=== PATIENT | female | born 1970 | race Caucasian/White ===

== ENCOUNTER 2018-01-30 21:07 | Inpatient (IN) | payer OTHER ==
[~2018-01-30] VITALS: Ht 162.6 cm; Wt 100.5 kg
--- NOTE | ~2018-01-30 | P ---
[facility] [place] [address] PROCEDURE REPORT Name: KARTHIK WEIR PHANI Room #: 407-P ADM IN M.R.#: [id number] Admission: 01/30/18 Attend Phys: Celestine Marquez MD Discharge: Date of : 66 Report #: [id number] THIS REPORT FOR: //name// CC: FAM physician/PCP Abdulaziz Tompkins MD DATE OF SERVICE: 01/31/2018 BRIEF HISTORY: The patient is a 47-year-old woman who came to [facility] from [facility] with reported abdominal pain and also history of black stools with red blood mixed with the stools. She had an upper endoscopy at [facility] about 2 weeks ago and reportedly had multiple antral ulcers and also retained foods. Recent gastric emptying study from [facility] was normal. Endoscopic biopsies were negative for Helicobacter pylori. PREOPERATIVE DIAGNOSES: Abdominal pain and melanotic stools. POSTOPERATIVE DIAGNOSES: 1. Moderately severe diffuse gastritis. 2. Retained bilious material in stomach. 3. Deformity of antral stomach consistent with remote ulcer disease, healed. 4. Small hiatus hernia. 5. Thickened folds, antrum of the stomach. MEDICATIONS: Deep sedation with propofol per Anesthesia. SPECIMEN: Biopsy of thicken fold antrum of the stomach. ESTIMATED BLOOD LOSS: 3 mL. PROCEDURE: EGD with biopsy. FINDINGS: Prior to propofol sedation, procedure of upper endoscopy was discussed with the patient as well as potential risks and its complications. She indicates she understands and desires to proceed. DESCRIPTION OF PROCEDURE: With the patient in left lateral decubitus position, the Fuji video endoscope was inserted in the cervical esophagus under direct vision without difficulty. Examination of this organ through its entire length revealed normal esophageal mucosa down in the squamocolumnar junction. Squamocolumnar junction was inspected and noted to be within normal limits. Intermittently, small hiatus hernia was seen. No mucosal abnormalities were seen. Scope was advanced in the stomach, which was examined on end view as well as retroflexed views. There were no retained solids within the stomach. [facility] [address] [place] [address] PROCEDURE REPORT Name: KARTHIK WEIR [facility] Room #: 407-P [facility] IN M.R.#: [id number] Admission: 01/30/18 Attend Phys: Celestine Marquez MD Discharge: Date of : 66 Report #: [id number] However, there was a rather large amount of retained bilious material and yellowish sludge-like material. We vigorously irrigated and lavaged the stomach. We were able to remove much of this material, but not every last bit of it. Examination of the mucosa on end view as well as retroflexed views revealed diffuse edema and erythema. There was some of folds in the antrum of the stomach. A couple erosions were seen, but no definite ulcers were seen. There were no definite erosions. We fully insufflated the stomach with air, suctioned away as much bilious material as could be seen. There was good flattening of the folds in the proximal stomach. Multiple biopsies were obtained from the thickened folds in the antrum. Pylorus was normal. Duodenal bulb was normal. The second and third portion of duodenum were normal. The duodenal papilla was identified and noted to be within normal limits. At that point, the scope was slowly withdrawn and careful circumferential views confirmed the above findings. The patient tolerated the procedure well. DISPOSITION: The patient with abdominal pain, reported melanotic stools. I do not see an obvious source for bleeding. She does have what appear to be some erosions, but no active ulcer crater at this time, although it appears that she has had significant ulcer disease in the past. I would agree with the proton pump inhibitor. She may have retained bile in the stomach due to previous cholecystectomy. Sucralfate would certainly be reasonable. We will follow up on biopsies obtained today. It is unclear to me whether or not she has had significant gastrointestinal bleeding. We will obtain stool Hemoccults for further evaluation and monitoring and also continue to monitor hemoglobin. The patient reports she has had 14 surgeries on her abdomen and pelvis including surgeries for endometriosis as well as multiple surgeries for adhesions. Recent CT done at [facility] did not reveal any acute abnormalities. I would not pursue surgery unless she has signs of obstruction. Her history of pancreatitis is noted. There was some replacement of the pancreas with fat, but calcifications were not described. If symptoms persist, may need to consider the evaluation for chronic pancreatitis, although I think that is less likely. Her pain may be a result of her previous surgeries and adhesions. We will resume diet at this time. <ELECTRONICALLY SIGNED> By: Arslan Morales MD 02/02/18 1408 1308 0020 Arslan Morales MD /charlie
--- NOTE | ~2018-01-30 | P ---
[facility] [place] [address] PROCEDURE REPORT Name: KARTHIK WEIR PHANI Room #: 407-P ADM IN M.R.#: [id number] Admission: 01/30/18 Attend Phys: Celestine Marquez MD Discharge: Date of : 66 Report #: [id number] THIS REPORT FOR: //name// CC: COLLIN physician/PCP Celestine Marquez MD DATE OF SERVICE: 02/03/2018 PROCEDURE PERFORMED: Colonoscopy with polypectomy. HISTORY OF PRESENT ILLNESS: The patient is a 47-year-old female who was admitted with abdominal pain as well as anemia. She has a history of melena and hematochezia as well. Dr. Morales, my partner performed an upper endoscopy on her on Saturday, which showed few small erosions and mild gastritis. The patient is currently on PPI therapy and Carafate. She has had multiple abdominal surgeries apparently for abdominal pain and adhesions in the past. She also reports bright red blood per rectum with each bowel movement for the last 1-2 weeks. She is adopted. No known family history of colon cancer. She does report constipation and diarrhea, but typically more on the constipated side. DESCRIPTION OF PROCEDURE: The risks and benefits of the procedure were explained to the patient, those risks including but not limited to bleeding, perforation and the risk of sedation. She understood these risks and gave informed consent. Sedation was given using propofol per Anesthesia. Next, a digital rectal exam was initially performed, which showed external hemorrhoids, otherwise normal. Next, using a standard Olympus colonoscope, the scope was placed in the patient's anus and advanced under direct vision to the cecum. The overall prep was good. The cecum and ileocecal valve were normal in appearance. Ascending, transverse and descending colon were normal. In the sigmoid colon, a 6 mm sessile polyp was noted. This was removed by snare cautery, otherwise normal. The rectal mucosa was normal. On retroflexion, no abnormalities were noted. Close examination of the anal canal showed a medium-sized external hemorrhoid, nonbleeding as well as an anal fissure, nonbleeding. The scope was then withdrawn and the procedure terminated. The patient tolerated the procedure well. IMPRESSION: 1. Colonic polyp. 2. External hemorrhoid. 3. Anal fissure. 4. Otherwise, normal colonoscopy. RECOMMENDATIONS: 1. Await biopsy results. 2. If polyp is hyperplastic, repeat in 10 years; if adenomatous polyp, repeat [address] [address] PROCEDURE REPORT Name: KARTHIK WEIR [facility] Room #: 407-P [facility] IN M.R.#: [id number] Admission: 01/30/18 Attend Phys: Celestine Marquez MD Discharge: Date of : 66 Report #: [id number] in 5 years. 3. Bright red blood per rectum, likely secondary to anal fissure and/or external hemorrhoid. Recommend high fiber diet and Analpram. 4. Etiology of abdominal pain is unclear. Would continue PPI therapy. Thank you for allowing me to participate in her care. <ELECTRONICALLY SIGNED> By: David Edmond MD 02/03/18 1247 1105 1132 David Edmond MD /nt
--- NOTE | ~2018-01-30 | S ---
[facility] [place] [address] SURGICAL PATH RPT PROCEDURE Name: KARTHIK ACOSTA PHANI Room #: 407-P DIS IN M.R.#: [id number] Admission: 01/30/18 Date of : 66 Discharge: 02/03/18 Report #: [id number] Path Case #: [id number] PATHOLOGY REPORT COLLECTION DATE: 02/03/2018 RECEIVED DATE: 02/03/2018 SUBMITTING PHYS: Dr. David Edmond OTHER PHYS: Dr. Celestine Marquez SPECIMEN(S) RECEIVED: A.Sigmoid polyp * * * * * * * * * * * * FINAL DIAGNOSIS: "Sigmoid polyp", biopsy: - Tubular adenoma; no high-grade dysplasia. (CLW:natalya; 02/04/2018) PATHOLOGIST: Beatriz Cameron M.D. REPORT ELECTRONICALLY SIGNED BY: Beatriz Cameron M.D. DATE/TIME: 02/04/2018 17:51 * * * * * * * * * * * * GROSS PATHOLOGY: The specimen is received in formalin, labeled "Karthik Acosta, polyp at sigmoid colon," and consists of a polypoid segment of giles soft tissue measuring 0.6 x 0.5 x 0.4 cm. It is inked, bisected, and entirely submitted in cassette A1. (SDY; 02/03/2018) CLINICAL HISTORY: Minor, epigastric pain, hematochezia Colon polyp, hemorrhoids, fissure INITIAL CPT CODE(S): A; 06632 Professional services performed by [facility] at [facility] [address] [place] [address] Technical services performed by [facility] at [address] [place] [address]. [facility] [address] [place] [address] SURGICAL PATH RPT PROCEDURE Name: KARTHIK ACOSTA PHANI Room #: 407-P DIS IN M.R.#: [id number] Admission: 01/30/18 Date of : 66 Discharge: 02/03/18 Report #: [id number] Path Case #: [id number] [place] [id number] [address] PHONE: [phone] DIRECTOR: Joseph Barnhart M.D. * * * END OF REPORT * * *
--- NOTE | ~2018-01-30 | S ---
[facility] [place] [address] SURGICAL PATH RPT PROCEDURE Name: KARTHIK ACOSTA PHANI Room #: 407-P DIS IN M.R.#: [id number] Admission: 01/30/18 Date of : 66 Discharge: 02/03/18 Report #: [id number] Path Case #: [id number] PATHOLOGY REPORT COLLECTION DATE: 01/31/2018 RECEIVED DATE: 01/31/2018 SUBMITTING PHYS: Dr. Arslan Morales OTHER PHYS: Dr. Celestine Marquez SPECIMEN(S) RECEIVED: A.Thickened folds antrum stomach * * * * * * * * * * * * FINAL DIAGNOSIS: "Thickened folds antrum stomach", biopsy: - Gastric mucosa with reactive/regenerative changes and acute and chronic inflammation including patchy active gastritis. - Immunohistochemical stain negative for H. pylori organisms (block A1); control reacted appropriately. (CLW:natalya; 02/03/2018) PATHOLOGIST: Beatriz Cameron M.D. REPORT ELECTRONICALLY SIGNED BY: Beatriz Cameron M.D. DATE/TIME: 02/03/2018 22:04 * * * * * * * * * * * * GROSS PATHOLOGY: Received in formalin labeled "Karthik Acosta, BX of thicken folds antrum stomach," are 4 segments of giles soft tissue measuring 1.1 x 0.9 x 0.3 cm in aggregate dimensions and ranging from 0.2 to 0.6 cm in maximum dimension. The specimen is submitted entirely in cassette A1. (TSD; 01/31/2018) CLINICAL HISTORY: Abdominal pain and melena INITIAL CPT CODE(S): A; 62652, 09941 Professional services performed by [facility] at [facility] [address], [place] [address] Technical services performed by [facility] at [address] [place] [address]. [facility] [address] [place] [address] SURGICAL PATH RPT PROCEDURE Name: KARTHIK ACOSTA PHANI Room #: 407-P DIS IN M.R.#: [id number] Admission: 01/30/18 Date of : 66 Discharge: 02/03/18 Report #: [id number] Path Case #: [id number] [facility] [address] [address] PHONE: [phone] DIRECTOR: Joseph Barnhart M.D. * * * END OF REPORT * * *
[~2018-01-30 21:07] MED LIST: AMBIEN 10 MG TA10 MG PO; AMBIEN 5 MG TABL5 M1 PO; AMITRIPTYLINE H50 M3; AMOXICILLIN875 MG PO; AZOR 10-40 MG1 EACH PO; BACTRIM DS TAB1 EACH PO; BENTYL 20 MG TA20 M1 PO; BENTYL20 MG PO; CIPROFLOXACIN500 M1 PO; CITRATE OF MAG296 ML PO; CLONAZEPAM 1 MG1 M1; CYCLOBENZAPRINE10 MG PO; DILAUDID2 M1 PO; DIOVAN HCT 3201 EACH PO; DOXYCYCLINE 10100 MG PO; EFFEXOR75 MG PO; EXFORGE; FLEXERIL PO; IBUPROFEN 600600 M1 PO; LASIX 40 MG TAB40 MG; LIBRAX; MACROBID 100 M100 M1 PO; MEDROLDOSEPACK PO; MOBIC7.5 M1; NAPROSYN500 MG PO; NORCO 5-325 TA1 EACH PO; NORFLEX100 MG PO; NYSTATIN15 GM TP; PERCOCET; PERCOCET 10-321 EACH PO; PERCOCET 5-3251 EACH PO; PHENERGAN; PHENERGAN 25 MG25 M1; PHENERGAN 25 MG25 M1 PO; POTASSIUM20 PO; PRILOSEC40 MG PO; PRISTIQ50 MG PO; PROAIR HFA8.5 GM IH; PROMS25 WY RECTAL; PYRIDIUM200 MG PO; RESTORIL15 MG; SINGULAIR 10 MG10 M1; SYMBICORT160 MCG/4.; TESSALON PERLE100 MG PO; TRAMADOL 50 MG50 MG PO; ULTRAM 50MG TAB50 MG PO; VALIUM5 MG PO; VALTURNA 300-31 EACH; VICODIN 5-5001 EACH PO; XANAX XR2 MG PO; XANAX2 MG PO; ZANTAC 150MG T150 MG PO; ZOFRAN 4 MG ORAL4 M1 DIS; ZOFRAN ODT4 MG PO; ZOFRAN4 MG PO
[2018-01-30 22:12] VITALS: BP 90/50
[2018-01-30] MEDS ORDERED: VENTOLIN HFA 1818 GM INH (22:56)
[2018-01-30] MEDS ORDERED: DUONEB 2.5-0.5 M3 ML INH (23:05)
[2018-01-30] MEDS ORDERED: AMITRIPTYLINE150 MG PO (23:07)
[2018-01-30] MEDS ORDERED: ABILIFY15 MG PO (23:08)
[2018-01-30] MEDS ORDERED: PROZAC20 MG PO (23:09)
[2018-01-30] MEDS ORDERED: PROTONIX40 M1 PO (23:10)
[2018-01-30] MEDS ORDERED: TOPAMAX 100 MG100 MG PO (23:12)
[2018-01-30] MEDS ORDERED: ATENOLOL 100MG100 MG PO (23:13)
[2018-01-30] MEDS ORDERED: METFORMIN HCL500 MG PO (23:14)
[2018-01-30] MEDS ORDERED: METOLAZONE 5 MG5 MG PO (23:15)
[2018-01-30] MEDS ORDERED: CARAFATE 1 GM TA1 G1 PO (23:17)
[2018-01-30] MEDS ORDERED: PHENERGAN 25 MG25 M1 PO (23:17)
[2018-01-31 04:00] VITALS: BP 92/52
[2018-01-31 05:38] LABS: HEMATOCRIT 35.1 % (37.0-47.0); HEMOGLOBIN 11.7 gm/dL (12.0-15.0); MCH 28.1 pg (26.0-34.0); MCHC 33.3 g/dL (28.0-37.0); MCV 84.5 fL (80.0-100.0); RBC 4.16 mil/uL (4.20-5.00); WBC 7.4 thou/uL (4.0-11.0)
[2018-01-31 05:49] LABS: ALBUMIN 2.9 g/dL (3.4-5.0); CALCIUM 8.6 mg/dL (8.5-10.1); POTASSIUM 3.4 mmol/L (3.5-5.1); TOTAL BILIRUBIN 0.3 mg/dL (<0.1-1.0); TOTAL PROTEIN 6.5 g/dL (6.4-8.2)
[2018-01-31 06:58] VITALS: BP 104/65
[2018-01-31 14:57] VITALS: BP 104/65
[2018-01-31 19:34] VITALS: BP 107/61
[2018-02-01 04:30] LABS: HEMATOCRIT 33.7 % (37.0-47.0); HEMOGLOBIN 10.9 gm/dL (12.0-15.0); MCH 27.6 pg (26.0-34.0); MCHC 32.5 g/dL (28.0-37.0); RBC 3.96 mil/uL (4.20-5.00); RDW 14.9 % (10.5-14.5); WBC 5.8 thou/uL (4.0-11.0)
[2018-02-01 04:56] VITALS: BP 91/34
[2018-02-01 09:12] VITALS: BP 110/58
[2018-02-01 16:24] VITALS: BP 87/49
[2018-02-01 19:31] VITALS: BP 91/56
[2018-02-02 04:00] VITALS: BP 96/54
[2018-02-02 05:58] LABS: HEMATOCRIT 32.2 % (37.0-47.0); HEMOGLOBIN 10.7 gm/dL (12.0-15.0); MCH 28.2 pg (26.0-34.0); MCHC 33.3 g/dL (28.0-37.0); MCV 84.7 fL (80.0-100.0); RBC 3.8 mil/uL (4.20-5.00); RDW 15.2 % (10.5-14.5); WBC 5.8 thou/uL (4.0-11.0)
[2018-02-02 06:14] LABS: CALCIUM 8.4 mg/dL (8.5-10.1); CREATININE 0.8 mg/dL (0.6-1.0); POTASSIUM 3.6 mmol/L (3.5-5.1)
[2018-02-02 08:10] VITALS: BP 113/65
[2018-02-02 15:41] VITALS: BP 124/80
[2018-02-02 20:11] VITALS: BP 105/65
[2018-02-03 04:00] VITALS: BP 122/82
[2018-02-03 08:39] VITALS: BP 112/61
[2018-02-03] MEDS ORDERED: ANALPRAM HC 2.530 GM RECTAL ×2 (13:00→13:01)
[2018-02-14] MEDS ORDERED: FLAGYL500 M1 PO (11:44)
[2018-02-14] MEDS ORDERED: CIPRO500 MG PO (11:44)
[2018-02-15] MEDS ORDERED: OXYCODONE HCL 55 MG PO (12:53)
[2018-05-16] MEDS ORDERED: ACETAMINOPHEN-1 EAC1 PO (03:33)
[2018-05-16] MEDS ORDERED: NAPROSYN500 MG PO (03:33)
[2018-05-16] MEDS ORDERED: NORFLEX100 MG PO (03:33)
[2018-05-17] MEDS ORDERED: ATORVASTATIN CA80 MG PO (09:17)
[2018-05-17] MEDS ORDERED: ASPIR 8181 MG PO (09:17)
[2018-05-17] MEDS ORDERED: ATENOLOL 50MG T50 M1 PO (09:17)
[2018-05-17] MEDS ORDERED: BYSTOLIC 5 MG5 M1 PO (09:56)
[2018-05-17] MEDS ORDERED: LISINOPRIL5 MG PO (09:56)
[2018-07-16] MEDS ORDERED: PHENERGAN 25 MG25 M1 PO (00:14)
[2018-07-16] MEDS ORDERED: CARAFATE 1 GM TA1 G1 PO (00:14)
[2018-07-16] MEDS ORDERED: KEFLEX500 M1 PO (03:37)
[2018-07-16] MEDS ORDERED: KLOR-CON 1010 MEQ PO (03:37)
[2018-08-02] MEDS ORDERED: ANUSOL-HC25 MG RECTAL (10:01)
[2018-08-08] MEDS ORDERED: ANUSOL-HC25 MG RECTAL (10:28)
== END 2018-02-03 17:46 | disposition home or self-care (01) | DRG 392 ==
LOC: 4N 21:07
PROVIDERS: Hospitalist; Nurse Practitioner Family; Specialist
PROC: 0DB68ZX Excision of Stomach, Via Natural or Artificial Opening Endoscopic, Diagnostic (ICD-10-PCS; principal; 2018-01-31)
PROC: 0DBN8ZZ Excision of Sigmoid Colon, Via Natural or Artificial Opening Endoscopic (ICD-10-PCS; 2018-02-03)
DX: K29.70 Gastritis, unspecified, without bleeding (principal); K44.9 Diaphragmatic hernia without obstruction or gangrene; K63.5 Polyp of colon; K64.4 Residual hemorrhoidal skin tags; K60.2 Anal fissure, unspecified; F32.9 Major depressive disorder, single episode, unspecified; G43.909 Migraine, unspecified, not intractable, without status migrainosus; K59.00 Constipation, unspecified; E66.9 Obesity, unspecified; J45.909 Unspecified asthma, uncomplicated; F41.9 Anxiety disorder, unspecified; G47.00 Insomnia, unspecified; Z90.49 Acquired absence of other specified parts of digestive tract; Z87.11 Personal history of peptic ulcer disease; Z90.710 Acquired absence of both cervix and uterus; Z68.38 Body mass index [BMI] 38.0-38.9, adult; Z87.81 Personal history of (healed) traumatic fracture
CPT/HCPCS: 10790; 62110; 62900; 70005

== ENCOUNTER 2018-02-08 11:57 | Emergency (ER) | payer OTHER ==
[~2018-02-08] VITALS: Ht 162.6 cm; Wt 100.7 kg
[~2018-02-08 11:57] MED LIST changes: +ABILIFY15 MG PO; +AMITRIPTYLINE150 MG PO; +ANALPRAM HC 2.530 GM RECTAL; +ATENOLOL 100MG100 MG PO; +CARAFATE 1 GM TA1 G1 PO; +DUONEB 2.5-0.5 M3 ML INH; +METFORMIN HCL500 MG PO; +METOLAZONE 5 MG5 MG PO; +PROTONIX40 M1 PO; +PROZAC20 MG PO; +TOPAMAX 100 MG100 MG PO; +VENTOLIN HFA 1818 GM INH
[2018-02-08 13:03] LABS: ABSOLUTE NEUTROPHILS 4.2 thou/uL (1.4-8.2); BASOPHILS 1.2 % (0.0-2.0); EOSINOPHILS 10.8 % (0.0-3.0); HEMATOCRIT 39.9 % (37.0-47.0); LYMPHOCYTES 22.8 % (24.0-44.0); MCH 27.5 pg (26.0-34.0); MCHC 32.7 g/dL (28.0-37.0); MCV 84.2 fL (80.0-100.0); MONOCYTES 5.2 % (1.0-8.0); PLATELET COUNT 330 thou/uL (150-400); RBC 4.74 mil/uL (4.20-5.00); RDW 15.1 % (10.5-14.5); WBC 7.1 thou/uL (4.0-11.0)
[2018-02-08 13:06] LABS: CALCIUM 9.5 mg/dL (8.5-10.1)
[2018-02-08 13:06] LABS: URINE BILIRUBIN NEGATIVE (Negative); URINE BLOOD NEGATIVE (Negative); URINE CLARITY CLEAR; URINE COLOR YELLOW; URINE GLUCOSE-RANDOM* NEGATIVE (Negative); URINE KETONES NEGATIVE (Negative); URINE LEUKOCYTES NEGATIVE (Negative); URINE NITRITE NEGATIVE (Negative); URINE PROTEIN (DIPSTICK) NEGATIVE (Negative); URINE UROBILINOGEN 0.2 E.U./dl (0.2-1.0)
[2018-02-08 13:12] LABS: ALBUMIN 3.5 g/dL (3.4-5.0); TOTAL BILIRUBIN 0.2 mg/dL (<0.1-1.0); TOTAL PROTEIN 7.6 g/dL (6.4-8.2)
[2018-02-08] MEDS ORDERED: OXYCODONE HCL 55 MG PO (13:51)
[2018-02-08] MEDS ORDERED: IMITREX4 MG/0.51 INJECTION (13:52)
[2018-02-14] MEDS ORDERED: CIPRO500 MG PO (11:44)
[2018-02-14] MEDS ORDERED: FLAGYL500 M1 PO (11:44)
[2018-02-15] MEDS ORDERED: OXYCODONE HCL 55 MG PO (12:53)
== END 2018-02-08 16:56 | disposition home or self-care (01) ==
LOC: ER 11:57
PROVIDERS: Emergency Medicine
DX: R10.13 Epigastric pain (principal); M54.9 Dorsalgia, unspecified; F41.9 Anxiety disorder, unspecified; F32.9 Major depressive disorder, single episode, unspecified; I10 Essential (primary) hypertension; J45.909 Unspecified asthma, uncomplicated; G43.909 Migraine, unspecified, not intractable, without status migrainosus; Z90.49 Acquired absence of other specified parts of digestive tract; Z90.710 Acquired absence of both cervix and uterus

== ENCOUNTER 2018-02-28 15:26 | Emergency (ER) | payer OTHER ==
[~2018-02-28] VITALS: Ht 162.6 cm; Wt 101.6 kg
[~2018-02-28 15:26] MED LIST changes: +CIPRO500 MG PO; +FLAGYL500 M1 PO; +IMITREX4 MG/0.51 INJECTION; +OXYCODONE HCL 55 MG PO
[2018-02-28 15:48] LABS: ABSOLUTE NEUTROPHILS 8.3 thou/uL (1.4-8.2); BASOPHILS 0.8 % (0.0-2.0); EOSINOPHILS 2.4 % (0.0-3.0); HEMATOCRIT 41.1 % (37.0-47.0); HEMOGLOBIN 13.5 gm/dL (12.0-15.0); LYMPHOCYTES 17.9 % (24.0-44.0); MCH 27.2 pg (26.0-34.0); MCHC 32.9 g/dL (28.0-37.0); MCV 82.7 fL (80.0-100.0); MONOCYTES 5.2 % (1.0-8.0); PLATELET COUNT 384 thou/uL (150-400); POLYS 73.7 % (36.0-66.0); RBC 4.97 mil/uL (4.20-5.00); RDW 14.1 % (10.5-14.5); WBC 11.3 thou/uL (4.0-11.0)
[2018-02-28 15:55] LABS: URINE BILIRUBIN NEGATIVE (Negative); URINE BLOOD NEGATIVE (Negative); URINE CLARITY CLEAR; URINE COLOR YELLOW; URINE GLUCOSE-RANDOM* NEGATIVE (Negative); URINE KETONES NEGATIVE (Negative); URINE LEUKOCYTES NEGATIVE (Negative); URINE NITRITE NEGATIVE (Negative); URINE PROTEIN (DIPSTICK) NEGATIVE (Negative); URINE SPECIFIC GRAVITY >= 1.030 (1.005-1.035); URINE UROBILINOGEN 0.2 E.U./dl (0.2-1.0)
[2018-02-28 16:01] LABS: ANION GAP 11 mmol/L (7-16); BUN 30 mg/dL (7-18); CALCIUM 9.4 mg/dL (8.5-10.1); CHLORIDE 107 mmol/L (98-107); CO2 22 mmol/L (21-32); CREATININE 1.1 mg/dL (0.6-1.0); GLUCOSE 94 mg/dL (74-106); POTASSIUM 3.9 mmol/L (3.5-5.1); SODIUM 140 mmol/L (136-145)
[2018-02-28 16:05] LABS: ALBUMIN 3.5 g/dL (3.4-5.0); DIRECT BILIRUBIN < 0.1 mg/dL (<0.1-0.3); LIPASE 179 U/L (73-393); SGOT 22 U/L (15-37); SGPT 28 U/L (30-65); TOTAL BILIRUBIN 0.2 mg/dL (<0.1-1.0); TOTAL PROTEIN 7.7 g/dL (6.4-8.2)
[2018-02-28] MEDS ORDERED: COLACE100 MG PO (16:26)
[2018-02-28] MEDS ORDERED: CITRATE OF MAG296 ML PO (16:26)
== END 2018-02-28 17:45 | disposition home or self-care (01) ==
LOC: ER 15:26
PROVIDERS: Emergency Medicine
DX: K59.00 Constipation, unspecified (principal); I10 Essential (primary) hypertension; J45.909 Unspecified asthma, uncomplicated; G43.909 Migraine, unspecified, not intractable, without status migrainosus

== ENCOUNTER 2018-05-21 15:42 | Inpatient (IN) | payer OTHER ==
[~2018-05-21] VITALS: Ht 162.6 cm; Wt 125.6 kg
--- NOTE | ~2018-05-21 | EKG ---
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 05/22/18 0839 1545 1545 Jaguar Dickey MD, [facility] /EPI
--- NOTE | ~2018-05-21 | H ---
[facility] [place] [address] HISTORY AND PHYSICAL Name: CARMELLAKARTHIK Room #: 213-P ADM IN M.R.#: [id number] Admission: 05/21/18 Attend Phys: Ancelmo Keita MD Discharge: Date of : 66 Report #: [id number] THIS REPORT FOR: //name// CC: Rodrigue Keita DATE OF SERVICE: 05/21/2018 CHIEF COMPLAINT: Chest pain. HISTORY OF PRESENT ILLNESS: The patient is a 47-year-old female with history of hypertension, chronic kidney disease, baseline creatinine of 1.3, recently admitted for chest pain, status post cardiac catheterization, presented to the Emergency Room complaining of chest pain. The patient was admitted end of April for abdominal pain and chest pain. She had an EGD in the past, which showed gastritis and ulcer, but no active bleeding. H. pylori was negative. She had a colonoscopy in the past with polypectomy. The patient was seen by donor center technician at that time. She had an echocardiogram done during her admission, which showed normal ejection fraction 50-55% EF. She also underwent a cardiac catheterization on 05/16/2018, which showed around 60% stenosis of the proximal mid vessel lesion of the LAD. Abdominal aortogram showed no evidence of any aneurysm. There is ostial diagonal lesion in the area of the moderate LAD stenosis with a 50-60% stenosis. The patient was recommended medical therapy. Atenolol was discontinued and switched to Bystolic. She also takes metolazone at home. The patient started having this chest pressure this morning, has been constant since 7:30. It has been associated with mild shortness of breath. Very mild dizziness. No fever or chills. She has had some mild lower abdominal pain. Workup in the Emergency Room showed UTI. Her blood pressure was also low on arrival with a blood pressure of 94/56. The patient denies any fever or chills. Mild nausea, no vomiting, no cough. No headache. No focal numbness or weakness of the extremity. PAST MEDICAL HISTORY: Significant for hypertension. No history of any diabetes. History of cardiac catheterization with coronary artery disease as above. History of gastritis. History of colon polyp. History of pancreatitis, anxiety, depression, cholecystectomy, hysterectomy, hernia repair, endometriosis, tonsillectomy, right knee surgery, history of migraine, left shoulder surgery, appendectomy, asthma and pneumonia. SOCIAL HISTORY: No smoking, alcohol abuse, or illicit drug abuse. FAMILY HISTORY: Unknown, the patient was adopted. ALLERGIES: No known drug allergy. HOME MEDICATIONS: Reviewed, please look at the nursing documentation for home [address] [address] HISTORY AND PHYSICAL Name: CARMELLAKARTHIK [facility] Room #: 213-P [facility] IN M.R.#: [id number] Admission: 05/21/18 Attend Phys: Ancelmo Keita MD Discharge: Date of : 66 Report #: [id number] meds. REVIEW OF SYSTEMS: CONSTITUTIONAL: No recent weight loss, weight gain. No fever or chills. EYES: No change in vision. THROAT: Denies any sore throat. CARDIOVASCULAR: As above. RESPIRATORY: As above. GASTROINTESTINAL: As above. GENITOURINARY: Has had mild dysuria. NEUROLOGIC SYSTEM: No focal numbness or weakness of the extremities. PSYCHIATRIC: The patient is anxious. The 12-point review of systems is negative other than the positives and negatives dictated in the history of present illness and the review of systems. PHYSICAL EXAMINATION: VITAL SIGNS: Blood pressure 94/56, heart rate 76 per minute, rate is 13 per minute, afebrile. GENERAL: The patient is awake and alert, not in acute respiratory distress. She appears anxious. HEENT: Eyes: Pupils equal, reactive to light. Throat, she has dry oral mucosa. NECK: Supple, no JVD, no bruit, no lymphadenopathy. CARDIOVASCULAR: S1, S2, negative S3, no murmur. CHEST: Bilateral air entry present. Clear on auscultation. ABDOMEN: Soft, bowel sounds present, no mass, no organomegaly. There is mild tenderness in the suprapubic area. No rebound tenderness, no guarding. She has mild tenderness in the left CVA area. PERIPHERY: No pedal edema. No calf tenderness. Dorsalis pedis 1+. NEUROLOGICAL: No gross motor or sensory deficit. ASSESSMENT AND PLAN: 1. Chest pressure. The patient will be admitted to telemetry. Initial troponin has been negative. EKG shows normal sinus rhythm with borderline left axis deviation. Borderline T-wave abnormality in the anterior leads. Chest x-ray has been normal so far, no acute cardiopulmonary process. The patient will be admitted to telemetry with serial troponins. We will continue with aspirin. Health Therapist will be consulted. Chest pain could have been induced by low blood pressure. 2. History of coronary artery disease, status post cardiac catheterization on 05/16/2018. Cardiac catheterization showed a lesion in the left anterior descending 60-70% and also ostial diagonal lesion at the area of moderate left anterior descending stenosis with 50-60% stenosis. 3. Chronic kidney disease. Creatinine is stable at 1.4. Stage 2. 4. History of dyslipidemia. LDL was 161 on 05/16/2018. [address] [address] HISTORY AND PHYSICAL Name: KARTHIK WEIR PHANI Room #: 213-P [facility] IN .R.#: [id number] Admission: 05/21/18 Attend Phys: Ancelmo Keita MD Discharge: Date of : 66 Report #: [id number] 5. Depression and anxiety. The patient will be continued on her current medication. 6. Hypotension. We will discontinue blood pressure medication at present. We will continue with IV hydration. 7. Urinary tract infection. The patient will be continued on IV ceftriaxone. Follow cultures and adjust antibiotic as needed. 8. Deep venous thrombosis prophylaxis. She will be placed on Lovenox for deep venous thrombosis prophylaxis. Treatment plan has been explained to the patient in detail. <ELECTRONICALLY SIGNED> By: Ancelmo Keita MD 05/22/18 1227 1735 1758 Ancelmo Keita MD /nt
[~2018-05-21 15:42] MED LIST changes: +ACETAMINOPHEN-1 EAC1 PO; +ASPIR 8181 MG PO; +ATENOLOL 50MG T50 M1 PO; +ATORVASTATIN CA80 MG PO; +BYSTOLIC 5 MG5 M1 PO; +COLACE100 MG PO; +LISINOPRIL5 MG PO
[2018-05-21 15:58] VITALS: BP 98/56
[2018-05-21 16:18] LABS: ABSOLUTE NEUTROPHILS 7.3 thou/uL (1.4-8.2); BASOPHILS 1.1 % (0.0-2.0); EOSINOPHILS 3.6 % (0.0-3.0); HEMATOCRIT 37.2 % (37.0-47.0); HEMOGLOBIN 12.1 gm/dL (12.0-15.0); LYMPHOCYTES 20.8 % (24.0-44.0); MCH 26.2 pg (26.0-34.0); MCHC 32.6 g/dL (28.0-37.0); MCV 80.3 fL (80.0-100.0); MONOCYTES 7.6 % (1.0-8.0); PLATELET COUNT 284 thou/uL (150-400); POLYS 66.9 % (36.0-66.0); RBC 4.63 mil/uL (4.20-5.00); RDW 14.4 % (10.5-14.5); WBC 10.9 thou/uL (4.0-11.0)
[2018-05-21 16:29] LABS: ANION GAP 8 mmol/L (7-16); BUN 31 mg/dL (7-18); CALCIUM 9.5 mg/dL (8.5-10.1); CHLORIDE 102 mmol/L (98-107); CO2 28 mmol/L (21-32); CREATININE 1.3 mg/dL (0.6-1.0); GLUCOSE 98 mg/dL (74-106); POTASSIUM 3.5 mmol/L (3.5-5.1); SODIUM 138 mmol/L (136-145)
[2018-05-21 16:37] LABS: ALBUMIN 3.4 g/dL (3.4-5.0); LIPASE 124 U/L (73-393); SGOT 14 U/L (15-37); SGPT 24 U/L (30-65); TOTAL BILIRUBIN 0.2 mg/dL (<0.1-1.0); TROPONIN-I <0.06 ng/mL (<0.06)
[2018-05-21 16:37] LABS: URINE BLOOD TRACE (Negative); URINE CLARITY CLEAR; URINE COLOR YELLOW; URINE GLUCOSE-RANDOM* NEGATIVE (Negative); URINE KETONES TRACE (Negative); URINE NITRITE-REFLEX NEGATIVE (Negative); URINE PROTEIN (DIPSTICK) TRACE (Negative); URINE SPECIFIC GRAVITY >= 1.030 (1.005-1.035); URINE UROBILINOGEN 0.2 E.U./dl (0.2-1.0)
[2018-05-21 16:40] LABS: ICTOTEST (BILI CONFIRMATORY) Negative (Negative); URINE BILIRUBIN NEGATIVE (Negative); URINE LEUKOCYTES-REFLEX 2+ (Negative)
[2018-05-21 16:45] LABS: BACTERIA-REFLEX 1-9 Few /HPF (None Seen); CRYSTALS None Seen /LPF (None Seen); HYALINE CASTS 0-3 Few /LPF (None Seen); SQUAMOUS 0-3 Few /LPF (0-3); URINE RBC 0-2 Rare /HPF (0-2); URINE WBC-REFLEX >25 Many /HPF (0-5)
[2018-05-21 17:27] VITALS: BP 94/56
[2018-05-21 17:34] VITALS: BP 92/51
[2018-05-21 17:58] VITALS: BP 105/59
[2018-05-21 19:55] VITALS: BP 104/67
[2018-05-22 03:14] LABS: ABSOLUTE NEUTROPHILS 6.6 thou/uL (1.4-8.2); BASOPHILS 0.4 % (0.0-2.0); HEMATOCRIT 33.1 % (37.0-47.0); HEMOGLOBIN 11.2 gm/dL (12.0-15.0); LYMPHOCYTES 13.2 % (24.0-44.0); MCH 26.1 pg (26.0-34.0); MCHC 33.9 g/dL (28.0-37.0); MCV 77.1 fL (80.0-100.0); MONOCYTES 3.7 % (1.0-8.0); PLATELET COUNT 274 thou/uL (150-400); POLYS 82.7 % (36.0-66.0); RDW 14.4 % (10.5-14.5); WBC 7.9 thou/uL (4.0-11.0)
[2018-05-22 03:32] LABS: ANION GAP 11 mmol/L (7-16); BUN 34 mg/dL (7-18); CALCIUM 8.8 mg/dL (8.5-10.1); CHLORIDE 105 mmol/L (98-107); CO2 24 mmol/L (21-32); CREATININE 1.2 mg/dL (0.6-1.0); GLUCOSE 144 mg/dL (74-106); MAGNESIUM 1.8 mg/dL (1.8-2.4); POTASSIUM 3.9 mmol/L (3.5-5.1); SODIUM 140 mmol/L (136-145); TROPONIN-I <0.06 ng/mL (<0.06)
[2018-05-22 04:50] VITALS: BP 107/66
[2018-05-22 07:25] VITALS: BP 108/67
[2018-05-22 13:15] VITALS: BP 117/63
[2018-05-22 15:15] VITALS: BP 101/51
[2018-05-22 19:12] VITALS: BP 97/59
[2018-05-23 04:08] VITALS: BP 89/56
[2018-05-23 04:31] LABS: CALCIUM 8.2 mg/dL (8.5-10.1); CREATININE 1.2 mg/dL (0.6-1.0); MAGNESIUM 1.7 mg/dL (1.8-2.4); POTASSIUM 4.1 mmol/L (3.5-5.1)
[2018-05-23 04:32] LABS: ABSOLUTE NEUTROPHILS 3.6 thou/uL (1.4-8.2); BASOPHILS 0.9 % (0.0-2.0); EOSINOPHILS 3.3 % (0.0-3.0); HEMOGLOBIN 10.4 gm/dL (12.0-15.0); LYMPHOCYTES 33.6 % (24.0-44.0); MCH 26.2 pg (26.0-34.0); MCHC 32.3 g/dL (28.0-37.0); MCV 80.9 fL (80.0-100.0); MONOCYTES 7.2 % (1.0-8.0); PLATELET COUNT 229 thou/uL (150-400); RBC 3.96 mil/uL (4.20-5.00); RDW 14.5 % (10.5-14.5); WBC 6.6 thou/uL (4.0-11.0)
[2018-05-23 07:30] VITALS: BP 98/48
[2018-05-23 10:20] VITALS: BP 97/61
[2018-05-23] MEDS ORDERED: IMDUR 30 MG TAB30 M1 PO ×2 (12:07→16:37)
[2018-05-23 15:15] VITALS: BP 86/56
[2018-05-23] MEDS ORDERED: BYSTOLIC 5 MG5 M1 PO (16:33)
[2018-05-23] MEDS ORDERED: LISINOPRIL2.5 MG PO (16:33)
[2018-05-23 16:44] VITALS: BP 86/56
== END 2018-05-23 17:24 | disposition home or self-care (01) | DRG 313 ==
LOC: ER 15:42 → EROBS 17:11 → 2N 17:11 → ENTRNSPT 05-23 17:02 → 2N 05-23 17:24
PROVIDERS: Emergency Medicine; Internal Medicine; Nurse Practitioner Family
DX: R07.9 Chest pain, unspecified (principal); N39.0 Urinary tract infection, site not specified; N17.9 Acute kidney failure, unspecified; F32.9 Major depressive disorder, single episode, unspecified; F41.9 Anxiety disorder, unspecified; I12.9 Hypertensive chronic kidney disease with stage 1 through stage 4 chronic kidney disease, or unspecified chronic kidney disease; I95.9 Hypotension, unspecified; R42 Dizziness and giddiness; N18.9 Chronic kidney disease, unspecified; I25.10 Atherosclerotic heart disease of native coronary artery without angina pectoris; E78.5 Hyperlipidemia, unspecified; I34.0 Nonrheumatic mitral (valve) insufficiency; K59.00 Constipation, unspecified; G43.909 Migraine, unspecified, not intractable, without status migrainosus; Z96.612 Presence of left artificial shoulder joint; J45.909 Unspecified asthma, uncomplicated; Z90.49 Acquired absence of other specified parts of digestive tract; Z90.710 Acquired absence of both cervix and uterus; Z79.82 Long term (current) use of aspirin; Z79.84 Long term (current) use of oral hypoglycemic drugs; Z79.899 Other long term (current) drug therapy
CPT/HCPCS: 10081

== ENCOUNTER 2018-05-27 23:54 | Inpatient (IN) | payer OTHER ==
[~2018-05-27] VITALS: Ht 162.6 cm; Wt 109.8 kg
--- NOTE | ~2018-05-27 | EKG ---
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 : 1970 Requested By: Juma Prajapati Order Number: [id number] MD: Jaguar Dickey Measurements Intervals [place] Rate: 71 P: 41 [place]: 170 QRS: -24 QRSD: 108 T: 74 QT: 414 QTc: 450 Interpretive Statements Sinus rhythm Borderline left axis deviation Abnormal R-wave progression, early transition Nonspecific T abnormalities, anterior leads Baseline wander in lead(s) V2 Compared to ECG 05/28/2018 07:30:36 No significant change was found Electronically Signed On 05-29-2018 8:08:21 CDT by Jaguar Dickey [email or web address] <ELECTRONICALLY SIGNED> By: Jaguar Dickey MD, [facility] 05/29/18 0808 0648 0648 Jaguar Dickey MD, [facility] /EPI
--- NOTE | ~2018-05-27 | CATHLAB ---
[facility] [address] [place] [address] INVASIVE PROCEDURE REPORT Name: KARTHIK WEIR PHANI Room #: 216-P [facility] IN ..#: [id number] Admission: 05/28/18 Attend Phys: Codey Zhang MD Discharge: Date of : 66 Date of Service: 05/28/18 1758 Report #: [id number] THIS REPORT FOR: //name// APPROVED REPORT Study performed: 05/28/2018 09:20:34 Patient Details Patient Status: In-Patient Room #: The patient is a 47 year-old female Event Personnel Juma Prajapati Licensed Land Surveyor, Evan Phillips RN, Aria Mora RTR, MANAGEMENT ACCOUNTANT Monitor, Tripp Young Scrub Procedures Performed [facility] Place w/wo Plasty Single LAD 287483 Indication Chest pain Procedure Narrative The RFG^ was infiltrated with subcutaneous anesthesia. A LAUNCHER 6FR EBU 3.5 #[id number] sheath was inserted into the RFA^. Coronary angiography was performed using coronary diagnostic catheters. The patient tolerated the procedure well and there were no complications associated with the procedure. Intraoperative Conscious Sedation Sedation start time: 9.27 Case end Time: 10.02 Fentanyl 50 mcg Versed 2 mg Fluoro Time: 4.20 minutes Dose: DAP 5094.90 cGycm2 720 mGy Contrast Type and Amount: Visipaque 70 ml Hemodynamics The aortic pressure is 93/63 mmHg with a mean of 77 mmHg. PCI Technique Lesion Percutaneous coronary intervention was performed on the mid left anterior descending artery segment. A LAUNCHER 6FR EBU 3.5 #[id number] Guide Catheter was used to engage the ostium. A Luge Wire .014 x 182CM #[id number] Interventional Guidewire was used to cross the [facility] [employer] [place] [place] [address] INVASIVE PROCEDURE REPORT Name: KARTHIK WEIR PHANI Room #: 216-P [facility] IN ..#: [id number] Admission: 05/28/18 Attend Phys: Codey Zhang MD Discharge: Date of : 66 Date of Service: 05/28/18 1758 Report #: [id number] lesion. BALLOON DILATION A Balloon catheter Sprinter OTW 2.5 x 12 #[id number] was inserted and inflated up to 6.00atm for 19seconds. Additional Inflation: 8.00atm for 19seconds. STENT DEPLOYMENT A drug-eluting stent XIENCE APLINE RX 3.25 X 15 #[id number] was inserted and inflated up to 15.00atm for 33seconds. Conclusion #1 successful PTCA stent of proximal LAD lesion 80% to 0% with placement of a 3.25 x 15 drug-eluting stent postdilated to 3.45 mm utilizing 0% residual and RACHEL grade 3 flow. #2 is no significant coronary disease otherwise noted from a recent cardiac catheterization performed. Repeat complete catheterization was not performed. Continue dual antiplatelet therapy post stent protocol. Patient transfer to CCU in stable condition <ELECTRONICALLY SIGNED> By: Juma Prajapati MD, [facility] 05/28/181757 57 57 Juma Prajapati MD, FAC /INF
--- NOTE | ~2018-05-27 | EKG ---
[address] [place] [address] ELECTROCARDIOGRAM REPORT Name: KARTHIK WEIR PHANI Room #: 216-P ADM IN M.R.#: [id number] Admission: 05/28/18 Attend Phys: Codey Zhang MD Discharge: Date of : 66 Report #: [id number] THIS REPORT FOR: //name// 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 EVANS : 1970 Requested By: Jose L Enrique Order Number: [id number] MD: Jaguar Dickey Measurements Intervals [place] Rate: 101 P: 19 [place]: 162 QRS: -30 QRSD: 103 T: 79 QT: 362 QTc: 470 Interpretive Statements Sinus tachycardia Left axis deviation Abnormal R-wave progression, early transition Borderline T abnormalities, anterior leads Compared to ECG 05/21/2018 15:45:02 No significant change was found Electronically Signed On 05-28-2018 8:21:55 CDT by Jaguar Dickey [email or web address] <ELECTRONICALLY SIGNED> By: Jaguar Dickey MD, [facility] 05/28/18 0821 0001 0001 Jaguar Dickey MD, [facility] /EPI
--- NOTE | ~2018-05-27 | EKG ---
[place] [address] [address] [facility] [place] [address] ELECTROCARDIOGRAM REPORT Name: KARTHIK WERI PHANI Room #: 216-P ADM IN M.R.#: [id number] Admission: 05/28/18 Attend Phys: Ancelmo Keita MD Discharge: Date of : 66 Report #: [id number] THIS REPORT FOR: //name// [facility] Test Date: 2018-05-29 Test Time: 06:48:57 Pat Name: KARTHIK WEIR Department: Room: 216 P Gender: F Diploma Pharmacy Technician: MORIAH : 1970 Requested By: Juma Prajapati Order Number: [id number] MD: Measurements Intervals [place] Rate: 71 P: 41 [place]: 170 QRS: -24 QRSD: 108 T: 74 QT: 414 QTc: 450 Interpretive Statements Sinus rhythm Borderline left axis deviation Abnormal R-wave progression, early transition Nonspecific T abnormalities, anterior leads Baseline wander in lead(s) V2 Compared to ECG 05/28/2018 07:30:36 T-wave abnormality now present [email or web address] By: 0648 0648 Epiphany Epiphany, /EPI
--- NOTE | ~2018-05-27 | EKG ---
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 : 1970 Requested By: Juma Prajapati Order Number: [id number] MD: Jaguar Dickey Measurements Intervals [place] Rate: 60 P: 51 [place]: 172 QRS: -27 QRSD: 115 T: 61 QT: 448 QTc: 448 Interpretive Statements Sinus rhythm Nonspecific T abnormalities, anterior leads Compared to ECG 05/28/2018 07:30:36 T-wave abnormality now present Electronically Signed On 05-29-2018 8:01:39 CDT by Jaguar Dickey [email or web address] <ELECTRONICALLY SIGNED> By: Jaguar Dickey MD, [facility] 05/29/18 0801 1147 1147 Jaguar Dickey MD, [facility] /EPI
--- NOTE | ~2018-05-27 | EKG ---
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 Professor: Lester EVANS : 1970 Requested By: Jose L Enrique Order Number: [id number] MD: Jaguar Dickey Measurements Intervals [place] Rate: 89 P: 25 [place]: 164 QRS: -32 QRSD: 108 T: 67 QT: 381 QTc: 464 Interpretive Statements Sinus rhythm Left axis deviation Abnormal R-wave progression, early transition Nonspecific T abnormalities, anterior leads Compared to ECG 05/21/2018 15:45:02 No significant changes Electronically Signed On 05-28-2018 8:22:01 CDT by Jaguar Dickey [email or web address] <ELECTRONICALLY SIGNED> By: Jaguar Dickey MD, [facility] 05/28/18 0822 0129 0129 Jaguar Dickey MD, [facility] /EPI
--- NOTE | ~2018-05-27 | EKG ---
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: MORIAH : 1970 Requested By: Jamila Page Order Number: [id number] MD: Jaguar Dickey Measurements Intervals [place] Rate: 77 P: 35 [place]: 173 QRS: -34 QRSD: 108 T: 75 QT: 412 QTc: 467 Interpretive Statements Sinus rhythm Left axis deviation Abnormal R-wave progression, early transition Baseline wander in lead(s) V3 Compared to ECG 05/21/2018 15:45:02 No significant change was found Electronically Signed On 05-28-2018 8:23:56 CDT by Jaguar Dickey [email or web address] <ELECTRONICALLY SIGNED> By: Jaguar Dickey MD, [facility] 05/28/18 0823 9 9 Jaguar Dickey MD, [facility] /EPI
[~2018-05-27 23:54] MED LIST changes: +IMDUR 30 MG TAB30 M1 PO; +LISINOPRIL2.5 MG PO
[2018-05-28] VITALS (14 sets, daily range): BP systolic 86–103; BP diastolic 50–62
[2018-05-28 00:27] LABS: ABSOLUTE NEUTROPHILS 7.7 thou/uL (1.4-8.2); EOSINOPHILS 4.7 % (0.0-3.0); HEMATOCRIT 36.6 % (37.0-47.0); LYMPHOCYTES 22.4 % (24.0-44.0); MCH 26.4 pg (26.0-34.0); MCHC 32.9 g/dL (28.0-37.0); MCV 80.2 fL (80.0-100.0); MONOCYTES 6.1 % (1.0-8.0); PLATELET COUNT 316 thou/uL (150-400); POLYS 65.8 % (36.0-66.0); RBC 4.56 mil/uL (4.20-5.00); RDW 14.1 % (10.5-14.5); WBC 11.8 thou/uL (4.0-11.0)
[2018-05-28 00:32] LABS: ANION GAP 11 mmol/L (7-16); BUN 25 mg/dL (7-18); CALCIUM 8.6 mg/dL (8.5-10.1); CHLORIDE 104 mmol/L (98-107); CO2 25 mmol/L (21-32); CREATININE 1.5 mg/dL (0.6-1.0); GLUCOSE 93 mg/dL (74-106); POTASSIUM 3.4 mmol/L (3.5-5.1); SODIUM 140 mmol/L (136-145)
[2018-05-28 00:41] LABS: ALBUMIN 3.3 g/dL (3.4-5.0); SGOT 19 U/L (15-37); SGPT 26 U/L (30-65); TOTAL BILIRUBIN 0.1 mg/dL (<0.1-1.0); TOTAL PROTEIN 7.9 g/dL (6.4-8.2); TROPONIN-I <0.06 ng/mL (<0.06)
[2018-05-28] MEDS ORDERED: NEURONTIN 300300 M1 PO (00:47)
[2018-05-28] MEDS ORDERED: PROAIR HFA8.5 GM (00:48)
[2018-05-28 01:08] LABS: APTT 27.4 Seconds (24.5-32.8); PROTIME 9.6 Seconds (9.3-11.4)
[2018-05-28 08:26] LABS: CHOLESTEROL 167 mg/dL (<200); HDL CHOLESTEROL 48 mg/dL (>40); LDL CHOLESTEROL 92 mg/dL (<100); TC:HDL 3.5 Ratio (Not establshd); TRIGLYCERIDE 136 mg/dL (<150); TROPONIN-I <0.06 ng/mL (<0.06); VLDL 27 mg/dL (<40)
[2018-05-29 03:31] VITALS: BP 101/56
[2018-05-29 04:07] LABS: CALCIUM 8.8 mg/dL (8.5-10.1); CREATININE 1.1 mg/dL (0.6-1.0); POTASSIUM 3.9 mmol/L (3.5-5.1); TROPONIN-I 0.46 ng/mL (<0.06)
[2018-05-29 05:14] LABS: HEMATOCRIT 34.7 % (37.0-47.0); HEMOGLOBIN 11.4 gm/dL (12.0-15.0); MCH 26.3 pg (26.0-34.0); MCHC 32.8 g/dL (28.0-37.0); MCV 80.1 fL (80.0-100.0); RBC 4.33 mil/uL (4.20-5.00); RDW 14.5 % (10.5-14.5); WBC 9.3 thou/uL (4.0-11.0)
[2018-05-29 07:15] VITALS: BP 93/59
[2018-05-29] MEDS ORDERED: EFFIENT10 MG PO (08:16)
[2018-05-29] MEDS ORDERED: ASPIRIN325 PO (08:16)
[2018-05-29] MEDS ORDERED: BYSTOLIC 5 MG5 M1 PO (08:16)
[2018-05-29 10:50] VITALS: BP 109/67; BP 93/59
== END 2018-05-29 11:30 | disposition home or self-care (01) | DRG 246 ==
LOC: ER 23:54 → 2N 05-28 00:46 → EROBS 05-28 00:46 → 2N 05-28 01:39 → ENTRNSPT 05-29 11:17 → EDTRNSPTSTS 05-29 11:20 → 2N 05-29 11:30
PROVIDERS: Emergency Medicine; Internal Medicine Cardiovascular Disease; Nurse Practitioner Acute Care
DX: I25.110 Atherosclerotic heart disease of native coronary artery with unstable angina pectoris (principal); I21.4 Non-ST elevation (NSTEMI) myocardial infarction; N17.9 Acute kidney failure, unspecified; F41.9 Anxiety disorder, unspecified; F32.9 Major depressive disorder, single episode, unspecified; G43.909 Migraine, unspecified, not intractable, without status migrainosus; J45.909 Unspecified asthma, uncomplicated; N18.3 Chronic kidney disease, stage 3 (moderate); I12.9 Hypertensive chronic kidney disease with stage 1 through stage 4 chronic kidney disease, or unspecified chronic kidney disease; E78.5 Hyperlipidemia, unspecified; I95.9 Hypotension, unspecified; K29.70 Gastritis, unspecified, without bleeding; E87.6 Hypokalemia; K59.00 Constipation, unspecified; Z79.82 Long term (current) use of aspirin; Z90.49 Acquired absence of other specified parts of digestive tract; Z90.710 Acquired absence of both cervix and uterus; Z79.899 Other long term (current) drug therapy
CPT/HCPCS: 10081

== ENCOUNTER 2018-05-30 23:08 | Inpatient (IN) | payer OTHER ==
[~2018-05-30] VITALS: Ht 162.6 cm; Wt 109.8 kg
--- NOTE | ~2018-05-30 | EKG ---
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: MZOOK : 1970 Requested By: Yasemin Wallace Order Number: [id number] MD: Palmer Melgar Measurements Intervals [place] Rate: 91 P: 30 [place]: 168 QRS: -27 QRSD: 103 T: 75 QT: 388 QTc: 478 Interpretive Statements Sinus rhythm Borderline left axis deviation Abnormal R-wave progression, early transition Nonspecific T abnormalities, anterior leads Compared to ECG 05/29/2018 06:48:57 No significant changes Electronically Signed On 05-31-2018 11:06:34 CDT by Palmer Melgar [email or web address] <ELECTRONICALLY SIGNED> By: Palmer Melgar MD 05/31/18 1106 0114 0114 Palmer Melgar MD /EPI
--- NOTE | ~2018-05-30 | EKG ---
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 : 1970 Requested By: Yasemin Wallace Order Number: [id number] MD: Palmer Melgar Measurements Intervals [place] Rate: 103 P: 21 [place]: 165 QRS: -35 QRSD: 101 T: 70 QT: 356 QTc: 466 Interpretive Statements Sinus tachycardia Left axis deviation Abnormal R-wave progression, early transition Nonspecific T abnormalities, anterior leads Compared to ECG 05/29/2018 06:48:57 Sinus rhythm no longer present T-wave abnormality still present Electronically Signed On 05-31-2018 11:06:29 CDT by Palmer Melgar [email or web address] <ELECTRONICALLY SIGNED> By: Palmer Melgar MD 05/31/18 1106 2310 2310 Palmer Melgar MD /EPI
--- NOTE | ~2018-05-30 | HC ---
[facility] [place] [address] CONSULTATION Name: CARMELLAKARTHIK PHANI Room #: 208-P ADM IN M.R.#: [id number] Admission: 05/31/18 Attend Phys: Simone Flores MD Discharge: Date of : 66 Report #: [id number] THIS REPORT FOR: //name// CC: COLLIN physician/PCP Simone Flores DATE OF SERVICE: 06/02/2018 HISTORY OF PRESENT ILLNESS: This is a 47-year-old female patient who was evaluated by me for any neurological etiology for the patient's dizziness. She indicates that she is having at least moderately severe dizziness, which started on Saturday. It started spontaneously, without any trauma. She said it does become somewhat worse when she tries to stand up. Her blood pressure was low and they stopped her antihypertensive, but according to her, the dizziness is not much better. She never had this kind of dizziness before. There is no associated headache or any other neurological symptoms with it. REVIEW OF SYSTEMS: Indicate that she does have hypertension, but when she came in, her blood pressure was actually low. It is also positive for multiple problems. She said she is applying for disability because of chronic pain. Records indicate that she has a history of pancreatitis; anxiety; depression; hypertension; prior hysterectomy including removing of the ovaries; hernia repair; endometriosis; tonsillectomy; right knee surgeries; history of headaches, which is not a big symptom at the moment; shoulder problem; history of asthma; gastric ulcer; PNA; nephrolithiasis and she also has significant obesity. One of the records indicates that she also has a history of dyslipidemia. She is also on multiple medications which can potentially cause hypotension or contribute it and they are mostly psychotropic medications. This was her relevant 14-point review of system, which was carried out. PAST MEDICAL HISTORY: Negative for similar episode of dizziness. FAMILY HISTORY: Negative for early age stroke. SOCIAL HISTORY: She denies the use of alcohol or tobacco. PHYSICAL EXAMINATION: NEUROLOGIC: The patient's examination indicates she is alert. She is responsive. She can follow simple commands. Her speech, concentration, fund of knowledge and memory is at her baseline. Cranial nerve examination 2-12 looks unremarkable. She has symmetrical strength, sensation, reflexes and tone in all 4 extremities. Her reflexes may be somewhat diminished in both lower extremities. Position sense is intact. She has no cerebellar sign or papilledema. She is a morbidly obese individual, who does not have any dysmorphic features of eyes, ears and face. Her visions and hearing looks adequate. Her pulses are difficult to feel, but I believe it is palpable. She [address] [address] CONSULTATION Name: KARTHIK WEIR [facility] Room #: 208-P [facility] IN M.R.#: [id number] Admission: 05/31/18 Attend Phys: Simone Flores MD Discharge: Date of : 66 Report #: [id number] has no edema, cyanosis or jaundice. CARDIAC EXAMINATION: Unremarkable. RESPIRATORY EXAMINATION: Does not appear to be showing any respiratory difficulty or any rhonchi on either side. NECK: She has no thyroid mass or any carotid bruit. VITAL SIGNS: Blood pressure is now 106/56, respirations 18, pulse is 68 and temperature is 97.8. Blood pressure was low earlier. LABORATORY DATA: Her hemoglobin is 9.2. She did have a CT scan of the head and a carotid Doppler, which was unremarkable. IMPRESSION AND PLAN: It is unlikely that there is any neurological etiology for the patient's symptoms. Her symptoms are most likely coming from systemic problems including hypotension and maybe some ENT problems. Symptoms are persistent and it might be desirable to exclude any other pathology for that. I will suggest doing an MRI and if MRI is also normal, then I think it is unlikely that there is any neurological etiology for the patient's symptoms and the workup for systemic causes should continue. Some of the blood workup is pending and I added a few more and that can be checked as an outpatient. We do not have anything else to add and if MRI/MRA is okay, then I will suggest continuing the evaluation and management of systemic causes. We will follow as necessary only. Thank you very much for this referral. By: 0923 1059 Meño Adams MD /charlie
--- NOTE | ~2018-05-30 | HC ---
[facility] [place] [address] CONSULTATION Name: KARTHIK WEIR PHANI Room #: 208-P ADM IN M.R.#: [id number] Admission: 05/31/18 Attend Phys: Simone Flores MD Discharge: Date of : 66 Report #: [id number] THIS REPORT FOR: //name// CC: COLLIN physician/PCP Simone Flores DATE OF SERVICE: 05/31/2018 CARDIOLOGY CONSULTATION INDICATION: Chest pain. HISTORY OF PRESENT ILLNESS: This is a 47-year-old female presenting with left-sided chest pain. She has a history of hypertension, hypercholesterolemia, gastritis and recent stent placement. Just recently, she presented with substernal chest pains refractory to medical therapy. She underwent placement of a stent to the LAD by Dr. Prajapati last week. She now presents with discomfort on the left side of her chest, seems to be reproducible with deep inspiration. It also occurs when she starts walking, better when she rests. The ECG does not show any acute ST segment changes. The peak troponin level is 0.08, in the indeterminate range. The patient reports that the discomfort is not the same type of pain that she had prior to the stent placement. She is also complaining of dizziness attributed to low blood pressure. She has a history of hypertension, but recently has been having issues with hypotension with resultant dizziness. ALLERGIES: None. PAST MEDICAL HISTORY: CAD with recent stent placement to the LAD, hypotension, hyperlipidemia and gastritis. MEDICATIONS AT HOME: Include Bystolic 2.5 mg daily, aspirin, Effient and Lipitor 80 mg at night. SOCIAL HISTORY: Negative for tobacco use. FAMILY HISTORY: Negative for premature CAD. REVIEW OF SYSTEMS: A full 10-point review of systems performed. Only the pertinent positives and negatives are described in the HPI. PHYSICAL EXAMINATION: VITAL SIGNS: Blood pressure is 85/60, heart rate is 70 beats per minute. GENERAL APPEARANCE: This is an overweight female, in no acute respiratory distress. HEAD AND EYES: Normocephalic. Sclerae are anicteric. [facility] [address] [place] [address] CONSULTATION Name: KARTHIK WEIR [facility] Room #: 208-[facility] IN M.R.#: [id number] Admission: 05/31/18 Attend Phys: Simone Flores MD Discharge: Date of : 66 Report #: [id number] ENT: Oral mucosa moist. NECK: Supple. LUNGS: Clear to auscultation. CARDIAC: RRR. S1, S2 positive. ABDOMEN: Soft, nontender. EXTREMITIES: No cyanosis, no edema. NEUROLOGIC: Alert and oriented x 3. ECG reveals sinus rhythm, nonspecific T-wave abnormality. LABORATORY VALUES: Creatinine is 1.1. Peak troponin 0.08, second one is 0.06. White count is 11.8. ASSESSMENT AND PLAN: 1. Chest pain, atypical. This is not the same quality of pain that she had prior to her stent placement. More likely related to musculoskeletal or pleuritic etiology. 2. Coronary artery disease with recent left anterior descending artery stent placement. No evidence for ischemia. Would continue with the combination of aspirin and Effient. 3. Hypotension, would discontinue Bystolic completely. Continue with hydration. 4. Hypercholesterolemia, continue with Lipitor. <ELECTRONICALLY SIGNED> By: Palmer Melgar MD 06/01/18 0854 1021 1102 Palmer Melgar MD /nt
[~2018-05-30 23:08] MED LIST changes: +ASPIRIN325 PO; +EFFIENT10 MG PO; +NEURONTIN 300300 M1 PO; +PROAIR HFA8.5 GM
[2018-05-30 23:11] VITALS: BP 92/54
[2018-05-30 23:55] LABS: ABSOLUTE NEUTROPHILS 7.7 thou/uL (1.4-8.2); HEMATOCRIT 33.5 % (37.0-47.0); HEMOGLOBIN 10.9 gm/dL (12.0-15.0); LYMPHOCYTES 22.3 % (24.0-44.0); MCHC 32.6 g/dL (28.0-37.0); MCV 79.7 fL (80.0-100.0); MONOCYTES 7.9 % (1.0-8.0); PLATELET COUNT 313 thou/uL (150-400); POLYS 65.8 % (36.0-66.0); RBC 4.21 mil/uL (4.20-5.00); RDW 14.9 % (10.5-14.5); WBC 11.8 thou/uL (4.0-11.0)
[2018-05-30 23:59] LABS: CALCIUM 8.6 mg/dL (8.5-10.1); CREATININE 1.3 mg/dL (0.6-1.0); POTASSIUM 3.8 mmol/L (3.5-5.1)
[2018-05-31] VITALS (7 sets, daily range): BP systolic 73–103; BP diastolic 39–62
[2018-05-31 00:08] LABS: TROPONIN-I 0.07 ng/mL (<0.06)
[2018-05-31 09:12] LABS: CALCIUM 8.4 mg/dL (8.5-10.1); CREATININE 1.1 mg/dL (0.6-1.0); POTASSIUM 3.8 mmol/L (3.5-5.1)
[2018-05-31 11:07] LABS: % SATURATION 11 % (20-39); IRON 27 ug/dL (50-170); TIBC 244 ug/dL (250-450)
[2018-05-31 11:34] LABS: FOLIC ACID 13.3 ng/mL (8.6-58.9)
[2018-06-01 00:22] VITALS: BP 93/51
[2018-06-01 04:32] VITALS: BP 96/49
[2018-06-01 08:17] VITALS: BP 104/66
[2018-06-01 12:01] VITALS: BP 95/62
[2018-06-01 13:41] LABS: HEMATOCRIT 31.7 % (37.0-47.0); HEMOGLOBIN 10.3 gm/dL (12.0-15.0); MCH 26.4 pg (26.0-34.0); MCHC 32.6 g/dL (28.0-37.0); MCV 80.9 fL (80.0-100.0); RBC 3.91 mil/uL (4.20-5.00); RDW 14.7 % (10.5-14.5)
[2018-06-01 14:02] LABS: ALBUMIN 2.6 g/dL (3.4-5.0); CALCIUM 8.3 mg/dL (8.5-10.1); CREATININE 1.1 mg/dL (0.6-1.0); MAGNESIUM 1.6 mg/dL (1.8-2.4); POTASSIUM 3.8 mmol/L (3.5-5.1); TOTAL BILIRUBIN 0.1 mg/dL (<0.1-1.0); TOTAL PROTEIN 6.7 g/dL (6.4-8.2)
[2018-06-01 16:53] VITALS: BP 133/61
[2018-06-01 20:40] VITALS: BP 95/60
[2018-06-02] VITALS (8 sets, daily range): BP systolic 106–118; BP diastolic 56–70
[2018-06-02 05:53] LABS: HEMOGLOBIN 9.2 gm/dL (12.0-15.0); MCH 26.4 pg (26.0-34.0); MCHC 32.8 g/dL (28.0-37.0); MCV 80.6 fL (80.0-100.0); RBC 3.47 mil/uL (4.20-5.00); RDW 14.5 % (10.5-14.5); WBC 5.9 thou/uL (4.0-11.0)
[2018-06-02 05:54] LABS: CALCIUM 7.3 mg/dL (8.5-10.1); MAGNESIUM 1.5 mg/dL (1.8-2.4); POTASSIUM 3.4 mmol/L (3.5-5.1)
[2018-06-02] MEDS ORDERED: BENTYL 10 MG CA10 M1 PO (18:51)
[2018-06-02] MEDS ORDERED: ANUSOL-HC25 MG RECTAL (18:54)
== END 2018-06-02 20:00 | disposition home or self-care (01) | DRG 313 ==
LOC: ER 23:08 → EROBS 05-31 02:54 → 2N 05-31 03:32
PROVIDERS: Emergency Medicine; Internal Medicine; Nurse Practitioner Family
DX: R07.89 Other chest pain (principal); K92.2 Gastrointestinal hemorrhage, unspecified; F41.9 Anxiety disorder, unspecified; F32.9 Major depressive disorder, single episode, unspecified; I10 Essential (primary) hypertension; G43.909 Migraine, unspecified, not intractable, without status migrainosus; K60.2 Anal fissure, unspecified; J45.909 Unspecified asthma, uncomplicated; N18.3 Chronic kidney disease, stage 3 (moderate); E78.5 Hyperlipidemia, unspecified; I95.9 Hypotension, unspecified; I25.10 Atherosclerotic heart disease of native coronary artery without angina pectoris; E78.00 Pure hypercholesterolemia, unspecified; Z95.5 Presence of coronary angioplasty implant and graft; Z79.82 Long term (current) use of aspirin; Z79.899 Other long term (current) drug therapy; Z90.49 Acquired absence of other specified parts of digestive tract; Z90.710 Acquired absence of both cervix and uterus; Z87.442 Personal history of urinary calculi; Z87.11 Personal history of peptic ulcer disease; Z86.010 Personal history of colon polyps
CPT/HCPCS: 10081

== ENCOUNTER 2018-06-05 15:05 | Emergency (ER) | payer OTHER ==
[~2018-06-05] VITALS: Ht 162.6 cm; Wt 113.8 kg
--- NOTE | ~2018-06-05 | EKG ---
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 : 1970 Requested By: Yasemin Wallace Order Number: [id number] MD: Jaguar Dickey Measurements Intervals [place] Rate: 81 P: 26 [place]: 171 QRS: -26 QRSD: 108 T: 59 QT: 369 QTc: 429 Interpretive Statements Sinus rhythm Borderline left axis deviation RSR' in V1 or V2, right VCD Compared to ECG 05/31/2018 01:14:19 No significant change was found Electronically Signed On 06-06-2018 8:50:59 CDT by Jaguar Dickey [email or web address] <ELECTRONICALLY SIGNED> By: Jaguar Dickey MD, [facility] 06/06/18 0850 35 35 Jaguar Dickey MD, [facility] /EPI
[~2018-06-05 15:05] MED LIST changes: +ANUSOL-HC25 MG RECTAL; +BENTYL 10 MG CA10 M1 PO
[2018-06-05 15:59] LABS: ABSOLUTE NEUTROPHILS 6.9 thou/uL (1.4-8.2); BASOPHILS 0.9 % (0.0-2.0); EOSINOPHILS 4.8 % (0.0-3.0); HEMATOCRIT 34.7 % (37.0-47.0); HEMOGLOBIN 11.4 gm/dL (12.0-15.0); LYMPHOCYTES 20.3 % (24.0-44.0); MCH 26.1 pg (26.0-34.0); MCHC 32.9 g/dL (28.0-37.0); MCV 79.5 fL (80.0-100.0); MONOCYTES 5.7 % (1.0-8.0); PLATELET COUNT 336 thou/uL (150-400); POLYS 68.3 % (36.0-66.0); RBC 4.37 mil/uL (4.20-5.00); RDW 14.8 % (10.5-14.5); WBC 10.1 thou/uL (4.0-11.0)
[2018-06-05 16:12] LABS: ANION GAP 7 mmol/L (7-16); BUN 25 mg/dL (7-18); CALCIUM 9.1 mg/dL (8.5-10.1); CHLORIDE 108 mmol/L (98-107); CO2 26 mmol/L (21-32); CREATININE 1.1 mg/dL (0.6-1.0); GLUCOSE 105 mg/dL (74-106); POTASSIUM 3.8 mmol/L (3.5-5.1); SODIUM 141 mmol/L (136-145); TROPONIN-I <0.06 ng/mL (<0.06)
[2018-06-05] MEDS ORDERED: BRILINTA90 MG PO (17:52)
[2018-06-06] MEDS ORDERED: VALIUM2 MG PO (23:38)
== END 2018-06-05 19:54 | disposition home or self-care (01) ==
LOC: ER 15:05
PROVIDERS: Emergency Medicine
DX: I95.9 Hypotension, unspecified (principal); F41.9 Anxiety disorder, unspecified; F32.9 Major depressive disorder, single episode, unspecified; I12.9 Hypertensive chronic kidney disease with stage 1 through stage 4 chronic kidney disease, or unspecified chronic kidney disease; N18.3 Chronic kidney disease, stage 3 (moderate); N80.9 Endometriosis, unspecified; G43.909 Migraine, unspecified, not intractable, without status migrainosus; J45.909 Unspecified asthma, uncomplicated; E78.5 Hyperlipidemia, unspecified; Z95.5 Presence of coronary angioplasty implant and graft; E78.00 Pure hypercholesterolemia, unspecified; Z90.49 Acquired absence of other specified parts of digestive tract; Z90.710 Acquired absence of both cervix and uterus; Z90.89 Acquired absence of other organs

== ENCOUNTER 2018-06-06 23:14 | Emergency (ER) | payer OTHER ==
[~2018-06-06] VITALS: Ht 162.6 cm; Wt 113.8 kg
--- NOTE | ~2018-06-06 | EKG ---
[place] [address] [facility] [place] [address] ELECTROCARDIOGRAM REPORT Name: KARTHIK WEIR PHANI [facility] [id number] Admission: 06/06/18 Attend Phys: Discharge: 06/07/18 Date of : 66 Report #: [id number] THIS REPORT FOR: //name// [facility] ED Test Date: 2018-06-06 Test Time: 23:46:22 Pat Name: KARTHIK WEIR Department: Room: Gender: F Reference Library Assistant: Judith MOYER : 1970 Requested By: Mili Wooten Order Number: [id number] MD: Jaguar Dickey Measurements Intervals [place] Rate: 70 P: 24 [place]: 173 QRS: -22 QRSD: 111 T: 43 QT: 408 QTc: 441 Interpretive Statements Sinus rhythm Borderline left axis deviation Borderline T abnormalities, anterior leads Compared to ECG 06/05/2018 15:36:36 No significant change was found Electronically Signed On 06-09-2018 8:00:51 CDT by Jaguar Dickey [email or web address] <ELECTRONICALLY SIGNED> By: Jaguar Dickey MD, [facility] 06/09/18 0800 45 45 Jaguar Dickey MD, [facility] /EPI
[~2018-06-06 23:14] MED LIST changes: +BRILINTA90 MG PO
[2018-06-06] MEDS ORDERED: VALIUM2 MG PO (23:38)
[2018-06-06 23:54] LABS: EOSINOPHILS 5.9 % (0.0-3.0); HEMATOCRIT 35.7 % (37.0-47.0); HEMOGLOBIN 11.5 gm/dL (12.0-15.0); LYMPHOCYTES 25.4 % (24.0-44.0); MCH 25.7 pg (26.0-34.0); MCHC 32.2 g/dL (28.0-37.0); MCV 79.8 fL (80.0-100.0); PLATELET COUNT 347 thou/uL (150-400); POLYS 61.7 % (36.0-66.0); RBC 4.47 mil/uL (4.20-5.00); RDW 15.1 % (10.5-14.5); WBC 8.2 thou/uL (4.0-11.0)
[2018-06-07 00:04] LABS: ANION GAP 9 mmol/L (7-16); BUN 24 mg/dL (7-18); CALCIUM 9.3 mg/dL (8.5-10.1); CHLORIDE 106 mmol/L (98-107); CO2 27 mmol/L (21-32); CREATININE 1.2 mg/dL (0.6-1.0); GLUCOSE 90 mg/dL (74-106); POTASSIUM 3.7 mmol/L (3.5-5.1); SODIUM 142 mmol/L (136-145)
[2018-06-07 00:13] LABS: TROPONIN-I <0.06 ng/mL (<0.06)
== END 2018-06-07 00:56 | disposition home or self-care (01) ==
LOC: ER 23:14
PROVIDERS: Emergency Medicine
DX: R07.9 Chest pain, unspecified (principal); F41.9 Anxiety disorder, unspecified; M54.12 Radiculopathy, cervical region; R42 Dizziness and giddiness; I12.9 Hypertensive chronic kidney disease with stage 1 through stage 4 chronic kidney disease, or unspecified chronic kidney disease; N18.3 Chronic kidney disease, stage 3 (moderate); F32.9 Major depressive disorder, single episode, unspecified; N80.9 Endometriosis, unspecified; G43.909 Migraine, unspecified, not intractable, without status migrainosus; J45.909 Unspecified asthma, uncomplicated; E78.5 Hyperlipidemia, unspecified; Z90.49 Acquired absence of other specified parts of digestive tract; Z90.710 Acquired absence of both cervix and uterus; Z90.89 Acquired absence of other organs; Z95.5 Presence of coronary angioplasty implant and graft; Z87.442 Personal history of urinary calculi

== ENCOUNTER 2018-06-07 22:34 | Emergency (ER) | payer OTHER ==
[~2018-06-07] VITALS: Ht 162.6 cm; Wt 113.8 kg
--- NOTE | ~2018-06-07 | EKG ---
[place] [address] [place] [address] ELECTROCARDIOGRAM REPORT Name: KARTHIK WEIR PHANI [id number] Admission: 06/07/18 Attend Phys: Discharge: 06/07/18 Date of : 66 Report #: [id number] THIS REPORT FOR: //name// [facility] ED Test Date: 2018-06-07 Test Time: 22:45:59 Pat Name: KARTHIK WEIR Department: Room: Gender: F Client Reporting Associate: yuly : 1970 Requested By: Mili Wooten Order Number: [id number] MD: Jaguar Dickey Measurements Intervals [place] Rate: 72 P: 8 [place]: 176 QRS: -28 QRSD: 102 T: 62 QT: 401 QTc: 439 Interpretive Statements Sinus rhythm Borderline left axis deviation Abnormal R-wave progression, early transition Nonspecific T abnormalities, anterior leads Compared to ECG 06/05/2018 15:36:36 T-wave abnormality now present Electronically Signed On 06-09-2018 8:14:05 CDT by Jaguar Dickey [email or web address] <ELECTRONICALLY SIGNED> By: Jaguar Dickey MD, [facility] 06/09/18 0814 2245 2245 Jaguar Dickey MD, [facility] /EPI
[~2018-06-07 22:34] MED LIST changes: +VALIUM2 MG PO
[2018-06-07 22:49] LABS: ABSOLUTE NEUTROPHILS 5.9 thou/uL (1.4-8.2); BASOPHILS 1.4 % (0.0-2.0); HEMOGLOBIN 11.7 gm/dL (12.0-15.0); LYMPHOCYTES 20.4 % (24.0-44.0); MCH 25.8 pg (26.0-34.0); MCHC 32.4 g/dL (28.0-37.0); MCV 79.5 fL (80.0-100.0); MONOCYTES 6.7 % (1.0-8.0); PLATELET COUNT 359 thou/uL (150-400); POLYS 66.5 % (36.0-66.0); RBC 4.53 mil/uL (4.20-5.00); WBC 8.9 thou/uL (4.0-11.0)
[2018-06-07 22:59] LABS: ANION GAP 8 mmol/L (7-16); BUN 22 mg/dL (7-18); CALCIUM 9.1 mg/dL (8.5-10.1); CHLORIDE 107 mmol/L (98-107); CO2 27 mmol/L (21-32); CREATININE 1.3 mg/dL (0.6-1.0); GLUCOSE 115 mg/dL (74-106); POTASSIUM 3.9 mmol/L (3.5-5.1); SODIUM 142 mmol/L (136-145)
[2018-06-07 23:07] LABS: LIPASE 119 U/L (73-393); TROPONIN-I <0.06 ng/mL (<0.06)
== END 2018-06-07 23:49 | disposition home or self-care (01) ==
LOC: ER 22:34
PROVIDERS: Emergency Medicine
DX: R07.9 Chest pain, unspecified (principal); I12.9 Hypertensive chronic kidney disease with stage 1 through stage 4 chronic kidney disease, or unspecified chronic kidney disease; N18.3 Chronic kidney disease, stage 3 (moderate); F41.9 Anxiety disorder, unspecified; F32.9 Major depressive disorder, single episode, unspecified; N80.9 Endometriosis, unspecified; G43.909 Migraine, unspecified, not intractable, without status migrainosus; J45.909 Unspecified asthma, uncomplicated; E78.5 Hyperlipidemia, unspecified; Z95.5 Presence of coronary angioplasty implant and graft; Z90.49 Acquired absence of other specified parts of digestive tract; Z90.710 Acquired absence of both cervix and uterus; Z87.442 Personal history of urinary calculi; Z90.89 Acquired absence of other organs

== ENCOUNTER 2018-07-11 23:37 | Inpatient (IN) | payer OTHER ==
[~2018-07-11] VITALS: Ht 162.6 cm; Wt 107.5 kg
--- NOTE | ~2018-07-11 | EKG ---
[place] [address] [address] [facility] [place] [address] ELECTROCARDIOGRAM REPORT Name: KARTHIK WEIR PHANI Room #: 218-P ADM IN M.R.#: [id number] Admission: 07/12/18 Attend Phys: Solange Cerrato Discharge: Date of : 66 Report #: [id number] THIS REPORT FOR: //name// [facility] ED Test Date: 2018-07-11 Test Time: 23:50:36 Pat Name: KARTHIK WEIR Department: Room: 218 Gender: F Respiratory Equipment Assistant: CARMEL : 1970 Requested By: Jose L Enrique Order Number: [id number] MD: Jaguar Dickey Measurements Intervals [place] Rate: 78 P: 24 [place]: 181 QRS: -33 QRSD: 108 T: 115 QT: 399 QTc: 455 Interpretive Statements Sinus rhythm Left axis deviation Abnormal R-wave progression, early transition Anterior T wave inversion Compared to ECG 06/07/2018 22:45:59 Anterior T wave abnormality is more pronounced Electronically Signed On 07-12-2018 13:06:21 CDT by Jaguar Dickey [email or web address] <ELECTRONICALLY SIGNED> By: Jaguar Dickey MD, [facility] 07/12/18 1306 9630 8840 Jaguar Dickey MD, [facility] /EPI
--- NOTE | ~2018-07-11 | HC ---
[facility] [place] [address] CONSULTATION Name: CARMELLAKARTHIKKEI JERONIMO Room #: 218-P [facility] IN M.R.#: [id number] Admission: 07/12/18 Attend Phys: Solange Cerrato Discharge: 07/12/18 Date of : 66 Report #: [id number] THIS REPORT FOR: //name// CC: Solange Tompkins DATE OF SERVICE: 07/12/2018 REASON FOR CONSULTATION: Chest pain. HISTORY OF PRESENT ILLNESS: The patient is a 47-year-old woman with hypertension, dyslipidemia, gastritis and very recent stent placement. This is on 05/28/2018 with a 3.25 x 15 mm Xience stent to the proximal LAD. There was no other coronary artery disease present at the time of catheterization. Heart muscle function is normal. She has had ongoing intermittent chest discomforts since then. She was admitted on 05/31/2018 with a sharp left upper chest pain. CT was negative for PE. This was thought to be musculoskeletal in origin. Cardiac enzymes were normal. Pain seemed to improve, although she now presents with left-sided chest pain radiating up to the upper aspect of her collarbone. She denies heart failure symptoms, palpitations, near syncope or syncope. She got nervous about the pain and presented to the Emergency Department. Her troponins were normal. EKG did not suggest injury pattern. She was admitted again for the same symptom. ALLERGIES: No known drug allergies. MEDICATIONS: Include alprazolam, amitriptyline 150 mg daily, Abilify, fluoxetine 20 mg daily, gabapentin, Imitrex, Brilinta 90 mg daily, Topamax and an aspirin 81 mg daily. PAST MEDICAL HISTORY: Medical records have been reviewed, includes a history of coronary artery disease, metabolic syndrome, gastritis, dyslipidemia. 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 FAMILY HISTORY: Negative for premature coronary artery disease. REVIEW OF SYSTEMS: All systems negative except as that noted above. PHYSICAL EXAMINATION: GENERAL: A pleasant woman in no distress. VITAL SIGNS: Blood pressure is 111/78, heart rate is 76 and regular. She is afebrile. HEENT: There are neither xanthelasma, subcutaneous xanthomata, oral mucosal or digital cyanosis or kyphoscoliosis present. CHEST: Clear to auscultation and percussion. There is reproduced left upper [facility] [address] [place] [address] CONSULTATION Name: KARTIHK WEIR PHANI Room #: 218-P [facility] IN M.R.#: [id number] Admission: 07/12/18 Attend Phys: Solange Cerrato Discharge: 07/12/18 Date of : 66 Report #: [id number] chest discomfort on palpation at the third left costochondral junction. ABDOMEN: Soft, obese and nontender. EXTREMITIES: Without cyanosis, clubbing or edema. Radial pulses are 2+. NEUROLOGIC: She is alert with a nonfocal exam. LABORATORY DATA: Sodium is 138, potassium 3.1, creatinine 1.4. White count 10.5, hemoglobin 14, hematocrit 42, platelet count 375. Chest x-ray is normal. IMPRESSION: 1. Musculoskeletal chest wall pain. 2. Coronary artery disease with recent medicated stenting of the left anterior descending. 3. Hypertension. 4. Dyslipidemia. 5. Glucose intolerance. RECOMMENDATIONS: 1. Continued use of low dose aspirin and ticagrelor. 2. Anti-inflammatory medications. A careful use given her antiplatelet therapy. 3. No additional cardiovascular testing is needed. Reassurance offered. By: 0839 1709 Jaguar Dickey MD, [facility] /nt
--- NOTE | ~2018-07-11 | EKG ---
[place] [address] [facility] [place] [address] ELECTROCARDIOGRAM REPORT Name: KARTHIK WEIR PHANI Room #: 218-P ADM IN M.R.#: [id number] Admission: 07/12/18 Attend Phys: Solange Cerrato Discharge: Date of : 66 Report #: [id number] THIS REPORT FOR: //name// [facility] ED Test Date: 2018-07-12 Test Time: 01:36:54 Pat Name: KARTHIK WEIR Department: Room: 218 Gender: F Stock Turner: CARMEL : 1970 Requested By: Jose L Enrique Order Number: [id number] MD: Jaguar Dickey Measurements Intervals [place] Rate: 77 P: 24 [place]: 169 QRS: -30 QRSD: 107 T: 128 QT: 419 QTc: 475 Interpretive Statements Sinus rhythm Left axis deviation Abnormal R-wave progression, early transition Anterior T wave inversion Compared to ECG 06/07/2018 22:45:59 No significant change was found Electronically Signed On 07-12-2018 13:07:58 CDT by Jaguar Dickey [email or web address] <ELECTRONICALLY SIGNED> By: Jaguar Dickey MD, [facility] 07/12/18 1307 0136 0136 Jaguar Dickey MD, [facility] /EPI
[2018-07-11] MEDS ORDERED: TOPAMAX 100 MG100 MG PO (23:43)
[2018-07-12 00:03] LABS: HEMATOCRIT 42.6 % (37.0-47.0); HEMOGLOBIN 14.1 gm/dL (12.0-15.0); MCH 25.8 pg (26.0-34.0); MCHC 33.1 g/dL (28.0-37.0); MCV 78.2 fL (80.0-100.0); RBC 5.46 mil/uL (4.20-5.00); WBC 10.5 thou/uL (4.0-11.0)
[2018-07-12 00:09] LABS: ANION GAP 15 mmol/L (7-16); BUN 27 mg/dL (7-18); CALCIUM 9.7 mg/dL (8.5-10.1); CHLORIDE 98 mmol/L (98-107); CO2 25 mmol/L (21-32); CREATININE 1.5 mg/dL (0.6-1.0); GLUCOSE 112 mg/dL (74-106); POTASSIUM 3.1 mmol/L (3.5-5.1); SODIUM 138 mmol/L (136-145)
[2018-07-12 00:17] LABS: ALBUMIN 3.8 g/dL (3.4-5.0); SGOT 24 U/L (15-37); SGPT 27 U/L (30-65); TOTAL BILIRUBIN 0.1 mg/dL (<0.1-1.0); TOTAL PROTEIN 9.1 g/dL (6.4-8.2); TROPONIN-I <0.06 ng/mL (<0.06)
[2018-07-12 02:03] LABS: PROTIME 9.7 Seconds (9.3-11.4)
[2018-07-12 02:21] VITALS: BP 91/68
[2018-07-12 03:14] VITALS: BP 139/68
[2018-07-12 03:38] VITALS: BP 111/78
[2018-07-12 08:44] VITALS: BP 108/75
[2018-07-12 11:15] VITALS: BP 108/75
[2018-07-12 11:36] VITALS: BP 106/69
[2018-07-16] MEDS ORDERED: PHENERGAN 25 MG25 M1 PO (00:14)
[2018-07-16] MEDS ORDERED: CARAFATE 1 GM TA1 G1 PO (00:14)
== END 2018-07-12 15:25 | disposition home or self-care (01) | DRG 303 ==
LOC: ER 23:37 → 2N 07-12 02:04
PROVIDERS: Emergency Medicine
DX: I25.110 Atherosclerotic heart disease of native coronary artery with unstable angina pectoris (principal); K92.1 Melena; F41.9 Anxiety disorder, unspecified; F32.9 Major depressive disorder, single episode, unspecified; G43.909 Migraine, unspecified, not intractable, without status migrainosus; Z96.612 Presence of left artificial shoulder joint; J45.909 Unspecified asthma, uncomplicated; N18.3 Chronic kidney disease, stage 3 (moderate); E78.5 Hyperlipidemia, unspecified; E88.81 Metabolic syndrome and other insulin resistance; I12.9 Hypertensive chronic kidney disease with stage 1 through stage 4 chronic kidney disease, or unspecified chronic kidney disease; E74.39 Other disorders of intestinal carbohydrate absorption; Z90.710 Acquired absence of both cervix and uterus; Z90.49 Acquired absence of other specified parts of digestive tract; Z95.5 Presence of coronary angioplasty implant and graft; Z87.442 Personal history of urinary calculi
CPT/HCPCS: 10081

== ENCOUNTER 2018-08-13 22:54 | Inpatient (IN) | payer OTHER ==
[~2018-08-13] VITALS: Ht 162.6 cm; Wt 110.4 kg
--- NOTE | ~2018-08-13 | HC ---
[facility] [place] [address] CONSULTATION Name: CARMELLAKARTHIK PHANI Room #: 215-P [facility] IN M.R.#: [id number] Admission: 08/14/18 Attend Phys: Celestine Marquez MD Discharge: 08/16/18 Date of : 66 Report #: [id number] THIS REPORT FOR: //name// CC: FAM unknown Celestine Marquez REASON FOR CONSULTATION: Chest pain. HISTORY OF PRESENT ILLNESS: The patient is a 47-year-old patient of Dr. Juma Brar with a history of hypertension, dyslipidemia, gastritis and recent stent placement in 05/2018 with a 3.25 x 15 mm Xience stent to the proximal LAD. There is no other coronary artery disease present at the time of her catheterization; normal ejection fraction. The patient has had many evaluations for chest pain, both before and after her stent placement, numerous cardiac troponin levels have been normal. Echocardiogram has been normal. CT for PE protocol has been normal. This is thought to probably represent musculoskeletal pain. She has also had issues with hemorrhoidal bleeding. She now presents with recurrent midsternal chest tightness. She describes this as a pressure-like feeling, no different really than what she has experienced and described on several prior evaluations. She wakes up with this pain in the morning. She goes to bed with the pain at night. She reports compliance with aspirin and Brilinta. In addition to this pain, she presented with bright red blood mixed with dark brown stool. She has had occasional lower abdominal pain. In January, she had colonoscopy demonstrating external hemorrhoids and anal fissures. Again, troponin levels have been normal. ALLERGIES: There are no known drug allergies. MEDICATIONS: Include metformin 500 mg twice daily, alprazolam, amitriptyline, fluoxetine 20 mg daily, Abilify 20 mg daily, gabapentin, Brilinta 90 mg twice daily, aspirin 81 mg daily, Carafate. PAST MEDICAL HISTORY: Medical records have been reviewed and include a history of cholecystectomy, hysterectomy, endometriosis, hernia repair, right knee surgery, appendectomy, asthma, nephrolithiasis, chronic kidney disease, coronary artery disease as detailed above. 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 FAMILY HISTORY: Negative for premature coronary artery disease. REVIEW OF SYSTEMS: All systems negative except as that noted above. PHYSICAL EXAMINATION: GENERAL: Reveals a pleasant woman in no distress. [address] [address] CONSULTATION Name: KARTHIK WEIR PHANI Room #: 215-P [facility] IN M.R.#: [id number] Admission: 08/14/18 Attend Phys: Celestine Marquez MD Discharge: 08/16/18 Date of : 66 Report #: [id number] VITAL SIGNS: Blood pressure is 89/70, heart rate is 60 and regular. She is afebrile, 5 feet 4 inches tall, 250 pounds. HEENT: There are neither xanthelasma, subcutaneous xanthomata, oral mucosal or digital cyanosis or kyphoscoliosis present. CHEST: Clear to auscultation and percussion. CARDIAC: Regular rate and rhythm with normal S1, S2. No murmurs, gallops or rubs. ABDOMEN: Soft, obese and nontender. EXTREMITIES: Without cyanosis, clubbing or edema. Radial pulses are 2+. NEUROLOGIC: She is alert with a nonfocal exam. LABORATORY DATA: EKG is sinus rhythm with incomplete right bundle-branch block, unchanged from multiple prior electrocardiograms. Sodium 142, potassium 3.5, creatinine 1.6. Troponin 0. White count 8.4, hemoglobin 10.8, platelet count 339. Chest x-ray is normal. IMPRESSION: 1. Chest pain, noncardiac with recent medicated-stenting of the left anterior descending. 2. Lower gastrointestinal bleeding. 3. Chronic kidney disease. 4. Dyslipidemia. 5. Hypertension. 6. Anxiety; depression. RECOMMENDATIONS: 1. Hold aspirin and Brilinta now pending GI evaluation. Resume as soon as possible. The importance of taking a low dose, 81 mg aspirin with her Brilinta was reinforced. 2. Continued efforts towards aggressive risk factor modification. 3. No further testing needed from a cardiovascular standpoint. Myocardial ischemia is not suspected as the etiology of her chest pain, I would recommend investigation of alternative causes for this. <ELECTRONICALLY SIGNED> By: Jaguar Dickey MD, [facility] 08/19/18 1258 0840 1222 Jaguar Dickey MD, FACC /nt
--- NOTE | ~2018-08-13 | PATH ---
[facility] [address] [place] [address] PATHOLOGY RPT PROCEDURE Name: DAVEKARTHIK PHANI Room #: 215-P DIS IN M.R.#: [id number] Admission: 08/14/18 Date of : 66 Discharge: 08/16/18 Report #: [id number] Path Case #: [id number] [facility] Accession Number: [id number] . 01 Material submitted: . BX OF GASTRITIS . 01 Clinical history: . Pre-OP DX: GI bleed Post-OP DX: Gastritis, AVM . 02 Diagnosis: Gastric mucosa, gastritis, endoscopic biopsy: - Mild chronic inflammation. - Negative for intestinal metaplasia or atrophy. - Negative for Helicobacter pylori (properly controlled immunohistochemical stain performed). (IUV:natalya; 08/15/2018) QMS/08/15/2018 . 02 Electronically signed: . Caroline Ingram MD, Pathologist NPI- [id number] . 01 Gross description: . Received in formalin labeled "Dave, Karthik, BX gastritis," is a single segment of giles soft tissue measuring 0.5 cm in maximum dimension. The specimen is entirely submitted in cassette A1. (TSD; 08/14/2018) TOB/TOB . 02 Pathologist provided ICD-10: K29.50 . 02 CPT . 209836, E13260 Specimen Comment: A courtesy copy of this report has been sent to Specimen Comment: [phone], . Specimen Comment: Report sent to and Performed at: [address], [place], [place] [id number] MD Ralph Bowles MD Phone: [phone] Performed at: [address] [id number] MD Caroline Ingram MD Phone: [phone]
--- NOTE | ~2018-08-13 | EKG ---
[address] [place] [address] ELECTROCARDIOGRAM REPORT Name: KARTHIK WEIR PHANI Room #: 215-P ADM IN M.R.#: [id number] Admission: 08/14/18 Attend Phys: Celestine Marquez MD Discharge: Date of : 66 Report #: [id number] THIS REPORT FOR: //name// [facility] ED Test Date: 2018-08-13 Test Time: 23:32:54 Pat Name: KARTHIK WEIR Department: Room: 215 Gender: F Interior Design Faculty Member: RICCI ASHBY : 1970 Requested By: José Blanchard Order Number: [id number] MD: Jaguar Dickey Measurements Intervals [place] Rate: 62 P: 34 [place]: 168 QRS: -28 QRSD: 111 T: 61 QT: 427 QTc: 434 Interpretive Statements Sinus rhythm Borderline left axis deviation RSR' in V1 or V2, right VCD Compared to ECG 08/06/2018 23:33:13 No significant change was found Electronically Signed On 08-14-2018 8:13:20 CDT by Jaguar Dickey [email or web address] <ELECTRONICALLY SIGNED> By: Jaguar Dickey MD, [facility] 08/14/18 0813 2332 233 Jaguar Dickey MD, [facility] /EPI
--- NOTE | ~2018-08-13 | EKG ---
[address] [address] ELECTROCARDIOGRAM REPORT Name: KARTHIK WEIR PHANI Room #: 215-P ADM IN M.R.#: [id number] Admission: 08/14/18 Attend Phys: Celestine Marquez MD Discharge: Date of : 66 Report #: [id number] THIS REPORT FOR: //name// [facility] Test Date: 2018-08-15 Test Time: 18:42:05 Pat Name: KARTHIK WEIR Department: Room: 215 P Gender: F Drafter Automotive Design Layout: Rufino JOSHI : 1970 Requested By: Celestine Marquez Order Number: [id number] MD: Abner Hilario Measurements Intervals [place] Rate: 66 P: 33 [place]: 166 QRS: -20 QRSD: 110 T: 72 QT: 412 QTc: 432 Interpretive Statements Sinus rhythm Borderline left axis deviation Abnormal R-wave progression, early transition T wave similar to prior Electronically Signed On 08-15-2018 23:12:16 CDT by Abner Hliario [email or web address] <ELECTRONICALLY SIGNED> By: Abner Hilario MD 08/15/182311 41 41 Abner Hilario MD /HARSHAL
[~2018-08-13 22:54] MED LIST changes: +KEFLEX500 M1 PO; +KLOR-CON 1010 MEQ PO
[2018-08-13 22:55] VITALS: BP 110/58
[2018-08-13 23:34] LABS: ABSOLUTE NEUTROPHILS 5.9 thou/uL (1.4-8.2); EOSINOPHILS 2.3 % (0.0-3.0); HEMATOCRIT 36.3 % (37.0-47.0); HEMOGLOBIN 11.9 gm/dL (12.0-15.0); MCH 25.6 pg (26.0-34.0); MCHC 32.7 g/dL (28.0-37.0); MCV 78.1 fL (80.0-100.0); PLATELET COUNT 329 thou/uL (150-400); POLYS 73.7 % (36.0-66.0); RBC 4.65 mil/uL (4.20-5.00); RDW 15.8 % (10.5-14.5)
[2018-08-13 23:42] LABS: ANION GAP 12 mmol/L (7-16); BUN 33 mg/dL (7-18); CALCIUM 9.8 mg/dL (8.5-10.1); CHLORIDE 105 mmol/L (98-107); CO2 22 mmol/L (21-32); CREATININE 1.8 mg/dL (0.6-1.0); GLUCOSE 103 mg/dL (74-106); POTASSIUM 3.3 mmol/L (3.5-5.1); SODIUM 139 mmol/L (136-145)
[2018-08-13 23:49] LABS: APTT 28.5 Seconds (24.5-32.8); PROTIME 10.2 Seconds (9.3-11.4)
[2018-08-13 23:51] LABS: ALBUMIN 3.4 g/dL (3.4-5.0); MAGNESIUM 1.8 mg/dL (1.8-2.4); SGOT 17 U/L (15-37); SGPT 29 U/L (30-65); TOTAL BILIRUBIN 0.2 mg/dL (<0.1-1.0); TOTAL PROTEIN 7.9 g/dL (6.4-8.2); TROPONIN-I <0.06 ng/mL (<0.06)
[2018-08-14] VITALS (7 sets, daily range): BP systolic 82–107; BP diastolic 47–61
[2018-08-14 07:10] LABS: HEMATOCRIT 34.4 % (37.0-47.0); HEMOGLOBIN 10.8 gm/dL (12.0-15.0); MCH 24.8 pg (26.0-34.0); MCHC 31.3 g/dL (28.0-37.0); MCV 79.1 fL (80.0-100.0); RBC 4.34 mil/uL (4.20-5.00); RDW 15.6 % (10.5-14.5); WBC 8.4 thou/uL (4.0-11.0)
[2018-08-14 07:32] LABS: ANION GAP 12 mmol/L (7-16); BUN 34 mg/dL (7-18); CALCIUM 8.8 mg/dL (8.5-10.1); CHLORIDE 108 mmol/L (98-107); CO2 22 mmol/L (21-32); CREATININE 1.6 mg/dL (0.6-1.0); GLUCOSE 99 mg/dL (74-106); POTASSIUM 3.5 mmol/L (3.5-5.1); SODIUM 142 mmol/L (136-145); TROPONIN-I <0.06 ng/mL (<0.06)
[2018-08-15 05:08] LABS: URINE BILIRUBIN NEGATIVE (Negative); URINE BLOOD 2+ (Negative); URINE CLARITY SL CLOUDY; URINE COLOR YELLOW; URINE GLUCOSE-RANDOM* NEGATIVE (Negative); URINE KETONES NEGATIVE (Negative); URINE LEUKOCYTES-REFLEX NEGATIVE (Negative); URINE NITRITE-REFLEX NEGATIVE (Negative); URINE PROTEIN (DIPSTICK) NEGATIVE (Negative); URINE UROBILINOGEN 0.2 E.U./dl (0.2-1.0)
[2018-08-15 05:11] VITALS: BP 103/64
[2018-08-15 05:14] LABS: BACTERIA-REFLEX None Seen /HPF (None Seen); CASTS None Seen /LPF (None Seen); CRYSTALS None Seen /LPF (None Seen); MUCUS None Seen strn/LPF (None Seen); SQUAMOUS None Seen /LPF (0-3); URINE RBC 0-2 Rare /HPF (0-2); URINE WBC-REFLEX None Seen /HPF (0-5)
[2018-08-15 05:30] LABS: HEMATOCRIT 33.3 % (37.0-47.0); HEMOGLOBIN 10.6 gm/dL (12.0-15.0); MCHC 31.8 g/dL (28.0-37.0); MCV 78.7 fL (80.0-100.0); RBC 4.23 mil/uL (4.20-5.00); RDW 16.1 % (10.5-14.5); WBC 5.5 thou/uL (4.0-11.0)
[2018-08-15 05:39] LABS: ANION GAP 8 mmol/L (7-16); BUN 25 mg/dL (7-18); CALCIUM 9.4 mg/dL (8.5-10.1); CHLORIDE 108 mmol/L (98-107); CO2 22 mmol/L (21-32); CREATININE 1.2 mg/dL (0.6-1.0); GLUCOSE 91 mg/dL (74-106); POTASSIUM 3.8 mmol/L (3.5-5.1); SODIUM 138 mmol/L (136-145); TROPONIN-I <0.06 ng/mL (<0.06)
[2018-08-15 08:03] VITALS: BP 107/60
[2018-08-15 11:33] VITALS: BP 98/52
[2018-08-15 15:17] VITALS: BP 99/54
[2018-08-15 18:57] VITALS: BP 96/52
[2018-08-16 05:13] VITALS: BP 95/59
[2018-08-16 08:00] VITALS: BP 122/77
[2018-08-16] MEDS ORDERED: ASPIR 8181 MG PO (10:56)
[2018-08-16] MEDS ORDERED: MIRALAX17 GM PO (10:58)
[2018-08-16 12:01] VITALS: BP 122/77
== END 2018-08-16 12:15 | disposition home or self-care (01) | DRG 378 ==
LOC: ER 22:54 → EROBS 08-14 00:22 → 2N 08-14 00:57
PROVIDERS: Emergency Medicine; Hospitalist; Internal Medicine Gastroenterology; Nurse Practitioner Family
PROC: 0W3P8ZZ Control Bleeding in Gastrointestinal Tract, Via Natural or Artificial Opening Endoscopic (ICD-10-PCS; principal; 2018-08-14)
PROC: 0DB68ZX Excision of Stomach, Via Natural or Artificial Opening Endoscopic, Diagnostic (ICD-10-PCS; principal; 2018-08-14)
DX: K55.21 Angiodysplasia of colon with hemorrhage (principal); N17.9 Acute kidney failure, unspecified; Z68.41 Body mass index [BMI] 40.0-44.9, adult; F41.9 Anxiety disorder, unspecified; F32.9 Major depressive disorder, single episode, unspecified; E78.5 Hyperlipidemia, unspecified; I12.9 Hypertensive chronic kidney disease with stage 1 through stage 4 chronic kidney disease, or unspecified chronic kidney disease; J45.909 Unspecified asthma, uncomplicated; G43.909 Migraine, unspecified, not intractable, without status migrainosus; N18.3 Chronic kidney disease, stage 3 (moderate); I25.10 Atherosclerotic heart disease of native coronary artery without angina pectoris; G89.29 Other chronic pain; I95.9 Hypotension, unspecified; E66.9 Obesity, unspecified; D64.9 Anemia, unspecified; E88.81 Metabolic syndrome and other insulin resistance; K21.9 Gastro-esophageal reflux disease without esophagitis; Z90.49 Acquired absence of other specified parts of digestive tract; Z90.710 Acquired absence of both cervix and uterus; Z87.01 Personal history of pneumonia (recurrent); Z95.5 Presence of coronary angioplasty implant and graft; Z87.442 Personal history of urinary calculi; Z79.899 Other long term (current) drug therapy; Z79.84 Long term (current) use of oral hypoglycemic drugs; Z87.11 Personal history of peptic ulcer disease; Z86.010 Personal history of colon polyps; Z23 Encounter for immunization
CPT/HCPCS: 10081; 62110; 62900; 70005

== ENCOUNTER 2018-08-21 00:32 | Inpatient (IN) | payer OTHER ==
[~2018-08-21] VITALS: Ht 162.6 cm; Wt 107.0 kg
--- NOTE | ~2018-08-21 | EKG ---
[address] [address] ELECTROCARDIOGRAM REPORT Name: KARTHIK WEIR PHANI Room #: 355-P ADM IN M.R.#: [id number] Admission: 08/21/18 Attend Phys: Simone Flores MD Discharge: Date of : 66 Report #: [id number] THIS REPORT FOR: //name// [facility] ED Test Date: 2018-08-21 Test Time: 01:00:46 Pat Name: KARTHIK WEIR Department: Room: 355 Gender: F Asphalt Blender: : 1970 Requested By: Kourtney Méndez Order Number: [id number] MD: Jaguar Dickey Measurements Intervals [place] Rate: 62 P: 36 [place]: 181 QRS: -22 QRSD: 111 T: 56 QT: 422 QTc: 429 Interpretive Statements Sinus rhythm Borderline left axis deviation RSR' in V1 or V2, right VCD Compared to ECG 08/15/2018 18:42:05 No significant change was found Electronically Signed On 08-21-2018 8:12:59 CDT by Jaguar Dickey [email or web address] <ELECTRONICALLY SIGNED> By: Jaguar Dickey MD, [facility] 08/21/18 0812 0100 Jaguar Dickey MD, [facility] /EPI
[~2018-08-21 00:32] MED LIST changes: +MIRALAX17 GM PO
[2018-08-21 00:54] VITALS: BP 88/47
[2018-08-21 01:51] LABS: ABSOLUTE NEUTROPHILS 5.1 thou/uL (1.4-8.2); BASOPHILS 1.3 % (0.0-2.0); EOSINOPHILS 4.6 % (0.0-3.0); HEMATOCRIT 37.6 % (37.0-47.0); LYMPHOCYTES 25.1 % (24.0-44.0); MCHC 31.8 g/dL (28.0-37.0); MCV 78.6 fL (80.0-100.0); MONOCYTES 8.2 % (1.0-8.0); PLATELET COUNT 359 thou/uL (150-400); POLYS 60.8 % (36.0-66.0); RBC 4.79 mil/uL (4.20-5.00); RDW 16.3 % (10.5-14.5); WBC 8.4 thou/uL (4.0-11.0)
[2018-08-21 01:58] LABS: CALCIUM 9.5 mg/dL (8.5-10.1); CREATININE 1.4 mg/dL (0.6-1.0); POTASSIUM 3.6 mmol/L (3.5-5.1)
[2018-08-21] MEDS ORDERED: PHENERGAN 25 MG25 M1 PO (02:00)
[2018-08-21 02:04] LABS: ALBUMIN 3.5 g/dL (3.4-5.0); TOTAL BILIRUBIN 0.2 mg/dL (<0.1-1.0)
[2018-08-21 02:05] LABS: APTT 28.8 Seconds (24.5-32.8)
[2018-08-21 03:14] VITALS: BP 99/43
[2018-08-21 03:43] VITALS: BP 88/47
[2018-08-21 06:36] LABS: HEMATOCRIT 32.4 % (37.0-47.0); HEMOGLOBIN 10.5 gm/dL (12.0-15.0)
[2018-08-21 09:22] LABS: % SATURATION 14 % (20-39); IRON 40 ug/dL (50-170); TIBC 296 ug/dL (250-450)
[2018-08-21 16:51] VITALS: BP 84/51
[2018-08-21 18:15] LABS: HEMATOCRIT 33.7 % (37.0-47.0)
[2018-08-21 19:55] VITALS: BP 88/50
[2018-08-22 04:00] VITALS: BP 81/41
[2018-08-22 05:25] LABS: HEMATOCRIT 33.7 % (37.0-47.0); HEMOGLOBIN 10.5 gm/dL (12.0-15.0)
[2018-08-22 07:56] VITALS: BP 97/63
[2018-08-22] MEDS ORDERED: COLACE100 MG PO (08:26)
[2018-08-22] MEDS ORDERED: MIRALAX17 GM PO (08:26)
[2018-08-22] MEDS ORDERED: MIDODRINE HCL 55 M1 PO (08:26)
[2018-08-22] MEDS ORDERED: IRON325 PO (08:26)
[2018-08-22 10:26] VITALS: BP 97/63
== END 2018-08-22 13:00 | disposition home or self-care (01) | DRG 378 ==
LOC: ER 00:32 → EROBS 02:54 → 3W 03:33
PROVIDERS: Internal Medicine Gastroenterology; Nurse Practitioner Acute Care; Student in an Organized Health Care Education/Training Program
DX: K92.2 Gastrointestinal hemorrhage, unspecified (principal); Z68.41 Body mass index [BMI] 40.0-44.9, adult; F41.9 Anxiety disorder, unspecified; F32.9 Major depressive disorder, single episode, unspecified; G43.909 Migraine, unspecified, not intractable, without status migrainosus; N18.3 Chronic kidney disease, stage 3 (moderate); E78.5 Hyperlipidemia, unspecified; J45.909 Unspecified asthma, uncomplicated; Z96.612 Presence of left artificial shoulder joint; I12.9 Hypertensive chronic kidney disease with stage 1 through stage 4 chronic kidney disease, or unspecified chronic kidney disease; I25.10 Atherosclerotic heart disease of native coronary artery without angina pectoris; I95.9 Hypotension, unspecified; E66.9 Obesity, unspecified; Z87.11 Personal history of peptic ulcer disease; Z90.49 Acquired absence of other specified parts of digestive tract; Z90.710 Acquired absence of both cervix and uterus; Z95.5 Presence of coronary angioplasty implant and graft; Z87.442 Personal history of urinary calculi
CPT/HCPCS: 10879

== ENCOUNTER 2018-08-25 00:25 | Emergency (ER) | payer OTHER ==
[~2018-08-25] VITALS: Ht 162.6 cm; Wt 107.0 kg
[~2018-08-25 00:25] MED LIST changes: +IRON325 PO; +MIDODRINE HCL 55 M1 PO
[2018-08-25] MEDS ORDERED: ANUSOL-HC25 MG RECTAL (01:05)
[2018-08-25 01:23] LABS: ABSOLUTE NEUTROPHILS 6.5 thou/uL (1.4-8.2); BASOPHILS 1.2 % (0.0-2.0); EOSINOPHILS 3.1 % (0.0-3.0); HEMATOCRIT 35.6 % (37.0-47.0); HEMOGLOBIN 11.5 gm/dL (12.0-15.0); LYMPHOCYTES 24.4 % (24.0-44.0); MCH 25.3 pg (26.0-34.0); MCHC 32.4 g/dL (28.0-37.0); MCV 78.3 fL (80.0-100.0); MONOCYTES 10.2 % (1.0-8.0); PLATELET COUNT 333 thou/uL (150-400); POLYS 61.1 % (36.0-66.0); RBC 4.55 mil/uL (4.20-5.00); RDW 15.8 % (10.5-14.5); WBC 10.6 thou/uL (4.0-11.0)
[2018-08-25 01:32] LABS: CALCIUM 9.3 mg/dL (8.5-10.1); CREATININE 1.7 mg/dL (0.6-1.0); POTASSIUM 3.7 mmol/L (3.5-5.1)
[2018-08-25 01:38] LABS: ALBUMIN 3.5 g/dL (3.4-5.0); TOTAL BILIRUBIN 0.1 mg/dL (<0.1-1.0)
[2018-08-25 01:53] LABS: URINE BILIRUBIN NEGATIVE (Negative); URINE BLOOD 3+ (Negative); URINE CLARITY CLEAR; URINE COLOR YELLOW; URINE GLUCOSE-RANDOM* NEGATIVE (Negative); URINE KETONES NEGATIVE (Negative); URINE NITRITE-REFLEX NEGATIVE (Negative); URINE PROTEIN (DIPSTICK) NEGATIVE (Negative); URINE SPECIFIC GRAVITY >= 1.030 (1.005-1.035); URINE UROBILINOGEN 0.2 E.U./dl (0.2-1.0)
[2018-08-25 02:02] LABS: URINE LEUKOCYTES-REFLEX TRACE (Negative)
[2018-08-25] MEDS ORDERED: ACETAMINOPHEN-1 EAC1 PO (02:09)
[2018-08-25 02:16] LABS: CASTS None Seen /LPF (None Seen); CRYSTALS None Seen /LPF (None Seen); HYALINE CASTS >10 Many /LPF (None Seen)
[2018-08-25 02:17] LABS: BACTERIA-REFLEX 1-9 Few /HPF (None Seen); SQUAMOUS 4-10 Moderate /LPF (0-3)
== END 2018-08-25 02:28 | disposition home or self-care (01) ==
LOC: ER 00:25
PROVIDERS: Emergency Medicine
DX: K64.4 Residual hemorrhoidal skin tags (principal); G89.29 Other chronic pain; R10.30 Lower abdominal pain, unspecified; I12.9 Hypertensive chronic kidney disease with stage 1 through stage 4 chronic kidney disease, or unspecified chronic kidney disease; N18.3 Chronic kidney disease, stage 3 (moderate); F41.9 Anxiety disorder, unspecified; F32.9 Major depressive disorder, single episode, unspecified; N80.9 Endometriosis, unspecified; G43.909 Migraine, unspecified, not intractable, without status migrainosus; J45.909 Unspecified asthma, uncomplicated; E78.5 Hyperlipidemia, unspecified; Z95.5 Presence of coronary angioplasty implant and graft; Z90.49 Acquired absence of other specified parts of digestive tract; Z90.89 Acquired absence of other organs; Z90.710 Acquired absence of both cervix and uterus

== ENCOUNTER 2018-09-06 01:44 | Emergency (ER) | payer OTHER ==
[~2018-09-06] VITALS: Ht 162.6 cm; Wt 107.5 kg
[2018-09-06] MEDS ORDERED: HYDROCORTISONE30 G9 RECTAL (02:26)
[2018-09-06] MEDS ORDERED: ANUSOL-HC25 MG RECTAL (02:26)
== END 2018-09-06 02:44 ==
LOC: ER 01:44
DX: K62.5 Hemorrhage of anus and rectum (principal); G89.29 Other chronic pain; R10.30 Lower abdominal pain, unspecified; F41.9 Anxiety disorder, unspecified; F32.9 Major depressive disorder, single episode, unspecified; N80.9 Endometriosis, unspecified; G43.909 Migraine, unspecified, not intractable, without status migrainosus; J45.909 Unspecified asthma, uncomplicated; E78.5 Hyperlipidemia, unspecified; I12.9 Hypertensive chronic kidney disease with stage 1 through stage 4 chronic kidney disease, or unspecified chronic kidney disease; N18.3 Chronic kidney disease, stage 3 (moderate); Z90.49 Acquired absence of other specified parts of digestive tract; Z90.89 Acquired absence of other organs; Z95.5 Presence of coronary angioplasty implant and graft; Z90.710 Acquired absence of both cervix and uterus

== ENCOUNTER 2018-11-17 02:39 | Inpatient (IN) | payer OTHER ==
[~2018-11-17] VITALS: Ht 162.6 cm; Wt 103.4 kg
[2018-11-17] VITALS (7 sets, daily range): BP systolic 90–128; BP diastolic 50–74
[~2018-11-17 02:39] MED LIST changes: +HYDROCORTISONE30 G9 RECTAL
[2018-11-17 03:31] LABS: ANION GAP 11 mmol/L (7-16); BUN 34 mg/dL (7-18); CALCIUM 9.2 mg/dL (8.5-10.1); CHLORIDE 100 mmol/L (98-107); CO2 26 mmol/L (21-32); CREATININE 1.4 mg/dL (0.6-1.0); GLUCOSE 92 mg/dL (74-106); SODIUM 137 mmol/L (136-145)
[2018-11-17 03:35] LABS: ABSOLUTE NEUTROPHILS 6.9 thou/uL (1.4-8.2); BASOPHILS 0.9 % (0.0-2.0); EOSINOPHILS 1.8 % (0.0-3.0); HEMATOCRIT 35.9 % (37.0-47.0); HEMOGLOBIN 11.6 gm/dL (12.0-15.0); MCH 25.3 pg (26.0-34.0); MCHC 32.3 g/dL (28.0-37.0); MCV 78.1 fL (80.0-100.0); MONOCYTES 7.4 % (1.0-8.0); PLATELET COUNT 308 thou/uL (150-400); POLYS 69.9 % (36.0-66.0); RDW 15.6 % (10.5-14.5); WBC 9.8 thou/uL (4.0-11.0)
[2018-11-17 03:40] LABS: POTASSIUM 2.5 mmol/L (3.5-5.1); TROPONIN-I <0.06 ng/mL (<0.06)
--- NOTE | 2018-11-17 07:06 | NUR ---
ASSUMED CARE OF PATIENT FROM ER. ADMISSION COMPLETE. C/O PAIN 07/28, WHEN REASSESED PATIENT SLEEPING. PPOC GOALS ESTABLISHED, ALL QUESTIONS ANSWERED.
--- NOTE | 2018-11-17 08:30 | EKG ---
[place] [address] [facility] [place] [address] ELECTROCARDIOGRAM REPORT Name: KARTHIK WEIR PHANI Room #: 457-P ADM IN M.R.#: [id number] Admission: 11/17/18 Attend Phys: Solagne Cerrato Discharge: Date of : 66 Report #: [id number] THIS REPORT FOR: //name// [facility] ED Test Date: 2018-11-17 Test Time: 03:04:19 Pat Name: KARTHIK WEIR Department: Room: [facility] Gender: F Warehouse Processor: Lester EVANS : 1970 Requested By: Neftali Goodman Order Number: [id number] MD: Jaguar Dickey Measurements Intervals [place] Rate: 60 P: 26 [place]: 172 QRS: -24 QRSD: 117 T: 107 QT: 459 QTc: 459 Interpretive Statements Sinus rhythm Incomplete right bundle branch block ST and T wave abnormality Compared to ECG 08/21/2018 01:00:46 T wave abnormality is more pronounced Electronically Signed On 11-17-2018 8:30:38 GENERAL ACCOUNTING CLERK by Jaguar Dickey [email or web address] <ELECTRONICALLY SIGNED> By: Jaguar Dickey MD, [facility] 11/17/18 0830 3 Jaguar Dickey MD, [facility] /EPI
--- NOTE | 2018-11-17 08:36 | EKG ---
[address] [place] [address] ELECTROCARDIOGRAM REPORT Name: KARTHIK WEIR PHANI Room #: 457-P ADM IN M.R.#: [id number] Admission: 11/17/18 Attend Phys: Solange Cerrato Discharge: Date of : 66 Report #: [id number] THIS REPORT FOR: //name// [facility] Test Date: 2018-11-17 Test Time: 07:05:51 Pat Name: KARTHIK WEIR Department: Room: 457 Gender: F Brine Supervisor: MORIAH : 1970 Requested By: Jamila Page Order Number: [id number] MD: Jaguar Dickey Measurements Intervals [place] Rate: 54 P: 43 [place]: 183 QRS: -24 QRSD: 114 T: 171 QT: 442 QTc: 419 Interpretive Statements Sinus rhythm Incomplete right bundle branch block Abnormal T, lateral leads Compared to ECG 08/21/2018 01:00:46 No significant change was found Electronically Signed On 11-17-2018 8:36:00 SUPERVISOR DIAGNOSTIC by Jaguar Dickey [email or web address] <ELECTRONICALLY SIGNED> By: Jaguar Dickey MD, [facility] 11/17/18 0836 4 Jaguar Dickey MD, [facility] /EPI
--- NOTE | 2018-11-17 10:46 | NUR ---
cm visited with chance at bedside, intro to cm and transition of care. pt reported with " live home with 2 sons, 2 step up to home and 7 stairs up to bedroom, have walker and cane, grab bars in bathroom. manage own medication. no falls in last years. had hh in past after knee surgery. son usually drives me places. use oxygen 3l at bedside and take breathing tx at home, all form [employer]."/chance. no concerns or complaints during visit. no anticipated needs. will cont following as needed for dc needs.
[2018-11-17 12:41] LABS: MAGNESIUM 2.3 mg/dL (1.8-2.4)
[2018-11-17 12:44] LABS: POTASSIUM 2.7 mmol/L (3.5-5.1)
[2018-11-17 14:22] LABS: URINE BILIRUBIN NEGATIVE (Negative); URINE BLOOD NEGATIVE (Negative); URINE CLARITY SLIGHTLY CLOUDY; URINE COLOR YELLOW; URINE GLUCOSE-RANDOM* NEGATIVE (Negative); URINE KETONES NEGATIVE (Negative); URINE NITRITE-REFLEX NEGATIVE (Negative); URINE PROTEIN (DIPSTICK) NEGATIVE (Negative); URINE SPECIFIC GRAVITY 1.025 (1.005-1.035); URINE UROBILINOGEN 0.2 E.U./dl (0.2-1.0)
[2018-11-17 14:23] LABS: URINE LEUKOCYTES-REFLEX 2+ (Negative)
[2018-11-17 14:39] LABS: BACTERIA-REFLEX 1-9 Few /HPF (None Seen); CASTS None Seen /LPF (None Seen); CRYSTALS None Seen /LPF (None Seen); HYALINE CASTS 0-3 Few /LPF (None Seen); SQUAMOUS 0-3 Few /LPF (0-3); URINE RBC None Seen /HPF (0-2); URINE WBC-REFLEX >25 Many /HPF (0-5)
[2018-11-18 00:37] VITALS: BP 91/60
[2018-11-18 04:03] VITALS: BP 94/58
[2018-11-18 07:23] VITALS: BP 100/53
--- NOTE | 2018-11-18 10:17 | EKG ---
[address] [place] [address] ELECTROCARDIOGRAM REPORT Name: KARTIHK WEIR PHANI Room #: 457-P ADM IN M.R.#: [id number] Admission: 11/17/18 Attend Phys: Solange Cerrato Discharge: Date of : 66 Report #: [id number] THIS REPORT FOR: //name// [facility] Test Date: 2018-11-18 Test Time: 07:17:58 Pat Name: KARTHIK WEIR Department: Room: 457 P Gender: F Accountant Assistant: cassy : 1970 Requested By: Ibeth Rubi Order Number: [id number] MD: Jaguar Dickey Measurements Intervals [place] Rate: 58 P: 11 [place]: 177 QRS: -28 QRSD: 111 T: 49 QT: 446 QTc: 439 Interpretive Statements Sinus rhythm Borderline left axis deviation Abnormal R-wave progression, early transition Abnrm T, consider ischemia, anterolateral lds Compared to ECG 11/17/2018 07:05:51 No significant change was found Electronically Signed On 11-18-2018 10:17:34 FIELD MARKETER by Jaguar Dickey [email or web address] <ELECTRONICALLY SIGNED> By: Jaguar Dickey MD, [facility] 11/18/18 1017 0717 6 Jaguar Dickey MD, [facility] /EPI
[2018-11-18 14:18] VITALS: BP 115/76
--- NOTE | 2018-11-18 17:51 | NUR ---
PT STABLE THROUGHOUT SHIFT. PT C/O PAIN THROUGHOUT SHIFT, TREATED WITH MEDICATION. PT RESTING COMFORTABLY.
[2018-11-18 19:06] VITALS: BP 120/63
[2018-11-19 02:25] VITALS: BP 118/68
[2018-11-19 05:49] LABS: CALCIUM 8.8 mg/dL (8.5-10.1); CREATININE 1.1 mg/dL (0.6-1.0); POTASSIUM 3.5 mmol/L (3.5-5.1)
--- NOTE | 2018-11-19 07:35 | NUR ---
progress pt a/o x4 sitting up in bed looks relaxed watching tv, requested pain meds at 8 pm and was not due until 930 requested i call physician order obtained to give next dose 30 minutes early. given with effect pt slept throughout night, tele intact reading nsr.
[2018-11-19 07:50] VITALS: BP 109/70
[2018-11-19 09:20] VITALS: BP 109/70
--- NOTE | 2018-11-19 11:37 | NUR ---
PT STABLE THIS MORNING, DISCHARGED HOME. PT LEFT UNIT VIA WHEELCHAIR TO PRIVATE VEHICLE.
== END 2018-11-19 11:45 | disposition home or self-care (01) | DRG 392 ==
LOC: ER 02:39 → EROBS 05:04 → 4W 05:04 → ENTRNSPT 11-19 11:08 → EDTRNSPTSTS 11-19 11:23 → 4W 11-19 11:45
PROVIDERS: Emergency Medicine; Hospitalist; Nurse Practitioner Acute Care; ADMIT Internal Medicine
DX: K21.9 Gastro-esophageal reflux disease without esophagitis (principal); F41.9 Anxiety disorder, unspecified; F32.9 Major depressive disorder, single episode, unspecified; J45.909 Unspecified asthma, uncomplicated; N18.3 Chronic kidney disease, stage 3 (moderate); I12.9 Hypertensive chronic kidney disease with stage 1 through stage 4 chronic kidney disease, or unspecified chronic kidney disease; E78.5 Hyperlipidemia, unspecified; E66.9 Obesity, unspecified; E87.6 Hypokalemia; I25.10 Atherosclerotic heart disease of native coronary artery without angina pectoris; E83.42 Hypomagnesemia; Z79.899 Other long term (current) drug therapy; Z90.49 Acquired absence of other specified parts of digestive tract; Z68.39 Body mass index [BMI] 39.0-39.9, adult; Z95.5 Presence of coronary angioplasty implant and graft; Z90.710 Acquired absence of both cervix and uterus
CPT/HCPCS: 10045

== ENCOUNTER 2018-11-29 00:51 | Inpatient (IN) | payer OTHER ==
[~2018-11-29] VITALS: Ht 162.6 cm; Wt 103.9 kg
[2018-11-29 00:52] VITALS: BP 88/46
[2018-11-29 01:14] LABS: ABSOLUTE NEUTROPHILS 13.5 thou/uL (1.4-8.2); BASOPHILS 0.6 % (0.0-2.0); EOSINOPHILS 0.3 % (0.0-3.0); HEMATOCRIT 38.3 % (37.0-47.0); HEMOGLOBIN 12.7 gm/dL (12.0-15.0); MCHC 33.1 g/dL (28.0-37.0); MCV 78.5 fL (80.0-100.0); MONOCYTES 5.1 % (1.0-8.0); PLATELET COUNT 337 thou/uL (150-400); RBC 4.88 mil/uL (4.20-5.00); RDW 15.8 % (10.5-14.5); WBC 16.1 thou/uL (4.0-11.0)
[2018-11-29 01:19] LABS: ANION GAP 14 mmol/L (7-16); BUN 32 mg/dL (7-18); CALCIUM 9.5 mg/dL (8.5-10.1); CHLORIDE 102 mmol/L (98-107); CO2 26 mmol/L (21-32); CREATININE 1.9 mg/dL (0.6-1.0); GLUCOSE 101 mg/dL (74-106); POTASSIUM 3.8 mmol/L (3.5-5.1); SODIUM 142 mmol/L (136-145)
[2018-11-29 01:27] LABS: ALBUMIN 3.5 g/dL (3.4-5.0); SGOT 24 U/L (15-37); SGPT 29 U/L (30-65); TOTAL BILIRUBIN 0.4 mg/dL (<0.1-1.0); TOTAL PROTEIN 8.1 g/dL (6.4-8.2); TROPONIN-I <0.06 ng/mL (<0.06)
[2018-11-29 03:11] VITALS: BP 92/50
[2018-11-29 03:23] VITALS: BP 119/64
--- NOTE | 2018-11-29 06:15 | NUR ---
PT ARRIVED AT 0330 BY TRANSPORT PT ORIENTATED TO ROOM AND CALL LIGHT PT USED CALL LIGHT EFFECTIVELY PT WAS ABLE TO GET SOME REST VS STABLE NO ISSUES OVERNIGHT.
[2018-11-29 08:25] VITALS: BP 101/58
[2018-11-29 14:50] VITALS: BP 113/60
[2018-11-29 19:31] VITALS: BP 90/47
--- NOTE | 2018-11-29 19:57 | NUR ---
Pt stable though out the shift, but did complain for non cardiac chest pain. Referred to , pain medication given. Pt makes her needs known uses call light effectively. IV and oral medicaton given.
--- NOTE | 2018-11-30 01:56 | EKG ---
[place] [address] [facility] [place] [place] [address] ELECTROCARDIOGRAM REPORT Name: KARTHIK WEIR PHANI Room #: 463-P ADM IN M.R.#: [id number] Admission: 11/29/18 Attend Phys: Roberth Toro MD Discharge: Date of : 66 Report #: [id number] THIS REPORT FOR: //name// [facility] Test Date: 2018-11-29 Test Time: 07:08:13 Pat Name: KARTHIK WEIR Department: Room: 463 Gender: F University Services Program Associate: RHIANNA : 1970 Requested By: Kourtney Méndez Order Number: [id number] MD: Elfego Frausto Measurements Intervals [place] Rate: 70 P: 52 [place]: 182 QRS: -27 QRSD: 113 T: 124 QT: 398 QTc: 430 Interpretive Statements Sinus rhythm Incomplete right bundle branch block Nonspecific ST/T abnormalities Compared to ECG 11/18/2018 07:17:58 no significant changes Electronically Signed On 11-30-2018 1:56:40 FINANCIAL REPORTING ACCOUNTANT by Elfego Frausto [email or web address] <ELECTRONICALLY SIGNED> By: Elfego Frausto MD 11/30/18 0156 Elfego Frausto MD /EPI
[2018-11-30 04:47] VITALS: BP 91/38
[2018-11-30 05:33] LABS: MCH 26.1 pg (26.0-34.0); MCHC 32.6 g/dL (28.0-37.0); RBC 3.74 mil/uL (4.20-5.00); RDW 16.6 % (10.5-14.5); WBC 7.3 thou/uL (4.0-11.0)
[2018-11-30 05:37] LABS: HEMOGLOBIN 9.8 gm/dL (12.0-15.0)
[2018-11-30 05:42] LABS: CALCIUM 8.3 mg/dL (8.5-10.1); CREATININE 1.2 mg/dL (0.6-1.0); POTASSIUM 3.6 mmol/L (3.5-5.1)
--- NOTE | 2018-11-30 06:39 | NUR ---
Pt blood pressure with a MAP of 50. Other vital signs within normal limits. Pt asymptomatic. Spoke to YESSENIA Marino. No new orders at this time.
[2018-11-30 15:00] VITALS: BP 103/49
--- NOTE | 2018-11-30 17:55 | NUR ---
ASSUMED CARE OF PT @ 0700. A&O X4. PT ABLE TO MAKE NEEDS KNOWN. TELEMENTRY MONITORED. IV INFUSING @ 125CC - SITE CLEAN/DRY. UP AD CAESAR. NO ACUTE DISTRESS. PRN MEDS GIVEN NEEDED. VOIDING CLEAR YELLOW URINE. CONTINUE TO MONITOR THROUGHOUT REMAINDER OF SHIFT.
[2018-11-30 19:54] VITALS: BP 94/55
--- NOTE | 2018-11-30 22:08 | EKG ---
[address] [place] [address] ELECTROCARDIOGRAM REPORT Name: KARTHIK WEIR PHANI Room #: 463-P ADM IN M.R.#: [id number] Admission: 11/29/18 Attend Phys: Roberth Toro MD Discharge: Date of : 66 Report #: [id number] THIS REPORT FOR: //name// [facility] ED Test Date: 2018-11-29 Test Time: 01:04:21 Pat Name: KARTHIK WEIR Department: Room: 463 P Gender: F Installation Superintendent: JORDAN : 1970 Requested By: Kourtney Méndez Order Number: [id number] MD: Abner Hilario Measurements Intervals [place] Rate: 74 P: 29 [place]: 173 QRS: -26 QRSD: 124 T: 79 QT: 412 QTc: 457 Interpretive Statements Sinus rhythm RBBB LVH with secondary repolarization abnormality Artifact in lead(s) I,II,III,aVR,aVL,aVF Compared to ECG 11/18/2018 07:17:58 Left ventricular hypertrophy now present Early repolarization now present Possible ischemia no longer present Electronically Signed On 11-30-2018 22:08:30 GRAIN THRESHER by Abner Hilario [email or web address] <ELECTRONICALLY SIGNED> By: Abner Hilario MD 11/30/18 2208 3 3 Abner Hilario MD /EPI
[2018-12-01 04:43] VITALS: BP 99/49
[2018-12-01 07:50] VITALS: BP 137/66
[2018-12-01] MEDS ORDERED: MUCINEX600 MG PO (13:09)
[2018-12-01] MEDS ORDERED: ACETAMINOPHEN325 M1 PO (13:09)
[2018-12-01] MEDS ORDERED: HYDROCODON-ACE1 EAC7 PO (13:09)
[2018-12-01] MEDS ORDERED: AZITHROMYCIN 2250 MG PO (13:09)
[2018-12-01] MEDS ORDERED: MELATONIN5 M1 PO (13:09)
[2018-12-01] MEDS ORDERED: CEFUROXIME250 MG PO (13:09)
[2018-12-01 13:53] VITALS: BP 137/66
== END 2018-12-01 15:24 | disposition home or self-care (01) | DRG 194 ==
LOC: ER 00:51 → EROBS 02:33 → 4W 03:15 → ENTRNSPT 12-01 14:36 → EDTRNSPTSTS 12-01 14:45 → 4W 12-01 15:24
PROVIDERS: Nurse Practitioner Family; Student in an Organized Health Care Education/Training Program; ADMIT Internal Medicine
DX: J18.9 Pneumonia, unspecified organism (principal); N17.9 Acute kidney failure, unspecified; F32.9 Major depressive disorder, single episode, unspecified; F41.9 Anxiety disorder, unspecified; I12.9 Hypertensive chronic kidney disease with stage 1 through stage 4 chronic kidney disease, or unspecified chronic kidney disease; G43.909 Migraine, unspecified, not intractable, without status migrainosus; Z96.612 Presence of left artificial shoulder joint; J44.9 Chronic obstructive pulmonary disease, unspecified; N18.3 Chronic kidney disease, stage 3 (moderate); I25.10 Atherosclerotic heart disease of native coronary artery without angina pectoris; Y95 Nosocomial condition; E66.01 Morbid (severe) obesity due to excess calories; K29.70 Gastritis, unspecified, without bleeding; E78.5 Hyperlipidemia, unspecified; Z90.49 Acquired absence of other specified parts of digestive tract; Z90.710 Acquired absence of both cervix and uterus; Z68.39 Body mass index [BMI] 39.0-39.9, adult; Z95.5 Presence of coronary angioplasty implant and graft; Z87.442 Personal history of urinary calculi; Z87.440 Personal history of urinary (tract) infections; Z79.82 Long term (current) use of aspirin; Z79.899 Other long term (current) drug therapy
CPT/HCPCS: 10045

== ENCOUNTER 2018-12-09 00:17 | Emergency (ER) | payer OTHER ==
[~2018-12-09] VITALS: Ht 162.6 cm; Wt 102.5 kg
[~2018-12-09 00:17] MED LIST changes: +ACETAMINOPHEN325 M1 PO; +AZITHROMYCIN 2250 MG PO; +CEFUROXIME250 MG PO; +HYDROCODON-ACE1 EAC7 PO; +MELATONIN5 M1 PO; +MUCINEX600 MG PO
[2018-12-09 01:04] LABS: ABSOLUTE NEUTROPHILS 8.2 thou/uL (1.4-8.2); BASOPHILS 0.7 % (0.0-2.0); HEMATOCRIT 37.4 % (37.0-47.0); HEMOGLOBIN 12.2 gm/dL (12.0-15.0); LYMPHOCYTES 14.8 % (24.0-44.0); MCH 25.9 pg (26.0-34.0); MCHC 32.7 g/dL (28.0-37.0); MCV 79.2 fL (80.0-100.0); MONOCYTES 7.2 % (1.0-8.0); PLATELET COUNT 391 thou/uL (150-400); POLYS 75.3 % (36.0-66.0); RBC 4.72 mil/uL (4.20-5.00); WBC 10.9 thou/uL (4.0-11.0)
[2018-12-09 01:10] LABS: CALCIUM 9.4 mg/dL (8.5-10.1); CREATININE 1.4 mg/dL (0.6-1.0); POTASSIUM 3.3 mmol/L (3.5-5.1)
[2018-12-09 01:16] LABS: ALBUMIN 3.5 g/dL (3.4-5.0); TOTAL BILIRUBIN 0.2 mg/dL (<0.1-1.0); TOTAL PROTEIN 8.2 g/dL (6.4-8.2)
[2018-12-09 01:28] LABS: URINE BILIRUBIN NEGATIVE (Negative); URINE BLOOD NEGATIVE (Negative); URINE CLARITY CLEAR; URINE COLOR YELLOW; URINE GLUCOSE-RANDOM* NEGATIVE (Negative); URINE KETONES NEGATIVE (Negative); URINE LEUKOCYTES-REFLEX NEGATIVE (Negative); URINE NITRITE-REFLEX NEGATIVE (Negative); URINE PROTEIN (DIPSTICK) NEGATIVE (Negative); URINE SPECIFIC GRAVITY >= 1.030 (1.005-1.035); URINE UROBILINOGEN 0.2 E.U./dl (0.2-1.0)
[2018-12-09] MEDS ORDERED: BENTYL 20 MG TA20 M1 PO (03:02)
[2018-12-09] MEDS ORDERED: ZOFRAN ODT4 MG PO (03:02)
[2018-12-09] MEDS ORDERED: NORCO 5-325 TA1 EACH PO (03:02)
[2018-12-09 04:00] VITALS: BP 101/51
== END 2018-12-09 04:00 | disposition home or self-care (01) ==
LOC: ER 00:17
PROVIDERS: Emergency Medicine
DX: K52.9 Noninfective gastroenteritis and colitis, unspecified (principal); I12.9 Hypertensive chronic kidney disease with stage 1 through stage 4 chronic kidney disease, or unspecified chronic kidney disease; N18.3 Chronic kidney disease, stage 3 (moderate); F41.9 Anxiety disorder, unspecified; E78.5 Hyperlipidemia, unspecified; F32.9 Major depressive disorder, single episode, unspecified; G43.909 Migraine, unspecified, not intractable, without status migrainosus; J45.909 Unspecified asthma, uncomplicated; Z95.5 Presence of coronary angioplasty implant and graft; Z90.49 Acquired absence of other specified parts of digestive tract; Z90.710 Acquired absence of both cervix and uterus

== ENCOUNTER 2018-12-14 23:23 | Emergency (ER) | payer OTHER ==
[~2018-12-14] VITALS: Ht 162.6 cm; Wt 102.5 kg
[2018-12-15 00:07] LABS: ABSOLUTE NEUTROPHILS 4.9 thou/uL (1.4-8.2); BASOPHILS 1.2 % (0.0-2.0); EOSINOPHILS 3.3 % (0.0-3.0); HEMATOCRIT 36.5 % (37.0-47.0); HEMOGLOBIN 11.9 gm/dL (12.0-15.0); LYMPHOCYTES 26.4 % (24.0-44.0); MCH 25.5 pg (26.0-34.0); MCHC 32.5 g/dL (28.0-37.0); MCV 78.7 fL (80.0-100.0); MONOCYTES 8.4 % (1.0-8.0); PLATELET COUNT 357 thou/uL (150-400); POLYS 60.7 % (36.0-66.0); RBC 4.64 mil/uL (4.20-5.00); RDW 15.8 % (10.5-14.5); WBC 8.1 thou/uL (4.0-11.0)
[2018-12-15 00:11] LABS: ANION GAP 14 mmol/L (7-16); BUN 17 mg/dL (7-18); CHLORIDE 104 mmol/L (98-107); CO2 23 mmol/L (21-32); CREATININE 1.3 mg/dL (0.6-1.0); GLUCOSE 90 mg/dL (74-106); POTASSIUM 3.4 mmol/L (3.5-5.1); SODIUM 141 mmol/L (136-145)
[2018-12-15 00:19] LABS: ALBUMIN 3.6 g/dL (3.4-5.0); SGOT 19 U/L (15-37); SGPT 26 U/L (30-65); TOTAL BILIRUBIN 0.2 mg/dL (<0.1-1.0); TOTAL PROTEIN 8.2 g/dL (6.4-8.2); TROPONIN-I <0.06 ng/mL (<0.06)
[2018-12-15 03:42] VITALS: BP 94/56
--- NOTE | 2018-12-15 08:52 | EKG ---
[place] [address] [place] [address] ELECTROCARDIOGRAM REPORT Name: KARTHIK WEIR PHANI [id number] Admission: 12/14/18 Attend Phys: Discharge: 12/15/18 Date of : 66 Report #: [id number] THIS REPORT FOR: //name// [facility] ED Test Date: 2018-12-14 Test Time: 23:53:42 Pat Name: KARTHIK WEIR Department: Room: Gender: F Sales Planning Analyst: SHERRY : 1970 Requested By: Dorian Cantu Order Number: [id number] MD: Jaguar Dickey Measurements Intervals [place] Rate: 69 P: 39 [place]: 162 QRS: -28 QRSD: 101 T: 100 QT: 415 QTc: 445 Interpretive Statements Sinus rhythm Borderline left axis deviation Abnormal R-wave progression, early transition Abnrm T, consider ischemia, anterolateral lds Compared to ECG 11/29/2018 07:08:13 No significant change was found Electronically Signed On 12-15-2018 8:52:29 WASTE BALER by Jaguar Dickey [email or web address] <ELECTRONICALLY SIGNED> By: Jaguar Dickey MD, [facility] 12/15/18 0852 2353 2353 Jaguar Dickey MD, [facility] /EPI
== END 2018-12-15 03:42 | disposition home or self-care (01) ==
LOC: ER 23:23
PROVIDERS: Emergency Medicine
DX: R07.89 Other chest pain (principal); F41.9 Anxiety disorder, unspecified; F32.9 Major depressive disorder, single episode, unspecified; G43.909 Migraine, unspecified, not intractable, without status migrainosus; J45.909 Unspecified asthma, uncomplicated; E78.5 Hyperlipidemia, unspecified; I12.9 Hypertensive chronic kidney disease with stage 1 through stage 4 chronic kidney disease, or unspecified chronic kidney disease; N18.3 Chronic kidney disease, stage 3 (moderate); Z90.49 Acquired absence of other specified parts of digestive tract; Z90.710 Acquired absence of both cervix and uterus; Z98.890 Other specified postprocedural states; Z87.440 Personal history of urinary (tract) infections

== ENCOUNTER 2019-01-18 23:15 | Emergency (ER) | payer BC, OTHER ==
[~2019-01-18] VITALS: Ht 162.6 cm; Wt 103.4 kg
[2019-01-19] MEDS ORDERED: PREDNISONE 20 M20 MG PO (00:33)
[2019-01-19] MEDS ORDERED: ACETAMINOPHEN-1 EAC1 PO (00:33)
[2019-01-19 00:46] VITALS: BP 103/67
--- NOTE | 2019-01-19 08:27 | EKG ---
[place] [address] [facility] [place] [address] ELECTROCARDIOGRAM REPORT Name: KARTHIK WEIR PHANI [facility] [id number] ������������������ Admission: 01/18/19 ������������������ Attend Phys: Discharge: 01/19/19 ������������������ Date of : [birth year] Report #: [id number] ����������������������������������������������������������������� [id number] THIS REPORT FOR: //name// [facility] ED Test Date: 2019-01-18 Test Time: 23:31:12 Pat Name: KARTHIK WEIR Department: Room: Gender: F Cash Posting Clerk: luly : 1970 Requested By: José Blanchard Order Number: [id number] MD: Abner Hilario Measurements Intervals [place] Rate: 91 P: 22 [place]: 162 QRS: -35 QRSD: 106 T: 110 QT: 387 QTc: 477 Interpretive Statements Sinus rhythm Left axis deviation RSR' in V1 or V2, right VCD or RVH Abnormal T, consider ischemia, lateral leads Compared to ECG 12/14/2018 23:53:42 Right ventricular hypertrophy now present RSR' in V1 or V2 now present T-wave abnormality now present Possible ischemia still present Electronically Signed On 01-19-2019 8:27:28 HARDWOOD SAWYER by Abner Hilario [email or web address] ��������������������������������������������� <ELECTRONICALLY SIGNED> ���������������������������������������� By: Abner Hilario MD ��������������������������������������������� 01/19/19 0827 233 30 Abner Hialrio MD /EPI
== END 2019-01-19 00:47 | disposition home or self-care (01) ==
LOC: ER 23:15
DX: F41.9 Anxiety disorder, unspecified (principal); R06.00 Dyspnea, unspecified; R07.9 Chest pain, unspecified; F32.9 Major depressive disorder, single episode, unspecified; G43.909 Migraine, unspecified, not intractable, without status migrainosus; J45.909 Unspecified asthma, uncomplicated; I12.9 Hypertensive chronic kidney disease with stage 1 through stage 4 chronic kidney disease, or unspecified chronic kidney disease; N18.3 Chronic kidney disease, stage 3 (moderate); Z87.440 Personal history of urinary (tract) infections; E78.5 Hyperlipidemia, unspecified; Z87.01 Personal history of pneumonia (recurrent); Z79.899 Other long term (current) drug therapy

== ENCOUNTER 2019-01-23 11:52 | Emergency (ER) | payer BC, OTHER ==
[~2019-01-23] VITALS: Ht 162.6 cm; Wt 103.4 kg
[~2019-01-23 11:52] MED LIST changes: +PREDNISONE 20 M20 MG PO
[2019-01-23 12:48] LABS: ABSOLUTE NEUTROPHILS 5.3 thou/uL (1.4-8.2); BASOPHILS 0.9 % (0.0-2.0); EOSINOPHILS 1.8 % (0.0-3.0); HEMATOCRIT 39.1 % (37.0-47.0); HEMOGLOBIN 12.8 gm/dL (12.0-15.0); LYMPHOCYTES 23.3 % (24.0-44.0); MCH 25.4 pg (26.0-34.0); MCHC 32.8 g/dL (28.0-37.0); MCV 77.3 fL (80.0-100.0); MONOCYTES 8.3 % (1.0-8.0); PLATELET COUNT 330 thou/uL (150-400); POLYS 65.7 % (36.0-66.0); RBC 5.06 mil/uL (4.20-5.00); RDW 15.7 % (10.5-14.5); WBC 8.1 thou/uL (4.0-11.0)
[2019-01-23 13:05] LABS: ANION GAP 11 mmol/L (7-16); BUN 21 mg/dL (7-18); CALCIUM 9.8 mg/dL (8.5-10.1); CHLORIDE 101 mmol/L (98-107); CO2 27 mmol/L (21-32); GLUCOSE 96 mg/dL (74-106); POTASSIUM 3.1 mmol/L (3.5-5.1); SODIUM 139 mmol/L (136-145)
[2019-01-23 13:13] LABS: TROPONIN-I <0.06 ng/mL (<0.06)
[2019-01-23] MEDS ORDERED: KLOR-CON 1010 MEQ PO (15:05)
[2019-01-23] MEDS ORDERED: ZOFRAN ODT4 MG PO (15:56)
[2019-01-23 16:17] VITALS: BP 115/89
--- NOTE | 2019-01-23 18:36 | EKG ---
[place] [address] [place] [address] ELECTROCARDIOGRAM REPORT Name: SUMAN WEIRKEI JERONIMO [facility] [id number] ������������������ Admission: 01/23/19 ������������������ Attend Phys: Discharge: 01/23/19 ������������������ Date of : [birth year] Report #: [id number] ����������������������������������������������������������������� [id number] THIS REPORT FOR: //name// [facility] ED Test Date: 2019-01-23 Test Time: 12:08:02 Pat Name: KARTHIK WEIR Department: Room: Gender: F Radio Mechanic Helper: ADAN : 1970 Requested By: Neftali Goodman Order Number: [id number] MD: Elfego Frausto Measurements Intervals [place] Rate: 91 P: 48 [place]: 153 QRS: -36 QRSD: 104 T: 139 QT: 361 QTc: 445 Interpretive Statements Sinus rhythm Left axis deviation Baseline artifact noted diffusely Nonspecific ST-T wave changes Compared to ECG 01/18/2019 23:31:12 No significant changes Electronically Signed On 01-23-2019 18:36:11 RIB CUTTER by Elfego Frausto [email or web address] ��������������������������������������������� <ELECTRONICALLY SIGNED> ���������������������������������������� By: Elfego Frausto MD ��������������������������������������������� 01/23/19 1836 1208 120 Elfego Frausto MD /EPI
== END 2019-01-23 17:15 | disposition home or self-care (01) ==
LOC: ER 11:52
PROVIDERS: Emergency Medicine
DX: R07.89 Other chest pain (principal); E87.6 Hypokalemia; F41.9 Anxiety disorder, unspecified; F32.9 Major depressive disorder, single episode, unspecified; G43.909 Migraine, unspecified, not intractable, without status migrainosus; J45.909 Unspecified asthma, uncomplicated; I12.9 Hypertensive chronic kidney disease with stage 1 through stage 4 chronic kidney disease, or unspecified chronic kidney disease; N18.3 Chronic kidney disease, stage 3 (moderate); E78.5 Hyperlipidemia, unspecified; Z90.49 Acquired absence of other specified parts of digestive tract; Z90.710 Acquired absence of both cervix and uterus; Z95.5 Presence of coronary angioplasty implant and graft

== ENCOUNTER 2019-01-30 23:40 | Emergency (ER) | payer BC, OTHER ==
[~2019-01-30] VITALS: Ht 162.6 cm; Wt 103.4 kg
[2019-01-31 00:27] LABS: URINE BILIRUBIN NEGATIVE (Negative); URINE BLOOD TRACE (Negative); URINE CLARITY CLEAR; URINE COLOR YELLOW; URINE GLUCOSE-RANDOM* NEGATIVE (Negative); URINE KETONES TRACE (Negative); URINE NITRITE-REFLEX NEGATIVE (Negative); URINE PROTEIN (DIPSTICK) NEGATIVE (Negative); URINE SPECIFIC GRAVITY >= 1.030 (1.005-1.035); URINE UROBILINOGEN 0.2 E.U./dl (0.2-1.0)
[2019-01-31 00:37] LABS: URINE LEUKOCYTES-REFLEX 1+ (Negative)
[2019-01-31 00:44] LABS: HYALINE CASTS 4-10 Moderate /LPF (None Seen); MUCUS 4-6 Moderate strn/LPF (None Seen); SQUAMOUS 4-10 Moderate /LPF (0-3)
[2019-01-31 00:45] LABS: BACTERIA-REFLEX 1-9 Few /HPF (None Seen); CRYSTALS None Seen /LPF (None Seen); URINE RBC 0-2 Rare /HPF (0-2); URINE WBC-REFLEX >25 Many /HPF (0-5); WBC CLUMPS Few (None Seen)
[2019-01-31 00:50] LABS: ABSOLUTE NEUTROPHILS 5.1 thou/uL (1.4-8.2); BASOPHILS 1.1 % (0.0-2.0); HEMATOCRIT 37.2 % (37.0-47.0); LYMPHOCYTES 21.4 % (24.0-44.0); MCH 25.3 pg (26.0-34.0); MCHC 32.4 g/dL (28.0-37.0); MONOCYTES 7.4 % (1.0-8.0); PLATELET COUNT 329 thou/uL (150-400); POLYS 65.1 % (36.0-66.0); RBC 4.77 mil/uL (4.20-5.00); RDW 15.6 % (10.5-14.5); WBC 7.9 thou/uL (4.0-11.0)
[2019-01-31 00:59] LABS: ANION GAP 10 mmol/L (7-16); BUN 27 mg/dL (7-18); CALCIUM 9.1 mg/dL (8.5-10.1); CHLORIDE 102 mmol/L (98-107); CO2 25 mmol/L (21-32); CREATININE 1.1 mg/dL (0.6-1.0); GLUCOSE 96 mg/dL (74-106); POTASSIUM 3.7 mmol/L (3.5-5.1); SODIUM 137 mmol/L (136-145)
[2019-01-31 01:09] LABS: ALBUMIN 3.5 g/dL (3.4-5.0); LIPASE 144 U/L (73-393); SGOT 23 U/L (15-37); SGPT 22 U/L (30-65); TOTAL BILIRUBIN 0.2 mg/dL (<0.1-1.0); TOTAL PROTEIN 8.3 g/dL (6.4-8.2); TROPONIN-I <0.06 ng/mL (<0.06)
[2019-01-31 04:55] VITALS: BP 95/57
--- NOTE | 2019-02-01 13:28 | EKG ---
[place] [address] [place] [address] ELECTROCARDIOGRAM REPORT Name: KARTHIK WEIR PHANI [facility] [id number] ������������������ Admission: 01/30/19 ������������������ Attend Phys: Discharge: 01/31/19 ������������������ Date of : [birth year] Report #: [id number] ����������������������������������������������������������������� [id number] THIS REPORT FOR: //name// [facility] ED Test Date: 2019-01-31 Test Time: 00:35:08 Pat Name: KARTHIK WEIR Department: Room: Gender: F Spice Blender: [facility] : 1970 Requested By: Pedrito Scott Order Number: [id number] MD: Jaguar Dickey Measurements Intervals [place] Rate: 93 P: 27 [place]: 158 QRS: -37 QRSD: 97 T: 79 QT: 388 QTc: 483 Interpretive Statements Sinus rhythm Left axis deviation Nonspecific T wave abnormality Borderline prolonged QT interval Compared to ECG 01/23/2019 12:08:02 ST and T wave abnormality less pronounced Electronically Signed On 02-01-2019 13:27:55 CDT by Jaguar Dickey [email or web address] ��������������������������������������������� <ELECTRONICALLY SIGNED> ���������������������������������������� By: Jaguar Dickey MD, [facility] ��������������������������������������������� 02/01/19 1327 0035 Jaguar Dickey MD, [facility] /EPI
== END 2019-01-31 04:55 | disposition home or self-care (01) ==
LOC: ER 23:40
PROVIDERS: Emergency Medicine
DX: K64.4 Residual hemorrhoidal skin tags (principal); R10.13 Epigastric pain; R06.02 Shortness of breath; G43.909 Migraine, unspecified, not intractable, without status migrainosus; J45.909 Unspecified asthma, uncomplicated; E78.5 Hyperlipidemia, unspecified; I12.9 Hypertensive chronic kidney disease with stage 1 through stage 4 chronic kidney disease, or unspecified chronic kidney disease; N18.3 Chronic kidney disease, stage 3 (moderate); Z87.01 Personal history of pneumonia (recurrent); Z87.440 Personal history of urinary (tract) infections; Z79.899 Other long term (current) drug therapy

== ENCOUNTER 2019-02-02 09:49 | Inpatient (IN) | payer BC, OTHER ==
[~2019-02-02] VITALS: Ht 162.6 cm; Wt 103.4 kg
[2019-02-02 09:51] VITALS: BP 108/74
[2019-02-02 10:08] LABS: URINE BILIRUBIN NEGATIVE (Negative); URINE BLOOD NEGATIVE (Negative); URINE CLARITY CLEAR; URINE COLOR YELLOW; URINE GLUCOSE-RANDOM* NEGATIVE (Negative); URINE KETONES NEGATIVE (Negative); URINE LEUKOCYTES 1+ (Negative); URINE NITRITE NEGATIVE (Negative); URINE PROTEIN (DIPSTICK) NEGATIVE (Negative); URINE UROBILINOGEN 0.2 E.U./dl (0.2-1.0)
[2019-02-02 10:17] LABS: BACTERIA 1-9 Few /HPF (None Seen); CASTS None Seen /LPF (None Seen); CRYSTALS None Seen /LPF (None Seen); SQUAMOUS 0-3 Few /LPF (0-3); URINE RBC None Seen /HPF (0-2); URINE WBC 0-5 Rare /HPF (0-5)
[2019-02-02 10:27] LABS: ABSOLUTE NEUTROPHILS 3.2 thou/uL (1.4-8.2); BASOPHILS 1.1 % (0.0-2.0); HEMATOCRIT 36.7 % (37.0-47.0); HEMOGLOBIN 12.1 gm/dL (12.0-15.0); LYMPHOCYTES 29.2 % (24.0-44.0); MCH 25.3 pg (26.0-34.0); MCV 76.8 fL (80.0-100.0); MONOCYTES 7.8 % (1.0-8.0); PLATELET COUNT 324 thou/uL (150-400); POLYS 51.9 % (36.0-66.0); RBC 4.78 mil/uL (4.20-5.00); RDW 15.2 % (10.5-14.5); WBC 6.2 thou/uL (4.0-11.0)
[2019-02-02 10:40] LABS: ALBUMIN 3.6 g/dL (3.4-5.0); CALCIUM 9.6 mg/dL (8.5-10.1); CREATININE 1.2 mg/dL (0.6-1.0); TOTAL BILIRUBIN 0.2 mg/dL (<0.1-1.0); TOTAL PROTEIN 8.4 g/dL (6.4-8.2)
[2019-02-02 10:43] LABS: POTASSIUM 2.8 mmol/L (3.5-5.1)
[2019-02-02 14:12] VITALS: BP 105/66
[2019-02-02 15:32] VITALS: BP 107/71
[2019-02-02 15:41] VITALS: BP 116/67
[2019-02-02 16:46] LABS: HEMATOCRIT 33.4 % (37.0-47.0); HEMOGLOBIN 11.1 gm/dL (12.0-15.0)
--- NOTE | 2019-02-02 18:30 | NUR ---
PT RECEIVED FROM THE ER AT 1600 ALERT AND IN NO ACUTE DISTRESS. MEDICATED FOR EPIGASTRIC PAIN W/ SOME RELIEF. IV FLUIDS INFUSING. TOLERATING EATING AND DRINKING. NO C/O NAUSEA.
[2019-02-02 19:15] VITALS: BP 111/69
[2019-02-03 04:10] VITALS: BP 96/58
[2019-02-03 05:22] LABS: ABSOLUTE NEUTROPHILS 3.1 thou/uL (1.4-8.2); BASOPHILS 1.1 % (0.0-2.0); EOSINOPHILS 8.5 % (0.0-3.0); HEMATOCRIT 31.8 % (37.0-47.0); HEMOGLOBIN 10.3 gm/dL (12.0-15.0); LYMPHOCYTES 28.6 % (24.0-44.0); MCH 25.1 pg (26.0-34.0); MCHC 32.5 g/dL (28.0-37.0); MCV 77.3 fL (80.0-100.0); MONOCYTES 8.5 % (1.0-8.0); PLATELET COUNT 282 thou/uL (150-400); POLYS 53.3 % (36.0-66.0); RBC 4.12 mil/uL (4.20-5.00); RDW 15.3 % (10.5-14.5); WBC 5.8 thou/uL (4.0-11.0)
[2019-02-03 05:25] LABS: CALCIUM 8.6 mg/dL (8.5-10.1); CREATININE 0.9 mg/dL (0.6-1.0); MAGNESIUM 2.1 mg/dL (1.8-2.4)
[2019-02-03 05:27] LABS: POTASSIUM 3.8 mmol/L (3.5-5.1)
--- NOTE | 2019-02-03 07:21 | NUR ---
SLEPT MOST OF SHIFT. WORKING ON GOALS AND PLAN OF CARE FOR NOC. PAIN RELIEVED WITH MOROPHINE NEEDED. UP AD CAESAR TO BATHROOM WITH STEADY GAIT. PROGRESSING SLOWLY WITH DISCHARGE GOALS. CONTINUE TO ASSES.
[2019-02-03 08:02] VITALS: BP 102/69
[2019-02-03 15:46] VITALS: BP 122/66
[2019-02-03] MEDS ORDERED: NORCO 5-325 TA1 EACH PO ×2 (16:32)
[2019-02-03 17:28] VITALS: BP 122/66
== END 2019-02-03 19:31 | disposition home or self-care (01) | DRG 684 ==
LOC: ER 09:49 → EROBS 12:36 → 4W 12:36
PROVIDERS: Emergency Medicine; Nurse Practitioner; ADMIT Hospitalist
DX: N17.9 Acute kidney failure, unspecified (principal); E78.5 Hyperlipidemia, unspecified; N18.3 Chronic kidney disease, stage 3 (moderate); I12.9 Hypertensive chronic kidney disease with stage 1 through stage 4 chronic kidney disease, or unspecified chronic kidney disease; E87.6 Hypokalemia; I25.10 Atherosclerotic heart disease of native coronary artery without angina pectoris; F41.9 Anxiety disorder, unspecified; J45.909 Unspecified asthma, uncomplicated; F32.9 Major depressive disorder, single episode, unspecified; G43.909 Migraine, unspecified, not intractable, without status migrainosus; E11.22 Type 2 diabetes mellitus with diabetic chronic kidney disease; E66.9 Obesity, unspecified; Z95.5 Presence of coronary angioplasty implant and graft; Z90.49 Acquired absence of other specified parts of digestive tract; Z90.710 Acquired absence of both cervix and uterus; Z79.82 Long term (current) use of aspirin; Z79.899 Other long term (current) drug therapy
CPT/HCPCS: 10045

== ENCOUNTER → 2019-05-19 | Outpatient (CLI) | payer BC, OTHER | LOC: RAD 15:36 | DX: Z01.818 Encounter for other preprocedural examination (principal) ==

== ENCOUNTER 2019-06-26 22:58 | Inpatient (IN) | payer BC, OTHER ==
[~2019-06-26] VITALS: Ht 162.6 cm; Wt 65.8 kg
[2019-06-26 23:27] VITALS: BP 106/78
[2019-06-27] LABS: URINE BILIRUBIN NEGATIVE (Negative); URINE BLOOD TRACE (Negative); URINE CLARITY CLEAR; URINE COLOR YELLOW; URINE GLUCOSE-RANDOM* NEGATIVE (Negative); URINE KETONES NEGATIVE (Negative); URINE LEUKOCYTES-REFLEX NEGATIVE (Negative); URINE NITRITE-REFLEX NEGATIVE (Negative); URINE PROTEIN (DIPSTICK) NEGATIVE (Negative); URINE SPECIFIC GRAVITY 1.025 (1.005-1.035); URINE UROBILINOGEN 0.2 E.U./dl (0.2-1.0)
[2019-06-27 00:23] LABS: ABSOLUTE NEUTROPHILS 4.4 thou/uL (1.4-8.2); BASOPHILS 0.4 % (0.0-2.0); EOSINOPHILS 1.5 % (0.0-3.0); HEMATOCRIT 35.6 % (37.0-47.0); HEMOGLOBIN 11.6 gm/dL (12.0-15.0); LYMPHOCYTES 18.2 % (24.0-44.0); MCH 24.4 pg (26.0-34.0); MCHC 32.4 g/dL (28.0-37.0); MCV 75.3 fL (80.0-100.0); MONOCYTES 9.7 % (1.0-8.0); PLATELET COUNT 304 thou/uL (150-400); POLYS 70.2 % (36.0-66.0); RBC 4.73 mil/uL (4.20-5.00); RDW 16.8 % (10.5-14.5); WBC 6.2 thou/uL (4.0-11.0)
[2019-06-27 00:31] LABS: CALCIUM 8.8 mg/dL (8.5-10.1); CREATININE 1.1 mg/dL (0.6-1.0); POTASSIUM 3.7 mmol/L (3.5-5.1)
[2019-06-27 00:38] LABS: ALBUMIN 2.8 g/dL (3.4-5.0); MAGNESIUM 1.6 mg/dL (1.8-2.4); TOTAL BILIRUBIN 0.4 mg/dL (<0.1-1.0); TOTAL PROTEIN 7.3 g/dL (6.4-8.2)
[2019-06-27 04:05] VITALS: BP 109/71
[2019-06-27 04:08] VITALS: BP 109/71
[2019-06-27 05:00] VITALS: BP 118/76
--- NOTE | 2019-06-27 06:52 | NUR ---
NEW PT ARRIVED THE UNIT @ 0445. ASSESSMENT COMPLETED. PT A+OX4. C/O 08/27 GENERALISE ABD PAIN AND WAS MEDICATED. C/O OF NAUSEA, ZOFRAN GIVEN. PT HAS AN IV ON R AC. NO VOMITING AT THIS TIME. PT ON ROOMAIR. PT IS APPROPRAITE, CALM AND COOPERATIVE.
[2019-06-27 07:28] VITALS: BP 109/69
--- NOTE | 2019-06-27 13:00 | NUR ---
ASSUMED CARE OF PT AT 0700. ASSESSMENT CHARTED. A&O,X4. C/O ABD PAIN 07/28, IV PAIN MEDS GIVEN ORDERED. C/O NAUSEA, NO EMESIS THIS SHIFT - ANTINAUSEA MEDS GIVEN ORDERED. NPO. PT REPORTS DIARRHEA AND VOMITING YESTERDAY BEFORE ADMISSION. LOW MG, REPLACEMENT GIVEN ORDERED. NO PROBLEMS VOIDING NOTED. WILL CONTINUE TO MONITOR FREQUENTLY.
[2019-06-27 15:20] VITALS: BP 97/54
[2019-06-27 20:29] VITALS: BP 107/59
--- NOTE | 2019-06-28 03:39 | NUR ---
Pt. rested quietly at intervals during the night when checked on during frequent rounds. She c/o abdominal pain and nausea. Pt. meidcated for both (see emar) with some relief noted. Up ad ralf in her room.
[2019-06-28 05:04] VITALS: BP 107/63
[2019-06-28 08:03] VITALS: BP 124/66
[2019-06-28 10:06] LABS: HEMATOCRIT 31.7 % (37.0-47.0); HEMOGLOBIN 10.2 gm/dL (12.0-15.0); MCH 24.7 pg (26.0-34.0); MCHC 32.3 g/dL (28.0-37.0); MCV 76.4 fL (80.0-100.0); RBC 4.15 mil/uL (4.20-5.00); RDW 15.9 % (10.5-14.5); WBC 4.4 thou/uL (4.0-11.0)
[2019-06-28 10:19] LABS: CALCIUM 8.8 mg/dL (8.5-10.1); CREATININE 0.9 mg/dL (0.6-1.0); MAGNESIUM 2.1 mg/dL (1.8-2.4); POTASSIUM 3.2 mmol/L (3.5-5.1)
--- NOTE | 2019-06-28 14:22 | NUR ---
Assumed care of pt at 0700. Pt alert and oriented x4. C/o pain and nausea. Prn meds administered. IVF infusing. Up ad ralf. Room air. Hypoactive bowel sounds. Call light within reach. Will continue to monitor.
[2019-06-28 19:08] VITALS: BP 109/58
--- NOTE | 2019-06-29 02:07 | NUR ---
ASSESSMENT COMPLETED.PT C/O PAIN AND NAUSEA,MANAGED WITH MED.NEW ORDER NOTED FOR ATIVAN PER PT'S REQUEST FOR ANXIETY/INSOMNIA.POTASSIUM LOW,REPLACED ORDERED.PT GOT SHOWER THIS SHIFT.UP ADLIB IN ROOM.ISOLATION PRECAUTIONS MAINTAINED.CALL LIGHT WITHIN REACH.
[2019-06-29 03:32] VITALS: BP 107/53
[2019-06-29 07:07] VITALS: BP 112/69
--- NOTE | 2019-06-29 08:16 | NUR ---
RECEIVED PT APPROX 0700. A/O. RESTING IN BED. C/O PAIN AND NAUSEA MANAGED BY MEDS ORDERED. NO NOTED SOA. UP AD CAESAR IN ROOM. NO OTHER CONCERNS AT THIS TIME. WILL CONT. TO MONITOR.
[2019-06-29 13:06] LABS: CALCIUM 9.4 mg/dL (8.5-10.1); CREATININE 0.8 mg/dL (0.6-1.0); POTASSIUM 3.9 mmol/L (3.5-5.1)
[2019-06-29 15:07] VITALS: BP 114/71
--- NOTE | 2019-06-29 17:02 | NUR ---
PT ADMITTED RELATED TO SMALL BOWEL OBSRUCTION. CM REVIEWED CHART AND SPOKE WITH CARE TEAM. CM MET WITH PT AT BEDSIDE THIS DAY. PT IS A&O X4. CM ROLE INTRODUCED. PT INDICATED SHE LIVES IN A HOUSE WITH HE TWO SONE WITH 2 STEPS TO ENTER AND 8 STEPS INSIDE. 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 PT INDICATED NO HH HX. PT INDICATED SHE HAS A FWW FROM [facility]. PT PLANS TO DC HOME ONCE MEDICALLY STABLE. CM TO FOLLOW INDICATED WITH DC PLANNING.
[2019-06-29 19:53] VITALS: BP 107/74
--- NOTE | 2019-06-29 23:35 | NUR ---
ASSUMED CARE OF PT @1900. PT RESTING IN BED. A&OX4. PT C/O OF PAIN AND NAUSEA, MEDICATED ORDERED. PT IS ADLIB IN THE ROOM BUT WILL CALL IF SHE NEEDS ASSISTANCE. PT IS NPO. ASSESMENT COMPLETED. PT HASNT HAD A BM SINCE 06/25/19. BS HYPOACTIVE. CALL MARTINEZ WITHIN REACH. WILL CONTINUE TO MONITOR
[2019-06-30 08:08] VITALS: BP 113/79
[2019-06-30 19:25] VITALS: BP 118/69
[2019-07-01 01:00] VITALS: BP 106/61
[2019-07-01 03:54] VITALS: BP 120/76
--- NOTE | 2019-07-01 05:27 | NUR ---
PT PAIN REMAINS 8-10, CONTROLLED BY DILAUDID IV, STILL HAVING NAUSEA, COMPAZINE AND ZOFRAN BEING GIVEN ALTERNATELY, ALERT/ORIENTED X4, NO BM PASSED THIS SHIFT, ON ROOM AIR, NO SOB NOTED, UP WITH STANDBY ASSIST, GAIT GOOD/STEADY, HOURLY ROUNDING, MONITORED.
[2019-07-01 07:25] VITALS: BP 118/76
--- NOTE | 2019-07-01 08:40 | NUR ---
If pt requires surgical intervention for SBO, recommend change from PPN to TPN 80ml/hr 15%dex, 5%AA, and 2.9% lipids.
[2019-07-01 09:57] LABS: HEMATOCRIT 33.2 % (37.0-47.0); HEMOGLOBIN 10.7 gm/dL (12.0-15.0); MCH 24.4 pg (26.0-34.0); MCHC 32.2 g/dL (28.0-37.0); MCV 75.7 fL (80.0-100.0); RBC 4.38 mil/uL (4.20-5.00); RDW 15.9 % (10.5-14.5); WBC 5.3 thou/uL (4.0-11.0)
[2019-07-01 10:09] LABS: ALBUMIN 2.9 g/dL (3.4-5.0); CALCIUM 9.3 mg/dL (8.5-10.1); CREATININE 0.7 mg/dL (0.6-1.0); MAGNESIUM 1.8 mg/dL (1.8-2.4); PHOSPHORUS 3.5 mg/dL (2.5-4.9); POTASSIUM 3.7 mmol/L (3.5-5.1)
--- NOTE | 2019-07-01 11:48 | NUR ---
Pt in bed resting. Assessment completed.vss.Pt c/o abdominal pain and nausea. Meds given as ordered with relief.Dr Villa here,he discussed with Surgery possibility of pt having surgery today or tomorrow.Pt left for radiology around 9am for kub and returned one hour later.Pt now back in bed sleeping without c/o.Will continue to monitor.
[2019-07-01 16:13] VITALS: BP 111/63
[2019-07-01 19:19] VITALS: BP 108/73
[2019-07-02 03:32] VITALS: BP 96/60
--- NOTE | 2019-07-02 04:50 | NUR ---
PT C/O ABD PAIN,MANAGED WITH MED.UP ADLIB IN ROOM.PER REPORT,NO SURGERY SCHEDULED FOR PT PER DR ROE,PT NOTIFIED.PT CONT ON PPN ORDERED.ISOLATION PRECAUTIONS MAINTAINED.CALL LIGHT WITHIN REACH.
[2019-07-02 07:20] VITALS: BP 107/64
--- NOTE | 2019-07-02 11:16 | NUR ---
ASSUMED CARE OF PT AT 0700. ASSESSMENT CHARTED. A&O,X4. C/O ABD PAIN 07/28, PAIN MEDS GIVEN ORDERED. DR. JESSICA AT BEDSIDE THIS AM, SPOKE WITH PT ABOUT DECREASING PAIN MEDS AND LIMITING NARCOTICS. ENCOURAGED TO GET UP AND WALK IN ROOM, GOAL TO PASS GAS, AND ADVANCE DIET. C/O NAUSEA, ANTINAUSEA MEDS GIVEN ORDERED. KUB COMPLETED THIS AM. SUPPOSITORY GIVEN. NPO, PPN INFUSING UNTIL PASSING GAS. SLOWLY PROGRESSING TOWARDS GOALS.
[2019-07-02 15:44] VITALS: BP 111/69
[2019-07-02 19:01] VITALS: BP 93/63
--- NOTE | 2019-07-02 23:37 | NUR ---
ASSESSMENT COMPLETED.PT C/O PAIN,MANAGED WITH MED.SUPPOSITORY GIVEN ORDERED.UP ADLIB IN ROOM.NO C/O NAUSEA NOTED SO FAR.PT CONT ON CLEAR LIQUIDS,TOLERATED WELL.PT RESTING ON HER BED AT THIS TIME.ISOLATION PRECAUTIONS IN PLACE.CALL LIGHT WITHIN REACH.
[2019-07-03 03:30] VITALS: BP 93/60
[2019-07-03 07:19] VITALS: BP 130/69
[2019-07-03 14:59] VITALS: BP 123/63
--- NOTE | 2019-07-03 18:01 | NUR ---
ASSUMED CARE OF PT AT 0700. ASSESSMENT CHARTED. A&O,X4. C/O ABD PAIN AND NAUSEA, DENIES VOMITING. NO BM AT BEGINNING OF SHIFT. SUPPOSITORY AND MIRALAX GIVEN ORDERED. ADVANCED DIET, TOLERATING. NEW REPORT FROM PT HAVING BLOODY STOOLS, UNSEEN BY STAFF, DISCARDED BY PATIENT. PHYSICIAN NOTIFIED, JEN MAJOR RETURNED PAGE. NEW ORDERS TO COLLECT OCCULT STOOL AND MONITOR FOR BLEEDING. VSS. NO OTHER CHANGE IN STATUS.
[2019-07-03 19:48] VITALS: BP 110/68
--- NOTE | 2019-07-04 04:11 | NUR ---
PATIENT ALERT AND ORIENTED X4. UP AD CAESAR. C/O PAIN, MED GIVEN. C/O NAUSEA, TOO EARLY FOR MED AT TIME AND HAS NOT ASKED SINCE. SLEPT MOST OF NIGHT,
[2019-07-04 04:59] VITALS: BP 118/72
[2019-07-04 06:11] LABS: ABSOLUTE RETIC COUNT 0.0742 10^6/uL; HEMATOCRIT 34.9 % (37.0-47.0); HEMOGLOBIN 11.2 gm/dL (12.0-15.0); MCH 24.5 pg (26.0-34.0); MCHC 32.1 g/dL (28.0-37.0); MCV 76.6 fL (80.0-100.0); OBSERVED RETIC COUNT 1.63 % (0.6-2.6); RBC 4.56 mil/uL (4.20-5.00); RDW 16.8 % (10.5-14.5); WBC 4.5 thou/uL (4.0-11.0)
[2019-07-04 06:33] LABS: ALBUMIN 2.9 g/dL (3.4-5.0); CALCIUM 9.3 mg/dL (8.5-10.1); CREATININE 0.8 mg/dL (0.6-1.0); MAGNESIUM 1.8 mg/dL (1.8-2.4); POTASSIUM 3.8 mmol/L (3.5-5.1); TOTAL BILIRUBIN 0.1 mg/dL (<0.1-1.0); TOTAL PROTEIN 6.9 g/dL (6.4-8.2)
[2019-07-04 06:43] LABS: % SATURATION 9 % (20-39); IRON 24 ug/dL (50-170); TIBC 280 ug/dL (250-450)
[2019-07-04 07:16] VITALS: BP 106/67
[2019-07-04 08:30] VITALS: BP 190/87
[2019-07-04 13:02] VITALS: BP 190/87
--- NOTE | 2019-07-04 15:00 | NUR ---
PT DOING MUCH BETTER. NO C/O ABD PAIN AND MILD NAUSEA ONETIME. PROGRESSING DIET SLOWLY. DISCHARGING THIS AFTERNOON. F/U W/ PRIMARY AND STAYING ON HOME MEDS.
== END 2019-07-04 16:33 | disposition home or self-care (01) | DRG 388 ==
LOC: ER 22:58 → 4E 06-27 03:18 → EROBS 06-27 03:18 → 4E 06-27 04:31
PROVIDERS: Emergency Medicine; Nurse Practitioner Family; Surgery; ADMIT Internal Medicine
DX: K56.609 Unspecified intestinal obstruction, unspecified as to partial versus complete obstruction (principal); E43 Unspecified severe protein-calorie malnutrition; N17.9 Acute kidney failure, unspecified; F41.9 Anxiety disorder, unspecified; F32.9 Major depressive disorder, single episode, unspecified; G43.909 Migraine, unspecified, not intractable, without status migrainosus; J45.909 Unspecified asthma, uncomplicated; N18.3 Chronic kidney disease, stage 3 (moderate); I25.10 Atherosclerotic heart disease of native coronary artery without angina pectoris; E83.42 Hypomagnesemia; I12.9 Hypertensive chronic kidney disease with stage 1 through stage 4 chronic kidney disease, or unspecified chronic kidney disease; D50.9 Iron deficiency anemia, unspecified; E87.6 Hypokalemia; Z79.82 Long term (current) use of aspirin; Z90.49 Acquired absence of other specified parts of digestive tract; Z90.710 Acquired absence of both cervix and uterus; Z87.442 Personal history of urinary calculi; Z95.5 Presence of coronary angioplasty implant and graft; Z68.24 Body mass index [BMI] 24.0-24.9, adult; Z76.5 Malingerer [conscious simulation]; Z79.899 Other long term (current) drug therapy
CPT/HCPCS: 10084; 10183

== ENCOUNTER 2019-08-20 23:28 | Emergency (ER) | payer BC, OTHER ==
[~2019-08-20] VITALS: Ht 162.6 cm; Wt 93.9 kg
[~2019-08-20 23:28] MED LIST changes: +XANAX 0.5 MG0.5 M1 PO; -XANAX2 MG PO
[2019-08-20 23:51] LABS: URINE BILIRUBIN NEGATIVE (Negative); URINE BLOOD NEGATIVE (Negative); URINE CLARITY CLEAR; URINE COLOR YELLOW; URINE GLUCOSE-RANDOM* NEGATIVE (Negative); URINE KETONES NEGATIVE (Negative); URINE LEUKOCYTES-REFLEX NEGATIVE (Negative); URINE NITRITE-REFLEX NEGATIVE (Negative); URINE PROTEIN (DIPSTICK) NEGATIVE (Negative); URINE UROBILINOGEN 0.2 E.U./dl (0.2-1.0)
[2019-08-21] MEDS ORDERED: OXYGEN MISCELL ×2 (00:17→00:18)
[2019-08-21] MEDS ORDERED: ASPIRIN325 PO ×2 (00:17)
[2019-08-21] MEDS ORDERED: PHENERGAN 25 MG25 M1 PO ×2 (00:19)
[2019-08-21 00:21] LABS: ABSOLUTE NEUTROPHILS 4.3 thou/uL (1.4-8.2); BASOPHILS 1.4 % (0.0-2.0); EOSINOPHILS 3.3 % (0.0-3.0); HEMATOCRIT 31.2 % (37.0-47.0); HEMOGLOBIN 9.8 gm/dL (12.0-15.0); LYMPHOCYTES 21.7 % (24.0-44.0); MCH 24.1 pg (26.0-34.0); MCHC 31.3 g/dL (28.0-37.0); PLATELET COUNT 407 thou/uL (150-400); POLYS 64.6 % (36.0-66.0); RBC 4.05 mil/uL (4.20-5.00); RDW 18.6 % (10.5-14.5); WBC 6.6 thou/uL (4.0-11.0)
[2019-08-21 00:27] LABS: AMP/METHAMP Negative (Negative); BARBITURATES POSITIVE (Negative); BENZODIAZEPINES Negative (Negative); COCAINE Negative (Negative); METHADONE Negative (Negative); OPIATES POSITIVE (Negative); PCP Negative (Negative)
[2019-08-21 00:28] LABS: ANION GAP 14 mmol/L (7-16); BUN 18 mg/dL (7-18); CHLORIDE 104 mmol/L (98-107); CO2 23 mmol/L (21-32); CREATININE 0.6 mg/dL (0.6-1.0); GLUCOSE 86 mg/dL (74-106); POTASSIUM 4.9 mmol/L (3.5-5.1); SODIUM 141 mmol/L (136-145)
[2019-08-21 00:31] LABS: APTT 30.7 Seconds (24.5-32.8); PROTIME 10.3 Seconds (9.3-11.4)
[2019-08-21 00:38] LABS: ALBUMIN 2.5 g/dL (3.4-5.0); LIPASE 58 U/L (73-393); SGOT 37 U/L (15-37); SGPT 8 U/L (30-65); TOTAL BILIRUBIN 0.3 mg/dL (<0.1-1.0); TOTAL PROTEIN 7.2 g/dL (6.4-8.2); TROPONIN-I <0.06 ng/mL (<0.06)
[2019-08-21] MEDS ORDERED: DILAUDID 2 MG TA2 MG PO ×2 (00:48)
[2019-08-21] MEDS ORDERED: ANUSOL-HC25 MG RECTAL ×2 (01:22)
[2019-08-21 01:52] VITALS: BP 114/69
[2019-08-22] MEDS ORDERED: PROTONIX40 M1 PO ×2 (04:44)
--- NOTE | 2019-08-23 13:14 | EKG ---
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: [facility] : 1970 Requested By: José Blanchard Order Number: [id number] MD: Jaguar Dickey Measurements Intervals [place] Rate: 79 P: 5 IA: 134 QRS: -30 QRSD: 104 T: 42 QT: 387 QTc: 444 Interpretive Statements Sinus rhythm Left axis deviation Compared to ECG 01/31/2019 00:35:08 T-wave abnormality less prominent Electronically Signed On 08-23-2019 13:14:19 CDT by Jaguar Dickey [email or web address] <ELECTRONICALLY SIGNED> By: Jaguar Dickey MD, [facility] 08/23/19 1314 0015 001 Jaguar Dickey MD, FACC /EPI
== END 2019-08-21 01:45 | disposition home or self-care (01) ==
LOC: ER 23:28
PROVIDERS: Emergency Medicine
DX: D64.9 Anemia, unspecified (principal); K62.5 Hemorrhage of anus and rectum; K64.4 Residual hemorrhoidal skin tags; K59.00 Constipation, unspecified; I12.9 Hypertensive chronic kidney disease with stage 1 through stage 4 chronic kidney disease, or unspecified chronic kidney disease; N18.3 Chronic kidney disease, stage 3 (moderate); J45.909 Unspecified asthma, uncomplicated; E78.5 Hyperlipidemia, unspecified; N80.9 Endometriosis, unspecified; F41.9 Anxiety disorder, unspecified; F32.9 Major depressive disorder, single episode, unspecified; Z95.5 Presence of coronary angioplasty implant and graft; Z90.49 Acquired absence of other specified parts of digestive tract; Z90.710 Acquired absence of both cervix and uterus; Z87.440 Personal history of urinary (tract) infections

== ENCOUNTER 2019-08-22 00:16 | Inpatient (IN) | payer BC, OTHER ==
[2019-08-22] VITALS (7 sets, daily range): BP systolic 101–121; BP diastolic 53–84
[~2019-08-22] VITALS: Ht 162.6 cm; Wt 91.9 kg
[~2019-08-22 00:16] MED LIST changes: +DILAUDID 2 MG TA2 MG PO; +OXYGEN MISCELL
[2019-08-22 01:15] LABS: HEMOGLOBIN 9.8 gm/dL (12.0-15.0); MCH 24.2 pg (26.0-34.0); MCHC 31.5 g/dL (28.0-37.0); MCV 76.9 fL (80.0-100.0); RBC 4.03 mil/uL (4.20-5.00); WBC 6.5 thou/uL (4.0-11.0)
[2019-08-22] MEDS ORDERED: PROTONIX40 M1 PO ×2 (04:44)
--- NOTE | 2019-08-22 07:43 | NUR ---
ADMITTED FROM ER UNDER 'S CARE. AXOX4. VSS. NO RECTAL BLEEING NOTED SINCE ADMITTED TO 463. PERSISTENT PAIN ON L KNEE AND ABD. TX PER MD ORDER. FALL PRECAUTIONS IMPLETMENTED. CARE TRANSFERRED TO DAY RN AT THIS TIME.
[2019-08-22 08:13] LABS: HEMOGLOBIN 9.7 gm/dL (12.0-15.0)
[2019-08-22 17:06] LABS: % SATURATION 48 % (20-39); IRON 109 ug/dL (50-170); TIBC 229 ug/dL (250-450)
--- NOTE | 2019-08-22 19:54 | NUR ---
Assumed pt care this am, vs have been stable. Nausea was vebalizaed but no vomiting has been noted through out the shift. Medication have been given but no relief was per the pt. Pain on her lower abdomen noted, medications are not working as per pt. No signs of bleeding from the rectum. Still on clear liquid diet and ice chips given. Seen by Dr. De Paz (GI) clear to dc from GI standpoint, informed Dr. Toro. Pt is to stay d/y pain and nausea. POC followed, endorsed to the night nurse.
--- NOTE | 2019-08-23 03:49 | NUR ---
ASSUMED CARE AROUND 1900. AXOX3. NO BLEEDING FROM RECTUM NOTED AT THIS TIME. WILL CONT TO MONITOR FOR ANY CHANGES IN CONDITION.
[2019-08-23 04:20] LABS: HEMATOCRIT 30.8 % (37.0-47.0); HEMOGLOBIN 9.4 gm/dL (12.0-15.0)
[2019-08-23 07:48] VITALS: BP 120/69
[2019-08-23] MEDS ORDERED: IRON325 PO ×2 (11:39)
[2019-08-23] MEDS ORDERED: CARAFATE 1 GM TA1 G1 PO ×2 (11:39)
[2019-08-23] MEDS ORDERED: COLACE 100 MG100 MG PO ×2 (11:39)
[2019-08-23] MEDS ORDERED: MIRALAX17 GM PO ×2 (11:39)
[2019-08-23] MEDS ORDERED: ONDANSETRON HCL4 M2 PO ×2 (11:39)
--- NOTE | 2019-08-23 12:27 | NUR ---
ASSUMED CARE 0700. ALERT TIMES 4, ANXOUS. PAIN MANAGED WITH MEDICATIONS, ATE 100% OF MEALS. DENIES NUASEA AT THIS TIME. UP WITH ASSISTANCE WITH GATE BELT AND WALKER. DC TO HOME WITH SELF CARE. IV REMOVED. DC PAPER WORK REVIEWED And signed. educated to follow up with PCP AND OUTPATIED GI DR WHITE.
[2019-08-23 12:30] VITALS: BP 120/69
== END 2019-08-23 15:30 | disposition home or self-care (01) | DRG 392 ==
LOC: ER 00:16 → EROBS 01:46 → 4W 02:10
PROVIDERS: Emergency Medicine; Internal Medicine Gastroenterology; Nurse Practitioner Acute Care; ADMIT Internal Medicine
DX: K59.03 Drug induced constipation (principal); F41.9 Anxiety disorder, unspecified; F32.9 Major depressive disorder, single episode, unspecified; G43.909 Migraine, unspecified, not intractable, without status migrainosus; N18.3 Chronic kidney disease, stage 3 (moderate); J45.909 Unspecified asthma, uncomplicated; E78.5 Hyperlipidemia, unspecified; D50.9 Iron deficiency anemia, unspecified; I25.10 Atherosclerotic heart disease of native coronary artery without angina pectoris; E66.01 Morbid (severe) obesity due to excess calories; F41.1 Generalized anxiety disorder; I12.9 Hypertensive chronic kidney disease with stage 1 through stage 4 chronic kidney disease, or unspecified chronic kidney disease; G89.4 Chronic pain syndrome; G47.00 Insomnia, unspecified; T40.2X5A Adverse effect of other opioids, initial encounter; Y92.89 Other specified places as the place of occurrence of the external cause; Z76.5 Malingerer [conscious simulation]; Z90.710 Acquired absence of both cervix and uterus; Z90.49 Acquired absence of other specified parts of digestive tract; Z87.442 Personal history of urinary calculi; Z95.5 Presence of coronary angioplasty implant and graft; Z68.34 Body mass index [BMI] 34.0-34.9, adult; Z79.891 Long term (current) use of opiate analgesic
CPT/HCPCS: 10047

== ENCOUNTER 2019-09-02 14:35 | Emergency (ER) | payer BC, OTHER ==
[~2019-09-02] VITALS: Ht 162.6 cm; Wt 88.0 kg
[~2019-09-02 14:35] MED LIST changes: +COLACE 100 MG100 MG PO; +ONDANSETRON HCL4 M2 PO
[2019-09-02 15:09] LABS: ABSOLUTE NEUTROPHILS 7.4 thou/uL (1.4-8.2); BASOPHILS 1.5 % (0.0-2.0); EOSINOPHILS 1.3 % (0.0-3.0); HEMATOCRIT 36.7 % (37.0-47.0); HEMOGLOBIN 11.6 gm/dL (12.0-15.0); LYMPHOCYTES 15.8 % (24.0-44.0); MCH 24.3 pg (26.0-34.0); MCHC 31.6 g/dL (28.0-37.0); MCV 76.7 fL (80.0-100.0); PLATELET COUNT 373 thou/uL (150-400); POLYS 74.4 % (36.0-66.0); RBC 4.78 mil/uL (4.20-5.00); RDW 18.7 % (10.5-14.5); WBC 9.9 thou/uL (4.0-11.0)
[2019-09-02 15:35] LABS: ANISOCYTOSIS 1+; PLATELET ESTIMATE NORMAL
[2019-09-02 15:38] LABS: CALCIUM 9.7 mg/dL (8.5-10.1); CREATININE 0.8 mg/dL (0.6-1.0); POTASSIUM 5.4 mmol/L (3.5-5.1)
[2019-09-02 15:44] LABS: ALBUMIN 3.5 g/dL (3.4-5.0); TOTAL BILIRUBIN 0.4 mg/dL (<0.1-1.0); TOTAL PROTEIN 8.9 g/dL (6.4-8.2)
[2019-09-02 16:42] LABS: URINE BLOOD NEGATIVE (Negative); URINE CLARITY CLEAR; URINE COLOR YELLOW; URINE GLUCOSE-RANDOM* NEGATIVE (Negative); URINE KETONES 1+ (Negative); URINE LEUKOCYTES TRACE (Negative); URINE NITRITE NEGATIVE (Negative); URINE PROTEIN (DIPSTICK) TRACE (Negative); URINE SPECIFIC GRAVITY >= 1.030 (1.005-1.035); URINE UROBILINOGEN 0.2 E.U./dl (0.2-1.0)
[2019-09-02 16:45] LABS: ICTOTEST (BILI CONFIRMATORY) Negative (Negative); URINE BILIRUBIN NEGATIVE (Negative)
[2019-09-02] MEDS ORDERED: PRILOSEC OTC20 MG PO (19:59)
[2019-09-02] MEDS ORDERED: TYLENOL WITH CO1 TA1 PO (19:59)
[2019-09-02 20:34] VITALS: BP 102/65
== END 2019-09-02 20:35 | disposition home or self-care (01) ==
LOC: ER 14:35
PROVIDERS: Emergency Medicine
DX: R10.13 Epigastric pain (principal); R11.2 Nausea with vomiting, unspecified; J45.909 Unspecified asthma, uncomplicated; G43.909 Migraine, unspecified, not intractable, without status migrainosus; I12.9 Hypertensive chronic kidney disease with stage 1 through stage 4 chronic kidney disease, or unspecified chronic kidney disease; N18.3 Chronic kidney disease, stage 3 (moderate); E78.5 Hyperlipidemia, unspecified; F41.9 Anxiety disorder, unspecified; F32.9 Major depressive disorder, single episode, unspecified; Z90.89 Acquired absence of other organs; Z96.652 Presence of left artificial knee joint; Z95.2 Presence of prosthetic heart valve; Z90.710 Acquired absence of both cervix and uterus; Z96.612 Presence of left artificial shoulder joint; Z87.442 Personal history of urinary calculi

== ENCOUNTER 2019-09-05 12:54 | Emergency (ER) | payer BC, OTHER ==
[~2019-09-05] VITALS: Ht 162.6 cm; Wt 88.0 kg
[~2019-09-05 12:54] MED LIST changes: +PRILOSEC OTC20 MG PO; +TYLENOL WITH CO1 TA1 PO
[2019-09-05 13:27] LABS: URINE BLOOD NEGATIVE (Negative); URINE CLARITY CLEAR; URINE COLOR YELLOW; URINE GLUCOSE-RANDOM* NEGATIVE (Negative); URINE KETONES NEGATIVE (Negative); URINE NITRITE-REFLEX NEGATIVE (Negative); URINE PROTEIN (DIPSTICK) NEGATIVE (Negative); URINE SPECIFIC GRAVITY 1.025 (1.005-1.035); URINE UROBILINOGEN 0.2 E.U./dl (0.2-1.0)
[2019-09-05 13:31] LABS: ICTOTEST (BILI CONFIRMATORY) Negative (Negative); URINE BILIRUBIN NEGATIVE (Negative); URINE LEUKOCYTES-REFLEX 2+ (Negative)
[2019-09-05 13:41] LABS: CASTS None Seen /LPF (None Seen); MUCUS 4-6 Moderate strn/LPF (None Seen); SQUAMOUS 0-3 Few /LPF (0-3)
[2019-09-05 13:42] LABS: URINE WBC-REFLEX 6-15 Few /HPF (0-5)
[2019-09-05 13:43] LABS: BACTERIA-REFLEX 1-9 Few /HPF (None Seen); CRYSTALS None Seen /LPF (None Seen); URINE RBC None Seen /HPF (0-2); WBC CLUMPS Rare (None Seen)
[2019-09-05 14:47] LABS: ABSOLUTE NEUTROPHILS 3.9 thou/uL (1.4-8.2); BASOPHILS 1.5 % (0.0-2.0); EOSINOPHILS 2.4 % (0.0-3.0); HEMATOCRIT 37.5 % (37.0-47.0); HEMOGLOBIN 11.7 gm/dL (12.0-15.0); LYMPHOCYTES 22.5 % (24.0-44.0); MCHC 31.2 g/dL (28.0-37.0); MCV 77.2 fL (80.0-100.0); MONOCYTES 7.3 % (1.0-8.0); PLATELET COUNT 333 thou/uL (150-400); POLYS 66.3 % (36.0-66.0); RBC 4.86 mil/uL (4.20-5.00); RDW 18.4 % (10.5-14.5); WBC 5.9 thou/uL (4.0-11.0)
[2019-09-05 14:59] LABS: CALCIUM 9.8 mg/dL (8.5-10.1); CREATININE 0.9 mg/dL (0.6-1.0)
[2019-09-05 15:07] LABS: ALBUMIN 3.7 g/dL (3.4-5.0); TOTAL BILIRUBIN 0.2 mg/dL (<0.1-1.0); TOTAL PROTEIN 8.6 g/dL (6.4-8.2)
[2019-09-05 16:02] VITALS: BP 109/73
[2019-09-05 16:05] LABS: ANISOCYTOSIS 2+; OVALOCYTES OCCASIONAL
== END 2019-09-05 16:05 | disposition home or self-care (01) ==
LOC: ER 12:54
PROVIDERS: Emergency Medicine
DX: R10.84 Generalized abdominal pain (principal); R11.2 Nausea with vomiting, unspecified; F41.9 Anxiety disorder, unspecified; F32.9 Major depressive disorder, single episode, unspecified; G43.909 Migraine, unspecified, not intractable, without status migrainosus; J45.909 Unspecified asthma, uncomplicated; E78.5 Hyperlipidemia, unspecified; I12.9 Hypertensive chronic kidney disease with stage 1 through stage 4 chronic kidney disease, or unspecified chronic kidney disease; N18.3 Chronic kidney disease, stage 3 (moderate); Z95.5 Presence of coronary angioplasty implant and graft; Z98.890 Other specified postprocedural states; Z90.49 Acquired absence of other specified parts of digestive tract; Z90.710 Acquired absence of both cervix and uterus; Z87.01 Personal history of pneumonia (recurrent); Z87.440 Personal history of urinary (tract) infections

== ENCOUNTER 2019-09-16 06:11 | Inpatient (IN) | payer BC, OTHER ==
[~2019-09-16] VITALS: Ht 162.6 cm; Wt 98.0 kg
[2019-09-16] VITALS (8 sets, daily range): BP systolic 99–120; BP diastolic 57–75
[2019-09-16 06:49] LABS: ABSOLUTE NEUTROPHILS 4.7 thou/uL (1.4-8.2); BASOPHILS 1.3 % (0.0-2.0); EOSINOPHILS 2.5 % (0.0-3.0); HEMATOCRIT 36.4 % (37.0-47.0); HEMOGLOBIN 11.4 gm/dL (12.0-15.0); LYMPHOCYTES 22.2 % (24.0-44.0); MCH 24.2 pg (26.0-34.0); MCHC 31.3 g/dL (28.0-37.0); MCV 77.5 fL (80.0-100.0); MONOCYTES 6.9 % (1.0-8.0); PLATELET COUNT 326 thou/uL (150-400); POLYS 67.1 % (36.0-66.0); RBC 4.69 mil/uL (4.20-5.00); RDW 18.3 % (10.5-14.5); WBC 7.1 thou/uL (4.0-11.0)
[2019-09-16 06:52] LABS: ANION GAP 8 mmol/L (7-16); BUN 25 mg/dL (7-18); CALCIUM 9.5 mg/dL (8.5-10.1); CHLORIDE 105 mmol/L (98-107); CO2 26 mmol/L (21-32); CREATININE 1.1 mg/dL (0.6-1.0); GLUCOSE 97 mg/dL (74-106); POTASSIUM 4.4 mmol/L (3.5-5.1); SODIUM 139 mmol/L (136-145)
[2019-09-16 07:00] LABS: AMP/METHAMP Negative (Negative); BARBITURATES Negative (Negative); BENZODIAZEPINES Negative (Negative); COCAINE Negative (Negative); METHADONE Negative (Negative); OPIATES POSITIVE (Negative); PCP Negative (Negative)
[2019-09-16 07:02] LABS: ALBUMIN 3.5 g/dL (3.4-5.0); APTT 31.5 Seconds (24.5-32.8); PROTIME 10.8 Seconds (9.3-11.4); SGOT 23 U/L (15-37); SGPT 11 U/L (30-65); TOTAL BILIRUBIN 0.3 mg/dL (<0.1-1.0); TOTAL PROTEIN 8.5 g/dL (6.4-8.2); TROPONIN-I <0.06 ng/mL (<0.06)
[2019-09-16] MEDS ORDERED: CRESTOR40 MG PO (07:14)
[2019-09-16 07:34] LABS: URINE BILIRUBIN NEGATIVE (Negative); URINE BLOOD NEGATIVE (Negative); URINE CLARITY CLEAR; URINE COLOR YELLOW; URINE GLUCOSE-RANDOM* NEGATIVE (Negative); URINE KETONES NEGATIVE (Negative); URINE LEUKOCYTES-REFLEX 1+ (Negative); URINE NITRITE-REFLEX NEGATIVE (Negative); URINE PROTEIN (DIPSTICK) NEGATIVE (Negative); URINE UROBILINOGEN 0.2 E.U./dl (0.2-1.0)
[2019-09-16 07:42] LABS: CASTS None Seen /LPF (None Seen); MUCUS >6 Heavy strn/LPF (None Seen); SQUAMOUS 4-10 Moderate /LPF (0-3)
[2019-09-16 07:43] LABS: BACTERIA-REFLEX 1-9 Few /HPF (None Seen); URINE RBC None Seen /HPF (0-2); URINE WBC-REFLEX 6-15 Few /HPF (0-5)
[2019-09-16 07:44] LABS: CRYSTALS None Seen /LPF (None Seen)
--- NOTE | 2019-09-16 08:09 | EKG ---
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: : 1970 Requested By: Pedrito Scott Order Number: [id number] MD: Abner Hilario Measurements Intervals [place] Rate: 60 P: 38 VA: 156 QRS: -29 QRSD: 106 T: 54 QT: 418 QTc: 418 Interpretive Statements Sinus rhythm Borderline left axis deviation Abnormal R-wave progression, late transition Repol abnrm suggests ischemia, anterior leads Compared to ECG 08/21/2019 00:15:40 Early repolarization now present Possible ischemia now present Electronically Signed On 09-16-2019 8:09:28 CDT by Abner Hilario [email or web address] <ELECTRONICALLY SIGNED> By: Abner Hilario MD 09/16/19 0809 0644 Abner Hilario MD /HARSHAL
--- NOTE | 2019-09-16 15:32 | 2DMMODE ---
[facility] [address] [place] [address] 2 D/M-MODE ECHOCARDIOGRAM Name: KARTHIK WEIR [facility] Room #: 170-3 ADM IN .R.#: [id number] Admission: 09/16/19 Attend Phys: Jessica Whelan, Discharge: Date of : 66 Report #: [id number] THIS REPORT FOR: //name// APPROVED REPORT Study performed: 09/16/2019 14:52:22 EXAM: Comprehensive 2D, Doppler, and color-flow Echocardiogram Patient Location: ER Status: routine BSA: 1.96 HR: 64 bpm BP: 94/53 mmHg Rhythm: NSR Other Information Study Quality: Adequate Indications Dizziness. Hx: CAD, stent, HLD, DM. 2D Dimensions RVDd: 31.30 mm IVSd: 9.01 (7-11mm) LVOT Diam: 22.13 (18-24mm) LVDd: 53.43 mm PWd: 8.90 (7-11mm) Ascending Ao: 31.90 (22-36mm) LVDs: 34.19 (25-40mm) Aortic Root: 33.12 mm Volumes Left Atrial Volume (Systole) Single Plane 4CH: 44.25 mL Single Plane 2CH: 54.28 mL LA ESV Index: 27.00 mL/m2 Aortic Valve AoV Peak Glen.: 1.67 m/s AO Peak Gr.: 11.18 mmHg LVOT Max P.95 mmHg LVOT Max V: 1.11 m/s FLAVIO Vmax: 2.56 cm2 Mitral Valve E/A Ratio: 1.1 MV Decel. Time: 146.01 ms MV E Max Glen.: 0.88 m/s [facility] [email or web address] [address] 2 D/M-MODE ECHOCARDIOGRAM Name: KARTHIK WEIR [facility] Room #: 1703 ADM IN [facility].#: [id number] Admission: 09/16/19 Attend Phys: Jessica Whelan, Discharge: Date of : 66 Report #: [id number] MV A Glen.: 0.78 m/s MV PHT: 42.34 ms IVRT: 89.97 ms Pulmonary Valve PV Peak Glen.: 0.82 m/s PV Peak Gr.: 2.68 mmHg Pulmonary Vein P Vein S: 0.53 m/s P Vein A: 0.33 m/s P Vein D: 0.49 m/s P Vein A Dur.: 93.4 msec P Vein S/D Ratio: 1.08 Tricuspid Valve TR Peak Glen.: 1.73 m/s RAP Estimate: 5.00 mmHg TR Peak Gr.: 12.01 mmHg PA Pressure: 17.00 mmHg Left Ventricle The left ventricle is normal size. There is normal LV segmental wall motion. There is normal left ventricular wall thickness. Left ventricular systolic function is normal. LVEF is 55%. Moderate diastolic dysfunction is present (pseudonormal filling). Right Ventricle The right ventricle is normal size. The right ventricular systolic function is normal. Atria The left atrium size is normal. The right atrium size is normal. Aortic Valve The aortic valve is normal in structure. No aortic regurgitation is present. There is no aortic valvular stenosis. Mitral Valve The mitral valve is normal in structure. There is no mitral valve regurgitation noted. No evidence of mitral valve stenosis. Tricuspid Valve The tricuspid valve is normal in structure. Trace tricuspid regurgitation. Estimated PAP is <20mmHg. Pulmonic Valve The pulmonary valve is normal in structure. There is no pulmonic valvular regurgitation. [facility] [address] [place] [address] 2 D/M-MODE ECHOCARDIOGRAM Name: KARTHIK WEIR PHANI Room #: 170-3 [facility] IN .R.#: [id number] Admission: 09/16/19 Attend Phys: Jessica Whelan, Discharge: Date of : 66 Report #: [id number] Great Vessels The aortic root is normal in size. The ascending aorta is normal in size. IVC is normal in size and collapses >50% with inspiration. Pericardium There is no pericardial effusion. <Conclusion> The left ventricle is normal size. There is normal left ventricular wall thickness. Left ventricular systolic function is normal. The right ventricle is normal size. The left atrium size is normal. The aortic valve is normal in structure. There is no mitral valve regurgitation noted. Trace tricuspid regurgitation. Estimated PAP is <20mmHg. <ELECTRONICALLY SIGNED> By: Palmer Melgar MD 09/16/191531 31 31 Palmer Melgar MD /INF
--- NOTE | 2019-09-16 17:41 | NUR ---
ADMITTED PATIENT TO FLOOR AND ASSUMED CARE AROUND 1700. VSS. ALERT AND ORIENTED X4. ADMISSION ASSESSMENT AND FALL EDUCATION COMPLETE. PATIENT COMPLAINS OF DIZZINESS. CARDIOLOGY CONSULTED. CONTINUING TO MONITOR.
[2019-09-16 23:36] LABS: URINE BILIRUBIN NEGATIVE (Negative); URINE BLOOD NEGATIVE (Negative); URINE CLARITY CLEAR; URINE COLOR YELLOW; URINE GLUCOSE-RANDOM* NEGATIVE (Negative); URINE KETONES TRACE (Negative); URINE LEUKOCYTES-REFLEX NEGATIVE (Negative); URINE NITRITE-REFLEX NEGATIVE (Negative); URINE PROTEIN (DIPSTICK) NEGATIVE (Negative); URINE UROBILINOGEN 0.2 E.U./dl (0.2-1.0)
[2019-09-17 05:01] VITALS: BP 112/60
[2019-09-17 05:22] LABS: ABSOLUTE NEUTROPHILS 2.5 thou/uL (1.4-8.2); BASOPHILS 0.8 % (0.0-2.0); EOSINOPHILS 3.1 % (0.0-3.0); HEMOGLOBIN 9.8 gm/dL (12.0-15.0); LYMPHOCYTES 36.5 % (24.0-44.0); MCH 24.1 pg (26.0-34.0); MCHC 30.6 g/dL (28.0-37.0); MCV 78.7 fL (80.0-100.0); MONOCYTES 9.9 % (1.0-8.0); POLYS 49.7 % (36.0-66.0); RBC 4.07 mil/uL (4.20-5.00); RDW 18.1 % (10.5-14.5)
[2019-09-17 05:43] LABS: CALCIUM 8.8 mg/dL (8.5-10.1); CREATININE 0.8 mg/dL (0.6-1.0); MAGNESIUM 1.7 mg/dL (1.8-2.4); POTASSIUM 3.5 mmol/L (3.5-5.1)
[2019-09-17 05:59] LABS: PLATELET COUNT 250 thou/uL (150-400)
[2019-09-17 08:14] VITALS: BP 100/63
[2019-09-17 08:19] VITALS: BP 103/69
[2019-09-17 08:22] VITALS: BP 87/56
--- NOTE | 2019-09-17 10:33 | NUR ---
ASSESSMENT: CM REVIEWED CHART AND MET WITH PATIENT AT THE BEDSIDE. PT WAS ADMITTED DUE TO DIZZINESS. PT REPORTS SHE LIVES AT HOME WITH HER TWO SONS. PT REPORTS THAT SHE HAS ABOUT 2 STEPS TO ENTER AND ABOUT 8 STEPS ONCE INSIDE. PT REPORTS SHE AMBULATES USING A WALKER. PT REPORTS THAT SHE RECENTLY WAS AT [facility] AND DISCHARGED ON AUG 19. PT STATES SHE HAS NOT HAD HH. CM DISCUSSED ROLE. PT/OT WAS ORDERED FOR PATIENT AND EVALS ARE PENDING. CM WILL CONTINUE TO FOLLOW TO ASSIST NEEDED.
[2019-09-17 15:15] VITALS: BP 94/59
--- NOTE | 2019-09-17 17:42 | EKG ---
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 : 1970 Requested By: Francy Leslie Order Number: [id number] MD: Jaguar Dickey Measurements Intervals [place] Rate: 61 P: 52 OR: 174 QRS: -34 QRSD: 112 T: 89 QT: 442 QTc: 446 Interpretive Statements Sinus rhythm Leftward axis Abnormal R-wave progression, early transition Abnrm T, consider ischemia, anterolateral lds Compared to ECG 09/16/2019 06:44:37 No significant change was found Electronically Signed On 09-17-2019 17:41:51 CDT by Jaguar Dickey [email or web address] <ELECTRONICALLY SIGNED> By: Jaguar Dickey MD, FACC 09/17/19 1741 9 Jaguar Dickey MD, [facility] /EPI
--- NOTE | 2019-09-17 20:00 | NUR ---
pt is A&OX3, PT is continuing IV fliud , and fall prevention, pt still has dizziness at time, pt's vs are stable .pt denies pain and n/v .
[2019-09-17 21:00] VITALS: BP 98/63
[2019-09-17 22:49] LABS: HEMATOCRIT 31.8 % (37.0-47.0); HEMOGLOBIN 9.7 gm/dL (12.0-15.0)
[2019-09-18 00:07] LABS: GLYCOHEMOGLOBIN (HGB A1C) 4.9 % (4.8-5.6)
[2019-09-18 05:30] VITALS: BP 101/53
[2019-09-18 07:13] VITALS: BP 102/58
--- NOTE | 2019-09-18 08:06 | NUR ---
PT UP TO TOILET WITH STAND BY ASSIST ONLY. USING WALKER TO MOVE ABOUT. GAIT WAS STABLE AND PT STATED SHE FELT ONLY A LITTLE DIZZY.
--- NOTE | 2019-09-18 13:05 | NUR ---
on-going assessment: CM REACHED OUT TO [facility] AND SPOKE WITH ISH IN ADMISSIONS TO GET AN UPDATE. SHE STATES THEY RECEIVED THE REFERRAL AND THEY CAN MEDICALLY ACCEPT THE PATIENT AND HAVE SUBMITTED FOR INSURANCE AUTH. PT IS POSSIBLE DISCHARGE PENDING INSURANCE AUTH. IF WE RECEIVE INSURANCE AUTH [facility] CONTACT FOR REPORT:[phone] ORDERS/DISCHARGE SUMMARY WILL NEED FAXED TO [phone].
[2019-09-18 15:32] VITALS: BP 104/60
--- NOTE | 2019-09-18 19:46 | NUR ---
pt is A&O X3, PT is continuing iv fluid and pain managemnet, but pt still has dizziness, pt gets up bathroom with assist.pt's vs are stable.
[2019-09-18 19:48] VITALS: BP 117/77
[2019-09-19 04:05] VITALS: BP 102/65
--- NOTE | 2019-09-19 04:23 | NUR ---
ASSUMED CARE AT 1900. PT REPORTS CONSTANT DIZZY FEELING, STATES SHE IS WORRIED ABOUT GETTING UP AND WALKING BECAUSE SHE DOESN'T KNOW IF SHE'LL BLACK OUT/FALL AGAIN; CALLS APPROPRIATELY FOR ASSISTANCE TO BATHROOM, USES WALKER AND GAIT BELT. PT C/O FEELING ANXIOUS WITH STERNAL CHEST TIGHTNESS/SOB; OBTAINED ORDER FOR PRN HYDROXYZINE, WHICH PT REPORTED WORKED VERY WELL TO REDUCE ANXIETY, GAVE BOTH AVAILABLE DOSES OVERNIGHT. REPORTED PAIN IN LEFT KNEE, WORSENED BY SITTING UP IN CHAIR, GIVEN PAIN MEDS x1 OVERNIGHT AND PROVIDED ICE PACK TO REDUCE SWELLING. SO FAR NO STOOL OVERNIGHT, NO OTHER SIGNS OF BLEEDING. NO OTHER CONCERNS, WILL CONTINUE TO MONITOR.
[2019-09-19 04:29] LABS: HEMATOCRIT 30.8 % (37.0-47.0); HEMOGLOBIN 9.5 gm/dL (12.0-15.0); MCH 24.1 pg (26.0-34.0); MCHC 30.7 g/dL (28.0-37.0); MCV 78.5 fL (80.0-100.0); RBC 3.92 mil/uL (4.20-5.00); RDW 18.3 % (10.5-14.5); WBC 4.9 thou/uL (4.0-11.0)
[2019-09-19 04:44] LABS: CALCIUM 8.4 mg/dL (8.5-10.1); CREATININE 0.8 mg/dL (0.6-1.0); MAGNESIUM 1.7 mg/dL (1.8-2.4); POTASSIUM 3.6 mmol/L (3.5-5.1)
[2019-09-19 07:03] VITALS: BP 115/66
[2019-09-19 16:20] VITALS: BP 101/57
[2019-09-19 19:54] VITALS: BP 113/68
--- NOTE | 2019-09-19 20:19 | NUR ---
PT is A&OX3, PT is continuing iv fliud and pain management, pt still has dizziness at time, RN has reported dr about pt has small blood in stool one time today, we continue to monitor.
[2019-09-20 05:07] VITALS: BP 114/72
[2019-09-20 06:04] LABS: HEMATOCRIT 30.3 % (37.0-47.0); HEMOGLOBIN 9.4 gm/dL (12.0-15.0); MCH 24.4 pg (26.0-34.0); MCV 78.7 fL (80.0-100.0); RBC 3.85 mil/uL (4.20-5.00); RDW 18.1 % (10.5-14.5); WBC 4.7 thou/uL (4.0-11.0)
[2019-09-20 07:08] VITALS: BP 102/57
--- NOTE | 2019-09-20 07:40 | NUR ---
ASSUMED CARE AT 1900. PT REPORTS MODERATE PAIN IN LEFT KNEE, GIVEN PAIN MEDS x2 OVERNIGHT. GIVEN XANAX ONCE OVERNIGHT. DENIES NAUSEA OR SOB. IVF INFUSING. EDUCATED TO CALL IF SHE HAD A STOOL AN OCCULT SAMPLE IS STILL NEEDED; CALLS APPROPRIATELY FOR ASSISTANCE TO TOILET. NO OTHER CONCERNS, SHIFT REPORT GIVEN AT 0700.
[2019-09-20 15:11] VITALS: BP 99/67
--- NOTE | 2019-09-20 18:22 | NUR ---
pt is A&OX3, pt 's vs are stable , pt's dizziness has improved, PT has one time stool with small blood, GI Dr has seeing this pt, new order received, RN will report to next shift to keep eye on pt.
[2019-09-20 19:22] VITALS: BP 112/76
[2019-09-21 04:20] VITALS: BP 103/63
[2019-09-21 08:15] VITALS: BP 121/77
--- NOTE | 2019-09-21 13:23 | NUR ---
on-going assessment: CM REACHED OUT TO [facility] AND LEFT VM WITH ISH IN ADMISSIONS TO GET AN UPDATE. CM FAXED UPDATED CLINICAL TO [facility] AND ORDERED A CHART COPY. DISCHARGE TO [facility] IS PENDING INSURANCE AUTH AT THIS TIME AND WAITING TO HEAR BACK. IF WE RECEIVE INSURANCE AUTH [facility] CONTACT FOR REPORT:[phone] ORDERS/DISCHARGE SUMMARY WILL NEED FAXED TO [phone].
[2019-09-21] MEDS ORDERED: ALPRAZOLAM 0.50.5 M1 PO (14:04)
[2019-09-21] MEDS ORDERED: MAGNESIUM400 MG PO (14:04)
--- NOTE | 2019-09-21 14:25 | NUR ---
ON-GOING ASSESSMENT: CM REACHED OUT TO [facility] TO SEE IF THEY HAVE AN UPDATE ON INSURANCE AUTH. CM RECEIVED A CALL BACK FROM ISH AT [facility] WHO STATES THAT INSURANCE DENIED ACUTE REHAB. CM NOTIFIED ATTENDING WHO STATES PATIENT IS ABLE TO GO HOME WITH HH. CM MET WITH PATIENT. PT REPORTS SHE HAS NO PREFERENCE OF HH COMPANY. CM SENT REFERRAL TO [facility] TO SEE IF THEY CAN ACCEPT PATIENT AND WAITING TO HEAR BACK. CM NOTIFIED PATIENT SHE WILL LIKELY GO TODAY WITH HH.
[2019-09-21 14:49] VITALS: BP 121/77
--- NOTE | 2019-09-21 17:41 | NUR ---
SUMMARY: ALERT AND ORIENTED. VITALS STABLE, MEDICATED FOR PAIN AND ANXIETY WITH PRN MEDS. UP TO THE BATHROOM WITH ASSIST. TOLERATING DIET W/O NAUSEA. ORDERS RECEIVED TO DC PATIENT. DC PAPERWORK GIVEN TO PATIENT AND QNS ANSWERED. PRESCRIPTION FOR XANAX GIVEN TO PATIENT, UNABLE TO LOCATE PRESCRIPTION FOR MAGNESIUM OXIDE. ATTEMPT TO REACH DR. BOATENG THROUGH [employer] TEXT AND THROUGH THE PAGING SYSTEM UNSUCCESSFUL. PRESCRIPTION CALLED TO PATIENT'S PHARMACY. IV DC'D AND NOW PATIENT WAITING FOR HER RIDE.
[2019-09-21 17:45] VITALS: BP 111/68
== END 2019-09-21 18:30 | disposition home health service (06) | DRG 73 ==
LOC: ER 06:11 → 3W 09:15 → EROBS 09:15 → 3W 15:58
PROVIDERS: Emergency Medicine; Internal Medicine; Nurse Practitioner; ADMIT Internal Medicine
DX: G90.9 Disorder of the autonomic nervous system, unspecified (principal); K29.71 Gastritis, unspecified, with bleeding; N39.0 Urinary tract infection, site not specified; N17.9 Acute kidney failure, unspecified; K62.5 Hemorrhage of anus and rectum; F41.9 Anxiety disorder, unspecified; F32.9 Major depressive disorder, single episode, unspecified; I10 Essential (primary) hypertension; G43.909 Migraine, unspecified, not intractable, without status migrainosus; Z96.612 Presence of left artificial shoulder joint; J45.909 Unspecified asthma, uncomplicated; N18.3 Chronic kidney disease, stage 3 (moderate); E78.5 Hyperlipidemia, unspecified; Z96.652 Presence of left artificial knee joint; E86.0 Dehydration; I25.10 Atherosclerotic heart disease of native coronary artery without angina pectoris; E66.9 Obesity, unspecified; M19.90 Unspecified osteoarthritis, unspecified site; E11.22 Type 2 diabetes mellitus with diabetic chronic kidney disease; E11.42 Type 2 diabetes mellitus with diabetic polyneuropathy; I95.1 Orthostatic hypotension; G89.4 Chronic pain syndrome; F43.20 Adjustment disorder, unspecified; D50.9 Iron deficiency anemia, unspecified; I12.9 Hypertensive chronic kidney disease with stage 1 through stage 4 chronic kidney disease, or unspecified chronic kidney disease; K59.03 Drug induced constipation; T40.2X5A Adverse effect of other opioids, initial encounter; Y92.89 Other specified places as the place of occurrence of the external cause; Z90.49 Acquired absence of other specified parts of digestive tract; Z90.710 Acquired absence of both cervix and uterus; Z87.442 Personal history of urinary calculi; Z95.5 Presence of coronary angioplasty implant and graft; Z68.36 Body mass index [BMI] 36.0-36.9, adult; Z65.8 Other specified problems related to psychosocial circumstances
CPT/HCPCS: 10080; 10879

== ENCOUNTER 2020-01-02 02:08 | Emergency (ER) | payer BC, OTHER ==
[~2020-01-02] VITALS: Ht 162.6 cm; Wt 90.7 kg
[~2020-01-02 02:08] MED LIST changes: +ALPRAZOLAM 0.50.5 M1 PO; +CRESTOR40 MG PO; +MAGNESIUM400 MG PO
[2020-01-02 02:47] LABS: URINE BILIRUBIN NEGATIVE (Negative); URINE BLOOD NEGATIVE (Negative); URINE CLARITY CLEAR; URINE COLOR YELLOW; URINE GLUCOSE-RANDOM* NEGATIVE (Negative); URINE KETONES NEGATIVE (Negative); URINE LEUKOCYTES-REFLEX NEGATIVE (Negative); URINE NITRITE-REFLEX NEGATIVE (Negative); URINE PROTEIN (DIPSTICK) NEGATIVE (Negative); URINE SPECIFIC GRAVITY >= 1.030 (1.005-1.035); URINE UROBILINOGEN 0.2 E.U./dl (0.2-1.0)
[2020-01-02 02:47] LABS: ABSOLUTE NEUTROPHILS 3.1 thou/uL (1.4-8.2); BASOPHILS 1.1 % (0.0-2.0); EOSINOPHILS 2.1 % (0.0-3.0); HEMATOCRIT 33.5 % (37.0-47.0); HEMOGLOBIN 10.3 gm/dL (12.0-15.0); LYMPHOCYTES 32.4 % (24.0-44.0); MCH 24.3 pg (26.0-34.0); MCHC 30.8 g/dL (28.0-37.0); MCV 78.9 fL (80.0-100.0); MONOCYTES 8.4 % (1.0-8.0); PLATELET COUNT 272 thou/uL (150-400); RBC 4.24 mil/uL (4.20-5.00); RDW 17.6 % (10.5-14.5); WBC 5.6 thou/uL (4.0-11.0)
[2020-01-02 02:53] LABS: ANION GAP 10 mmol/L (7-16); BUN 21 mg/dL (7-18); CALCIUM 8.8 mg/dL (8.5-10.1); CHLORIDE 108 mmol/L (98-107); CO2 24 mmol/L (21-32); CREATININE 0.8 mg/dL (0.6-1.0); GLUCOSE 86 mg/dL (74-106); POTASSIUM 3.6 mmol/L (3.5-5.1); SODIUM 142 mmol/L (136-145)
[2020-01-02 02:59] LABS: ALBUMIN 3.6 g/dL (3.4-5.0); DIRECT BILIRUBIN < 0.1 mg/dL (<0.1-0.2); MAGNESIUM 1.9 mg/dL (1.8-2.4); SGOT 14 U/L (15-37); SGPT 18 U/L (30-65); TOTAL BILIRUBIN 0.2 mg/dL (<0.1-1.0); TOTAL PROTEIN 7.7 g/dL (6.4-8.2)
[2020-01-02] MEDS ORDERED: MECLIZINE HCL25 M1 PO (05:34)
[2020-01-02 05:36] VITALS: BP 113/69
== END 2020-01-02 06:06 | disposition home or self-care (01) ==
LOC: ER 02:08
PROVIDERS: Emergency Medicine
DX: R42 Dizziness and giddiness (principal); R10.12 Left upper quadrant pain; R07.81 Pleurodynia; I12.9 Hypertensive chronic kidney disease with stage 1 through stage 4 chronic kidney disease, or unspecified chronic kidney disease; E78.5 Hyperlipidemia, unspecified; N18.3 Chronic kidney disease, stage 3 (moderate); J45.909 Unspecified asthma, uncomplicated; G43.909 Migraine, unspecified, not intractable, without status migrainosus; F41.9 Anxiety disorder, unspecified; F32.9 Major depressive disorder, single episode, unspecified; Z95.5 Presence of coronary angioplasty implant and graft; Z90.49 Acquired absence of other specified parts of digestive tract; Z90.710 Acquired absence of both cervix and uterus; Z87.440 Personal history of urinary (tract) infections

== ENCOUNTER 2020-01-05 10:46 | Emergency (ER) | payer BC, OTHER ==
[~2020-01-05] VITALS: Ht 162.6 cm; Wt 90.7 kg
[~2020-01-05 10:46] MED LIST changes: +MECLIZINE HCL25 M1 PO
[2020-01-05 12:07] LABS: URINE BILIRUBIN NEGATIVE (Negative); URINE BLOOD NEGATIVE (Negative); URINE CLARITY CLEAR; URINE COLOR YELLOW; URINE GLUCOSE-RANDOM* NEGATIVE (Negative); URINE KETONES NEGATIVE (Negative); URINE LEUKOCYTES-REFLEX NEGATIVE (Negative); URINE NITRITE-REFLEX NEGATIVE (Negative); URINE PROTEIN (DIPSTICK) NEGATIVE (Negative); URINE SPECIFIC GRAVITY >= 1.030 (1.005-1.035); URINE UROBILINOGEN 0.2 E.U./dl (0.2-1.0)
[2020-01-05 12:54] LABS: ABSOLUTE NEUTROPHILS 2.3 thou/uL (1.4-8.2); BASOPHILS 1.2 % (0.0-2.0); EOSINOPHILS 2.7 % (0.0-3.0); HEMATOCRIT 36.4 % (37.0-47.0); HEMOGLOBIN 11.3 gm/dL (12.0-15.0); LYMPHOCYTES 32.2 % (24.0-44.0); MCH 24.8 pg (26.0-34.0); MCHC 31.2 g/dL (28.0-37.0); MCV 79.7 fL (80.0-100.0); MONOCYTES 10.1 % (1.0-8.0); PLATELET COUNT 262 thou/uL (150-400); POLYS 53.8 % (36.0-66.0); RBC 4.57 mil/uL (4.20-5.00); RDW 17.8 % (10.5-14.5); WBC 4.3 thou/uL (4.0-11.0)
[2020-01-05 13:00] LABS: CALCIUM 9.1 mg/dL (8.5-10.1); CREATININE 0.9 mg/dL (0.6-1.0); POTASSIUM 3.5 mmol/L (3.5-5.1)
[2020-01-05] MEDS ORDERED: NORFLEX100 MG PO (18:04)
[2020-01-05] MEDS ORDERED: NAPROSYN500 MG PO (18:04)
[2020-01-05 18:15] VITALS: BP 137/68
== END 2020-01-05 18:15 | disposition home or self-care (01) ==
LOC: ER 10:46
PROVIDERS: Emergency Medicine; Physician Assistant
DX: E86.0 Dehydration (principal); M54.9 Dorsalgia, unspecified; I12.9 Hypertensive chronic kidney disease with stage 1 through stage 4 chronic kidney disease, or unspecified chronic kidney disease; E66.9 Obesity, unspecified; E78.5 Hyperlipidemia, unspecified; J45.909 Unspecified asthma, uncomplicated; G43.909 Migraine, unspecified, not intractable, without status migrainosus; N80.9 Endometriosis, unspecified; N18.3 Chronic kidney disease, stage 3 (moderate); F41.9 Anxiety disorder, unspecified; F32.9 Major depressive disorder, single episode, unspecified; Z68.34 Body mass index [BMI] 34.0-34.9, adult; Z95.5 Presence of coronary angioplasty implant and graft; Z90.49 Acquired absence of other specified parts of digestive tract; Z96.612 Presence of left artificial shoulder joint; Z87.440 Personal history of urinary (tract) infections

== ENCOUNTER 2020-02-18 21:02 | Emergency (ER) | payer BC, OTHER ==
[~2020-02-18] VITALS: Ht 162.6 cm; Wt 92.5 kg
--- NOTE | ~2020-02-18 | EMS ---
[address] [address] EMS Patient Care Report Name: KARTHIK WEIR Room #: REG NISHA Nuñez#: [id number] Admission: 02/18/20 Attend Phys: Discharge: Date of : 66 Report #: [id number] THIS REPORT FOR: //name// Report Transmitted: 02/18/2020 21:40 EMS Care Summary [place], [place]/[facility] Incident [id number] @ 02/18/2020 19:58 Incident [address] [place] [address] Patient KARTHIK WEIR Female, 49 Years 1970 Patient Address [address] [place] [address] Patient History Hypertension (HTN),Irritable Bowel Syndrome,Depression,Anxiety,Hypokalemia, Patient Allergies No known allergies, Chief Complaint ABDOMINAL PAIN AND RECTAL BLEEDING Disposition Transported No Lights/[place] Dispatch Reason Choking Transported To [facility] Narrative ARRIVED ON SCENE FOR A 49 YEAR OLD FEMALE WITH ABDOMINAL PAIN AND RECTAL BLEEDING. PT CONTACT WAS MADE WITH THE FAMILY. EMS ASSESSED THE PT FROM THE DOOR WITH PROPER PPE BEFORE MAKING ENTRY. PT DENIED SHORTNESS OF BREATH, COUGH, FEVER, OR ANY OTHER FLU LIKE SYMPTOM. PT WAS ALERT AND ORIENTATED TIMES 4 AND [facility] [address] [place] [address] EMS Patient Care Report Name: KARTHIK WEIR Room #: REG ER [place]#: [id number] Admission: 02/18/20 Attend Phys: Discharge: Date of : 66 Report #: [id number] WAS SITTING ON THE COUCH WHERE EMS GOT A SET OF BASELINE VITALS. PT STATED SHE HAS HAD NAUSEA, VOMITING, AND DIARRHEA OVER THE LAST 4 HOURS. PT STATED SHE STARTED TO NOTICE BLOOD IN THE TOILET AND CALLED HER PRIMARY CARE WHO ADVISED TRANSPORT TO THE EMERGENCY ROOM. PT WAS ABLE TO WALK TO THE COT WITH ASSISTANCE. PT TOOK A SEAT ON THE COT IN A POSITION OF COMFORT AND WAS SECURED VIA 2 SEATBELTS. PT WAS TRANSPORTED TO AND LOADED INTO THE AMBULANCE. PT WAS TRANSPORTED TO [facility] PER PT CHOICE WITH NO CHANGES EN ROUTE. PT WAS TAKEN TO ER BED 10 WHERE TRANSPORT REPORT WAS GIVEN TO THE RECEIVING STAFF. ER NURSE SIGNED FOR TRANSFER OF CARE AND EMS WENT BACK INTO SERVICE. Initial Vitals @20:11P: 76,R: 20,BP: 117/79,Pain: 10/10,GCS: 15,Glucose: 120,SpO2: 100,Revised Trauma: 12, @20:20P: 71,R: 20,BP: 111/70,Pain: 10/10,GCS: 15,SpO2: 98,Revised Trauma: 12, Assessments @20:07MENTAL:Person Oriented,Time Oriented,Event Oriented,Place Oriented,SKIN:HEENT:Eyes: Left Pupil: 3-mm,Eyes: Right Pupil: 3-mm,Head/Face: No Abnormalities,Neck/Airway: No Abnormalities,LUNG SOUNDS:General: Vomiting,Left Lower: Tenderness,Left Upper: Distension,General: Nausea,Left Upper: Tenderness,General: Diarrhea,Right Upper: Distension,Right Lower: Tenderness,Right Lower: Distension,Right Upper: Tenderness,Left Lower: Distension,ABDOMEN:General: Vomiting,Left Lower: Tenderness,Left Upper: Distension,General: Nausea,Left Upper: Tenderness,General: Diarrhea,Right Upper: Distension,Right Lower: Tenderness,Right Lower: Distension,Right Upper: Tenderness,Left Lower: Distension,PELVIS//GI:Rectal Bleeding,EXTREMITIES:Left Arm: No Abnormalities,Right Arm: No Abnormalities,Left Leg: No Abnormalities,Right Leg: No Abnormalities,PULSE:Radial: 2+ Normal,NEURO:No Abnormalities, Impression Abdominal Pain Procedures @20:07ALS AssessmentResponse: UnchangedSucceeded@20:08Saline Lock 5cc (18 ga) Site: Antecubital-LeftResponse: UnchangedSucceeded@20:10Oxygen FlowRate: 2 Device: Nasal Cannula (NC) Response: UnchangedSucceeded Timeline 19:56,Call Received 19:56,Dispatch Notified 19:58,Dispatched 20:00,En Route 20:06,On Scene 20:07,At Patient 20:07,ALS Assessment,Response: UnchangedSucceeded, [facility] [address] [place] [address] EMS Patient Care Report Name: KARTHIK WEIR PHANI Room #: REG NISHA Nuñez#: [id number] Admission: 02/18/20 Attend Phys: Discharge: Date of : 66 Report #: [id number] 20:08,Saline Lock 5cc 18 ga Site: Antecubital-Left,Response: UnchangedSucceeded, 20:09,Depart Scene 20:10,Oxygen FlowRate: 2 Device: Nasal Cannula (NC) Response: UnchangedSucceeded, 20:11,BP: 117/79 M,PULSE: 76,RR: 20 R,SPO2: 100 Ox,ETCO2: ,B,PAIN: 10,GCS: 15, 20:20,BP: 111/70 M,PULSE: 71,RR: 20 R,SPO2: 98 Ox,ETCO2: ,BG: ,PAIN: 10,GCS: 15, 20:22,At Destination 20:40,Call Closed Disclaimer v1.1 Copyright 2020 [employer] This EMS Care Summary contains data elements from the applicable legal record (which may be displayed differently). It is designed to provide pertinent information for the following purposes: continuity of care, clinical quality, and state data reporting. The complete legal record is available to ED staff and administrators of the receiving hospital in [employer] Patient Tracker. All data is provided "as is."
[2020-02-18 21:28] LABS: ABSOLUTE NEUTROPHILS 6.1 thou/uL (1.4-8.2); BASOPHILS 0.6 % (0.0-2.0); EOSINOPHILS 1.7 % (0.0-3.0); HEMATOCRIT 34.6 % (37.0-47.0); HEMOGLOBIN 11.1 gm/dL (12.0-15.0); LYMPHOCYTES 19.3 % (24.0-44.0); MCH 26.1 pg (26.0-34.0); MCHC 32.1 g/dL (28.0-37.0); MCV 81.4 fL (80.0-100.0); MONOCYTES 7.4 % (1.0-8.0); PLATELET COUNT 311 thou/uL (150-400); RBC 4.25 mil/uL (4.20-5.00); RDW 16.9 % (10.5-14.5); WBC 8.7 thou/uL (4.0-11.0)
[2020-02-18 21:37] LABS: CALCIUM 8.9 mg/dL (8.5-10.1); POTASSIUM 3.9 mmol/L (3.5-5.1)
[2020-02-18] MEDS ORDERED: ALPRAZOLAM1 MG PO (21:41)
[2020-02-18] MEDS ORDERED: PROMETHAZINE HC25 M1 PO (21:42)
[2020-02-18 21:43] LABS: ALBUMIN 3.3 g/dL (3.4-5.0); TOTAL BILIRUBIN 0.1 mg/dL (<0.1-1.0)
[2020-02-18] MEDS ORDERED: OMEPRAZOLE40 MG PO (21:44)
[2020-02-18 21:45] LABS: URINE BILIRUBIN NEGATIVE (Negative); URINE BLOOD NEGATIVE (Negative); URINE CLARITY CLEAR; URINE COLOR YELLOW; URINE GLUCOSE-RANDOM* NEGATIVE (Negative); URINE KETONES NEGATIVE (Negative); URINE LEUKOCYTES-REFLEX NEGATIVE (Negative); URINE NITRITE-REFLEX NEGATIVE (Negative); URINE PROTEIN (DIPSTICK) NEGATIVE (Negative); URINE SPECIFIC GRAVITY >= 1.030 (1.005-1.035); URINE UROBILINOGEN 0.2 E.U./dl (0.2-1.0)
[2020-02-18] MEDS ORDERED: KLOR-CON M2020 MEQ PO (21:45)
[2020-02-18] MEDS ORDERED: ASPIR-TRIN325 MG PO (21:51)
[2020-02-18 23:58] LABS: AMP/METHAMP Negative (Negative); BARBITURATES Negative (Negative); BENZODIAZEPINES Negative (Negative); COCAINE Negative (Negative); METHADONE Negative (Negative); OPIATES Negative (Negative); PCP Negative (Negative)
[2020-02-19] MEDS ORDERED: DULCOLAX STOOL100 M1 PO (00:29)
[2020-02-19] MEDS ORDERED: ZOFRAN ODT4 MG PO (00:29)
[2020-02-19] MEDS ORDERED: ANUSOL-HC30 GM TOP (00:29)
[2020-02-19 01:43] VITALS: BP 91/51
== END 2020-02-19 01:37 | disposition home or self-care (01) ==
LOC: ER 21:02
PROVIDERS: Emergency Medicine
DX: K64.8 Other hemorrhoids (principal); R10.31 Right lower quadrant pain; R10.32 Left lower quadrant pain; R11.10 Vomiting, unspecified; R19.7 Diarrhea, unspecified; G43.909 Migraine, unspecified, not intractable, without status migrainosus; J45.909 Unspecified asthma, uncomplicated; E78.5 Hyperlipidemia, unspecified; I12.9 Hypertensive chronic kidney disease with stage 1 through stage 4 chronic kidney disease, or unspecified chronic kidney disease; N18.3 Chronic kidney disease, stage 3 (moderate); Z90.49 Acquired absence of other specified parts of digestive tract; Z90.710 Acquired absence of both cervix and uterus; Z96.612 Presence of left artificial shoulder joint; Z98.890 Other specified postprocedural states; Z87.442 Personal history of urinary calculi; Z95.5 Presence of coronary angioplasty implant and graft; Z79.899 Other long term (current) drug therapy; Z96.652 Presence of left artificial knee joint; Z79.82 Long term (current) use of aspirin

== ENCOUNTER 2020-03-18 16:02 | Emergency (ER) | payer BC, OTHER ==
[~2020-03-18] VITALS: Ht 162.6 cm; Wt 98.4 kg
[~2020-03-18 16:02] MED LIST changes: +ALPRAZOLAM1 MG PO; +ANUSOL-HC30 GM TOP; +ASPIR-TRIN325 MG PO; +DULCOLAX STOOL100 M1 PO; +KLOR-CON M2020 MEQ PO; +OMEPRAZOLE40 MG PO; +PROMETHAZINE HC25 M1 PO
[2020-03-18 16:51] LABS: URINE BILIRUBIN NEGATIVE (Negative); URINE BLOOD NEGATIVE (Negative); URINE CLARITY CLEAR; URINE COLOR YELLOW; URINE GLUCOSE-RANDOM* NEGATIVE (Negative); URINE KETONES NEGATIVE (Negative); URINE LEUKOCYTES-REFLEX NEGATIVE (Negative); URINE NITRITE-REFLEX NEGATIVE (Negative); URINE PROTEIN (DIPSTICK) NEGATIVE (Negative); URINE SPECIFIC GRAVITY 1.025 (1.005-1.035); URINE UROBILINOGEN 0.2 E.U./dl (0.2-1.0)
[2020-03-18] MEDS ORDERED: LINZESS72 MCG PO (17:06)
[2020-03-18 17:07] LABS: ABSOLUTE NEUTROPHILS 4.3 thou/uL (1.4-8.2); BASOPHILS 0.8 % (0.0-2.0); HEMATOCRIT 33.5 % (37.0-47.0); HEMOGLOBIN 10.6 gm/dL (12.0-15.0); LYMPHOCYTES 22.8 % (24.0-44.0); MCH 25.7 pg (26.0-34.0); MCHC 31.7 g/dL (28.0-37.0); MCV 81.2 fL (80.0-100.0); MONOCYTES 7.3 % (1.0-8.0); PLATELET COUNT 233 thou/uL (150-400); POLYS 66.1 % (36.0-66.0); RBC 4.13 mil/uL (4.20-5.00); RDW 16.6 % (10.5-14.5); WBC 6.5 thou/uL (4.0-11.0)
[2020-03-18 17:16] LABS: CALCIUM 8.6 mg/dL (8.5-10.1); CREATININE 0.9 mg/dL (0.6-1.0); POTASSIUM 4.1 mmol/L (3.5-5.1)
[2020-03-18 17:22] LABS: ALBUMIN 3.5 g/dL (3.4-5.0); TOTAL BILIRUBIN 0.2 mg/dL (<0.1-1.0); TOTAL PROTEIN 7.2 g/dL (6.4-8.2)
[2020-03-18 18:21] VITALS: BP 113/65
== END 2020-03-18 18:22 | disposition home or self-care (01) ==
LOC: ER 16:02
PROVIDERS: Emergency Medicine
DX: N93.9 Abnormal uterine and vaginal bleeding, unspecified (principal); R10.30 Lower abdominal pain, unspecified; G43.909 Migraine, unspecified, not intractable, without status migrainosus; J45.909 Unspecified asthma, uncomplicated; I12.9 Hypertensive chronic kidney disease with stage 1 through stage 4 chronic kidney disease, or unspecified chronic kidney disease; N18.3 Chronic kidney disease, stage 3 (moderate); E78.5 Hyperlipidemia, unspecified; Z98.890 Other specified postprocedural states; Z90.49 Acquired absence of other specified parts of digestive tract; Z79.899 Other long term (current) drug therapy; Z79.82 Long term (current) use of aspirin; Z90.710 Acquired absence of both cervix and uterus

== ENCOUNTER 2020-04-26 06:50 | Emergency (ER) | payer BC, OTHER ==
[~2020-04-26] VITALS: Ht 162.6 cm; Wt 93.0 kg
[~2020-04-26 06:50] MED LIST changes: +LINZESS72 MCG PO
[2020-04-26 07:47] LABS: ABSOLUTE NEUTROPHILS 2.8 thou/uL (1.4-8.2); BASOPHILS 1.1 % (0.0-2.0); EOSINOPHILS 4.6 % (0.0-3.0); HEMATOCRIT 38.4 % (37.0-47.0); HEMOGLOBIN 12.1 gm/dL (12.0-15.0); LYMPHOCYTES 36.9 % (24.0-44.0); MCH 26.5 pg (26.0-34.0); MCHC 31.5 g/dL (28.0-37.0); MONOCYTES 9.2 % (1.0-8.0); PLATELET COUNT 229 thou/uL (150-400); POLYS 48.2 % (36.0-66.0); RBC 4.57 mil/uL (4.20-5.00); RDW 17.1 % (10.5-14.5); WBC 5.9 thou/uL (4.0-11.0)
[2020-04-26] MEDS ORDERED: ALPRAZOLAM2 MG PO (08:01)
[2020-04-26] MEDS ORDERED: SUBVENITE150 MG PO (08:02)
[2020-04-26 08:20] LABS: CALCIUM 8.3 mg/dL (8.5-10.1); CREATININE 0.9 mg/dL (0.6-1.0); POTASSIUM 3.7 mmol/L (3.5-5.1)
--- NOTE | 2020-04-26 08:52 | EKG ---
[facility] [place] [address] ELECTROCARDIOGRAM REPORT Name: KARTHIK WEIR Room #: [facility]..#: [id number] Admission: 04/26/20 Attend Phys: Discharge: Date of : 66 Report #: [id number] THIS REPORT FOR: cc: Julia Brandt MD, Nora P. MD Lundgren, Craig H. 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: : 1970 Requested By: Neftali Goodman Order Number: [id number] MD: Jaguar Dickey Measurements Intervals [place] Rate: 58 P: 53 NH: 193 QRS: -32 QRSD: 113 T: 52 QT: 407 QTc: 400 Interpretive Statements Sinus rhythm Borderline IVCD with LAD Borderline T abnormalities, anterior leads Compared to ECG 09/17/2019 09:20:43 T wave abnormality is less prominent Electronically Signed On 04-26-2020 8:51:02 CDT by Jaguar Dickey [email or web address] <ELECTRONICALLY SIGNED> By: Jaguar Dickey MD, FACC 04/26/20 0851 0656 0656 Jaguar Dickey MD, [facility] /EPI
[2020-04-26 10:38] VITALS: BP 96/56
== END 2020-04-26 10:38 | disposition home or self-care (01) ==
LOC: ER 06:50
PROVIDERS: Emergency Medicine
DX: R07.89 Other chest pain (principal); I12.9 Hypertensive chronic kidney disease with stage 1 through stage 4 chronic kidney disease, or unspecified chronic kidney disease; N18.3 Chronic kidney disease, stage 3 (moderate); J45.909 Unspecified asthma, uncomplicated; G43.909 Migraine, unspecified, not intractable, without status migrainosus; E78.5 Hyperlipidemia, unspecified; Z87.891 Personal history of nicotine dependence; Z79.82 Long term (current) use of aspirin; Z79.899 Other long term (current) drug therapy

== ENCOUNTER 2020-06-06 19:24 | Inpatient (IN) | payer BC, OTHER ==
[~2020-06-06] VITALS: Ht 162.6 cm; Wt 106.6 kg
[~2020-06-06 19:24] MED LIST changes: +ALPRAZOLAM2 MG PO; +SUBVENITE150 MG PO
[2020-06-06 19:37] VITALS: BP 120/59
[2020-06-06 19:59] LABS: ABSOLUTE NEUTROPHILS 5.3 thou/uL (1.4-8.2); BASOPHILS 0.8 % (0.0-2.0); EOSINOPHILS 2.4 % (0.0-3.0); HEMATOCRIT 33.9 % (37.0-47.0); HEMOGLOBIN 10.8 gm/dL (12.0-15.0); LYMPHOCYTES 20.6 % (24.0-44.0); MCV 84.3 fL (80.0-100.0); MONOCYTES 5.1 % (1.0-8.0); PLATELET COUNT 275 thou/uL (150-400); POLYS 71.1 % (36.0-66.0); RBC 4.02 mil/uL (4.20-5.00); RDW 16.2 % (10.5-14.5); WBC 7.5 thou/uL (4.0-11.0)
[2020-06-06 20:08] LABS: ANION GAP 11 mmol/L (7-16); BUN 25 mg/dL (7-18); CALCIUM 8.6 mg/dL (8.5-10.1); CHLORIDE 106 mmol/L (98-107); CO2 22 mmol/L (21-32); CREATININE 1.1 mg/dL (0.6-1.0); GLUCOSE 120 mg/dL (74-106); POTASSIUM 3.8 mmol/L (3.5-5.1); SODIUM 139 mmol/L (136-145)
[2020-06-06 20:19] LABS: ALBUMIN 3.4 g/dL (3.4-5.0); LIPASE 145 U/L (73-393); SGOT 14 U/L (15-37); SGPT 30 U/L (30-65); TOTAL BILIRUBIN 0.1 mg/dL (0.2-1.0); TOTAL PROTEIN 7.1 g/dL (6.4-8.2); TROPONIN-I <0.06 ng/mL (<0.06)
[2020-06-06 23:20] VITALS: BP 110/84
[2020-06-07 00:04] VITALS: BP 94/52
[2020-06-07 00:15] VITALS: BP 113/59
[2020-06-07 07:30] VITALS: BP 106/56
--- NOTE | 2020-06-07 07:48 | NUR ---
ADMITTED FROM ER UNDER 'S CARE. SEEN BY RICCARDO WEB SITE ADMINISTRATOR AT BEDSIDE. VSS. NO S/S ACUTE DISTRESS NOTED OR REPORTED AT THIS TIME. WILL CONT TO MONITOR FOR ANY CHANGES IN CONDITION.
--- NOTE | 2020-06-07 08:48 | EKG ---
[facility] [place] [address] [place] [address] ELECTROCARDIOGRAM REPORT Name: KARTHIK WEIR Room #: 457-P [facility] M.R.#: [id number] Admission: 06/06/20 Attend Phys: Codey Zhang MD Discharge: Date of : 66 Report #: [id number] THIS REPORT FOR: cc: Will Leal Ryan D. DO Lundgren, Craig H. 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 : 1970 Requested By: Vicente Can Order Number: [id number] MD: Jaguar Dickey Measurements Intervals [place] Rate: 78 P: 21 NM: 174 QRS: -35 QRSD: 105 T: 55 QT: 389 QTc: 444 Interpretive Statements Sinus rhythm Borderline T abnormalities, anterior leads Compared to ECG 04/26/2020 06:56:51 No significant change was found Electronically Signed On 06-07-2020 8:48:32 CDT by Jaguar Dickey [email or web address] <ELECTRONICALLY SIGNED> By: Jaguar Dickey MD, [facility] 06/07/20 0848 29 29 Jaguar Dickey MD, [facility] /EPI
[2020-06-07] MEDS ORDERED: HYDROCODON-ACE1 EAC7 PO (10:20)
--- NOTE | 2020-06-07 12:26 | NUR ---
ASSUMED CARE AT 0700. PATIENT IS ALERT AND ORIENTED X4. 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 LUNGS ARE CLEAR AND DEMINISHED. ABD IS SOFT WITH BSX4. S.L. IS PATIENT IN PATIENTS LEFT AC. S.L. FLUSHED WITH N.S. AND IS PATIENT AND INTACT. IV SITE WITHOUT REDNESS OR SWELLING. UP IN BED FOR MEALS. C/O RIB PAIN. MEDICATED WITH ONE TIME DOSE OF MS04 2MG IVP. FALL AND SAFEDTY PROTOCOLS IN PLACE. PAIN ABOVE. CONTINUES TO PROGRESS SLOWLY TOWARDS D/C GOALS. P.T. /O.T. EVALS TO BE DONE TODAY. WILL CONTINUE TO MONITER.
--- NOTE | 2020-06-07 15:37 | NUR ---
PT ADMITTED RLEATED TO CHEST PAIN. CM REVIEWED CHART AND SPOKE WITH CARE TEAM. CM MET WITH PT AT BEDSIDE THIS DAY. PT APPEARED TO BE A&O X4. CM ROLE INTRODUCED. PT INDICATED SHE HAD BEEN SKILLED AT [facility]. PRIOR TO THAT SHE HAD BEEN AT [employer] AND HAD LIVES AT HOME WITH KIDS 2 STEPS TO ENTER AND 7 TO BEDROOM. PT INDICATED SHE HAD USED A FWW TO ASSIST WITH MOBILITY. PT'S PCP IS GURINDER CENTENO. PT INDICATED SHE PLANS TO RETURN TO [facility] TO RESUME SKILLED REHAB SERVICES ONCE MEDICALLY STABLE. CARE TEAM INDICATED PT IS MEDICALLY STABLE TO DC BACK TO [facility] THIS DAY. FACILITY INDICATED THAT THEY NEEDED NEW AUTH. CLINICAL INFO FAXED TO [facility]. CM TO FOLLOW INDICATED WITH DC PLANNING.
[2020-06-07 16:00] VITALS: BP 97/61
[2020-06-07 20:01] VITALS: BP 107/59
--- NOTE | 2020-06-08 05:47 | NUR ---
ASSUMED PT CARE AT 1915. PT IS A&O X4. PT STATES PAIN IS AT A LEVEL 7 THEN INCREASED TO 10. RECEIVED A ONE TIME ORDER FOR IV MORPHINE. PT HAS BEEN GIVEN HYDROCODONE. PT STATES THAT SHE FEELS BETTER. PT CALLS OUT APPROPRIATELY. PT IS RESTING IN HER ROOM. WILL CONTINUE TO MONITOR.
[2020-06-08 07:39] VITALS: BP 122/73
[2020-06-08 08:22] VITALS: BP 122/73
--- NOTE | 2020-06-08 14:06 | NUR ---
FAXED PT/OT NOTES AND FACE SHEET TO [facility] RECEIVED CONFIRMATION AND LEFT MSG WITH LAYLA IN ADM. DP TO FOLLOW.
[2020-06-08 14:07] VITALS: BP 122/73
--- NOTE | 2020-06-08 15:19 | NUR ---
WE ARE STILL AWAITING INSURANCE AUTH FOR PT TO DC TO [facility] THIS DAY.
[2020-06-08 16:27] VITALS: BP 124/79
--- NOTE | 2020-06-08 17:06 | NUR ---
FAXED COVID RESULT TO [facility] RECEIVED CONFIRMATION AND LEFT MSG WITH LAYLA IN ADM. DP TO FOLLOW.
--- NOTE | 2020-06-08 17:38 | NUR ---
ASSUMED CARE OF PATIENT AT SHIFT CHANGE. MEDICATIONS GIVEN PER MAR, PRN PAIN MED GIVEN. MORPHINE REQUESTED. PATIENT IS A&OX4 AND VOICES PAIN 10/10 NOT RELIEVED BY PO PAIN MED. ASSESSMENT CHARTED. DR APPROVED ONETIME DOSE OF MORPHINE. PT TO D/C, IV DISCONTINUED. PATIENT AWARE OF RISKS SINCE STILL AWAITING AUTHORIZATION. PATIENT MAINTAINED GOOD FSBS. VOICES NO OTHER NEEDS. FALL PRECAUTIONS IN PLACE. WILL CONTINUE TO MONITOR.
[2020-06-08 19:48] VITALS: BP 136/75
--- NOTE | 2020-06-09 07:28 | NUR ---
ASSUMED PT CARE AROUND 1930. AXOX4. VSS. NO S/S ACUTE DISTRESS NOTED OR REPORTED AT THIS TIME. CARE TRANSFERRED TO AM RN AT THIS TIME.
[2020-06-09 07:41] VITALS: BP 116/73
--- NOTE | 2020-06-09 13:10 | NUR ---
CM NOTIFIED THAT INSURANCE AUTH WAS RECIEVED FOR PT TO RETURN TO [facility] THIS DAY. [facility] AR[facility]ED FOR 1415. PT AND SON AWARE AND AGREEABLE. CHART COPY MADE. ORDERS AND NEGATIVE COVID TEST FAXED TO FACILITY. NURSE GIVEN NUMBER FOR REPORT. NO OTHER CM INTERVENTION INDICATED. CASE CLOSED.
--- NOTE | 2020-06-09 14:20 | NUR ---
A/O, calm and pleasant; afebrile. got up to the toilet with walker. discharged, left with a wheel chair.
== END 2020-06-09 14:20 | DRG 313 ==
LOC: ER 19:24 → 4W 21:42 → EROBS 21:42 → 4W 06-07 00:05
PROVIDERS: Emergency Medicine; ADMIT Hospitalist; ATTEND Hospitalist
DX: R07.89 Other chest pain (principal); I25.110 Atherosclerotic heart disease of native coronary artery with unstable angina pectoris; F41.9 Anxiety disorder, unspecified; F32.9 Major depressive disorder, single episode, unspecified; G43.909 Migraine, unspecified, not intractable, without status migrainosus; J45.909 Unspecified asthma, uncomplicated; Z65.8 Other specified problems related to psychosocial circumstances; Z96.612 Presence of left artificial shoulder joint; E78.5 Hyperlipidemia, unspecified; Z96.652 Presence of left artificial knee joint; K29.70 Gastritis, unspecified, without bleeding; G89.29 Other chronic pain; I12.9 Hypertensive chronic kidney disease with stage 1 through stage 4 chronic kidney disease, or unspecified chronic kidney disease; N18.3 Chronic kidney disease, stage 3 (moderate); Z79.899 Other long term (current) drug therapy; Z95.5 Presence of coronary angioplasty implant and graft; Z90.49 Acquired absence of other specified parts of digestive tract; Z87.442 Personal history of urinary calculi; Z90.710 Acquired absence of both cervix and uterus; Z20.828 Contact with and (suspected) exposure to other viral communicable diseases
CPT/HCPCS: 10045

== ENCOUNTER 2020-08-09 12:23 | Emergency (ER) | payer BC, OTHER ==
[~2020-08-09] VITALS: Ht 162.6 cm; Wt 105.7 kg
[2020-08-09 13:28] LABS: ABSOLUTE NEUTROPHILS 3.1 thou/uL (1.4-8.2); BASOPHILS 1.2 % (0.0-2.0); EOSINOPHILS 4.3 % (0.0-3.0); HEMATOCRIT 37.4 % (37.0-47.0); HEMOGLOBIN 11.9 gm/dL (12.0-15.0); LYMPHOCYTES 33.9 % (24.0-44.0); MCH 26.2 pg (26.0-34.0); MCHC 31.7 g/dL (28.0-37.0); MCV 82.9 fL (80.0-100.0); MONOCYTES 8.5 % (1.0-8.0); PLATELET COUNT 296 thou/uL (150-400); POLYS 52.1 % (36.0-66.0); RBC 4.52 mil/uL (4.20-5.00); RDW 15.6 % (10.5-14.5)
[2020-08-09 13:31] LABS: CALCIUM 8.9 mg/dL (8.5-10.1); CREATININE 0.9 mg/dL (0.6-1.0)
[2020-08-09 13:38] LABS: ALBUMIN 3.5 g/dL (3.4-5.0); TOTAL BILIRUBIN 0.2 mg/dL (0.2-1.0); TOTAL PROTEIN 7.7 g/dL (6.4-8.2)
[2020-08-09] MEDS ORDERED: MECLIZINE HCL25 M1 PO (19:30)
[2020-08-09 19:42] VITALS: BP 128/52
--- NOTE | 2020-08-10 08:50 | EKG ---
[facility] [place] [address] ELECTROCARDIOGRAM REPORT Name: KARTHIK WEIR Room #: DEP [facility]..#: [id number] Admission: 08/09/20 Attend Phys: Discharge: 08/09/20 Date of : 66 Report #: [id number] THIS REPORT FOR: cc: Julia Brandt MD, Nora P. MD Lundgren, Craig H. 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[facility] 1970 Requested By: Ck Shaffer Order Number: [id number] MD: Jaguar Dickey Measurements Intervals [place] Rate: 65 P: 24 AR: 170 QRS: -24 QRSD: 108 T: 45 QT: 425 QTc: 442 Interpretive Statements Sinus rhythm Borderline left axis deviation Abnormal T, consider ischemia Compared to ECG 06/06/2020 19:30:50 T-wave abnormality still present Electronically Signed On 08-10-2020 8:50:42 CDT by Jaguar Dickey [email or web address] <ELECTRONICALLY SIGNED> By: Jaguar Dickey MD, [facility] 08/10/20 0850 1241 1241 Jaguar Dickey MD, [facility] /EPI
== END 2020-08-09 19:51 | disposition home or self-care (01) ==
LOC: ER 12:23
PROVIDERS: Emergency Medicine
DX: H81.90 Unspecified disorder of vestibular function, unspecified ear (principal); I12.9 Hypertensive chronic kidney disease with stage 1 through stage 4 chronic kidney disease, or unspecified chronic kidney disease; N18.3 Chronic kidney disease, stage 3 (moderate); J45.909 Unspecified asthma, uncomplicated; G43.909 Migraine, unspecified, not intractable, without status migrainosus; E78.5 Hyperlipidemia, unspecified; Z90.49 Acquired absence of other specified parts of digestive tract; Z90.710 Acquired absence of both cervix and uterus; Z79.82 Long term (current) use of aspirin; Z79.899 Other long term (current) drug therapy

== ENCOUNTER 2020-08-25 22:46 | Emergency (ER) | payer BC, OTHER ==
[~2020-08-25] VITALS: Ht 162.6 cm; Wt 108.9 kg
[2020-08-26] MEDS ORDERED: BENTYL 10 MG CA10 M1 PO (00:24)
[2020-08-26] MEDS ORDERED: ONDANSETRON HCL4 M2 PO (00:24)
[2020-08-26] MEDS ORDERED: NEURONTIN300 MG PO (00:26)
[2020-08-26] MEDS ORDERED: ZOLPIDEM TARTRA10 MG PO (00:27)
[2020-08-26 02:36] LABS: URINE BILIRUBIN NEGATIVE (Negative); URINE BLOOD NEGATIVE (Negative); URINE CLARITY CLEAR; URINE COLOR YELLOW; URINE GLUCOSE-RANDOM* NEGATIVE (Negative); URINE KETONES NEGATIVE (Negative); URINE NITRITE-REFLEX NEGATIVE (Negative); URINE PROTEIN (DIPSTICK) NEGATIVE (Negative); URINE SPECIFIC GRAVITY >= 1.030 (1.005-1.035); URINE UROBILINOGEN 0.2 E.U./dl (0.2-1.0)
[2020-08-26 02:38] LABS: BASOPHILS 1.1 % (0.0-2.0); EOSINOPHILS 4.1 % (0.0-3.0); HEMATOCRIT 36.3 % (37.0-47.0); HEMOGLOBIN 11.5 gm/dL (12.0-15.0); LYMPHOCYTES 32.9 % (24.0-44.0); MCH 26.2 pg (26.0-34.0); MCHC 31.7 g/dL (28.0-37.0); MCV 82.8 fL (80.0-100.0); MONOCYTES 8.2 % (1.0-8.0); PLATELET COUNT 287 thou/uL (150-400); POLYS 53.7 % (36.0-66.0); RBC 4.38 mil/uL (4.20-5.00); RDW 15.8 % (10.5-14.5); WBC 7.5 thou/uL (4.0-11.0)
[2020-08-26 02:55] LABS: ANION GAP 14 mmol/L (7-16); BUN 24 mg/dL (7-18); CALCIUM 8.8 mg/dL (8.5-10.1); CHLORIDE 110 mmol/L (98-107); CO2 21 mmol/L (21-32); CREATININE 0.8 mg/dL (0.6-1.0); GLUCOSE 109 mg/dL (74-106); SODIUM 145 mmol/L (136-145)
[2020-08-26 03:02] LABS: ALBUMIN 3.2 g/dL (3.4-5.0); DIRECT BILIRUBIN < 0.1 mg/dL (<0.1-0.2); SGOT 33 U/L (15-37); SGPT 47 U/L (30-65); TOTAL BILIRUBIN < 0.1 mg/dL (0.2-1.0); TOTAL PROTEIN 7.7 g/dL (6.4-8.2)
[2020-08-26 03:04] LABS: URINE LEUKOCYTES-REFLEX 1+ (Negative)
[2020-08-26 03:14] LABS: BACTERIA-REFLEX 1-9 Few /HPF (None Seen); CRYSTALS None Seen /LPF (None Seen); HYALINE CASTS 0-3 Few /LPF (None Seen); MUCUS 4-6 Moderate strn/LPF (None Seen); SQUAMOUS 0-3 Few /LPF (0-3); URINE RBC 0-2 Rare /HPF (0-2); URINE WBC-REFLEX 6-15 Few /HPF (0-5)
[2020-08-26 03:23] VITALS: BP 120/77
[2020-08-26] MEDS ORDERED: KEFLEX500 M1 PO (03:30)
[2020-08-26] MEDS ORDERED: CYCLOBENZAPRINE5 MG PO (03:30)
[2020-08-26] MEDS ORDERED: MOBIC15 MG PO (03:30)
--- NOTE | 2020-08-26 14:50 | EKG ---
[facility] [place] [address] ELECTROCARDIOGRAM REPORT Name: KARTHIK WEIR [id number] Admission: 08/25/20 Attend Phys: Discharge: 08/26/20 Date of : 66 Report #: [id number] THIS REPORT FOR: cc: Julia Brandt MD, Nora P. MD Santiago, Patrick MD 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 : 1970 Requested By: Yasemin Wallace Order Number: [id number] : Bo Herzog Measurements Intervals [place] Rate: 97 P: 47 MA: 153 QRS: -33 QRSD: 94 T: 45 QT: 360 QTc: 458 Interpretive Statements Sinus rhythm Left axis deviation Abnormal R-wave progression, late transition Borderline T abnormalities, anterior leads Compared to ECG 08/09/2020 12:41:44 Possible ischemia no longer present T-wave abnormality still present Electronically Signed On 08-26-2020 14:50:38 CDT by Bo Herzog [email or web address] <ELECTRONICALLY SIGNED> By: Bo Herzog MD, FACC 08/26/20 1450 7 7 Bo Herzog MD, [facility]AC /EPI
== END 2020-08-26 03:40 | disposition home or self-care (01) ==
LOC: ER 22:46
PROVIDERS: Emergency Medicine
DX: S16.1XXA Strain of muscle, fascia and tendon at neck level, initial encounter (principal); S13.4XXA Sprain of ligaments of cervical spine, initial encounter; M54.12 Radiculopathy, cervical region; G43.909 Migraine, unspecified, not intractable, without status migrainosus; J45.909 Unspecified asthma, uncomplicated; E78.5 Hyperlipidemia, unspecified; Z79.899 Other long term (current) drug therapy; Z79.82 Long term (current) use of aspirin; Z95.5 Presence of coronary angioplasty implant and graft; X58.XXXA Exposure to other specified factors, initial encounter; Y93.89 Activity, other specified; Y92.89 Other specified places as the place of occurrence of the external cause; Y99.9 Unspecified external cause status

== ENCOUNTER 2020-08-29 12:05 | Emergency (ER) | payer BC, OTHER ==
[~2020-08-29] VITALS: Ht 162.6 cm; Wt 113.4 kg
[~2020-08-29 12:05] MED LIST changes: +CYCLOBENZAPRINE5 MG PO; +MOBIC15 MG PO; +NEURONTIN300 MG PO; +ZOLPIDEM TARTRA10 MG PO
[2020-08-29 16:42] LABS: ANION GAP 11 mmol/L (7-16); BUN 21 mg/dL (7-18); CHLORIDE 106 mmol/L (98-107); CO2 27 mmol/L (21-32); CREATININE 0.8 mg/dL (0.6-1.0); GLUCOSE 94 mg/dL (74-106); POTASSIUM 4.3 mmol/L (3.5-5.1); SODIUM 144 mmol/L (136-145)
[2020-08-29 16:53] LABS: ABSOLUTE NEUTROPHILS 4.3 thou/uL (1.4-8.2); BASOPHILS 1.4 % (0.0-2.0); EOSINOPHILS 3.2 % (0.0-3.0); HEMATOCRIT 36.9 % (37.0-47.0); HEMOGLOBIN 11.7 gm/dL (12.0-15.0); MCH 26.2 pg (26.0-34.0); MCHC 31.8 g/dL (28.0-37.0); MCV 82.4 fL (80.0-100.0); MONOCYTES 7.4 % (1.0-8.0); PLATELET COUNT 301 thou/uL (150-400); RBC 4.48 mil/uL (4.20-5.00); RDW 16.1 % (10.5-14.5); WBC 6.9 thou/uL (4.0-11.0)
[2020-08-29 16:54] LABS: ALBUMIN 3.4 g/dL (3.4-5.0); SGOT 22 U/L (15-37); SGPT 37 U/L (30-65); TOTAL BILIRUBIN 0.2 mg/dL (0.2-1.0); TOTAL PROTEIN 7.9 g/dL (6.4-8.2); TROPONIN-I <0.06 ng/mL (<0.06)
[2020-08-29 17:32] LABS: URINE BILIRUBIN NEGATIVE (Negative); URINE BLOOD NEGATIVE (Negative); URINE CLARITY CLEAR; URINE COLOR YELLOW; URINE GLUCOSE-RANDOM* NEGATIVE (Negative); URINE KETONES NEGATIVE (Negative); URINE LEUKOCYTES-REFLEX NEGATIVE (Negative); URINE NITRITE-REFLEX NEGATIVE (Negative); URINE PROTEIN (DIPSTICK) NEGATIVE (Negative); URINE UROBILINOGEN 0.2 E.U./dl (0.2-1.0)
[2020-08-29 17:42] LABS: PROTIME 9.7 Seconds (9.3-11.4)
[2020-08-29] MEDS ORDERED: CHILDREN'S ASPI81 M1 PO (18:06)
[2020-08-29] MEDS ORDERED: METFORMIN HCL500 M3 PO (18:08)
[2020-08-29 20:51] VITALS: BP 123/58
--- NOTE | 2020-08-30 07:34 | EKG ---
[facility] [place] [address] ELECTROCARDIOGRAM REPORT Name: KARTHIK WEIR [facility] [id number] Admission: 08/29/20 Attend Phys: Discharge: 08/29/20 Date of : 66 Report #: [id number] THIS REPORT FOR: cc: Julia Brandt MD, Nora P. 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 TRINIDAD : 1970 Requested By: Ck Shaffer Order Number: [id number] MD: Bo Herzog Measurements Intervals [place] Rate: 81 P: 40 IL: 175 QRS: -33 QRSD: 99 T: 55 QT: 405 QTc: 470 Interpretive Statements Sinus rhythm Left axis deviation Abnormal R-wave progression, late transition Nonspecific T abnormalities, anterior leads Compared to ECG 08/26/2020 02:18:36 No significant changes Electronically Signed On 08-30-2020 7:34:03 CDT by Bo Herzog [email or web address] <ELECTRONICALLY SIGNED> By: Bo Herzog MD, FACC 08/30/20 0734 1236 1236 Bo Herzog MD, [facility] /EPI
--- NOTE | 2020-08-30 07:34 | EKG ---
[facility] [place] [address] ELECTROCARDIOGRAM REPORT Name: KARTHIK WEIR Room #: DEP [facility]..#: [id number] Admission: 08/29/20 Attend Phys: Discharge: 08/29/20 Date of : 66 Report #: [id number] THIS REPORT FOR: cc: Julia Brandt MD, Nora P. 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: : 1970 Requested By: Dayanna Valencia Order Number: [id number] MD: Bo Herzog Measurements Intervals [place] Rate: 84 P: 43 MD: 163 QRS: -33 QRSD: 103 T: 61 QT: 401 QTc: 475 Interpretive Statements Sinus rhythm Left axis deviation Abnormal R-wave progression, late transition Nonspecific T abnormalities, anterior leads Compared to ECG 08/29/2020 12:36:58 No significant changes Electronically Signed On 08-30-2020 7:34:12 CDT by Bo Herzog [email or web address] <ELECTRONICALLY SIGNED> By: Bo Herzog MD, FACC 08/30/20 0734 1619 1619 Bo Herzog MD, [facility] /EPI
== END 2020-08-29 20:53 | disposition home or self-care (01) ==
LOC: ER 12:05
PROVIDERS: Nurse Practitioner
DX: R42 Dizziness and giddiness (principal); R07.89 Other chest pain; G89.29 Other chronic pain; M54.2 Cervicalgia; E78.5 Hyperlipidemia, unspecified; I12.9 Hypertensive chronic kidney disease with stage 1 through stage 4 chronic kidney disease, or unspecified chronic kidney disease; N18.30 Chronic kidney disease, stage 3 unspecified; J45.909 Unspecified asthma, uncomplicated; Z90.49 Acquired absence of other specified parts of digestive tract; Z90.710 Acquired absence of both cervix and uterus; Z79.82 Long term (current) use of aspirin; Z79.899 Other long term (current) drug therapy

== ENCOUNTER 2020-09-05 23:05 | Inpatient (IN) | payer BC, OTHER ==
[~2020-09-05] VITALS: Ht 162.6 cm; Wt 112.2 kg
[~2020-09-05 23:05] MED LIST changes: +CHILDREN'S ASPI81 M1 PO; +METFORMIN HCL500 M3 PO
[2020-09-05 23:06] VITALS: BP 149/93
[2020-09-05 23:49] LABS: ABSOLUTE NEUTROPHILS 4.7 thou/uL (1.4-8.2); EOSINOPHILS 3.9 % (0.0-3.0); HEMATOCRIT 34.7 % (37.0-47.0); HEMOGLOBIN 10.8 gm/dL (12.0-15.0); LYMPHOCYTES 22.5 % (24.0-44.0); MCHC 31.1 g/dL (28.0-37.0); MCV 83.6 fL (80.0-100.0); MONOCYTES 7.9 % (1.0-8.0); PLATELET COUNT 295 thou/uL (150-400); POLYS 64.7 % (36.0-66.0); RBC 4.15 mil/uL (4.20-5.00); RDW 16.3 % (10.5-14.5); WBC 7.2 thou/uL (4.0-11.0)
[2020-09-06 00:05] LABS: CALCIUM 8.7 mg/dL (8.5-10.1); CREATININE 1.1 mg/dL (0.6-1.0); POTASSIUM 3.4 mmol/L (3.5-5.1)
[2020-09-06 02:52] VITALS: BP 115/64
[2020-09-06 03:00] VITALS: BP 105/65
[2020-09-06 03:18] VITALS: BP 109/67
--- NOTE | 2020-09-06 05:10 | NUR ---
PT ARRIVED TO UNIT APPROX AT 0308. PT REPORTS 7-8/10 PAIN IN ABDOMEN. PT RECEIVING PRN IV FENTANYL Q4HR. PT DENIES SOB WHILE ON ROOM AIR. PT REMAINS NPO. PT OBSERVED AMBULATING FROM W/C TO BED WITH STANDBY ASSIST. PT ORIENTED TO UNIT, ADMISSION PACKET PROVIDED. PT REPORTS ANXIETY. MANUAL TESTER SECOND BUTLER NOTIFIED, EMAR UPDATED. PT GIVEN ONETIME IV LORAZEPAM. PT ENCOURAGED TO NOTIFY STAFF FOR ALL NEEDS, CALL LIGHT WITHIN REACH, BED ALARM ON, BED IN LOWEST POSITION, FREQUENT MONITORING WILL CONTINUE.
[2020-09-06 07:20] VITALS: BP 112/76
--- NOTE | 2020-09-06 11:51 | NUR ---
ASSUMED PT CARE THIS AM. PT VITAL SIGNS STABLE, A&OX4. PT REPORTED PAIN IN LOWER ABDOMEN, NAUSEA. MEDS GIVEN FOR NAUSEA AND PAIN, PT RESPONDED WELL. PT REMAINS NPO. PT AMBULATES TO THE RESTROOM WHEN NEEDED. PT ABLE TO REPOSITION SELF IN BED. WILL CONTINUE TO MONITOR.
[2020-09-06 14:57] VITALS: BP 110/57
--- NOTE | 2020-09-06 15:35 | NUR ---
PT ADMITTED RELATED TO RECTAL BLEEDING. CM REVIEWED CHART AND SPOKE WITH CARE TEAM. CM CALLED AND SPOKE WITH PT OVER THE PHONE THIS DAY. PT APPEARED TO BE a&O X4. CM ROLE INTRODUCED. PT INDICATED SHE LIVES IN A HOUSE WITH HER TWO SONS WITH 2 STEPS TO ENTER AND 7 STEPS TO BEDROOM. 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 PT INDICATED NO HH OR DME. PT INDICATED THAT SHE PLANS TO RETURN HOME ONCE MEDICALLY STABLE. CM TO FOLLOW INDICATED WITH DC PLANNING.
[2020-09-06 19:45] VITALS: BP 128/84
[2020-09-07 00:06] LABS: GLYCOHEMOGLOBIN (HGB A1C) 5.2 % (4.8-5.6)
[2020-09-07 05:46] LABS: HEMATOCRIT 31.4 % (37.0-47.0); HEMOGLOBIN 9.9 gm/dL (12.0-15.0); MCH 26.4 pg (26.0-34.0); MCHC 31.6 g/dL (28.0-37.0); MCV 83.5 fL (80.0-100.0); RBC 3.77 mil/uL (4.20-5.00); RDW 16.3 % (10.5-14.5); WBC 4.9 thou/uL (4.0-11.0)
[2020-09-07 06:41] LABS: CALCIUM 8.9 mg/dL (8.5-10.1); CREATININE 0.8 mg/dL (0.6-1.0); MAGNESIUM 1.9 mg/dL (1.8-2.4); POTASSIUM 3.9 mmol/L (3.5-5.1)
--- NOTE | 2020-09-07 07:29 | NUR ---
Pt. rested quietly at short intervals during the night when checked on dur- ing frequent rounds. She c/o some nausea and abdominal pain. Pt. was medicated for both (see emar) with some relief noted. Up to the bathroom with stand by assistance. She had bowel prep last night and has been eliminating clear this am. When she wipes her buttocks she has been wiping some bright red blood. Bed alarm is on.
[2020-09-07 07:40] VITALS: BP 136/80
--- NOTE | 2020-09-07 11:10 | NUR ---
PT IS TO HAVE EGD AND COLONOSCOPY TODAY. PLAN WOULD BE FOR PT TO DISCHARGE HOME ONCE MEDICALLY STABLE. CM TO FOLLOW INDICATED WITH DC PLANNING.
--- NOTE | 2020-09-07 12:32 | NUR ---
Assumed pt care at 7am.Pt in bed alert and oriented x4.Assessment completed. vss.Pt c/o abdominal pain and fentanyl ivp given with relief.Pt up adlib with sba to bathroom.Received call from gi lab,updates given.At 1230,pt left per wc for egd and colonoscopy.Will continue to monitor.
[2020-09-07 15:20] VITALS: BP 143/89
[2020-09-07 20:45] VITALS: BP 130/77
[2020-09-08 05:05] VITALS: BP 138/78
--- NOTE | 2020-09-08 07:46 | NUR ---
PROGRESS PT UP WITH SBA PAIN CONTROLLED WITH IV FENTANYL ZOFRAN GIVEN X 1 FOR NAUSEA, PT REPORTED HEADACHE AND ORDER FOR TYLENOL OBTAINED TOLERATING SMALL AMOUNTS OF CLEAR LIQUIDS PASSING FLATUS, SOAKED RECTUM IN WARM WATER AND HYDROCORTISONE CREAM APPLIED CONTINUE TO MONITOR.
[2020-09-08 08:00] VITALS: BP 125/74
[2020-09-08] MEDS ORDERED: PROTONIX40 M2 PO (09:22)
--- NOTE | 2020-09-08 10:37 | NUR ---
CARE TEAM INDICATED THAT PT IS MEDICALLY STABLE TO DC HOME THIS DAY. NO CM INTERVENTION INDICATED. CASE CLOSED.
[2020-09-08 12:01] VITALS: BP 125/74
--- NOTE | 2020-09-08 12:35 | NUR ---
Assumed pt care at 7am.Pt in bed resting and c/o generalized pain.Assessment completed.vss.Fentanyl ivp given with partial relief.Dr Cerrato here,dc order noted.Dr edwards compile and reviewed with pt.Saline lock dc'd prior to dc home in with family at 1240 accompanied by stove cleaner.
--- NOTE | 2020-09-08 17:31 | P ---
[facility] [place] [address] PROCEDURE REPORT Name: KARTHIK WEIR Room #: 463-P [facility] IN M.R.#: [id number] Admission: 09/06/20 Attend Phys: Solange Cerrato Discharge: 09/08/20 Date of : 66 Report #: [id number] THIS REPORT FOR: cc: Julia Brandt MD, Nora P. MD McElhinney, Christian C. MD ~ CC: Solange Brandt MD DATE OF SERVICE: 09/07/2020 PROCEDURE PERFORMED: Upper endoscopy with biopsies and bleeding control. HISTORY OF PRESENT ILLNESS: The patient is a 49-year-old female with anemia with both dark stools as well as bright red blood per rectum. She has had several endoscopies in the past. At one point had a gastric AVM that was cauterized. She also has a history of hemorrhoids and anal fissure. Plan is for EGD and colonoscopy today. DESCRIPTION OF PROCEDURE: The risks and benefits of the procedure were explained to the patient, those risks including but not limited to bleeding, perforation and the risk of sedation. She understood these risks and gave informed consent. Sedation was given using propofol per anesthesia. Next, using a standard Olympus upper endoscope, the scope was placed in the patient's mouth and advanced under direct vision through the esophagus, stomach and into the second portion of the duodenum. The larynx was normal in appearance. The upper and mid esophagus was normal. At the GE junction, grade A erosive esophagitis was noted. Upon entering the stomach, a small hiatal hernia was noted. A possible small gastric AVM was noted in the upper body. No evidence of bleeding; however, due to her history of anemia, this was cauterized with a 7-Guamanian bipolar cautery. No evidence of bleeding after cauterization. The gastric body and antrum did show also a diffuse moderate gastritis. Biopsies were obtained to rule out H. pylori. The pylorus was normal and patent. The duodenal bulb, first and second portion were all normal. The scope was then withdrawn and the procedure terminated. The patient tolerated the procedure well. IMPRESSION: 1. Grade A erosive esophagitis. 2. Small hiatal hernia. 3. Possible small gastric arteriovenous malformation, status post cautery. 4. Gastritis. RECOMMENDATIONS: [address] [place] [address] PROCEDURE REPORT Name: KARTHIK WEIR [facility] Room #: 463-P DIS IN M.R.#: [id number] Admission: 09/06/20 Attend Phys: Solange Cerrato Discharge: 09/08/20 Date of : 66 Report #: [id number] 1. Await biopsy results. 2. Recommend daily PPI therapy. 3. We will proceed with colonoscopy next today. Thank you for allowing me to participate in her care. <ELECTRONICALLY SIGNED> By: David Edmond MD 09/08/20 8567 1343 50 David Edmond MD /nt
--- NOTE | 2020-09-08 17:31 | P ---
[facility] [place] [address] PROCEDURE REPORT Name: KARTHIK WEIR Room #: 463-P [facility] IN M.R.#: [id number] Admission: 09/06/20 Attend Phys: Solange Cerrato Discharge: 09/08/20 Date of : 66 Report #: [id number] THIS REPORT FOR: cc: Julia Brandt MD, Nora P. MD McElhinney, Christian C. MD ~ CC: Solange Brandt MD DATE OF SERVICE: 09/07/2020 PROCEDURE PERFORMED: Colonoscopy with biopsies. HISTORY OF PRESENT ILLNESS: The patient is a 49-year-old female with intermittent bright red blood per rectum, also has dark stools, lower abdominal pain at times. She had previous history of hemorrhoids and anal fissure. Upper endoscopy was just performed showing a small possible gastric AVM, nonbleeding. This was cauterized. She had mild gastritis and grade A erosive esophagitis. Plan is for colonoscopy. DESCRIPTION OF PROCEDURE: The risks and benefits of the procedure were explained to the patient, those risks including but not limited to bleeding, perforation and the risk of sedation. She understood these risks and gave informed consent. Sedation was given using propofol per anesthesia. Next, a digital rectal exam showed external hemorrhoids, otherwise normal. Next, using a standard Olympus colonoscope, the scope was placed in the patient's anus and advanced under direct vision to the cecum. The overall prep was good. The cecum and ileocecal valve were normal in appearance. In the ascending colon, a 4 mm sessile polyp was noted. This was removed with cold forceps, otherwise normal. The transverse and descending colon were normal. Multiple diverticula were noted in the sigmoid colon, no evidence of inflammation, otherwise normal. The rectal mucosa was normal. On retroflexion, small nonbleeding internal hemorrhoids were noted. Close examination of the anal canal showed small external hemorrhoids also an anal fissure, chronic appearing was noted. No evidence of active bleeding. The scope was then withdrawn and the procedure terminated. The patient tolerated the procedure well. IMPRESSION: 1. Small colonic polyp. 2. Internal and external hemorrhoids. 3. Anal fissure. 4. Sigmoid diverticulosis. RECOMMENDATIONS: 1. Suspect bright red blood per rectum is secondary to external hemorrhoids and [address] [address] PROCEDURE REPORT Name: KARTHIK WEIR PHANI Room #: 463-P DIS IN M.R.#: [id number] Admission: 09/06/20 Attend Phys: Solange Cerrato Discharge: 09/08/20 Date of : 66 Report #: [id number] anal fissure. No evidence of active bleeding at this time. We would recommend Analpram b.i.d. for the next 2 weeks. If bleeding continues, may need to consider other options including surgery. 2. Await biopsy results. 3. Repeat colonoscopy in 5 years. Thank you for allowing me to participate in her care. <ELECTRONICALLY SIGNED> By: David Edmond MD 09/08/20 1731 1418 2105 aDvid Edmond MD /nt
== END 2020-09-08 13:35 | disposition home or self-care (01) | DRG 378 ==
LOC: ER 23:05 → EROBS 09-06 02:44 → 4W 09-06 02:44
PROVIDERS: Emergency Medicine; Nurse Practitioner Family; ADMIT Hospitalist; ATTEND Hospitalist
PROC: 0DBK8ZZ Excision of Ascending Colon, Via Natural or Artificial Opening Endoscopic (ICD-10-PCS; principal; 2020-09-07)
PROC: 0DB68ZX Excision of Stomach, Via Natural or Artificial Opening Endoscopic, Diagnostic (ICD-10-PCS; principal; 2020-09-07)
PROC: 0D568ZZ Destruction of Stomach, Via Natural or Artificial Opening Endoscopic (ICD-10-PCS; principal; 2020-09-07)
DX: K31.811 Angiodysplasia of stomach and duodenum with bleeding (principal); N17.9 Acute kidney failure, unspecified; Z68.41 Body mass index [BMI] 40.0-44.9, adult; F41.9 Anxiety disorder, unspecified; K22.11 Ulcer of esophagus with bleeding; K29.71 Gastritis, unspecified, with bleeding; K57.31 Diverticulosis of large intestine without perforation or abscess with bleeding; F32.9 Major depressive disorder, single episode, unspecified; G43.909 Migraine, unspecified, not intractable, without status migrainosus; Z96.612 Presence of left artificial shoulder joint; J45.909 Unspecified asthma, uncomplicated; N18.30 Chronic kidney disease, stage 3 unspecified; E78.5 Hyperlipidemia, unspecified; Z96.652 Presence of left artificial knee joint; K44.9 Diaphragmatic hernia without obstruction or gangrene; K63.5 Polyp of colon; I12.9 Hypertensive chronic kidney disease with stage 1 through stage 4 chronic kidney disease, or unspecified chronic kidney disease; K64.4 Residual hemorrhoidal skin tags; K64.8 Other hemorrhoids; G47.00 Insomnia, unspecified; I25.10 Atherosclerotic heart disease of native coronary artery without angina pectoris; E66.9 Obesity, unspecified; Z20.828 Contact with and (suspected) exposure to other viral communicable diseases; Z90.49 Acquired absence of other specified parts of digestive tract; Z90.710 Acquired absence of both cervix and uterus; Z87.442 Personal history of urinary calculi; Z95.5 Presence of coronary angioplasty implant and graft
CPT/HCPCS: 10045; 62110; 62900; 70005

== ENCOUNTER 2020-09-10 14:22 | Emergency (ER) | payer BC, OTHER ==
[~2020-09-10] VITALS: Ht 162.6 cm; Wt 110.2 kg
[~2020-09-10 14:22] MED LIST changes: +PROTONIX40 M2 PO
[2020-09-10 15:18] LABS: ABSOLUTE NEUTROPHILS 4.2 thou/uL (1.4-8.2); BASOPHILS 0.9 % (0.0-2.0); EOSINOPHILS 3.8 % (0.0-3.0); HEMATOCRIT 33.9 % (37.0-47.0); HEMOGLOBIN 10.6 gm/dL (12.0-15.0); LYMPHOCYTES 21.5 % (24.0-44.0); MCH 25.8 pg (26.0-34.0); MCHC 31.4 g/dL (28.0-37.0); MCV 82.2 fL (80.0-100.0); MONOCYTES 7.7 % (1.0-8.0); PLATELET COUNT 310 thou/uL (150-400); POLYS 66.1 % (36.0-66.0); RBC 4.12 mil/uL (4.20-5.00); RDW 16.1 % (10.5-14.5); WBC 6.4 thou/uL (4.0-11.0)
[2020-09-10 15:28] LABS: CALCIUM 8.6 mg/dL (8.5-10.1); CREATININE 1.2 mg/dL (0.6-1.0); POTASSIUM 3.4 mmol/L (3.5-5.1)
[2020-09-10 15:34] LABS: ALBUMIN 3.2 g/dL (3.4-5.0); TOTAL BILIRUBIN 0.2 mg/dL (0.2-1.0)
[2020-09-10] MEDS ORDERED: SENOKOT8.6 MG PO (17:29)
[2020-09-10 17:55] VITALS: BP 118/76
== END 2020-09-10 18:37 | disposition home or self-care (01) ==
LOC: ER 14:22
PROVIDERS: Physician Assistant
DX: K59.00 Constipation, unspecified (principal); R10.32 Left lower quadrant pain; R11.0 Nausea; K62.5 Hemorrhage of anus and rectum; E78.5 Hyperlipidemia, unspecified; I12.9 Hypertensive chronic kidney disease with stage 1 through stage 4 chronic kidney disease, or unspecified chronic kidney disease; N18.30 Chronic kidney disease, stage 3 unspecified; F32.9 Major depressive disorder, single episode, unspecified; F41.9 Anxiety disorder, unspecified; G43.909 Migraine, unspecified, not intractable, without status migrainosus; Z87.442 Personal history of urinary calculi; Z90.711 Acquired absence of uterus with remaining cervical stump; Z90.49 Acquired absence of other specified parts of digestive tract; Z90.89 Acquired absence of other organs; Z95.5 Presence of coronary angioplasty implant and graft; Z79.899 Other long term (current) drug therapy; Z79.82 Long term (current) use of aspirin

== ENCOUNTER 2020-09-13 16:27 | Emergency (ER) | payer BC, OTHER ==
[~2020-09-13] VITALS: Ht 162.6 cm; Wt 110.2 kg
[~2020-09-13 16:27] MED LIST changes: +SENOKOT8.6 MG PO
[2020-09-13 17:04] LABS: ABSOLUTE NEUTROPHILS 4.4 thou/uL (1.4-8.2); BASOPHILS 1.1 % (0.0-2.0); EOSINOPHILS 4.7 % (0.0-3.0); HEMATOCRIT 34.2 % (37.0-47.0); HEMOGLOBIN 10.8 gm/dL (12.0-15.0); LYMPHOCYTES 22.7 % (24.0-44.0); MCH 26.1 pg (26.0-34.0); MCHC 31.6 g/dL (28.0-37.0); MCV 82.4 fL (80.0-100.0); MONOCYTES 6.7 % (1.0-8.0); PLATELET COUNT 330 thou/uL (150-400); POLYS 64.8 % (36.0-66.0); RBC 4.15 mil/uL (4.20-5.00); WBC 6.8 thou/uL (4.0-11.0)
[2020-09-13 17:12] LABS: CALCIUM 9.2 mg/dL (8.5-10.1); POTASSIUM 3.8 mmol/L (3.5-5.1)
[2020-09-13 17:20] LABS: ALBUMIN 3.3 g/dL (3.4-5.0); TOTAL BILIRUBIN 0.2 mg/dL (0.2-1.0); TOTAL PROTEIN 7.3 g/dL (6.4-8.2)
[2020-09-13] MEDS ORDERED: LEVSIN0.125 MG PO (20:03)
[2020-09-13] MEDS ORDERED: PROCTOCREAM-HC30 GM RECTAL (20:06)
[2020-09-13 20:13] VITALS: BP 140/72
[2020-09-13 20:14] LABS: URINE BILIRUBIN NEGATIVE (Negative); URINE BLOOD TRACE (Negative); URINE CLARITY CLEAR; URINE COLOR YELLOW; URINE GLUCOSE-RANDOM* NEGATIVE (Negative); URINE KETONES NEGATIVE (Negative); URINE LEUKOCYTES-REFLEX TRACE (Negative); URINE NITRITE-REFLEX NEGATIVE (Negative); URINE PROTEIN (DIPSTICK) NEGATIVE (Negative); URINE SPECIFIC GRAVITY 1.015 (1.005-1.035); URINE UROBILINOGEN 0.2 E.U./dl (0.2-1.0)
== END 2020-09-13 20:41 | disposition home or self-care (01) ==
LOC: ER 16:27
PROVIDERS: Physician Assistant
DX: K64.4 Residual hemorrhoidal skin tags (principal); K62.5 Hemorrhage of anus and rectum; I12.9 Hypertensive chronic kidney disease with stage 1 through stage 4 chronic kidney disease, or unspecified chronic kidney disease; N18.30 Chronic kidney disease, stage 3 unspecified; G43.909 Migraine, unspecified, not intractable, without status migrainosus; E78.5 Hyperlipidemia, unspecified; J45.909 Unspecified asthma, uncomplicated; Z90.89 Acquired absence of other organs; Z79.2 Long term (current) use of antibiotics; Z79.82 Long term (current) use of aspirin; Z79.899 Other long term (current) drug therapy

== ENCOUNTER 2020-09-27 13:01 | Inpatient (IN) | payer BC, OTHER ==
[~2020-09-27] VITALS: Ht 162.6 cm; Wt 121.6 kg
--- NOTE | ~2020-09-27 | HC ---
[facility] [place] [address] CONSULTATION Name: KARTHIK WEIR Room #: 458-P ADM IN M.R.#: [id number] Admission: 09/27/20 Attend Phys: Simone Flores MD Discharge: Date of : 66 Report #: [id number] THIS REPORT FOR: cc: Julia Brandt MD, Nora P. MD Khosla, Parveen K. MD ~ DATE OF SERVICE: 09/28/2020 HISTORY OF PRESENT ILLNESS: This is a 49-year-old female patient who was evaluated by me for headache. I reviewed all the patient's records in the computer. She said she has headache for a long time. This headache is the worst headache. It starts behind her eyes. It goes to the whole head. It is bilateral. Nothing has helped this time, but prior to this, triptan used to help. REVIEW OF SYSTEMS: Indicates she has numerous medical problems including coronary artery disease, gastric AVM, gastritis, hypertension, hyperlipidemia, asthma, anxiety and insomnia, obesity. Record indicates that she has a history of cholecystectomy, hypertension, hysterectomy, but we will confirm that, endometriosis, tonsillectomy, right knee surgery, migraine, left shoulder replaced, UTI, nephrolithiasis, kidney problems, cardiac stent. She said she has a loop recorder put in. She believes she had an MRI done, but not sure why and where. History sometimes is not on firm grounds. PAST MEDICAL HISTORY: Positive for migraine, but she said this is more severe than the prior ones. FAMILY HISTORY: Unremarkable. SOCIAL HISTORY: She does not drink any alcohol. PHYSICAL EXAMINATION: Indicate she is alert and responsive. Her speech, concentration, and fund of knowledge appear baseline. Cranial nerve examination 2-12 is unremarkable. I was able to have a fairly good look at the fundus, especially on the left side and there does not appear to be any papilledema. There is no meningeal sign in this patient. Neuromuscular examination is symmetrical. I did not make the patient walk. Cardiac and respiratory examination is unremarkable. She is a morbidly obese individual, who does not have any dysmorphic features of eyes, ears and face. Her vision and hearing looks adequate. Her blood pressure is 147/90. Temperature is 97.8, pulse is 93. LABORATORY DATA: Indicated normal white count and a normal platelet count. Coagulation studies indicate a normal PT. She had actually a CT angiogram of [address] [address] CONSULTATION Name: KARTHIK WEIR [facility] Room #: 458-P [facility] IN ..#: [id number] Admission: 09/27/20 Attend Phys: Simone Flores MD Discharge: Date of : 66 Report #: [id number] the head and neck when she came in and that was reviewed and that was unremarkable. IMPRESSION: I discussed the situation in detail with the patient. I am not sure whether the headaches are migraine muscle contraction or a combination headache, especially in light of her prior history of anxiety and depression, but she said this headache is the longest headache she ever had. We will try to get her records from prior hospitalization. I discussed with her option of doing a spinal tap versus giving her a trial with Depakote. She would like a trial with Depakote. After confirming some more history, we will give her Depakote. I discussed the pros and cons of all these approaches, and she said she will consider spinal tap if Depakote is ineffective. Thank you very much for allowing me to share in the management of this patient, and I will follow the patient along with you. By: 1434 0440 Meño Ibrahim MD /nt
[~2020-09-27 13:01] MED LIST changes: +LEVSIN0.125 MG PO; +PROCTOCREAM-HC30 GM RECTAL
[2020-09-27 13:02] VITALS: BP 169/102
[2020-09-27 13:59] LABS: ABSOLUTE NEUTROPHILS 4.9 thou/uL (1.4-8.2); BASOPHILS 0.9 % (0.0-2.0); EOSINOPHILS 3.2 % (0.0-3.0); HEMATOCRIT 38.1 % (37.0-47.0); HEMOGLOBIN 12.1 gm/dL (12.0-15.0); LYMPHOCYTES 20.3 % (24.0-44.0); MCH 25.9 pg (26.0-34.0); MCHC 31.9 g/dL (28.0-37.0); MCV 81.3 fL (80.0-100.0); PLATELET COUNT 305 thou/uL (150-400); POLYS 68.6 % (36.0-66.0); RBC 4.68 mil/uL (4.20-5.00); RDW 16.4 % (10.5-14.5); WBC 7.1 thou/uL (4.0-11.0)
[2020-09-27 14:08] LABS: CALCIUM 9.2 mg/dL (8.5-10.1); CREATININE 1.1 mg/dL (0.6-1.0); POTASSIUM 3.7 mmol/L (3.5-5.1)
[2020-09-27 14:14] LABS: ALBUMIN 3.8 g/dL (3.4-5.0); PROTIME 9.8 Seconds (9.3-11.4); TOTAL BILIRUBIN 0.2 mg/dL (0.2-1.0); TOTAL PROTEIN 8.2 g/dL (6.4-8.2)
[2020-09-27 14:47] LABS: URINE BILIRUBIN NEGATIVE (Negative); URINE BLOOD TRACE (Negative); URINE CLARITY CLEAR; URINE COLOR YELLOW; URINE GLUCOSE-RANDOM* NEGATIVE (Negative); URINE KETONES NEGATIVE (Negative); URINE LEUKOCYTES-REFLEX TRACE (Negative); URINE NITRITE-REFLEX NEGATIVE (Negative); URINE PROTEIN (DIPSTICK) NEGATIVE (Negative); URINE UROBILINOGEN 0.2 E.U./dl (0.2-1.0)
--- NOTE | 2020-09-27 15:53 | NUR ---
DR LUJAN REQUESTED THE RATE BE INCREASED ON THE MAG TO HAVE IN INFUSED IN 30 MINUTES
[2020-09-27 21:16] VITALS: BP 130/88
[2020-09-27 21:22] VITALS: BP 173/99
[2020-09-27 21:30] VITALS: BP 152/84
--- NOTE | 2020-09-28 03:10 | NUR ---
PT ARRIVED TO THE FLOOR AT 2130 FROM [facility] (). PT IS ON ROOM AIR. LEFT AC (20 G) IS SALINE LOCKED. PT IS A&OX4. PT STATES THE HEADACHE IS THROBBING BUT GOES FROM THE FRONTAL LOBE ALL THE WAY TO THE BACK OF HER NECK. PT STATES THAT THE FENTENYL HELPS WITH HER HEADACHE. PT CALLS OUT APPROPRIATELY. PT IS ACHS. GAVE PT AN ICE PACK TO PUT ON HER HEAD. PT HAS TWO BUG BITES ON HER ARM. WILL CONTINUE TO MONITOR.
[2020-09-28 05:37] VITALS: BP 142/87
[2020-09-28 06:24] LABS: HEMATOCRIT 36.3 % (37.0-47.0); HEMOGLOBIN 11.3 gm/dL (12.0-15.0); MCH 25.7 pg (26.0-34.0); MCHC 31.1 g/dL (28.0-37.0); MCV 82.8 fL (80.0-100.0); RBC 4.38 mil/uL (4.20-5.00); RDW 16.3 % (10.5-14.5); WBC 4.9 thou/uL (4.0-11.0)
[2020-09-28 06:40] LABS: CALCIUM 8.9 mg/dL (8.5-10.1); POTASSIUM 4.1 mmol/L (3.5-5.1)
[2020-09-28 07:10] VITALS: BP 156/84
[2020-09-28 07:17] VITALS: BP 147/90
--- NOTE | 2020-09-28 14:01 | NUR ---
PT ADMITTED RELATED TO HEADACHE. CM REVIEWED CHART AND SPOKE WITH CARE TEAM. CM CALLED AND SPOKE WITH PT OVER THE PHONE THIS DAY. PT APPEARED TO BE A&O X4. CM ROLE INTRODUCED. PT INDICATED SHE LIVES IN A HOUSE WITH HER SONS WITH 2 STEPS TO ENTER AND 7 STEPS TO BEDROOM. 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 PT'S PCP IS DR. GURINDER CENTENO. PT INDICATED SHE PLANS TO RETURN HOME ONCE MEDICLLLY STABLE. CM TO FOLLOW INDICATED WITH DC PLANNING.
[2020-09-28 15:28] VITALS: BP 143/73
--- NOTE | 2020-09-28 15:29 | NUR ---
ASSUMED PT CARE THIS AM. PT VSS, A&OX4. PT COMPLAINED OF PAIN AND NAUSEA RESPONSIVE TO MEDS GIVEN. PT COOPERATIVE, CALLS WHEN NEEDED. PT UP WITH 1 ASSIST. PT TAKES MEDS WHOLE WITHOUT COMPLAINT. IV PATENT. PT ENCOURAGED TO DRINK FLUIDS. ICE PACK USED FOR PAIN BETWEEN PAIN MEDICATION.
[2020-09-28 20:37] VITALS: BP 115/61
--- NOTE | 2020-09-29 03:59 | NUR ---
pain controlled this shift. patient had high anxiety this shift called manager social responsibility new order of xanax. patient calm and cooperative this shift. fall precaution in place. patient in bed asleep at this time breathing regular and unlaboured.
[2020-09-29 07:04] VITALS: BP 129/94
--- NOTE | 2020-09-29 14:20 | NUR ---
Nutrition: pt admitted c/o migraine, hx of CAD, gastric AVM, gastritis, HTN, HLD, and T2DM. Pt with no recent wt loss, noted ~30# wt gain in the past 4 months per EMR review; BMI of 46, indicates extreme obesity class 3. Eating 100% of meals from a carb controlled diet, given cardiac hx, may benefit from heart healthy consistent carb diet order. Pt with no questions or concerns at this time. Place as low nutrition risk and will f/u per protocol.
[2020-09-29 16:07] VITALS: BP 128/78
--- NOTE | 2020-09-29 19:58 | NUR ---
Assumed pt care this am, VS stable, blood sugar would always be on the low side. Pain is managed with medication, nausea presetn as well with no vomiting, medications given as per email partial relief is noted. Would eat a small amount of her meals. Went down for opthalmology, scheduled for MRI and lumbar puncture for tomorrow am. POC followed, with no signs or verbalizations of distress noted. Endorsed to the night nurse.
[2020-09-29 20:09] VITALS: BP 110/67
--- NOTE | 2020-09-30 01:50 | NUR ---
PAIN CONTROLLED THIS SHIFT.PATIENT AMBULATES WITH A WALKER TO THE BATHROOM WITH STEADY GAITS. PATIENT HAS BEEN NPO SINCE MIDNIGHT. FALL PRECAUTION IN PLACE. PATIENT IN BED ASLEEP AT THIS TIME BREATHING REGULAR AND UNLABOUREED.
[2020-09-30 04:29] VITALS: BP 129/81
[2020-09-30 05:46] LABS: PLATELET COUNT 293 thou/uL (150-400)
[2020-09-30 05:55] LABS: APTT 26.4 Seconds (24.5-32.8); PROTIME 10.1 Seconds (9.3-11.4)
[2020-09-30 08:09] LABS: CALCIUM 8.9 mg/dL (8.5-10.1); MAGNESIUM 1.8 mg/dL (1.8-2.4)
[2020-09-30 08:14] LABS: HEMATOCRIT 36.4 % (37.0-47.0); HEMOGLOBIN 11.2 gm/dL (12.0-15.0); MCH 25.5 pg (26.0-34.0); MCHC 30.7 g/dL (28.0-37.0); MCV 82.8 fL (80.0-100.0); RBC 4.39 mil/uL (4.20-5.00); RDW 16.8 % (10.5-14.5); WBC 6.5 thou/uL (4.0-11.0)
[2020-09-30 11:43] LABS: ABSOLUTE NEUTROPHILS 3.6 thou/uL (1.4-8.2)
[2020-09-30 11:44] LABS: ANISOCYTOSIS 1+
--- NOTE | 2020-09-30 12:06 | NUR ---
Assumed pt care at 7am.Assessment completed.vss.Pt in bed resting and waiting for mri.Dr Flores here,order noted.Ativan iv and am meds given with breakfast and well tolerated.Pt c/o headache rated 8/10. Fentanyl ivp given with relief.Pt left for mri fwe minutes ago per wc.Will continue to monitor.
[2020-09-30 14:05] VITALS: BP 143/78
[2020-09-30 14:06] VITALS: BP 131/84
[2020-09-30 20:19] VITALS: BP 132/71
--- NOTE | 2020-10-01 04:53 | NUR ---
Pt. rested quietly at intervals during the night when checked on during frequent rounds. She does c/o chronic headache and voiced that the toradol was not helping her headaches. Keppra started and pt. thought the fentanyl and keppra gave her good pain relief (see emar). Bed alarm is on.
[2020-10-01 05:57] LABS: HEMATOCRIT 37.4 % (37.0-47.0); HEMOGLOBIN 11.6 gm/dL (12.0-15.0); MCH 25.8 pg (26.0-34.0); MCV 83.1 fL (80.0-100.0); RBC 4.49 mil/uL (4.20-5.00); WBC 5.6 thou/uL (4.0-11.0)
[2020-10-01 06:25] LABS: CALCIUM 9.4 mg/dL (8.5-10.1); CREATININE 1.1 mg/dL (0.6-1.0); MAGNESIUM 2.1 mg/dL (1.8-2.4); POTASSIUM 4.3 mmol/L (3.5-5.1)
[2020-10-01 07:58] VITALS: BP 146/94
--- NOTE | 2020-10-01 16:49 | NUR ---
Assumed pt care at 7am.Assessment completed.vss.Pt c/o headache and scheduled pain med given with partial relief.Dr Flores and neurologist here,order noted.Pt will be going home in am if stable.No further c/o at present.Will continue to monitor.
[2020-10-01 19:47] VITALS: BP 146/94
--- NOTE | 2020-10-02 04:43 | NUR ---
Pt. rested quietly during the night when checked on during frequent rounds. She c/o nausea and ivp zofran given (see emar) with relief noted. Continues to c/o headache, but pt. feels the pain is more tolerable. Bed alarm is on.
[2020-10-02] MEDS ORDERED: KEPPRA 500 MG500 M1 PO (11:45)
[2020-10-02 12:13] VITALS: BP 146/94
--- NOTE | 2020-10-02 12:25 | NUR ---
PATIENT DISCHARGED WITH FAMILY MEMBER AT 12:23 - TRANSPORTED VIA PRIVATE VEHICLE. REVIEWED DOCUMENTATION AND ADVISED KEPPRA SENT TO PHARMACY. PATIENT GIVEN ALL BELONGINGS ALONG WITH COPY OF DOCUMENTATION. PATIENT ESCORTED DOWN VIA WHEELCHAIR BY STAFF MEMBER - STATED NO HEADACHE AT DISCHARGE. ALSO REVIEWED APPOINTMENT NEEDED IN THREE WEEKS WITH NEUROLOGIST.
== END 2020-10-02 12:27 | disposition home or self-care (01) | DRG 103 ==
LOC: ER 13:01 → 4W 20:50 → EROBS 20:50 → 4W 21:23
PROVIDERS: Nurse Practitioner Family; Physician Assistant; ADMIT Internal Medicine; ATTEND Internal Medicine
DX: G43.101 Migraine with aura, not intractable, with status migrainosus (principal); Z68.42 Body mass index [BMI] 45.0-49.9, adult; E78.5 Hyperlipidemia, unspecified; J45.909 Unspecified asthma, uncomplicated; F41.9 Anxiety disorder, unspecified; F32.9 Major depressive disorder, single episode, unspecified; G47.00 Insomnia, unspecified; E66.9 Obesity, unspecified; I12.9 Hypertensive chronic kidney disease with stage 1 through stage 4 chronic kidney disease, or unspecified chronic kidney disease; E11.22 Type 2 diabetes mellitus with diabetic chronic kidney disease; I25.10 Atherosclerotic heart disease of native coronary artery without angina pectoris; N18.30 Chronic kidney disease, stage 3 unspecified; Z96.653 Presence of artificial knee joint, bilateral; Z90.49 Acquired absence of other specified parts of digestive tract; Z90.710 Acquired absence of both cervix and uterus; Z79.84 Long term (current) use of oral hypoglycemic drugs; Z79.82 Long term (current) use of aspirin; Z79.899 Other long term (current) drug therapy
CPT/HCPCS: 10047

== ENCOUNTER 2020-10-06 12:19 | Emergency (ER) | payer BC, OTHER ==
[~2020-10-06] VITALS: Ht 162.6 cm; Wt 110.2 kg
[~2020-10-06 12:19] MED LIST changes: +KEPPRA 500 MG500 M1 PO
[2020-10-06 12:59] LABS: ABSOLUTE NEUTROPHILS 4.3 thou/uL (1.4-8.2); EOSINOPHILS 2.4 % (0.0-3.0); HEMATOCRIT 42.8 % (37.0-47.0); HEMOGLOBIN 13.7 gm/dL (12.0-15.0); LYMPHOCYTES 20.7 % (24.0-44.0); MCH 26.2 pg (26.0-34.0); MCV 82.1 fL (80.0-100.0); MONOCYTES 10.2 % (1.0-8.0); PLATELET COUNT 321 thou/uL (150-400); POLYS 65.7 % (36.0-66.0); RBC 5.21 mil/uL (4.20-5.00); RDW 16.4 % (10.5-14.5); WBC 6.6 thou/uL (4.0-11.0)
[2020-10-06 13:08] LABS: ANION GAP 15 mmol/L (7-16); BUN 20 mg/dL (7-18); CALCIUM 9.7 mg/dL (8.5-10.1); CHLORIDE 105 mmol/L (98-107); CO2 23 mmol/L (21-32); CREATININE 1.2 mg/dL (0.6-1.0); GLUCOSE 102 mg/dL (74-106); SODIUM 143 mmol/L (136-145)
[2020-10-06 13:18] LABS: ALBUMIN 3.9 g/dL (3.4-5.0); SGOT 40 U/L (15-37); SGPT 50 U/L (30-65); TOTAL BILIRUBIN 0.3 mg/dL (0.2-1.0); TOTAL PROTEIN 8.7 g/dL (6.4-8.2); TROPONIN-I <0.06 ng/mL (<0.06)
--- NOTE | 2020-10-06 15:32 | EKG ---
[facility] [place] [address] ELECTROCARDIOGRAM REPORT Name: KARTHIK WEIR Room #: REG [facility].R.#: [id number] Admission: 10/06/20 Attend Phys: Discharge: Date of : 66 Report #: [id number] THIS REPORT FOR: cc: Julia Brandt MD, Nora P. MD Couchonnal, Luis F. 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 : 1970 Requested By: Ck Shaffer Order Number: [id number] MD: Abner Hilario Measurements Intervals [place] Rate: 104 P: 65 RI: 157 QRS: -40 QRSD: 99 T: 78 QT: 362 QTc: 477 Interpretive Statements Sinus tachycardia Probable left atrial enlargement Left axis deviation Abnormal R-wave progression, early transition Nonspecific T abnrm, anterolateral leads Compared to ECG 08/29/2020 16:19:30 Electronically Signed On 10-06-2020 15:32:38 KIOSK SALES REPRESENTATIVE by Abner Hilario [email or web address] <ELECTRONICALLY SIGNED> By: Abner Hilario MD 10/06/20 1532 1231 1231 Abner Hilario MD /EPI
[2020-10-06 16:49] VITALS: BP 136/79
== END 2020-10-06 16:50 | disposition home or self-care (01) ==
LOC: ER 12:19
PROVIDERS: Emergency Medicine
DX: M79.662 Pain in left lower leg (principal); M79.89 Other specified soft tissue disorders; R00.2 Palpitations; R07.89 Other chest pain; I12.9 Hypertensive chronic kidney disease with stage 1 through stage 4 chronic kidney disease, or unspecified chronic kidney disease; N18.30 Chronic kidney disease, stage 3 unspecified; F32.9 Major depressive disorder, single episode, unspecified; F41.9 Anxiety disorder, unspecified; G43.909 Migraine, unspecified, not intractable, without status migrainosus; J45.909 Unspecified asthma, uncomplicated; E78.5 Hyperlipidemia, unspecified; Z90.49 Acquired absence of other specified parts of digestive tract; Z90.711 Acquired absence of uterus with remaining cervical stump; Z90.89 Acquired absence of other organs; Z87.442 Personal history of urinary calculi; Z79.899 Other long term (current) drug therapy; Z79.82 Long term (current) use of aspirin

== ENCOUNTER 2020-11-29 14:29 | Emergency (ER) | payer BC, OTHER ==
[~2020-11-29] VITALS: Ht 162.6 cm; Wt 111.1 kg
[2020-11-29 14:48] LABS: URINE BILIRUBIN NEGATIVE (Negative); URINE BLOOD NEGATIVE (Negative); URINE CLARITY CLEAR; URINE COLOR YELLOW; URINE GLUCOSE-RANDOM* NEGATIVE (Negative); URINE KETONES NEGATIVE (Negative); URINE NITRITE-REFLEX NEGATIVE (Negative); URINE PROTEIN (DIPSTICK) NEGATIVE (Negative); URINE SPECIFIC GRAVITY 1.025 (1.005-1.035); URINE UROBILINOGEN 0.2 E.U./dl (0.2-1.0)
[2020-11-29 14:57] LABS: URINE LEUKOCYTES-REFLEX 1+ (Negative)
[2020-11-29 14:58] LABS: SQUAMOUS 4-10 Moderate /LPF (0-3)
[2020-11-29 14:59] LABS: URINE RBC 0-2 Rare /HPF (0-2); WBC CLUMPS Few (None Seen)
[2020-11-29 15:01] LABS: CASTS None Seen /LPF (None Seen); CRYSTALS None Seen /LPF (None Seen)
[2020-11-29 15:40] LABS: BASOPHILS 1.1 % (0.0-2.0); EOSINOPHILS 3.5 % (0.0-3.0); HEMATOCRIT 37.3 % (37.0-47.0); HEMOGLOBIN 11.4 gm/dL (12.0-15.0); LYMPHOCYTES 25.8 % (24.0-44.0); MCH 25.1 pg (26.0-34.0); MCHC 30.5 g/dL (28.0-37.0); MCV 82.4 fL (80.0-100.0); MONOCYTES 7.1 % (1.0-8.0); PLATELET COUNT 309 thou/uL (150-400); POLYS 62.5 % (36.0-66.0); RBC 4.52 mil/uL (4.20-5.00); RDW 16.2 % (10.5-14.5); WBC 6.4 thou/uL (4.0-11.0)
[2020-11-29 17:46] LABS: ALBUMIN 3.2 g/dL (3.4-5.0); CREATININE 1.1 mg/dL (0.6-1.0); TOTAL BILIRUBIN 0.1 mg/dL (0.2-1.0); TOTAL PROTEIN 7.2 g/dL (6.4-8.2)
[2020-11-29 17:58] LABS: CALCIUM 8.9 mg/dL (8.5-10.1)
[2020-11-29] MEDS ORDERED: KEFLEX500 M1 PO (19:12)
[2020-11-29] MEDS ORDERED: ANALPRAM HC 2.5%4 GM RECTAL (19:12)
[2020-11-29 19:21] VITALS: BP 156/78
== END 2020-11-29 19:22 | disposition home or self-care (01) ==
LOC: ER 14:29
PROVIDERS: Physician Assistant
DX: N39.0 Urinary tract infection, site not specified (principal); K64.4 Residual hemorrhoidal skin tags; I12.9 Hypertensive chronic kidney disease with stage 1 through stage 4 chronic kidney disease, or unspecified chronic kidney disease; N18.30 Chronic kidney disease, stage 3 unspecified; G43.909 Migraine, unspecified, not intractable, without status migrainosus; Z79.82 Long term (current) use of aspirin; Z79.899 Other long term (current) drug therapy; Z90.49 Acquired absence of other specified parts of digestive tract; Z90.710 Acquired absence of both cervix and uterus; Z98.890 Other specified postprocedural states

== ENCOUNTER 2020-12-15 11:58 | Emergency (ER) | payer BC, OTHER ==
[~2020-12-15] VITALS: Ht 162.6 cm; Wt 110.2 kg
[~2020-12-15 11:58] MED LIST changes: +ANALPRAM HC 2.5%4 GM RECTAL
[2020-12-15 13:26] VITALS: BP 116/71
[2020-12-15] MEDS ORDERED: LORAZEPAM 1 MG T1 MG PO (15:31)
[2020-12-15] MEDS ORDERED: BACTRIM DS TAB1 EACH PO (15:31)
[2020-12-15] MEDS ORDERED: OLANZAPINE10 MG PO (15:32)
[2020-12-15] MEDS ORDERED: TOPAMAX100 MG PO (15:34)
[2020-12-15] MEDS ORDERED: CARAFATE1 GM PO (15:34)
[2020-12-15] MEDS ORDERED: OMEPRAZOLE40 MG PO (15:35)
[2020-12-15] MEDS ORDERED: CRESTOR40 MG PO (15:35)
[2020-12-15] MEDS ORDERED: LINZESS72 MCG PO (15:36)
[2020-12-15] MEDS ORDERED: RIZATRIPTAN5 M1 PO (15:37)
[2020-12-16] MEDS ORDERED: ACETAMINOPHEN325 M1 PO (12:49)
[2020-12-16] MEDS ORDERED: LOSARTAN POTAS100 MG PO (12:49)
== END 2020-12-15 13:51 | disposition home or self-care (01) ==
LOC: ER 11:58
DX: S29.9XXA Unspecified injury of thorax, initial encounter (principal); S09.90XA Unspecified injury of head, initial encounter; R55 Syncope and collapse; R11.2 Nausea with vomiting, unspecified; R06.89 Other abnormalities of breathing; F32.9 Major depressive disorder, single episode, unspecified; F41.9 Anxiety disorder, unspecified; G43.909 Migraine, unspecified, not intractable, without status migrainosus; J45.909 Unspecified asthma, uncomplicated; E78.5 Hyperlipidemia, unspecified; I12.9 Hypertensive chronic kidney disease with stage 1 through stage 4 chronic kidney disease, or unspecified chronic kidney disease; N18.30 Chronic kidney disease, stage 3 unspecified; Z90.49 Acquired absence of other specified parts of digestive tract; Z90.711 Acquired absence of uterus with remaining cervical stump; Z90.89 Acquired absence of other organs; Z96.652 Presence of left artificial knee joint; Z96.612 Presence of left artificial shoulder joint; Z79.899 Other long term (current) drug therapy; Z79.2 Long term (current) use of antibiotics; W19.XXXA Unspecified fall, initial encounter; Y93.89 Activity, other specified; Y92.89 Other specified places as the place of occurrence of the external cause; Y99.8 Other external cause status

== ENCOUNTER 2020-12-15 14:35 | Inpatient (IN) | payer BC, OTHER ==
[~2020-12-15] VITALS: Ht 162.6 cm; Wt 111.6 kg
[2020-12-15 14:43] VITALS: BP 117/71
[2020-12-15] MEDS ORDERED: BACTRIM DS TAB1 EACH PO (15:31)
[2020-12-15] MEDS ORDERED: LORAZEPAM 1 MG T1 MG PO (15:31)
[2020-12-15] MEDS ORDERED: OLANZAPINE10 MG PO (15:32)
[2020-12-15] MEDS ORDERED: TOPAMAX100 MG PO (15:34)
[2020-12-15] MEDS ORDERED: CARAFATE1 GM PO (15:34)
[2020-12-15] MEDS ORDERED: CRESTOR40 MG PO (15:35)
[2020-12-15] MEDS ORDERED: OMEPRAZOLE40 MG PO (15:35)
[2020-12-15] MEDS ORDERED: LINZESS72 MCG PO (15:36)
[2020-12-15] MEDS ORDERED: RIZATRIPTAN5 M1 PO (15:37)
[2020-12-15 15:39] LABS: URINE BILIRUBIN NEGATIVE (Negative); URINE BLOOD 1+ (Negative); URINE CLARITY SL CLOUDY; URINE COLOR YELLOW; URINE GLUCOSE-RANDOM* NEGATIVE (Negative); URINE KETONES NEGATIVE (Negative); URINE NITRITE-REFLEX NEGATIVE (Negative); URINE PROTEIN (DIPSTICK) NEGATIVE (Negative); URINE SPECIFIC GRAVITY 1.025 (1.005-1.035); URINE UROBILINOGEN 0.2 E.U./dl (0.2-1.0)
[2020-12-15 15:45] LABS: URINE LEUKOCYTES-REFLEX 1+ (Negative)
[2020-12-15 15:56] LABS: BACTERIA-REFLEX >30 Many /HPF (None Seen); CASTS None Seen /LPF (None Seen); CRYSTALS None Seen /LPF (None Seen); SQUAMOUS None Seen /LPF (0-3); URINE RBC 0-2 Rare /HPF (0-2); URINE WBC-REFLEX >25 Many /HPF (0-5)
[2020-12-15 16:00] LABS: ABSOLUTE NEUTROPHILS 4.9 thou/uL (1.4-8.2); BASOPHILS 1.3 % (0.0-2.0); EOSINOPHILS 2.4 % (0.0-3.0); HEMATOCRIT 36.5 % (37.0-47.0); HEMOGLOBIN 11.7 gm/dL (12.0-15.0); LYMPHOCYTES 19.3 % (24.0-44.0); MCH 25.8 pg (26.0-34.0); MCHC 32.2 g/dL (28.0-37.0); MCV 80.1 fL (80.0-100.0); MONOCYTES 6.9 % (1.0-8.0); PLATELET COUNT 286 thou/uL (150-400); POLYS 70.1 % (36.0-66.0); RBC 4.56 mil/uL (4.20-5.00); RDW 15.8 % (10.5-14.5); WBC 6.9 thou/uL (4.0-11.0)
[2020-12-15 16:08] LABS: ANION GAP 12 mmol/L (7-16); BUN 20 mg/dL (7-18); CALCIUM 9.5 mg/dL (8.5-10.1); CHLORIDE 106 mmol/L (98-107); CO2 26 mmol/L (21-32); GLUCOSE 93 mg/dL (74-106); SODIUM 144 mmol/L (136-145)
[2020-12-15 16:19] LABS: ALBUMIN 3.3 g/dL (3.4-5.0); LIPASE 79 U/L (73-393); SGOT 14 U/L (15-37); SGPT 21 U/L (14-59); TOTAL BILIRUBIN 0.3 mg/dL (0.2-1.0); TOTAL PROTEIN 7.5 g/dL (6.4-8.2); TROPONIN-I <0.06 ng/mL (<0.06)
--- NOTE | 2020-12-15 16:28 | EKG ---
[place] [address] [facility] [place] [address] ELECTROCARDIOGRAM REPORT Name: KARTHIK WEIR PHANI Room #: PRE M.R.#: [id number] Admission: Attend Phys: Discharge: Date of : 66 Report #: [id number] [facility] ED Test Date: 2020-12-15 Test Time: 16:23:53 Pat Name: KARTHIK WEIR Department: Room: Gender: F [employer] Scout: lyndsey : 1970 Requested By: Duong Nix Order Number: [id number] MD: Bo Herzog Measurements Intervals [place] Rate: 65 P: 33 [place]: 158 QRS: -27 QRSD: 109 T: 68 QT: 396 QTc: 412 Interpretive Statements Sinus rhythm Abnormal R-wave progression, early transition Left ventricular hypertrophy Nonspecific T abnormalities, anterior leads Compared to ECG 10/06/2020 12:31:14 Left ventricular hypertrophy now present T-wave abnormality now present Sinus tachycardia no longer present Left-axis deviation no longer present Electronically Signed On 12-15-2020 16:27:46 DRAIN LAYER by Bo Herzog [email or web address] <ELECTRONICALLY SIGNED> By: Bo Herzog MD, [facility] 12/15/20 1627 22 22 Bo Herzog MD, [facility] /EPI
[2020-12-15 19:50] VITALS: BP 116/66
[2020-12-15 20:03] VITALS: BP 123/69
[2020-12-15 20:36] VITALS: BP 141/89
[2020-12-15 20:37] VITALS: BP 137/82
[2020-12-16 00:07] VITALS: BP 148/77
[2020-12-16 04:00] VITALS: BP 110/62
[2020-12-16 04:53] LABS: ANION GAP 8 mmol/L (7-16); BUN 21 mg/dL (7-18); CALCIUM 8.6 mg/dL (8.5-10.1); CHLORIDE 108 mmol/L (98-107); CO2 27 mmol/L (21-32); CREATININE 1.2 mg/dL (0.6-1.0); GLUCOSE 100 mg/dL (74-106); POTASSIUM 3.7 mmol/L (3.5-5.1); SODIUM 143 mmol/L (136-145); TROPONIN-I <0.06 ng/mL (<0.06)
[2020-12-16 04:55] LABS: HEMATOCRIT 34.3 % (37.0-47.0); HEMOGLOBIN 10.8 gm/dL (12.0-15.0); MCH 25.6 pg (26.0-34.0); MCHC 31.4 g/dL (28.0-37.0); MCV 81.3 fL (80.0-100.0); RBC 4.22 mil/uL (4.20-5.00); RDW 15.8 % (10.5-14.5); WBC 5.3 thou/uL (4.0-11.0)
--- NOTE | 2020-12-16 05:48 | NUR ---
ASSUMED CARE OF PT FROM ED AT 2015HRS. PT IS AOX4 AND LETS NEEDS BE KNOWN. FALL PRECAUTION IN PLACE. PT WAS ORIENTED TO THE UNIT AND HER ROOM. PT WAS ABLE TO ANSWER ALL ADMISSION RELATED QUESTIONS AND SIGN OWN CONSENTS. PT REPORTED SOME ABDOMINAL AND CHEST PAIN S/P UNWITNESSED FALL AT HOME. PRN MEDS PROVIDED. PT IS ON TELE AND RAN SR/SB (45BPM). ORTHOSTATIC BP OBTAINED. PT COMPLAINS OF DIZZINESS. ORDERS RECEIVED AND STARTED. PT WAS ABLE TO GET COMFORTABLE AND SLEEP MOST OF THE SHIFT. VSS AND NO S/S OF ACUTE DISTRESS. WILL CONTINUE TO MONITOR FOR CHANGES.
[2020-12-16 07:35] VITALS: BP 160/76
--- NOTE | 2020-12-16 08:42 | EKG ---
[address] [place] [address] ELECTROCARDIOGRAM REPORT Name: KARTHIK WEIR PHANI Room #: 462- ADM IN M.R.#: [id number] Admission: 12/15/20 Attend Phys: Roberth Toro MD Discharge: Date of : 66 Report #: [id number] [facility] Test Date: 2020-12-16 Test Time: 07:45:21 Pat Name: KARTHIK WEIR Department: Room: 462 Gender: F Operations Analyst: JEREMIAH : 1970 Requested By: Roberth Toro Order Number: [id number] : Bo Herzog Measurements Intervals [place] Rate: 62 P: 47 [place]: 160 QRS: -27 QRSD: 107 T: 69 QT: 431 QTc: 438 Interpretive Statements Sinus arrhythmia Borderline left axis deviation RSR' in V1 or V2, probably normal variant Nonspecific T abnrm, anterolateral leads Compared to ECG 12/15/2020 16:23:53 RSR' in V1 or V2 now present Sinus rhythm no longer present Left ventricular hypertrophy no longer present T-wave abnormality no longer present Electronically Signed On 12-16-2020 8:41:54 TOWER ATTENDANT by Bo Herzog [email or web address] <ELECTRONICALLY SIGNED> By: Bo Herzog MD, FACC 12/16/20 0841 Bo Herzog MD, FAC /EPI
--- NOTE | 2020-12-16 09:32 | 2DMMODE ---
[facility] [place] [address] 2 D/M-MODE ECHOCARDIOGRAM Name: KARTHIK WEIR [facility] Room #: 462-P ADM IN M.R.#: [id number] Admission: 12/15/20 Attend Phys: Roberth Toro MD Discharge: Date of : 66 Report #: [id number] THIS REPORT FOR: cc: Julia Brandt MD, Nora P. MD Santiago, Patrick MD [facility] ~ APPROVED REPORT Study performed: 12/16/2020 08:45:38 EXAM: Comprehensive 2D, Doppler, and color-flow Echocardiogram Patient Location: Bedside Room #: 462 Status: routine BSA: 2.14 HR: 52 bpm BP: 110/62 mmHg Rhythm: NSR Other Information Study Quality: Good Indications Syncope Chest Pain Hx: Cardiac stent, HTN. 2D Dimensions RVDd: 34.28 mm IVSd: 10.45 (7-11mm) LVOT Diam: 21.33 (18-24mm) LVDd: 51.21 mm PWd: 10.38 (7-11mm) Ascending Ao: 34.26 (22-36mm) LVDs: 37.51 (25-40mm) Aortic Root: 33.96 mm Volumes Left Atrial Volume (Systole) Single Plane 4CH: 65.11 mL Single Plane 2CH: 76.63 mL LA ESV Index: 36.00 mL/m2 Aortic Valve AoV Peak Glen.: 1.72 m/s AO Peak Gr.: 11.77 mmHg LVOT Max P.49 mmHg LVOT Max V: 1.06 m/s [facility] [address] [place] [address] 2 D/M-MODE ECHOCARDIOGRAM Name: KARTHIK WEIR [facility] Room #: 462-P [facility] IN .R.#: [id number] Admission: 12/15/20 Attend Phys: Roberth Toro MD Discharge: Date of : 66 Report #: [id number] FLAVIO Vmax: 2.21 cm2 Mitral Valve E/A Ratio: 1.9 MV Decel. Time: 202.20 ms MV E Max Glen.: 1.17 m/s MV A Glen.: 0.62 m/s MV PHT: 58.64 ms IVRT: 115.34 ms Pulmonary Valve PV Peak Glen.: 0.85 m/s PV Peak Gr.: 2.91 mmHg Pulmonary Vein P Vein S: 0.70 m/s P Vein A: 0.23 m/s P Vein D: 0.51 m/s P Vein A Dur.: 133.8 msec P Vein S/D Ratio: 1.37 Tricuspid Valve TR Peak Glen.: 2.16 m/s RAP Estimate: 5.00 mmHg TR Peak Gr.: 19.00 mmHg PA Pressure: 24.00 mmHg Left Ventricle The left ventricle is normal size. There is normal left ventricular wall thickness. Left ventricular systolic function is normal. LVEF is 50-55%. Moderate diastolic dysfunction is present. Right Ventricle The right ventricle is normal size. The right ventricular systolic function is normal. Atria Left atrium is mildly dilated. The right atrium size is normal. Aortic Valve The aortic valve is normal in structure. No aortic regurgitation is present. There is no aortic valvular stenosis. Mitral Valve The mitral valve is normal in structure. There is no mitral valve regurgitation noted. No evidence of mitral valve stenosis. Tricuspid Valve The tricuspid valve is normal in structure. Trace tricuspid [facility] [address] [place] [address] 2 D/M-MODE ECHOCARDIOGRAM Name: KARTHIK WEIR PHANI Room #: 462-P ADM IN M.R.#: [id number] Admission: 12/15/20 Attend Phys: Roberth Toro MD Discharge: Date of : 66 Report #: [id number] regurgitation. Estimated PAP is 25mmHg. Pulmonic Valve The pulmonary valve is normal in structure. There is no pulmonic valvular regurgitation. Great Vessels The aortic root is normal in size. The ascending aorta is normal in size. IVC is normal in size and collapses >50% with inspiration. Pericardium There is no pericardial effusion. <Conclusion> Normal left ventricular size/wall thickness Ejection fraction 50-55% Normal right ventricular size/function Mild left atrial enlargement Color-flow Doppler study was performed of the aortic/mitral/tricuspid/pulmonary valve Grade 2 diastolic dysfunction Normal aortic/mitral valve structure and function Trace tricuspid valve insufficiency Pulmonary artery systolic pressure estimated 25 mmHg No pericardial effusion <ELECTRONICALLY SIGNED> By: Bo Herzog MD, FACC 12/16/20931 1 1 Bo Herzog MD, FACC /INF
[2020-12-16] MEDS ORDERED: ACETAMINOPHEN325 M1 PO (12:49)
[2020-12-16] MEDS ORDERED: LOSARTAN POTAS100 MG PO (12:49)
[2020-12-16 14:30] VITALS: BP 144/86
--- NOTE | 2020-12-16 14:49 | NUR ---
Received awake on bed. Due medications given as prescribed, able to swallow meds w/o difficulty. On room air. Vital signs stable. On telemetry; no complains and signs of chest pain, crushing sensation and heaviness. Assisted in ADLs. On heart healthy diet- tolertating well; no nausea, no vomiting and no abdominal pain noted. Continent of bowel and bladder, able to go to the toilet with standby assist. Falls bundle in place due to frequent falls at home. On blood sugar monitoring, taken and recorded accordingly- pt is on Metformin, she said she is not diabetic but taking it for weight loss, informed her that blood sugar will be started just to prevent hypoglycemia. With NS at 125cc/hr, infusing well at L AC- intact and flushing well. Pt complaining of pain, pt on Tylenol for pain- refusing it wants another pain meds- Dr Toro informed and aware, a/w orders. Seen and examined by Dr Toro this AM, for discharge once cardio work up done; a/w orders- CM informed; Covid swab done as per CM for possible placement as recommended by physical therapist. To continue monitoring patient.
--- NOTE | 2020-12-16 16:04 | NUR ---
PT ADMITTED RELATED TO WEAKNESS, UTI, FALLS. CM REVIEWED CHART AND SPOKE WITH CARE TEAM. CM ATTEMTPED PC TO PT'S ROOM WITH NO RESPONSE. CM MET WITH PT AT BEDSIDE THIS DAY. PT APPEARED TO BE A&O X4. CM ROLE INTRODUCED. PT INDICATED SHE LIVES IN A HOSUE WITH HER 2 SONS WITH 2 STEPS TO ENTER AND 7 STEPS TO BEDROOM AREA. 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 PT INDICATED SHE HAS A FWW FOR USE UPON HER RETURN HOME. CM INDICATED THAT PHYSICIAN INDICATED THAT PT IS MEDICALLY STABLE TO DC HOME THIS DAY THAT SHE HAD BEEN SEEN BY CARDIOLOGY AND THERAPIES AND THAT HH IS RECOMMENDED. PT IS RECEPTIVE TO HH SERVICES. REFERRAL TO BE SENT TO HH PROVIDER. PT INDICATED THAT SHE HAS TRASPORT HOME THIS EVENING.
[2020-12-16 16:36] VITALS: BP 160/76
--- NOTE | 2020-12-16 17:05 | NUR ---
[facility]. CONFIRMED WITH [facility]/INTAKE THAT THEY RECEIVED, WILL REVIEW AND GET AUTHORIZATION FROM [facility] INS[facility]. IF/WHEN ACCEPTED THEY WILL BEGIN SERVICES ON 12/21/20. REVIEWED INFORMATION WITH FOLDER HAND. [facility] P [phone]; FAX [phone]
[2020-12-17 12:38] VITALS: BP 160/76
== END 2020-12-16 19:11 | disposition home health service (06) | DRG 313 ==
LOC: ER 14:35 → 4W 18:58 → EROBS 18:58 → 4W 20:00
PROVIDERS: Emergency Medicine; ADMIT Internal Medicine; ATTEND Internal Medicine
DX: R07.89 Other chest pain (principal); N39.0 Urinary tract infection, site not specified; Z68.41 Body mass index [BMI] 40.0-44.9, adult; F41.9 Anxiety disorder, unspecified; F32.9 Major depressive disorder, single episode, unspecified; G43.909 Migraine, unspecified, not intractable, without status migrainosus; Z96.612 Presence of left artificial shoulder joint; N18.30 Chronic kidney disease, stage 3 unspecified; E78.5 Hyperlipidemia, unspecified; Z96.652 Presence of left artificial knee joint; I12.9 Hypertensive chronic kidney disease with stage 1 through stage 4 chronic kidney disease, or unspecified chronic kidney disease; S20.219A Contusion of unspecified front wall of thorax, initial encounter; E66.01 Morbid (severe) obesity due to excess calories; I25.10 Atherosclerotic heart disease of native coronary artery without angina pectoris; Z90.49 Acquired absence of other specified parts of digestive tract; Z90.710 Acquired absence of both cervix and uterus; Z95.5 Presence of coronary angioplasty implant and graft; Z87.442 Personal history of urinary calculi; Z79.899 Other long term (current) drug therapy; W18.39XA Other fall on same level, initial encounter; Y93.89 Activity, other specified; Y92.89 Other specified places as the place of occurrence of the external cause; Y99.8 Other external cause status; Z20.822 Contact with and (suspected) exposure to COVID-19
CPT/HCPCS: 10045

== ENCOUNTER 2020-12-20 16:04 | Emergency (ER) | payer BC, OTHER ==
[~2020-12-20] VITALS: Ht 162.6 cm; Wt 83.0 kg
[~2020-12-20 16:04] MED LIST changes: +CARAFATE1 GM PO; +LORAZEPAM 1 MG T1 MG PO; +LOSARTAN POTAS100 MG PO; +OLANZAPINE10 MG PO; +RIZATRIPTAN5 M1 PO; +TOPAMAX100 MG PO
[2020-12-20 16:58] LABS: ABSOLUTE NEUTROPHILS 6.3 thou/uL (1.4-8.2); BASOPHILS 0.9 % (0.0-2.0); HEMATOCRIT 39.5 % (37.0-47.0); HEMOGLOBIN 12.5 gm/dL (12.0-15.0); LYMPHOCYTES 15.2 % (24.0-44.0); MCH 25.5 pg (26.0-34.0); MCHC 31.8 g/dL (28.0-37.0); MCV 80.2 fL (80.0-100.0); MONOCYTES 5.5 % (1.0-8.0); PLATELET COUNT 298 thou/uL (150-400); POLYS 77.4 % (36.0-66.0); RBC 4.92 mil/uL (4.20-5.00); RDW 15.9 % (10.5-14.5); WBC 8.2 thou/uL (4.0-11.0)
[2020-12-20 17:13] LABS: ANION GAP 13 mmol/L (7-16); BUN 20 mg/dL (7-18); CALCIUM 9.1 mg/dL (8.5-10.1); CHLORIDE 106 mmol/L (98-107); CO2 27 mmol/L (21-32); CREATININE 1.2 mg/dL (0.6-1.0); GLUCOSE 96 mg/dL (74-106); POTASSIUM 3.8 mmol/L (3.5-5.1); SODIUM 146 mmol/L (136-145)
[2020-12-20 17:24] LABS: ALBUMIN 3.6 g/dL (3.4-5.0); SGOT 19 U/L (15-37); SGPT 26 U/L (14-59); TOTAL BILIRUBIN 0.3 mg/dL (0.2-1.0); TOTAL PROTEIN 7.4 g/dL (6.4-8.2); TROPONIN-I <0.06 ng/mL (<0.06)
[2020-12-20 20:13] LABS: URINE BILIRUBIN NEGATIVE (Negative); URINE BLOOD NEGATIVE (Negative); URINE CLARITY CLEAR; URINE COLOR YELLOW; URINE GLUCOSE-RANDOM* NEGATIVE (Negative); URINE KETONES NEGATIVE (Negative); URINE LEUKOCYTES-REFLEX TRACE (Negative); URINE NITRITE-REFLEX NEGATIVE (Negative); URINE PROTEIN (DIPSTICK) NEGATIVE (Negative); URINE SPECIFIC GRAVITY >= 1.030 (1.005-1.035); URINE UROBILINOGEN 0.2 E.U./dl (0.2-1.0)
[2020-12-20 20:45] VITALS: BP 116/78
--- NOTE | 2020-12-21 07:26 | EKG ---
[place] [address] [facility] [place] [address] ELECTROCARDIOGRAM REPORT Name: KARTHIK WEIR PHANI Room #: [facility] [id number] Admission: 12/20/20 Attend Phys: Discharge: 12/21/20 Date of : 66 Report #: [id number] [facility] ED Test Date: 2020-12-20 Test Time: 16:27:16 Pat Name: KARTHIK WEIR Department: Room: Gender: F Shuttle Car Operator: CHERRI : 1970 Requested By: Ck Shaffer Order Number: [id number] MD: Bo Herzog Measurements Intervals [place] Rate: 86 P: 83 MS: 173 QRS: -41 QRSD: 111 T: 129 QT: 393 QTc: 470 Interpretive Statements Sinus rhythm LVH with secondary repolarization abnormality Artifact in lead(s) I,II,III,aVR,aVL,aVF,V1,V2 Compared to ECG 12/16/2020 07:45:21 Left ventricular hypertrophy now present Early repolarization now present Sinus arrhythmia no longer present Electronically Signed On 12-21-2020 7:26:16 NURSING SERVICE ADMINISTRATOR by Bo Herzog [email or web address] <ELECTRONICALLY SIGNED> By: Bo Herzog MD, FAC 12/21/20 0726 1627 1627 Bo Herzog MD, [facility] /EPI
== END 2020-12-21 | disposition home or self-care (01) ==
LOC: ER 16:04
PROVIDERS: Emergency Medicine
DX: M25.562 Pain in left knee (principal); M25.561 Pain in right knee; M25.522 Pain in left elbow; M25.521 Pain in right elbow; I25.10 Atherosclerotic heart disease of native coronary artery without angina pectoris; G43.909 Migraine, unspecified, not intractable, without status migrainosus; E78.5 Hyperlipidemia, unspecified; J45.909 Unspecified asthma, uncomplicated; I12.9 Hypertensive chronic kidney disease with stage 1 through stage 4 chronic kidney disease, or unspecified chronic kidney disease; N18.30 Chronic kidney disease, stage 3 unspecified; Z90.49 Acquired absence of other specified parts of digestive tract; Z90.710 Acquired absence of both cervix and uterus; Z79.82 Long term (current) use of aspirin; Z79.899 Other long term (current) drug therapy; W10.9XXA Fall (on) (from) unspecified stairs and steps, initial encounter; Y93.89 Activity, other specified; Y92.89 Other specified places as the place of occurrence of the external cause; Y99.8 Other external cause status

== ENCOUNTER 2020-12-27 06:42 | Emergency (ER) | payer BC, OTHER ==
[~2020-12-27] VITALS: Ht 162.6 cm; Wt 110.2 kg
--- NOTE | 2020-12-27 07:00 | EKG ---
[place] [address] [facility] [place] [address] ELECTROCARDIOGRAM REPORT Name: KARTHIK WEIR Room #: PRE M.R.#: [id number] Admission: Attend Phys: Discharge: Date of : 66 Report #: [id number] [facility] ED Test Date: 2020-12-27 Test Time: 06:58:18 Pat Name: KARTHIK WEIR Department: Room: Gender: F Library Sales Consultant: : 1970 Requested By: Tripp Mtz Order Number: [id number] MD: Bo Herzog Measurements Intervals [place] Rate: 92 P: 64 [place]: 157 QRS: -31 QRSD: 101 T: 82 QT: 379 QTc: 469 Interpretive Statements Sinus rhythm Left axis deviation Abnormal R-wave progression, early transition Nonspecific T abnrm, anterolateral leads Compared to ECG 12/20/2020 16:27:16 Left-axis deviation now present Left ventricular hypertrophy no longer present Early repolarization no longer present Electronically Signed On 12-27-2020 7:00:17 MANAGER INTERFACE by Bo Herzog [email or web address] <ELECTRONICALLY SIGNED> By: Bo Herzog MD, [facility] 12/27/20 0700 0658 Bo Herzog MD, FAC /EPI
[2020-12-27 07:56] LABS: ABSOLUTE NEUTROPHILS 5.9 thou/uL (1.4-8.2); BASOPHILS 0.4 % (0.0-2.0); EOSINOPHILS 2.7 % (0.0-3.0); HEMATOCRIT 39.1 % (37.0-47.0); HEMOGLOBIN 12.4 gm/dL (12.0-15.0); LYMPHOCYTES 19.6 % (24.0-44.0); MCH 25.5 pg (26.0-34.0); MCHC 31.7 g/dL (28.0-37.0); MCV 80.5 fL (80.0-100.0); MONOCYTES 7.8 % (1.0-8.0); PLATELET COUNT 293 thou/uL (150-400); POLYS 69.5 % (36.0-66.0); RBC 4.86 mil/uL (4.20-5.00); RDW 15.9 % (10.5-14.5); WBC 8.4 thou/uL (4.0-11.0)
[2020-12-27 07:59] LABS: ANION GAP 8 mmol/L (7-16); BUN 22 mg/dL (7-18); CALCIUM 9.1 mg/dL (8.5-10.1); CHLORIDE 104 mmol/L (98-107); CO2 27 mmol/L (21-32); GLUCOSE 102 mg/dL (74-106); SODIUM 139 mmol/L (136-145)
[2020-12-27 08:10] LABS: ALBUMIN 3.6 g/dL (3.4-5.0); LIPASE 96 U/L (73-393); SGOT 13 U/L (15-37); SGPT 23 U/L (14-59); TOTAL BILIRUBIN 0.2 mg/dL (0.2-1.0); TOTAL PROTEIN 7.7 g/dL (6.4-8.2); TROPONIN-I <0.06 ng/mL (<0.06)
[2020-12-27] MEDS ORDERED: ZOFRAN ODT4 MG PO (08:50)
[2020-12-27 11:38] VITALS: BP 98/56
== END 2020-12-27 11:38 | disposition home or self-care (01) ==
LOC: ER 06:42
PROVIDERS: Emergency Medicine
DX: R10.13 Epigastric pain (principal); R10.11 Right upper quadrant pain; R10.31 Right lower quadrant pain; I25.10 Atherosclerotic heart disease of native coronary artery without angina pectoris; J45.909 Unspecified asthma, uncomplicated; E78.5 Hyperlipidemia, unspecified; I12.9 Hypertensive chronic kidney disease with stage 1 through stage 4 chronic kidney disease, or unspecified chronic kidney disease; N18.30 Chronic kidney disease, stage 3 unspecified; G43.909 Migraine, unspecified, not intractable, without status migrainosus; Z90.49 Acquired absence of other specified parts of digestive tract; Z90.89 Acquired absence of other organs; Z79.82 Long term (current) use of aspirin; Z79.899 Other long term (current) drug therapy

== ENCOUNTER 2021-01-12 13:28 | Emergency (ER) | payer BC, OTHER ==
[~2021-01-12] VITALS: Ht 162.6 cm; Wt 110.2 kg
[2021-01-12 14:42] VITALS: BP 122/71
--- NOTE | 2021-01-13 07:12 | EKG ---
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 : 1970 Requested By: Duong Nix Order Number: [id number] MD: Bo Herzog Measurements Intervals [place] Rate: 110 P: 45 [place]: 154 QRS: -44 QRSD: 105 T: 93 QT: 339 QTc: 459 Interpretive Statements Sinus tachycardia Left axis deviation Consider RVH w/ secondary repol abnormality Compared to ECG 12/27/2020 06:58:18 Sinus rhythm no longer present Electronically Signed On 01-13-2021 7:12:15 COMPUTER SUPPORT SPECIALIST INSTRUCTOR by Bo Herzog [email or web address] <ELECTRONICALLY SIGNED> By: Bo Herzog MD, [facility] 01/13/21 0712 D: [id number] 04 Bo Herzog MD, FACC /EPI
[2021-01-16] MEDS ORDERED: NAPROSYN500 MG PO (11:47)
== END 2021-01-12 14:42 | disposition home or self-care (01) ==
LOC: ER 13:28
DX: R07.9 Chest pain, unspecified (principal); F41.9 Anxiety disorder, unspecified; I25.10 Atherosclerotic heart disease of native coronary artery without angina pectoris; G43.909 Migraine, unspecified, not intractable, without status migrainosus; J45.909 Unspecified asthma, uncomplicated; E78.5 Hyperlipidemia, unspecified; I12.9 Hypertensive chronic kidney disease with stage 1 through stage 4 chronic kidney disease, or unspecified chronic kidney disease; N18.30 Chronic kidney disease, stage 3 unspecified; Z90.49 Acquired absence of other specified parts of digestive tract; Z90.710 Acquired absence of both cervix and uterus; Z90.89 Acquired absence of other organs; Z79.899 Other long term (current) drug therapy

== ENCOUNTER → 2021-01-12 | Outpatient (CLI) | payer BC, OTHER | LOC: SJCVCIMAG 10:42 | PROVIDERS: ATTEND Internal Medicine Cardiovascular Disease | DX: R00.0 Tachycardia, unspecified (principal); R06.00 Dyspnea, unspecified; R07.89 Other chest pain; R42 Dizziness and giddiness; I12.9 Hypertensive chronic kidney disease with stage 1 through stage 4 chronic kidney disease, or unspecified chronic kidney disease; N18.9 Chronic kidney disease, unspecified; I25.10 Atherosclerotic heart disease of native coronary artery without angina pectoris; G43.909 Migraine, unspecified, not intractable, without status migrainosus; E66.9 Obesity, unspecified ==

== ENCOUNTER 2021-01-16 09:51 | Emergency (ER) | payer BC, OTHER ==
[~2021-01-16] VITALS: Ht 162.6 cm; Wt 110.2 kg
[2021-01-16] MEDS ORDERED: NAPROSYN500 MG PO ×2 (11:47)
[2021-01-16 12:07] VITALS: BP 129/85
== END 2021-01-16 12:07 | disposition home or self-care (01) ==
LOC: ER 09:51
DX: S20.211A Contusion of right front wall of thorax, initial encounter (principal); S16.1XXA Strain of muscle, fascia and tendon at neck level, initial encounter; S29.012A Strain of muscle and tendon of back wall of thorax, initial encounter; S09.90XA Unspecified injury of head, initial encounter; G43.909 Migraine, unspecified, not intractable, without status migrainosus; J45.909 Unspecified asthma, uncomplicated; E78.5 Hyperlipidemia, unspecified; I12.9 Hypertensive chronic kidney disease with stage 1 through stage 4 chronic kidney disease, or unspecified chronic kidney disease; N18.30 Chronic kidney disease, stage 3 unspecified; Z90.710 Acquired absence of both cervix and uterus; Z90.89 Acquired absence of other organs; Z90.49 Acquired absence of other specified parts of digestive tract; Z79.82 Long term (current) use of aspirin; Z79.899 Other long term (current) drug therapy; W06.XXXA Fall from bed, initial encounter; Y93.89 Activity, other specified; Y92.89 Other specified places as the place of occurrence of the external cause; Y99.8 Other external cause status

== ENCOUNTER → 2021-01-17 | Outpatient (CLI) | payer BC, OTHER ==
[~2021-01-17] VITALS: Ht 162.6 cm; Wt 110.2 kg
[2021-01-17 07:15] VITALS: BP 126/78
[2021-01-17 07:31] LABS: HEMATOCRIT 32.7 % (37.0-47.0); HEMOGLOBIN 10.2 gm/dL (12.0-15.0); MCH 25.3 pg (26.0-34.0); MCHC 31.3 g/dL (28.0-37.0); RBC 4.04 mil/uL (4.20-5.00); RDW 16.6 % (10.5-14.5); WBC 5.2 thou/uL (4.0-11.0)
[2021-01-17 07:39] LABS: CALCIUM 8.3 mg/dL (8.5-10.1); CREATININE 1.3 mg/dL (0.6-1.0); POTASSIUM 3.5 mmol/L (3.5-5.1)
--- NOTE | 2021-01-17 16:17 | CATHLAB ---
[facility] [place] [address] INVASIVE PROCEDURE REPORT Name: KARTHIK WEIR PHANI Room #: REG GENEVA JoyChetnaZahiraChetna#: [id number] Admission: 01/17/21 Attend Phys: Juma Prajapati MD, Discharge: Date of : 66 Report #: [id number] THIS REPORT FOR: cc: Julia Brandt MD, Nora P. MD Mancuso, Gerald M. MD [facility] ~ APPROVED REPORT Study performed: 01/17/2021 08:21:17 Patient Details Patient Status: Out-Patient Room #: The patient is a 50 year-old female Event Personnel Juma Prajapati Glove Stitcher, Spencer Flowers RTR Monitor, Daija Pride RN RN, Aria Mora RTR, WAREHOUSE LOGISTICS MANAGER Scrub Procedures Performed Art Access - R femoral artery* 64167 Initial Mod Sed Same Phys/QHP Gr5y 187458 91186 Mod Sed Same Phys/QHP Ea 054292 Left Heart Cath w/or w/o Coronaries [id number] [facility] Hemostasis w/ Mynx Abdominal Aortography 429581 Indication Chest pain Procedure Narrative The Right Groin^ was infiltrated with 1% Lidocaine subcutaneous anesthesia. A PINNACLE 6FR Sheath #[id number] sheath was inserted into the RFA^. Coronary angiography was performed using coronary diagnostic catheters. The right coronary system was accessed and visualized with a JR4 catheter. The left coronary system was accessed and visualized with a JL4 catheter. The left ventricle was accessed and visualized with a PIGTAIL catheter. Left ventriculogram was performed in 30 degree projection. An aortogram of the abdominal aorta was performed. Pre-demployment femoral angiogram was performed . Closure device was deployed with a 6 Fr MYNXGRIP 6/7F #[id number]. Hemostasis was obtained with manual pressure following sheath removal without any complications. The patient tolerated the procedure well and there were no complications associated with the procedure. There was no hematoma. [facility] [address] [place] [address] INVASIVE PROCEDURE REPORT Name: CARMELLAKARTHIK GUERRERO [facility] Room #: REG LIZ Nuñez#: [id number] Admission: 01/17/21 Attend Phys: Juma Prajapati, Discharge: Date of : 66 Report #: [id number] Intraoperative Conscious Sedation Sedation start time: 856 Case end Time: 924 Fentanyl 125 mcg Versed 2.5 mg Fluoro Time: 2.20 minutes Dose: DAP 7318.50 cGycm2 783 mGy Contrast Type and Amount: Visipaque 105 ml Hemodynamics The aortic pressure is 137/75 mmHg with a mean of 99 mmHg. The left ventricular pressure is 117/18 mmHg with a mean of mmHg. The left ventricular end diastolic pressure is 38 mmHg. Conclusion #1. Normal left ventricular size and systolic function normal EF 55% #2 abdominal aortogram reveals wide patency without evidence of aneurysm formation. #3 left main is short but moderate in size free of disease giving rise to LAD and circumflex. #4 LAD is widely patent previously placed proximal stent no significant restenosis. This extends to the apex. #5 circumflex OM nondominant with mild irregularity #6 dominant right coronary artery no occlusive disease. Recommendations plan: Continue aggressive risk factor modification no indication for coronary intervention. Previously placed stent is widely patent. <ELECTRONICALLY SIGNED> By: Juma Prajapati MD, FACC 01/17/21 1616 161 161 Juma Prajapati MD, FACC /INF
== END | disposition home or self-care (01) ==
LOC: CATH 06:32
PROVIDERS: ATTEND Internal Medicine Cardiovascular Disease
DX: R07.9 Chest pain, unspecified (principal); I25.10 Atherosclerotic heart disease of native coronary artery without angina pectoris; I12.9 Hypertensive chronic kidney disease with stage 1 through stage 4 chronic kidney disease, or unspecified chronic kidney disease; G43.909 Migraine, unspecified, not intractable, without status migrainosus; F32.9 Major depressive disorder, single episode, unspecified; F41.9 Anxiety disorder, unspecified; E78.5 Hyperlipidemia, unspecified; J45.909 Unspecified asthma, uncomplicated; Z98.890 Other specified postprocedural states; Z79.899 Other long term (current) drug therapy; Z90.49 Acquired absence of other specified parts of digestive tract; Z90.710 Acquired absence of both cervix and uterus; Z96.612 Presence of left artificial shoulder joint; Z87.442 Personal history of urinary calculi; Z96.642 Presence of left artificial hip joint

== ENCOUNTER → 2021-01-20 | Outpatient (CLI) | payer BC, OTHER | LOC: SJCVCIMAG 08:45 | PROVIDERS: ATTEND Internal Medicine Cardiovascular Disease | DX: M79.604 Pain in right leg (principal); R19.09 Other intra-abdominal and pelvic swelling, mass and lump; M79.81 Nontraumatic hematoma of soft tissue; Z98.890 Other specified postprocedural states ==

== ENCOUNTER 2021-01-21 18:43 | Emergency (ER) | payer BC, OTHER ==
[~2021-01-21] VITALS: Ht 162.6 cm; Wt 113.4 kg
[2021-01-21] MEDS ORDERED: ULTRAM 50MG TAB50 MG PO (21:08)
[2021-01-21 22:13] VITALS: BP 128/58
== END 2021-01-21 20:08 | disposition home or self-care (01) ==
LOC: ER 18:43
DX: S30.1XXA Contusion of abdominal wall, initial encounter (principal); I25.10 Atherosclerotic heart disease of native coronary artery without angina pectoris; J45.909 Unspecified asthma, uncomplicated; E78.5 Hyperlipidemia, unspecified; I12.9 Hypertensive chronic kidney disease with stage 1 through stage 4 chronic kidney disease, or unspecified chronic kidney disease; N18.30 Chronic kidney disease, stage 3 unspecified; G43.909 Migraine, unspecified, not intractable, without status migrainosus; Z90.710 Acquired absence of both cervix and uterus; Z90.49 Acquired absence of other specified parts of digestive tract; Z79.82 Long term (current) use of aspirin; Z79.899 Other long term (current) drug therapy; X58.XXXA Exposure to other specified factors, initial encounter; Y93.89 Activity, other specified; Y92.89 Other specified places as the place of occurrence of the external cause; Y99.8 Other external cause status

== ENCOUNTER 2021-02-01 20:11 | Emergency (ER) | payer BC, OTHER ==
[~2021-02-01] VITALS: Ht 162.6 cm; Wt 113.4 kg
--- NOTE | ~2021-02-01 | EMS ---
[place] [id number] EMS Patient Care Report Name: KARTHIK WEIR PHANI Room #: REG NISHA Nuñez#: [id number] Admission: 02/01/21 Attend Phys: Discharge: Date of : 66 Report #: [id number] THIS REPORT FOR: //name// Report Transmitted: 02/01/2021 19:33 EMS Care Summary [place], [place]/[facility] Incident [id number] @ 02/01/2021 19:39 Incident Location [address] [place] [address] Patient KARTHIK WEIR Female, 50 Years 1970 Patient Address [address] [place] [address] Patient History Hypertension (HTN),Irritable Bowel Syndrome,Depression,Anxiety,Hypokalemia, Patient Allergies No known allergies, Patient Medications ASA, Amitriptyline, Lorazepam, Aripiprazole, Chief Complaint chest pain Disposition Transported No Lights/[place] Dispatch Reason Heart Problems/AICD Transported To [facility] Narrative pt found sitting upright on couch and alert. pt a&ox4 gcs 15 and did not present in apparent distress. pt complained of sternal area sharp pain x2 hrs. pt stated her pcp recommended she be transported to [facility]. pt requested to be transported to [facility]. pt was assisted to ems cot. pt was transferred onto ems [place] [id number] EMS Patient Care Report Name: KARTHIK WEIR Room #: REG [facility]..#: [id number] Admission: 02/01/21 Attend Phys: Discharge: Date of : 66 Report #: [id number] cot and was secured in a semi fowlers position without incident. pt was loaded into ambulance. a 12-lead ekg was obtained revealing nsr and was unremarkable. pt was administered 324mg asa. iv access was sought after but was not attempted due to no available vasculature. pt was transported non emergent. transport was uneventful and pt rested on ems cot. pt was friendly and conversational. pt care was transferred to appropriate staff and ems goes back in service. pts purse and coat were left with pt. Initial Vitals @20:01P: 95,CO: 1,SpO2: 97, @19:51P: 83,CO: 1,SpO2: 97,[place] Suspected: false @19:49P: 90,R: 20,BP: 140/82,Pain: 2/10,GCS: 15,SpO2: 96,Revised Trauma: 12, @20:04P: 93,BP: 123/85,CO: 2,SpO2: 96, Assessments @19:43MENTAL:No Abnormalities,SKIN:No Abnormalities,HEENT:Head/Face: No Abnormalities,Eyes: No Abnormalities,Neck/Airway: No Abnormalities,LUNG SOUNDS:General: No Abnormalities,Left Upper: No Abnormalities,Right Upper: No Abnormalities,Left Lower: No Abnormalities,Right Lower: No Abnormalities,ABDOMEN:General: No Abnormalities,Left Upper: No Abnormalities,Right Upper: No Abnormalities,Left Lower: No Abnormalities,Right Lower: No Abnormalities,PELVIS//GI:No Abnormalities,EXTREMITIES:Left Arm: No Abnormalities,Right Arm: No Abnormalities,Left Leg: No Abnormalities,Right Leg: No Abnormalities,PULSE:NEURO:No Abnormalities,@20:01MENTAL:No Abnormalities,SKIN:No Abnormalities,HEENT:Head/Face: No Abnormalities,Eyes: No Abnormalities,Neck/Airway: No Abnormalities,LUNG SOUNDS:General: No Abnormalities,Left Upper: No Abnormalities,Right Upper: No Abnormalities,Left Lower: No Abnormalities,Right Lower: No Abnormalities,ABDOMEN:General: No Abnormalities,Left Upper: No Abnormalities,Right Upper: No Abnormalities,Left Lower: No Abnormalities,Right Lower: No Abnormalities,PELVIS//GI:No Abnormalities,EXTREMITIES:Left Arm: No Abnormalities,Right Arm: No Abnormalities,Left Leg: No Abnormalities,Right Leg: No Abnormalities,PULSE:NEURO:No Abnormalities, Impression Chest Pain / Discomfort Procedures @19:43ALS AssessmentResponse: UnchangedSucceeded@19:5112-Lead ECGResponse: UnchangedSucceeded@20:11Aspirin - 324 Milligrams (mg) - OralResponse: Unchanged Timeline 19:36,Call Received 19:36,Dispatch Notified 19:39,Dispatched 19:39,En Route [address] [address] EMS Patient Care Report Name: SUMAN WEIRSY PHANI Room #: REG NISHA Nuñez#: [id number] Admission: 02/01/21 Attend Phys: Discharge: Date of : 66 Report #: [id number] 19:42,On Scene 19:43,At Patient 19:43,ALS Assessment,Response: UnchangedSucceeded, 19:49,BP: 140/82 M,PULSE: 90,RR: 20 R,SPO2: 96 Ox,ETCO2: ,BG: ,PAIN: 2,GCS: 15, 19:51,12-Lead ECG,Response: UnchangedSucceeded, 19:51,BP: / M,PULSE: 83,RR: R,SPO2: 97 Ox,ETCO2: ,BG: ,PAIN: ,GCS: , 19:54,Depart Scene 20:01,BP: / M,PULSE: 95,RR: R,SPO2: 97 Ox,ETCO2: ,BG: ,PAIN: ,GCS: , 20:04,BP: 123/85 M,PULSE: 93,RR: R,SPO2: 96 Ox,ETCO2: ,BG: ,PAIN: ,GCS: , 20:08,At Destination 20:11,Aspirin - 324 Milligrams (mg) - Oral,Response: Unchanged 20:22,Call Closed Disclaimer v1.1 Copyright 2020 [employer] This EMS Care Summary contains data elements from the applicable legal record (which may be displayed differently). It is designed to provide pertinent information for the following purposes: continuity of care, clinical quality, and state data reporting. The complete legal record is available to ED staff and administrators of the receiving hospital in ES's Patient Tracker. All data is provided "as is."
[2021-02-01 20:38] LABS: ABSOLUTE NEUTROPHILS 6.3 thou/uL (1.4-8.2); EOSINOPHILS 2.9 % (0.0-3.0); HEMATOCRIT 36.4 % (37.0-47.0); HEMOGLOBIN 11.3 gm/dL (12.0-15.0); LYMPHOCYTES 19.3 % (24.0-44.0); MCH 25.3 pg (26.0-34.0); MCHC 31.2 g/dL (28.0-37.0); MCV 81.3 fL (80.0-100.0); MONOCYTES 7.8 % (1.0-8.0); PLATELET COUNT 355 thou/uL (150-400); RBC 4.48 mil/uL (4.20-5.00); RDW 16.8 % (10.5-14.5); WBC 9.1 thou/uL (4.0-11.0)
[2021-02-01 20:46] LABS: ANION GAP 8 mmol/L (7-16); BUN 22 mg/dL (7-18); CALCIUM 9.1 mg/dL (8.5-10.1); CHLORIDE 103 mmol/L (98-107); CO2 30 mmol/L (21-32); CREATININE 1.1 mg/dL (0.6-1.0); GLUCOSE 105 mg/dL (74-106); POTASSIUM 4.1 mmol/L (3.5-5.1); SODIUM 141 mmol/L (136-145)
[2021-02-01 20:58] LABS: ALBUMIN 3.5 g/dL (3.4-5.0); AMYLASE 35 U/L (25-115); DIRECT BILIRUBIN < 0.1 mg/dL (<0.1-0.2); LIPASE 106 U/L (73-393); SGOT 13 U/L (15-37); SGPT 21 U/L (14-59); TOTAL BILIRUBIN 0.2 mg/dL (0.2-1.0); TOTAL PROTEIN 8.1 g/dL (6.4-8.2); TROPONIN-I <0.06 ng/mL (<0.06)
[2021-02-01 21:30] VITALS: BP 121/76
[2021-02-01] MEDS ORDERED: NAPROSYN500 MG PO (21:52)
[2021-02-01] MEDS ORDERED: TYLENOL325 M1 PO (21:52)
--- NOTE | 2021-02-02 07:18 | EKG ---
[place] [address] [facility] [place] [address] ELECTROCARDIOGRAM REPORT Name: KARTHIK WEIR PHANI Room #: [facility]P [facility] [id number] Admission: 02/01/21 Attend Phys: Discharge: 02/01/21 Date of : 66 Report #: [id number] [facility] ED Test Date: 2021-02-01 Test Time: 20:16:22 Pat Name: KARTHIK WEIR Department: Room: Gender: F Senior Project Manager: JORDAN : 1970 Requested By: Juan Miguel Granados Order Number: [id number] MD: Bo Herzog Measurements Intervals [place] Rate: 87 P: ID: QRS: -32 QRSD: 99 T: 95 QT: 417 QTc: 502 Interpretive Statements NSR Left axis deviation Abnormal R-wave progression, early transition Nonspecific T abnrm, anterolateral leads Borderline prolonged QT interval Compared to ECG 01/12/2021 14:05:26 No significant change Electronically Signed On 02-02-2021 7:18:04 CDT by Bo Herzog [email or web address] <ELECTRONICALLY SIGNED> By: Bo Herzog MD, [facility] 02/02/21 07 15 15 Bo Herzog MD, FAC /EPI
== END 2021-02-01 22:15 | disposition home or self-care (01) ==
LOC: ER 20:11
PROVIDERS: Emergency Medicine
DX: R07.89 Other chest pain (principal); E78.5 Hyperlipidemia, unspecified; J45.909 Unspecified asthma, uncomplicated; G43.909 Migraine, unspecified, not intractable, without status migrainosus; I12.9 Hypertensive chronic kidney disease with stage 1 through stage 4 chronic kidney disease, or unspecified chronic kidney disease; N18.30 Chronic kidney disease, stage 3 unspecified; Z90.710 Acquired absence of both cervix and uterus; Z79.82 Long term (current) use of aspirin; Z79.899 Other long term (current) drug therapy

== ENCOUNTER → 2021-02-09 | Outpatient (CLI) | payer BC, OTHER ==
[~2021-02-09] MED LIST changes: +TYLENOL325 M1 PO
== END ==
LOC: BC 14:25
PROVIDERS: ATTEND Family Medicine
DX: N63.0 Unspecified lump in unspecified breast (principal)

== ENCOUNTER → 2021-03-22 | Outpatient (CLI) | payer BC, OTHER | LOC: RAD 12:05 | PROVIDERS: ATTEND Family Medicine | DX: M47.816 Spondylosis without myelopathy or radiculopathy, lumbar region (principal); M54.5 Low back pain ==

== ENCOUNTER 2021-03-30 22:53 | Emergency (ER) | payer BC, OTHER ==
[~2021-03-30] VITALS: Ht 162.6 cm; Wt 131.5 kg
[2021-03-30 23:45] LABS: ANION GAP 15 mmol/L (7-16); BUN 17 mg/dL (7-18); CALCIUM 8.5 mg/dL (8.5-10.1); CHLORIDE 106 mmol/L (98-107); CO2 21 mmol/L (21-32); CREATININE 1.2 mg/dL (0.6-1.0); GLUCOSE 113 mg/dL (74-106); POTASSIUM 3.6 mmol/L (3.5-5.1); SODIUM 142 mmol/L (136-145)
[2021-03-30 23:55] LABS: ALBUMIN 3.2 g/dL (3.4-5.0); SGOT 15 U/L (15-37); SGPT 22 U/L (30-65); TOTAL BILIRUBIN 0.2 mg/dL (0.2-1.0); TOTAL PROTEIN 8.1 g/dL (6.4-8.2); TROPONIN-I <0.06 ng/mL (<0.06)
[2021-03-31 00:34] LABS: ABSOLUTE NEUTROPHILS 6.8 thou/uL (1.4-8.2); BASOPHILS 0.5 % (0.0-2.0); EOSINOPHILS 6.1 % (0.0-3.0); HEMATOCRIT 35.7 % (37.0-47.0); HEMOGLOBIN 11.1 gm/dL (12.0-15.0); LYMPHOCYTES 18.8 % (24.0-44.0); MCH 25.4 pg (26.0-34.0); MCHC 31.2 g/dL (28.0-37.0); MCV 81.5 fL (80.0-100.0); MONOCYTES 7.9 % (1.0-8.0); PLATELET COUNT 361 thou/uL (150-400); POLYS 66.7 % (36.0-66.0); RBC 4.38 mil/uL (4.20-5.00); RDW 16.3 % (10.5-14.5); WBC 10.2 thou/uL (4.0-11.0)
[2021-03-31] MEDS ORDERED: PREDNISONE 20 M20 MG PO (02:56)
[2021-03-31] MEDS ORDERED: AZITHROMYCIN 2250 MG PO (02:56)
[2021-03-31 03:28] VITALS: BP 126/57
--- NOTE | 2021-03-31 06:49 | EKG ---
[place] [address] [address] [address] ELECTROCARDIOGRAM REPORT Name: KARTHIK WEIR PHANI Room #: REG [facility] [id number] Admission: 03/30/21 Attend Phys: Discharge: Date of : 66 Report #: [id number] [facility] ED Test Date: 2021-03-30 Test Time: 23:05:19 Pat Name: KARTHIK WEIR Department: Room: Gender: F Truck Leasing Manager: SCOTT : 1970 Requested By: Samuel Ku Order Number: [id number] MD: Bo Herzog Measurements Intervals [place] Rate: 105 P: GA: QRS: -35 QRSD: 102 T: 101 QT: 336 QTc: 445 Interpretive Statements NSR Left axis deviation Abnormal R-wave progression, early transition Nonspecific T abnrm, anterolateral leads Baseline wander in lead(s) II,III,aVL,aVF,V5 Compared to ECG 02/01/2021 20:16:22 No significant change Electronically Signed On 03-31-2021 6:49:13 CDT by Bo Herzog [email or web address] <ELECTRONICALLY SIGNED> By: Bo Herzog MD, [facility] 03/31/21 0649 [phone] Bo Herzog MD, [facility] /EPI
== END 2021-03-31 03:28 | disposition home or self-care (01) ==
LOC: ER 22:53
PROVIDERS: Emergency Medicine
DX: J45.901 Unspecified asthma with (acute) exacerbation (principal); Z20.822 Contact with and (suspected) exposure to COVID-19; E78.00 Pure hypercholesterolemia, unspecified; G43.909 Migraine, unspecified, not intractable, without status migrainosus; I12.9 Hypertensive chronic kidney disease with stage 1 through stage 4 chronic kidney disease, or unspecified chronic kidney disease; N18.30 Chronic kidney disease, stage 3 unspecified; Z98.890 Other specified postprocedural states; Z90.89 Acquired absence of other organs

== ENCOUNTER 2021-04-17 22:20 | Emergency (ER) | payer BC, OTHER ==
[~2021-04-17] VITALS: Ht 162.6 cm; Wt 131.5 kg
[2021-04-18] MEDS ORDERED: VALIUM10 MG PO (00:23)
[2021-04-18 00:28] VITALS: BP 121/71
== END 2021-04-18 00:28 | disposition home or self-care (01) ==
LOC: ER 22:20
DX: M54.5 Low back pain (principal); I25.10 Atherosclerotic heart disease of native coronary artery without angina pectoris; G43.909 Migraine, unspecified, not intractable, without status migrainosus; J45.909 Unspecified asthma, uncomplicated; E78.5 Hyperlipidemia, unspecified; I12.9 Hypertensive chronic kidney disease with stage 1 through stage 4 chronic kidney disease, or unspecified chronic kidney disease; N18.30 Chronic kidney disease, stage 3 unspecified; Z90.49 Acquired absence of other specified parts of digestive tract; Z90.710 Acquired absence of both cervix and uterus; Z98.890 Other specified postprocedural states

== ENCOUNTER 2021-04-21 13:16 | Emergency (ER) | payer BC, OTHER ==
[~2021-04-21] VITALS: Ht 162.6 cm; Wt 131.5 kg
[~2021-04-21 13:16] MED LIST changes: +VALIUM10 MG PO
[2021-04-21] MEDS ORDERED: ATIVAN2 MG PO (17:09)
[2021-04-21 17:39] VITALS: BP 122/84
--- NOTE | 2021-04-22 12:29 | EKG ---
[facility] [place] [address] ELECTROCARDIOGRAM REPORT Name: KARTHIK WEIR PHANI Room #: DEP [facility] [id number] Admission: 04/21/21 Attend Phys: Discharge: 04/21/21 Date of : 66 Report #: [id number] [facility] ED Test Date: 2021-04-21 Test Time: 15:53:42 Pat Name: KARTHIK WEIR Department: Room: Gender: F Docketing Specialist: karissa : 1970 Requested By: Juan Miguel Granados Order Number: [id number] MD: Jaguar Dickey Measurements Intervals [place] Rate: 104 P: 58 [place]: 147 QRS: -37 QRSD: 94 T: 86 QT: 348 QTc: 458 Interpretive Statements Sinus tachycardia Left axis deviation Abnormal R-wave progression, early transition Nonspecific T abnormalities, anterior leads Compared to ECG 03/30/2021 23:05:19 T-wave abnormality now present Electronically Signed On 04-22-2021 12:29:51 CDT by Jaguar Dickey [email or web address] <ELECTRONICALLY SIGNED> By: Jaguar Dickey MD, [facility] 04/22/21 1229 155 155 Jaguar Dickey MD, [facility] /EPI
== END 2021-04-21 17:39 | disposition home or self-care (01) ==
LOC: ER 13:16
DX: F41.9 Anxiety disorder, unspecified (principal); F32.9 Major depressive disorder, single episode, unspecified; M54.2 Cervicalgia; I12.9 Hypertensive chronic kidney disease with stage 1 through stage 4 chronic kidney disease, or unspecified chronic kidney disease; N18.9 Chronic kidney disease, unspecified; G43.909 Migraine, unspecified, not intractable, without status migrainosus; Z79.899 Other long term (current) drug therapy; Z79.82 Long term (current) use of aspirin

== ENCOUNTER 2021-04-24 11:00 | Inpatient (IN) | payer BC, OTHER ==
[~2021-04-24] VITALS: Ht 162.6 cm; Wt 133.4 kg
[~2021-04-24 11:00] MED LIST changes: +ATIVAN2 MG PO
[2021-04-24 11:15] VITALS: BP 129/67
[2021-04-24 11:36] LABS: ABSOLUTE NEUTROPHILS 5.4 thou/uL (1.4-8.2); BASOPHILS 1.2 % (0.0-2.0); EOSINOPHILS 10.6 % (0.0-3.0); HEMATOCRIT 35.2 % (37.0-47.0); LYMPHOCYTES 16.6 % (24.0-44.0); MCH 25.2 pg (26.0-34.0); MCHC 31.3 g/dL (28.0-37.0); MCV 80.5 fL (80.0-100.0); MONOCYTES 6.7 % (1.0-8.0); PLATELET COUNT 356 thou/uL (150-400); POLYS 64.9 % (36.0-66.0); RBC 4.37 mil/uL (4.20-5.00); RDW 16.7 % (10.5-14.5); WBC 8.3 thou/uL (4.0-11.0)
[2021-04-24 11:59] LABS: ANION GAP 11 mmol/L (7-16); BUN 20 mg/dL (7-18); CHLORIDE 108 mmol/L (98-107); CO2 25 mmol/L (21-32); CREATININE 1.1 mg/dL (0.6-1.0); GLUCOSE 94 mg/dL (74-106); POTASSIUM 3.8 mmol/L (3.5-5.1); SODIUM 144 mmol/L (136-145)
[2021-04-24 12:03] LABS: SGOT 19 U/L (15-37); SGPT 25 U/L (14-59); TOTAL BILIRUBIN 0.1 mg/dL (0.2-1.0); TROPONIN-I <0.06 ng/mL (<0.06)
--- NOTE | 2021-04-24 12:48 | EKG ---
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: : 1970 Requested By: Scarlet Bob Order Number: [id number] MD: Bo Herzog Measurements Intervals [place] Rate: 97 P: 61 [place]: 143 QRS: -36 QRSD: 109 T: 99 QT: 389 QTc: 494 Interpretive Statements Sinus rhythm Left axis deviation Abnormal R-wave progression, late transition Nonspecific T abnrm, anterolateral leads Borderline prolonged QT interval Compared to ECG 04/21/2021 15:53:42 Sinus tachycardia no longer present T-wave abnormality no longer present Electronically Signed On 04-24-2021 12:48:23 CDT by Bo Herzog [email or web address] <ELECTRONICALLY SIGNED> By: Bo Herzog MD, [facility] 04/24/21 1248 1107 1107 Bo Herzog MD, [facility] /EPI
[2021-04-24 15:37] LABS: URINE BILIRUBIN NEGATIVE (Negative); URINE BLOOD NEGATIVE (Negative); URINE CLARITY CLEAR; URINE COLOR YELLOW; URINE GLUCOSE-RANDOM* NEGATIVE (Negative); URINE KETONES NEGATIVE (Negative); URINE LEUKOCYTES-REFLEX NEGATIVE (Negative); URINE NITRITE-REFLEX NEGATIVE (Negative); URINE PROTEIN (DIPSTICK) NEGATIVE (Negative); URINE SPECIFIC GRAVITY 1.015 (1.005-1.035); URINE UROBILINOGEN 0.2 E.U./dl (0.2-1.0)
[2021-04-24 16:21] VITALS: BP 122/81
[2021-04-24 16:38] VITALS: BP 113/81
--- NOTE | 2021-04-24 19:54 | NUR ---
RECEIVED PT FROM THE ER. ADMISSION COMPLETED. PT IS AXOX4, PLEASANT, C/O PAIN IN ABDMONIAL/CHEST AREA. VSS, AFEBRILE, SR ON MONITOR. PT HAS STATED THAT PAIN IS STEADILY INCREASING AND MORE UNCOMFORTABLE. GI CONSULTED. PT WAS GIVEN GI COCKTAIL IN ED. POC IS TO CONTINUE PAIN MGMT. PT HAS HISTORY OF FALLS AND COMMUNICATED UNDERSTANDING REGARDING FALL PRECAUTIONS. FALL PRECAUTIONS IN PLACE.
[2021-04-24 20:23] VITALS: BP 147/82
[2021-04-25 00:20] VITALS: BP 130/72
--- NOTE | 2021-04-25 02:53 | NUR ---
ASSESMEANT CHARTED, MEDS CHARTED GIVEN. RESTING IN BED. C/O PAIN GREATER THAN TYLENOL COULD HANDLE 8/10 IN A[address]OMINAL AREA. CXR AND CT OF ABDOMEN NORMAL. ENVIRONMENTAL PROGRAM MANAGER GAVE ORDER FOR PAIN MED. FALL PRECAUTIONS IN PLACE DURING SHIFT.
[2021-04-25 04:00] VITALS: BP 128/76
[2021-04-25 04:46] LABS: ABSOLUTE NEUTROPHILS 4.3 thou/uL (1.4-8.2); BASOPHILS 0.8 % (0.0-2.0); EOSINOPHILS 8.9 % (0.0-3.0); HEMATOCRIT 31.7 % (37.0-47.0); HEMOGLOBIN 9.9 gm/dL (12.0-15.0); LYMPHOCYTES 17.8 % (24.0-44.0); MCH 25.4 pg (26.0-34.0); MCHC 31.3 g/dL (28.0-37.0); MCV 80.9 fL (80.0-100.0); MONOCYTES 6.9 % (1.0-8.0); PLATELET COUNT 314 thou/uL (150-400); POLYS 65.6 % (36.0-66.0); RBC 3.92 mil/uL (4.20-5.00); RDW 16.5 % (10.5-14.5); WBC 6.6 thou/uL (4.0-11.0)
[2021-04-25 05:26] LABS: ANION GAP 10 mmol/L (7-16); BUN 19 mg/dL (7-18); CALCIUM 8.3 mg/dL (8.5-10.1); CHLORIDE 107 mmol/L (98-107); CO2 25 mmol/L (21-32); GLUCOSE 86 mg/dL (74-106); MAGNESIUM 2.2 mg/dL (1.8-2.4); SODIUM 142 mmol/L (136-145); TROPONIN-I <0.06 ng/mL (<0.06)
[2021-04-25 07:55] VITALS: BP 130/79
--- NOTE | 2021-04-25 13:34 | NUR ---
1240- PT HAD GI COCKTAIL AND STATES PARTIAL RELIEF TO UPPER GASTRIC AREA.
--- NOTE | 2021-04-25 14:35 | NUR ---
ASSESSMENT COMPLETED W/ PT AT BEDSIDE. PT A&OX4 PT LIVES IN SPLIT LVL HOME W/ 2 ENTRY STEPS TO ENTER AND 8 STEPS INSIDE W/ 2 ADULT SON'S (24 & 26) NOK: HALLE MAYER [phone] ADL'S: MINIMUM ASSISTANCE - MINIMAL COOKING - DOES NOT DRIVE DME: R/W, NEBULIZER, PT STATES THAT SHE WILL GET A NEW CANE AFTER HOSPITALIZATION PCP: IRON CENTENO MD INSURANCE: PREFERRED CARE BLUE DPOA: NONE - SW ENCOURAGED & PT AGREEABLE - SW CONTACTED MARRIAGE PERFORMER AND LEFT A VM FOR COMPLETION HH HX: DEC 2020 PT CANNOT REMEMBER THE NAME OF THE AGENCY SNF/REHAB HX: - [facility], SNF IN [place]. [place] - NAME UNKNOWN COVID VACCINE: NONE RX: [facility] ON [address] EMPLOYMENT: EMPLOYED W/ [facility] ON [address] BUT CURRENTLY ON SHORT TERM DISABILITY SINCE 2020 TRANSPORTATION: PT WILL NEED ASSISTANCE ADDITIONAL INFO: EDUIN INQUIRED ABOUT FREQUENT ADMISSIONS AND PCP VISITS. PT STATES THAT SHE IS CONSTANTLY IN ABD PAIN & AT TIMES IS SCARED BECAUSE THE PAIN IS CONSISTENT AND PT STATES THAT THE SOURCE OF PAIN IS UNKNOWN. PT ALSO HAD CONCERNS ABOUT TRANSPORTATION TO AND FROM MEDICAL APPOINTMENTS, HOME UTILITIES, AND HOME PROPERTY TAX (AMOUNT $3500) ARE DUE BY JUL 08, 2021 AND SHE AND HER TWO ADULT SONS ARE STRUGGLING TO KEEP UP WITH BILLS. ONLY ONE SON IS CURRENTLY WORKING AND DOES NOT MAKE ENOUGH TO COVER MOST BILLS ALONE. HER YONGEST SON IS STRUGGLING TO FIND WORK. SW INQUIRED ABOUTANY CURRENT ADDICTIONS FROM ADULT SONS DRUG/ALCOHOL/GAMBLING/FREQUENT SHOPPING, ETC. PT DENIED AT THIS TIME. EDUIN PROVIDED PT W/ A COMMUNTIY RESOURCE GUIDE AND ADDITONAL RESOURCES FOR UTLITY AND TRANSPORTATION ASSISTANCE. PT IS AGREEABLE TO IF RECCOMENDED UPON D/C D/C PLAN: HOME WHEN MEDICALLY STABLE W/ TRANSPORTATION ASSISTANCE
[2021-04-25 15:45] VITALS: BP 124/88
[2021-04-25 19:45] VITALS: BP 157/97
--- NOTE | 2021-04-25 19:54 | NUR ---
PT COMPLAINED OF PAIN 9/10 MOST OF SHIFT HOWEVER WHEN RN WENT IN TO ASSESS PT AND PT'S PAIN LEVEL PT WAS ASLEEP AND SNORING. PT WAS GIVEN GI COCKTAIL THIS SHIFT AND STATED PARTIAL RELIEF, PT WAS GIVEN 1X DOSE OF IV HYDROMORPHONE AND STATED THAT GAVE HER THE MOST RELIEF SHE HAS HAD AND PT GIVEN PO PAIN MEDICATION ORDERED X1 DOSE. VSS. CONSENT SIGNED AND ON CHART FOR EGD TOMORROW. CORLEY NOW SWABBED AND SENT TO LAB.
[2021-04-26 03:34] LABS: HEMATOCRIT 32.2 % (37.0-47.0); HEMOGLOBIN 10.1 gm/dL (12.0-15.0); MCH 25.4 pg (26.0-34.0); MCHC 31.3 g/dL (28.0-37.0); MCV 81.3 fL (80.0-100.0); RBC 3.97 mil/uL (4.20-5.00); WBC 7.4 thou/uL (4.0-11.0)
[2021-04-26 03:55] VITALS: BP 152/92
[2021-04-26 07:24] VITALS: BP 149/83
--- NOTE | 2021-04-26 07:29 | NUR ---
SLEPT MOST OF SHIFT. NO COMPLAINTS SINCE BEDTIME OF ABDOMANAL PAIN. TURNS SELF IN BED. UP TO BSC WITH STANDBY ASSIST. NPO FOR AM EGD. WORKING ON GOALS AND PLAN OF CARE FOR NOC. CONTINUE TO ASSES.
[2021-04-26 11:26] VITALS: BP 145/99
--- NOTE | 2021-04-26 14:03 | NUR ---
PT IS AXOX4, CALM; C/O PAIN IN UPPER ABDOMINAL, LOWER CHEST AREA. VSS, AFEBRILE, SR ON THE MONITOR. DR HILTON CONSULTED. PT HAD ONE TIME HYDROMORPHONE FOR ADDL PAIN MGMT. PT TAKEN TO EGD THIS PM. FALL PRECAUTIONS IN PLACE. WILL CONTINUE TO MONITOR AND ASSESS PT PAIN MGMT. NO CONCERNS AT THIS TIME.
[2021-04-26 17:50] VITALS: BP 154/91
--- NOTE | 2021-04-26 18:51 | NUR ---
RECEIVED PATIENT, CONSCIOUS AND ORIENTED.ON ROOM AIR BREATHING SPONTANEOUSLY.NOT IN DISTRESS.ON NPO SINCE MIDNIGHT.HAD EGD TODAY AND WENT BACK IN THE UNIT, RESUMED DIET AT DINNER TIME.ALL NEEDS ATTENDED.
[2021-04-26 19:34] VITALS: BP 147/77
[2021-04-27 04:08] VITALS: BP 130/66
--- NOTE | 2021-04-27 04:52 | NUR ---
ASSUMED PT CARE AT 1900, PT IS AWAKE, ALERT AND ORIENTED, C/O ABDOMINAL PAIN, PRN HYDROCODONE GIVENX1, SLEPT MOST OF THE NIGHT, SR ON TELE, STIIL NEED A STOOL SAMPLE, NO BM THIS SHIFT, NO NEEDS AT THIS TIME, WILL CONTINUE TO MONITOR AND FOLLOW POC
[2021-04-27 07:26] VITALS: BP 118/77
[2021-04-27] MEDS ORDERED: CARAFATE 11 GM/10 M1 PO (11:16)
[2021-04-27] MEDS ORDERED: HYOSCYAMINE0.125 M1 PO (11:16)
[2021-04-27 12:32] VITALS: BP 118/77
[2021-04-27 14:04] VITALS: BP 118/77
--- NOTE | 2021-04-27 14:06 | NUR ---
Patient discharged with cab voucher with staff downstairs. IV and tele removed. Belongings returned to patient from pharmacy. Discharge teaching discussed. No questions or conerns noted.
--- NOTE | 2021-04-27 14:31 | NUR ---
Pt dc'd to home and provided with a cab voucher as her sons are both at work at this time. No other dc planning needs indicated. Pt was cleared by therapy for dc to outpt f/u.
--- NOTE | 2021-04-29 11:11 | P ---
[facility] [place] [address] PROCEDURE REPORT Name: KARTHIK WEIR PHANI Room #: 204-P [facility] M.R.#: [id number] Admission: 04/24/21 Attend Phys: Jessica Whelan MD Discharge: 04/27/21 Date of : 66 Report #: [id number] THIS REPORT FOR: cc: Julia Brandt MD, Nora P. MD McElhinney, Christian C. MD ~ DOC #: [id number] cc: MD David Paulino MD DATE OF SERVICE: 04/26/2021 PROCEDURE PERFORMED: Upper endoscopy with biopsies. HISTORY OF PRESENT ILLNESS: The patient is a 50-year-old female who was admitted with chest pain and midepigastric abdominal pain, somewhat in the right upper quadrant as well. She has had a previous cholecystectomy. She is on omeprazole on a daily basis for gastroesophageal reflux disease. She has a history of coronary artery disease with stent placement, previous history of gastric AVM and gastritis. Troponin and EKG have been negative. She underwent a CT scan of her abdomen and pelvis on 04/24/2021. No CT findings to explain abdominal pain were seen, chest x-ray same day, no acute cardiopulmonary process noted. Plan is for upper endoscopy. DESCRIPTION OF PROCEDURE: The risks and benefits of the procedure were explained to the patient, those risks including but not limited to bleeding, perforation and the risk of sedation. She understood these risks and gave informed consent. Sedation was given using propofol per anesthesia. Next, using a standard upper Olympus endoscope, the scope was placed in the patient's mouth and advanced under direct vision through the esophagus, stomach and into the second portion of the duodenum. The larynx was normal. The esophagus was normal throughout. The GE junction was normal. In the gastric fundus and body, there was a moderate diffuse gastritis. Biopsies were obtained to rule out H. pylori. The gastric antrum was normal. The pylorus was normal and patent. The duodenal bulb, first and second portion were all normal. Biopsies were obtained to rule out the possibility of celiac sprue of the duodenum. The scope was then withdrawn and the procedure terminated. The patient tolerated the procedure well. IMPRESSION: 1. Moderate gastritis. 2. Otherwise, normal upper endoscopy. RECOMMENDATIONS: 1. Await biopsy results. 2. We will add liquid Carafate at this time. [address] [address] PROCEDURE REPORT Name: KARTHIK WEIR PHANI Room #: 204-P DIS IN M.R.#: [id number] Admission: 04/24/21 Attend Phys: Jessica Whelan MD Discharge: 04/27/21 Date of : 66 Report #: [id number] 3. We will also add Levsin on a p.r.n. basis. Thank you for allowing me to participate in her care. David Edmond MD [facility] <ELECTRONICALLY SIGNED> By: David Edmond MD 04/29/21 1111 1616 2322 David Edmond MD /nt
--- NOTE | 2021-05-01 13:07 | PATH ---
[facility] [address] [address] PATHOLOGY RPT PROCEDURE Name: SUMAN WEIRKEI JERONIMO Room #: 204-P DIS IN M.R.#: [id number] Admission: 04/24/21 Date of : 66 Discharge: 04/27/21 Report #: [id number] Path Case #: [id number] [facility] Accession Number: [id number] . 01 Material submitted: . PART A: duodenum - DUODENAL BX-R/O SPRUE PART B: stomach - GASTRIC BX-R/O H.PYLORI . 01 Clinical history: . HX OF ABDOMINAL PAIN . 02 Diagnosis: A. Small bowel mucosa, duodenum, rule out sprue, endoscopic biopsy: - No diagnostic abnormalities present. - Negative for villous blunting or increase in intraepithelial lymphocytes. . B. Gastric mucosa, rule out H. pylori, endoscopic biopsy: - Mild chronic gastritis. - Negative for intestine metaplasia or atrophy. - Negative for Helicobacter pylori (properly controlled immunohistochemical stain performed). . (IUV:concrete layer; 04/28/2021) MBR 04/28/2021 1733 Local . 02 Electronically signed: . Caroline Ingram MD, Pathologist NPI- [id number] . 01 Gross description: . A. Received in formalin labeled "Dave, Karthik, duodenal biopsy" are multiple giles-brown soft tissue fragments measuring in aggregate 0.6 x 0.4 x 0.1 cm. The specimen is submitted entirely in A1. . B. Received in formalin labeled "Dave, Karthik, gastric biopsy" are multiple giles-brown soft tissue fragments measuring in aggregate 0.5 x 0.3 x 0.1 cm. The specimen is submitted entirely in B1. (ISHAN; 04/27/2021) ISHAN/ISHAN 04/27/2021 2004 Local . 02 Pathologist provided ICD-10: K29.50 . 02 CPT . 858277, 499760, X13997 Specimen Comment: A courtesy copy of this report has been sent to [phone], [phone] [address] PATHOLOGY RPT PROCEDURE Name: KARTHIK WEIR PHANI Room #: 204-P DIS IN M.R.#: [id number] Admission: 04/24/21 Date of : [birth year] Discharge: 04/27/21 Report #: [id number] Path Case #: [id number] Specimen Comment: [id number], Specimen Comment: Report sent to ,DR ANGELES / DR PICKENS Specimen Comment: Report sent to Performed at: [address], [place] [id number] MD Speedy Garnica MD Phone: [phone] Performed at: [address] [id number] MD Caroline Ingram MD Phone: [phone]
== END 2021-04-27 14:18 | disposition home or self-care (01) | DRG 392 ==
LOC: ER 11:00 → 2N 14:20 → EROBS 14:20 → 2N 14:20
PROVIDERS: Nurse Practitioner; Physician Assistant; Student in an Organized Health Care Education/Training Program; ADMIT Internal Medicine; ATTEND Internal Medicine
PROC: 0DB68ZX Excision of Stomach, Via Natural or Artificial Opening Endoscopic, Diagnostic (ICD-10-PCS; principal; 2021-04-26)
PROC: 0DB98ZX Excision of Duodenum, Via Natural or Artificial Opening Endoscopic, Diagnostic (ICD-10-PCS; principal; 2021-04-26)
DX: K29.70 Gastritis, unspecified, without bleeding (principal); Z68.43 Body mass index [BMI] 50.0-59.9, adult; I25.10 Atherosclerotic heart disease of native coronary artery without angina pectoris; F41.9 Anxiety disorder, unspecified; F32.9 Major depressive disorder, single episode, unspecified; J45.909 Unspecified asthma, uncomplicated; Z96.612 Presence of left artificial shoulder joint; N18.30 Chronic kidney disease, stage 3 unspecified; G43.909 Migraine, unspecified, not intractable, without status migrainosus; E78.5 Hyperlipidemia, unspecified; E66.9 Obesity, unspecified; G47.00 Insomnia, unspecified; G89.29 Other chronic pain; M54.9 Dorsalgia, unspecified; E11.22 Type 2 diabetes mellitus with diabetic chronic kidney disease; I12.9 Hypertensive chronic kidney disease with stage 1 through stage 4 chronic kidney disease, or unspecified chronic kidney disease; Z20.822 Contact with and (suspected) exposure to COVID-19; Z96.652 Presence of left artificial knee joint; D64.9 Anemia, unspecified; Z90.710 Acquired absence of both cervix and uterus; Z90.49 Acquired absence of other specified parts of digestive tract; Z95.5 Presence of coronary angioplasty implant and graft; Z87.442 Personal history of urinary calculi; Z79.82 Long term (current) use of aspirin; Z79.899 Other long term (current) drug therapy
CPT/HCPCS: 10081; 62110; 62900; 70005

== ENCOUNTER 2021-04-29 14:39 | Emergency (ER) | payer BC, OTHER ==
[~2021-04-29] VITALS: Ht 162.6 cm; Wt 131.5 kg
[~2021-04-29 14:39] MED LIST changes: +CARAFATE 11 GM/10 M1 PO; +HYOSCYAMINE0.125 M1 PO
[2021-04-29] MEDS ORDERED: SAXENDA3 MG/0.5 M SUBQ (15:04)
[2021-04-29] MEDS ORDERED: DIAZEPAM 10 MG10 M1 PO (15:05)
[2021-04-29 15:15] LABS: ABSOLUTE NEUTROPHILS 10.4 thou/uL (1.4-8.2); BASOPHILS 0.6 % (0.0-2.0); EOSINOPHILS 5.8 % (0.0-3.0); HEMATOCRIT 37.7 % (37.0-47.0); HEMOGLOBIN 11.7 gm/dL (12.0-15.0); LYMPHOCYTES 9.8 % (24.0-44.0); MCH 24.7 pg (26.0-34.0); MCHC 31.1 g/dL (28.0-37.0); MCV 79.6 fL (80.0-100.0); MONOCYTES 5.6 % (1.0-8.0); PLATELET COUNT 351 thou/uL (150-400); POLYS 78.2 % (36.0-66.0); RBC 4.73 mil/uL (4.20-5.00); RDW 16.3 % (10.5-14.5); WBC 13.4 thou/uL (4.0-11.0)
[2021-04-29 15:21] LABS: URINE BILIRUBIN NEGATIVE (Negative); URINE BLOOD NEGATIVE (Negative); URINE CLARITY CLEAR; URINE COLOR YELLOW; URINE GLUCOSE-RANDOM* NEGATIVE (Negative); URINE KETONES NEGATIVE (Negative); URINE LEUKOCYTES-REFLEX NEGATIVE (Negative); URINE NITRITE-REFLEX NEGATIVE (Negative); URINE PROTEIN (DIPSTICK) NEGATIVE (Negative); URINE UROBILINOGEN 0.2 E.U./dl (0.2-1.0)
[2021-04-29 15:28] LABS: ANION GAP 13 mmol/L (7-16); BUN 14 mg/dL (7-18); CALCIUM 9.4 mg/dL (8.5-10.1); CHLORIDE 106 mmol/L (98-107); CO2 25 mmol/L (21-32); CREATININE 1.2 mg/dL (0.6-1.0); GLUCOSE 96 mg/dL (74-106); POTASSIUM 3.7 mmol/L (3.5-5.1); SODIUM 144 mmol/L (136-145)
[2021-04-29 15:30] LABS: SSA (PROTEIN CONFIRMATORY) NEGATIVE (Negative)
[2021-04-29 15:39] LABS: ALBUMIN 3.2 g/dL (3.4-5.0); LIPASE 74 U/L (73-393); SGOT 21 U/L (15-37); SGPT 33 U/L (14-59); TOTAL BILIRUBIN 0.2 mg/dL (0.2-1.0); TOTAL PROTEIN 8.3 g/dL (6.4-8.2); TROPONIN-I <0.06 ng/mL (<0.06)
[2021-04-29] MEDS ORDERED: ZOFRAN ODT4 MG PO (17:07)
[2021-04-29 20:00] VITALS: BP 140/86
--- NOTE | 2021-05-01 07:21 | EKG ---
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 : 1970 Requested By: Scarlet Bob Order Number: [id number] MD: Bo Herzog Measurements Intervals [place] Rate: 112 P: 40 MS: 150 QRS: -52 QRSD: 102 T: 108 QT: 338 QTc: 462 Interpretive Statements Sinus tachycardia Left anterior fascicular block Abnormal R-wave progression, late transition Borderline repolarization abnormality Compared to ECG 04/24/2021 11:07:20 Left anterior fascicular block now present Sinus rhythm no longer present Left-axis deviation no longer present Electronically Signed On 05-01-2021 7:21:23 CDT by Bo Herzog [email or web address] <ELECTRONICALLY SIGNED> By: Bo Herzog MD, FAC 05/01/21 0721 145 145 Bo Herzog MD, [facility] /EPI
== END 2021-04-29 20:02 | disposition home or self-care (01) ==
LOC: ER 14:39
PROVIDERS: Physician Assistant
DX: K29.70 Gastritis, unspecified, without bleeding (principal); R11.0 Nausea; R10.13 Epigastric pain; J45.909 Unspecified asthma, uncomplicated; E66.9 Obesity, unspecified; G89.29 Other chronic pain; I12.9 Hypertensive chronic kidney disease with stage 1 through stage 4 chronic kidney disease, or unspecified chronic kidney disease; N18.9 Chronic kidney disease, unspecified; Z79.82 Long term (current) use of aspirin; Z79.899 Other long term (current) drug therapy

== ENCOUNTER 2021-05-02 13:14 | Emergency (ER) | payer BC, OTHER ==
[~2021-05-02] VITALS: Ht 162.6 cm; Wt 131.5 kg
[~2021-05-02 13:14] MED LIST changes: +DIAZEPAM 10 MG10 M1 PO; +SAXENDA3 MG/0.5 M SUBQ
[2021-05-02 13:44] LABS: ABSOLUTE NEUTROPHILS 5.6 thou/uL (1.4-8.2); BASOPHILS 1.1 % (0.0-2.0); EOSINOPHILS 6.2 % (0.0-3.0); HEMATOCRIT 36.5 % (37.0-47.0); HEMOGLOBIN 11.5 gm/dL (12.0-15.0); LYMPHOCYTES 15.6 % (24.0-44.0); MCH 24.9 pg (26.0-34.0); MCHC 31.5 g/dL (28.0-37.0); MONOCYTES 7.4 % (1.0-8.0); POLYS 69.7 % (36.0-66.0); RBC 4.62 mil/uL (4.20-5.00); RDW 16.5 % (10.5-14.5); WBC 8.1 thou/uL (4.0-11.0)
[2021-05-02 14:08] LABS: ANION GAP 15 mmol/L (7-16); BUN 17 mg/dL (7-18); CHLORIDE 106 mmol/L (98-107); CO2 22 mmol/L (21-32); CREATININE 1.1 mg/dL (0.6-1.0); GLUCOSE 89 mg/dL (74-106); POTASSIUM 3.6 mmol/L (3.5-5.1); SODIUM 143 mmol/L (136-145)
[2021-05-02 14:44] LABS: SALICYLATE < 2.8 mg/dL (2.8-20.0)
[2021-05-02 15:12] LABS: ANISOCYTOSIS 1+
[2021-05-02 16:04] LABS: AMP/METHAMP Negative (Negative); BARBITURATES Negative (Negative); BENZODIAZEPINES POSITIVE (Negative); COCAINE Negative (Negative); METHADONE Negative (Negative); OPIATES POSITIVE (Negative); PCP Negative (Negative)
[2021-05-02 23:00] VITALS: BP 137/84
== END 2021-05-02 23:00 ==
LOC: ER 13:14
PROVIDERS: Nurse Practitioner
DX: R45.851 Suicidal ideations (principal); Z20.822 Contact with and (suspected) exposure to COVID-19; J45.909 Unspecified asthma, uncomplicated; F41.9 Anxiety disorder, unspecified; F32.9 Major depressive disorder, single episode, unspecified; I12.9 Hypertensive chronic kidney disease with stage 1 through stage 4 chronic kidney disease, or unspecified chronic kidney disease; N18.9 Chronic kidney disease, unspecified; E66.9 Obesity, unspecified; Z68.42 Body mass index [BMI] 45.0-49.9, adult; Z79.899 Other long term (current) drug therapy

== ENCOUNTER 2021-07-15 19:24 | Emergency (ER) | payer OTHER ==
[~2021-07-15] VITALS: Ht 162.6 cm; Wt 111.1 kg
[2021-07-15] MEDS ORDERED: TRAZODONE HCL50 MG PO (19:39)
[2021-07-15] MEDS ORDERED: LATUDA60 MG PO (19:40)
[2021-07-15] MEDS ORDERED: MIRTAZAPINE15 M2 PO (19:40)
[2021-07-15 21:27] LABS: CREATININE 1.1 mg/dL (0.6-1.0)
[2021-07-15 21:33] LABS: POTASSIUM 4.4 mmol/L (3.5-5.1)
[2021-07-15 21:37] LABS: ALBUMIN 3.6 g/dL (3.4-5.0); TOTAL BILIRUBIN 0.3 mg/dL (0.2-1.0)
[2021-07-15 21:58] LABS: ABSOLUTE NEUTROPHILS 4.5 thou/uL (1.4-8.2); BASOPHILS 1.1 % (0.0-2.0); HEMATOCRIT 38.2 % (37.0-47.0); HEMOGLOBIN 12.1 gm/dL (12.0-15.0); LYMPHOCYTES 19.7 % (24.0-44.0); MCH 23.9 pg (26.0-34.0); MCHC 31.5 g/dL (28.0-37.0); MCV 75.8 fL (80.0-100.0); MONOCYTES 9.9 % (1.0-8.0); PLATELET COUNT 307 thou/uL (150-400); POLYS 66.3 % (36.0-66.0); RBC 5.04 mil/uL (4.20-5.00); RDW 16.5 % (10.5-14.5); WBC 6.7 thou/uL (4.0-11.0)
[2021-07-16 02:34] VITALS: BP 130/84
--- NOTE | 2021-07-16 12:55 | EKG ---
[facility] [place] [address] ELECTROCARDIOGRAM REPORT Name: KARTHIK WEIR PHANI Room #: [facility]P [facility] [id number] Admission: 07/15/21 Attend Phys: Discharge: 07/16/21 Date of : [birth year] Report #: [id number] [facility] ED Test Date: 2021-07-15 Test Time: 20:26:15 Pat Name: KARTHIK WEIR Department: Room: Gender: F Form Tamper: JAZMIN : 1970 Requested By: Prerna Castro Order Number: [id number] MD: Jaguar Dickey Measurements Intervals [place] Rate: 97 P: 35 SC: 152 QRS: -30 QRSD: 100 T: 63 QT: 376 QTc: 478 Interpretive Statements Sinus rhythm Left axis deviation Abnormal R-wave progression, late transition Abnormal T, consider ischemia, anterior leads Compared to ECG 04/29/2021 14:51:54 Anterior T wave abnormality is more pronounced Sinus tachycardia no longer present Electronically Signed On 07-16-2021 12:55:19 CDT by Jaguar Dickey [email or web address] <ELECTRONICALLY SIGNED> By: Jaguar Dickey MD, [facility] 07/16/21 1255 25 25 Jaguar Dickey MD, [facility] /EPI
== END 2021-07-16 02:34 | disposition home or self-care (01) ==
LOC: ER 19:24
PROVIDERS: Physician Assistant
DX: N63.20 Unspecified lump in the left breast, unspecified quadrant (principal); R07.89 Other chest pain; J45.909 Unspecified asthma, uncomplicated; F41.9 Anxiety disorder, unspecified; F32.9 Major depressive disorder, single episode, unspecified; E66.9 Obesity, unspecified; I12.9 Hypertensive chronic kidney disease with stage 1 through stage 4 chronic kidney disease, or unspecified chronic kidney disease; N18.9 Chronic kidney disease, unspecified; Z90.710 Acquired absence of both cervix and uterus; Z79.899 Other long term (current) drug therapy

== ENCOUNTER 2021-08-09 20:36 | Emergency (ER) | payer OTHER ==
[~2021-08-09] VITALS: Ht 162.6 cm; Wt 113.4 kg
[~2021-08-09 20:36] MED LIST changes: +LATUDA60 MG PO; +MIRTAZAPINE15 M2 PO; +TRAZODONE HCL50 MG PO
[2021-08-09 22:50] LABS: URINE BILIRUBIN NEGATIVE (Negative); URINE BLOOD TRACE (Negative); URINE CLARITY CLOUDY; URINE COLOR YELLOW; URINE GLUCOSE-RANDOM* NEGATIVE (Negative); URINE KETONES NEGATIVE (Negative); URINE NITRITE-REFLEX NEGATIVE (Negative); URINE PROTEIN (DIPSTICK) NEGATIVE (Negative); URINE SPECIFIC GRAVITY 1.025 (1.005-1.035); URINE UROBILINOGEN 0.2 E.U./dl (0.2-1.0)
[2021-08-09 22:54] LABS: URINE LEUKOCYTES-REFLEX 2+ (Negative)
[2021-08-09 23:08] LABS: CASTS None Seen /LPF (None Seen); CRYSTALS None Seen /LPF (None Seen); MUCUS 4-6 Moderate strn/LPF (None Seen); SQUAMOUS 4-10 Moderate /LPF (0-3); URINE RBC 3-10 Few /HPF (NONE SEEN)
[2021-08-10 00:30] LABS: ABSOLUTE NEUTROPHILS 6.9 thou/uL (1.4-8.2); BASOPHILS 0.8 % (0.0-2.0); EOSINOPHILS 2.2 % (0.0-3.0); HEMATOCRIT 36.6 % (37.0-47.0); HEMOGLOBIN 11.3 gm/dL (12.0-15.0); LYMPHOCYTES 14.7 % (24.0-44.0); MCH 23.2 pg (26.0-34.0); MCHC 30.8 g/dL (28.0-37.0); MCV 75.4 fL (80.0-100.0); MONOCYTES 9.3 % (1.0-8.0); PLATELET COUNT 314 thou/uL (150-400); RBC 4.86 mil/uL (4.20-5.00); RDW 16.8 % (10.5-14.5); WBC 9.4 thou/uL (4.0-11.0)
[2021-08-10 00:39] LABS: CALCIUM 8.7 mg/dL (8.5-10.1)
[2021-08-10 00:44] LABS: TOTAL BILIRUBIN 0.3 mg/dL (0.2-1.0)
[2021-08-10] MEDS ORDERED: LEVAQUIN 500 M500 MG PO (01:49)
[2021-08-10] MEDS ORDERED: LEVSIN0.125 MG PO (01:49)
[2021-08-10] MEDS ORDERED: ZOFRAN ODT4 MG PO (01:50)
[2021-08-10 02:14] VITALS: BP 137/77
--- NOTE | 2021-08-10 08:08 | EKG ---
[facility] [address] [employer] [address] [place] [address] ELECTROCARDIOGRAM REPORT Name: KARTHIK WEIR PHANI [facility] #: [facility] [id number] Admission: 08/09/21 Attend Phys: Discharge: 08/10/21 Date of : [birth year] Report #: [id number] [facility] ED Test Date: 2021-08-10 Test Time: 00:11:45 Pat Name: KARTHIK WEIR Department: Room: Gender: F Masonry Supervisor: maryuri : 1970 Requested By: Duong Nix Order Number: [id number] MD: Jaguar Dickey Measurements Intervals [place] Rate: 91 P: 16 CO: 127 QRS: -21 QRSD: 99 T: 47 QT: 398 QTc: 490 Interpretive Statements Sinus rhythm Borderline left axis deviation Nonspecific T abnormalities, anterior leads Borderline prolonged QT interval Compared to ECG 07/15/2021 20:26:15 T-wave abnormality still present Electronically Signed On 08-10-2021 8:08:07 CDT by Jaguar Dickey [email or web address] <ELECTRONICALLY SIGNED> By: Jaguar Dickey MD, [facility] 08/10/21 0808 Jaguar Dickey MD, [facility] /EPI
== END 2021-08-10 02:40 | disposition home or self-care (01) ==
LOC: ER 20:36
PROVIDERS: Emergency Medicine
DX: N39.0 Urinary tract infection, site not specified (principal); R10.32 Left lower quadrant pain; J45.909 Unspecified asthma, uncomplicated; I10 Essential (primary) hypertension; Z79.899 Other long term (current) drug therapy; Z90.710 Acquired absence of both cervix and uterus; Z95.1 Presence of aortocoronary bypass graft

== ENCOUNTER 2021-09-10 02:51 | Emergency (ER) | payer OTHER ==
[~2021-09-10] VITALS: Ht 162.6 cm; Wt 113.4 kg
[~2021-09-10 02:51] MED LIST changes: +LEVAQUIN 500 M500 MG PO
[2021-09-10 03:46] LABS: ABSOLUTE NEUTROPHILS 4.4 thou/uL (1.4-8.2); BASOPHILS 1.2 % (0.0-2.0); EOSINOPHILS 2.5 % (0.0-3.0); HEMATOCRIT 41.9 % (37.0-47.0); HEMOGLOBIN 13.2 gm/dL (12.0-15.0); LYMPHOCYTES 25.4 % (24.0-44.0); MCH 24.1 pg (26.0-34.0); MCHC 31.5 g/dL (28.0-37.0); MCV 76.6 fL (80.0-100.0); MONOCYTES 9.9 % (1.0-8.0); PLATELET COUNT 344 thou/uL (150-400); RBC 5.48 mil/uL (4.20-5.00); RDW 17.6 % (10.5-14.5); WBC 7.2 thou/uL (4.0-11.0)
[2021-09-10 03:52] LABS: CALCIUM 9.3 mg/dL (8.5-10.1); POTASSIUM 4.5 mmol/L (3.5-5.1)
[2021-09-10 04:02] LABS: ALBUMIN 3.6 g/dL (3.4-5.0); TOTAL BILIRUBIN 0.4 mg/dL (0.2-1.0); TOTAL PROTEIN 8.1 g/dL (6.4-8.2)
[2021-09-10] MEDS ORDERED: ZOFRAN ODT4 MG PO (05:44)
[2021-09-10] MEDS ORDERED: PEPCID20 MG PO (05:44)
[2021-09-10 06:13] VITALS: BP 136/85
--- NOTE | 2021-09-10 07:37 | EKG ---
[place] [address] [place] [address] ELECTROCARDIOGRAM REPORT Name: KARTHIK WEIR PHANI Room #: DEP [place]#: [id number] Admission: 09/10/21 Attend Phys: Discharge: 09/10/21 Date of : 66 Report #: [id number] [facility] ED Test Date: 2021-09-10 Test Time: 02:58:31 Pat Name: KARTHIK WEIR Department: Room: Gender: F It Analyst: LEOLA : 1970 Requested By: Con Hammond Order Number: [id number] MD: Bo Herzog Measurements Intervals [place] Rate: 94 P: 47 ND: 157 QRS: -15 QRSD: 93 T: 93 QT: 368 QTc: 461 Interpretive Statements Sinus rhythm Borderline left axis deviation Abnormal T, consider ischemia, anterior leads Compared to ECG 08/10/2021 00:11:45 Possible ischemia now present T-wave abnormality still present Electronically Signed On 09-10-2021 7:37:33 CDT by Bo Herzog [email or web address] <ELECTRONICALLY SIGNED> By: Bo Herzog MD, [facility] 09/10/21 0737 0258 7 Bo Herzog MD, [facility] /EPI
== END 2021-09-10 06:14 | disposition home or self-care (01) ==
LOC: ER 02:51
PROVIDERS: Emergency Medicine
DX: R10.13 Epigastric pain (principal); R07.89 Other chest pain; J45.909 Unspecified asthma, uncomplicated; F41.9 Anxiety disorder, unspecified; F32.9 Major depressive disorder, single episode, unspecified; E66.9 Obesity, unspecified; I12.9 Hypertensive chronic kidney disease with stage 1 through stage 4 chronic kidney disease, or unspecified chronic kidney disease; N18.9 Chronic kidney disease, unspecified; Z90.710 Acquired absence of both cervix and uterus; Z79.51 Long term (current) use of inhaled steroids; Z79.1 Long term (current) use of non-steroidal anti-inflammatories (NSAID); Z79.891 Long term (current) use of opiate analgesic; Z79.899 Other long term (current) drug therapy

== ENCOUNTER 2021-09-16 16:44 | Emergency (ER) | payer OTHER ==
[~2021-09-16] VITALS: Ht 162.6 cm; Wt 118.0 kg
[~2021-09-16 16:44] MED LIST changes: +PEPCID20 MG PO
[2021-09-16 17:33] LABS: ABSOLUTE NEUTROPHILS 5.5 thou/uL (1.4-8.2); BASOPHILS 1.2 % (0.0-2.0); EOSINOPHILS 2.4 % (0.0-3.0); HEMATOCRIT 42.5 % (37.0-47.0); HEMOGLOBIN 13.4 gm/dL (12.0-15.0); LYMPHOCYTES 19.2 % (24.0-44.0); MCH 24.3 pg (26.0-34.0); MCHC 31.4 g/dL (28.0-37.0); MCV 77.2 fL (80.0-100.0); MONOCYTES 8.5 % (1.0-8.0); PLATELET COUNT 322 thou/uL (150-400); POLYS 68.7 % (36.0-66.0); RDW 17.8 % (10.5-14.5); WBC 8.1 thou/uL (4.0-11.0)
[2021-09-16 17:38] LABS: CALCIUM 9.3 mg/dL (8.5-10.1); CREATININE 1.1 mg/dL (0.6-1.0); POTASSIUM 4.1 mmol/L (3.5-5.1)
[2021-09-16 17:44] LABS: ALBUMIN 3.8 g/dL (3.4-5.0); DIRECT BILIRUBIN < 0.1 mg/dL (<0.1-0.2); LIPASE 65 U/L (73-393); SGOT 39 U/L (15-37); SGPT 37 U/L (30-65); TOTAL BILIRUBIN 0.4 mg/dL (0.2-1.0); TOTAL PROTEIN 7.6 g/dL (6.4-8.2)
[2021-09-16 17:49] LABS: ALBUMIN 3.7 g/dL (3.4-5.0); TOTAL BILIRUBIN 0.3 mg/dL (0.2-1.0)
[2021-09-16 17:52] LABS: APTT 27.9 Seconds (24.5-32.8); INR 0.96; PROTIME 10.5 Seconds (10.5-12.1)
[2021-09-16] MEDS ORDERED: APAP W/CODEINE1 TA2 PO (19:54)
[2021-09-16 20:36] VITALS: BP 105/81
--- NOTE | 2021-09-18 07:27 | EKG ---
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: MITUL : 1970 Requested By: Omid Soto Order Number: [id number] MD: Bo Herzog Measurements Intervals [place] Rate: 76 P: 45 SD: 152 QRS: -20 QRSD: 101 T: 75 QT: 577 QTc: 650 Interpretive Statements Sinus rhythm Borderline left axis deviation Abnormal R-wave progression, early transition Abnormal T, consider ischemia, anterior leads Baseline wander in lead(s) II,III,aVF Compared to ECG 09/10/2021 02:58:31 Prolonged QT interval now present T-wave abnormality still present Possible ischemia still present Electronically Signed On 09-18-2021 7:26:48 CDT by Bo Herzog [email or web address] <ELECTRONICALLY SIGNED> By: Bo Herzog MD, FACC 09/18/21 0726 1715 1715 Bo Herzog MD, [facility] /EPI
== END 2021-09-16 20:45 | disposition home or self-care (01) ==
LOC: ER 16:44
PROVIDERS: Student in an Organized Health Care Education/Training Program
DX: R10.13 Epigastric pain (principal); R20.0 Anesthesia of skin; J45.909 Unspecified asthma, uncomplicated; F41.9 Anxiety disorder, unspecified; F32.9 Major depressive disorder, single episode, unspecified; E66.9 Obesity, unspecified; I12.9 Hypertensive chronic kidney disease with stage 1 through stage 4 chronic kidney disease, or unspecified chronic kidney disease; N18.9 Chronic kidney disease, unspecified; Z68.41 Body mass index [BMI] 40.0-44.9, adult; Z90.710 Acquired absence of both cervix and uterus; Z90.49 Acquired absence of other specified parts of digestive tract; Z90.89 Acquired absence of other organs; Z79.51 Long term (current) use of inhaled steroids; Z79.891 Long term (current) use of opiate analgesic; Z79.899 Other long term (current) drug therapy; Z79.1 Long term (current) use of non-steroidal anti-inflammatories (NSAID)

== ENCOUNTER 2021-11-28 16:06 | Emergency (ER) | payer OTHER ==
[~2021-11-28] VITALS: Ht 162.6 cm; Wt 118.4 kg
[~2021-11-28 16:06] MED LIST changes: +APAP W/CODEINE1 TA2 PO
[2021-11-28 16:36] VITALS: BP 125/74
[2021-11-28 20:36] LABS: CALCIUM 8.7 mg/dL (8.5-10.1); POTASSIUM 4.3 mmol/L (3.5-5.1)
[2021-11-28 20:39] LABS: ABSOLUTE NEUTROPHILS 4.7 thou/uL (1.4-8.2); BASOPHILS 0.9 % (0.0-2.0); EOSINOPHILS 5.1 % (0.0-3.0); HEMATOCRIT 38.3 % (37.0-47.0); HEMOGLOBIN 12.3 gm/dL (12.0-15.0); LYMPHOCYTES 17.3 % (24.0-44.0); MCH 25.8 pg (26.0-34.0); MCHC 32.2 g/dL (28.0-37.0); MCV 80.3 fL (80.0-100.0); MONOCYTES 6.6 % (1.0-8.0); PLATELET COUNT 268 thou/uL (150-400); POLYS 70.1 % (36.0-66.0); RBC 4.77 mil/uL (4.20-5.00); WBC 6.7 thou/uL (4.0-11.0)
[2021-11-28 20:45] LABS: ALBUMIN 3.1 g/dL (3.4-5.0); TOTAL BILIRUBIN 0.1 mg/dL (0.2-1.0); TOTAL PROTEIN 7.5 g/dL (6.4-8.2)
--- NOTE | 2021-11-29 08:11 | EKG ---
[address] [place] [address] ELECTROCARDIOGRAM REPORT Name: KARTHIK WEIR PHANI [id number] Admission: 11/28/21 Attend Phys: Discharge: 11/28/21 Date of : [birth year] Report #: [id number] [facility] ED Test Date: 2021-11-28 Test Time: 19:19:04 Pat Name: KARTHIK WEIR Department: Room: Gender: F Physical Medicine Specialist: LEOLA : 1970 Requested By: Rosalba Graham Order Number: [id number] MD: Jaguar Dickey Measurements Intervals [place] Rate: 82 P: 44 RI: 159 QRS: -26 QRSD: 105 T: 58 QT: 415 QTc: 485 Interpretive Statements Sinus rhythm Borderline left axis deviation Abnormal T, consider ischemia, anterior leads Compared to ECG 09/16/2021 17:15:26 No significant changes Electronically Signed On 11-29-2021 8:11:25 MILL OILER by Jagaur Dickey [email or web address] <ELECTRONICALLY SIGNED> By: Jaguar Dickey MD, [facility] 11/29/21 0811 18 18 Jaguar Dickey MD, FACC /EPI
== END 2021-11-28 22:00 | disposition home or self-care (01) ==
LOC: ER 16:06
PROVIDERS: Nurse Practitioner
DX: U07.1 COVID-19 (principal); I12.9 Hypertensive chronic kidney disease with stage 1 through stage 4 chronic kidney disease, or unspecified chronic kidney disease; N18.9 Chronic kidney disease, unspecified; J45.909 Unspecified asthma, uncomplicated; G89.29 Other chronic pain; E66.9 Obesity, unspecified; Z90.710 Acquired absence of both cervix and uterus; Z90.49 Acquired absence of other specified parts of digestive tract; Z79.899 Other long term (current) drug therapy

== ENCOUNTER 2021-12-01 17:29 | Emergency (ER) | payer OTHER ==
[~2021-12-01] VITALS: Ht 162.6 cm; Wt 118.4 kg
[2021-12-01 18:52] LABS: ABSOLUTE NEUTROPHILS 7.3 thou/uL (1.4-8.2); BASOPHILS 0.9 % (0.0-2.0); EOSINOPHILS 1.7 % (0.0-3.0); HEMOGLOBIN 12.4 gm/dL (12.0-15.0); LYMPHOCYTES 10.3 % (24.0-44.0); MCH 25.6 pg (26.0-34.0); MCHC 31.9 g/dL (28.0-37.0); MCV 80.5 fL (80.0-100.0); MONOCYTES 5.4 % (1.0-8.0); PLATELET COUNT 261 thou/uL (150-400); POLYS 81.7 % (36.0-66.0); RBC 4.85 mil/uL (4.20-5.00); WBC 8.9 thou/uL (4.0-11.0)
[2021-12-01 18:55] LABS: CALCIUM 8.7 mg/dL (8.5-10.1); POTASSIUM 4.3 mmol/L (3.5-5.1)
[2021-12-01 19:06] LABS: ALBUMIN 3.2 g/dL (3.4-5.0); TOTAL BILIRUBIN 0.2 mg/dL (0.2-1.0)
[2021-12-01] MEDS ORDERED: ZOFRAN ODT4 MG PO (23:25)
[2021-12-02 00:04] VITALS: BP 107/68
--- NOTE | 2021-12-02 09:39 | EKG ---
[address] [address] [facility] [place] [address] ELECTROCARDIOGRAM REPORT Name: KARTHIK WEIR PHANI [facility] [id number] Admission: 12/01/21 Attend Phys: Discharge: 12/02/21 Date of : 66 Report #: [id number] [facility] ED Test Date: 2021-12-01 Test Time: 17:37:06 Pat Name: KARTHIK WEIR Department: Room: Gender: F Parent Educator: SHANNON : 1970 Requested By: Con Hammond Order Number: [id number] MD: Bo Herzog Measurements Intervals [place] Rate: 102 P: 18 [place]: 151 QRS: -29 QRSD: 98 T: 97 QT: 346 QTc: 451 Interpretive Statements Sinus tachycardia Borderline left axis deviation Abnormal R-wave progression, late transition Nonspecific T abnrm, anterolateral leads Compared to ECG 11/28/2021 19:19:04 Sinus rhythm no longer present T-wave abnormality no longer present Possible ischemia no longer present Electronically Signed On 12-02-2021 9:39:51 DRY KILN OPERATOR HELPER by Bo Herzog [email or web address] <ELECTRONICALLY SIGNED> By: Bo Herzog MD, [facility] 12/02/21 0939 1737 1737 Bo Herzog MD, [facility] /EPI
== END 2021-12-02 00:05 | disposition home or self-care (01) ==
LOC: ER 17:29
PROVIDERS: Emergency Medicine
DX: M79.10 Myalgia, unspecified site (principal); R06.02 Shortness of breath; J45.909 Unspecified asthma, uncomplicated; F41.9 Anxiety disorder, unspecified; I12.9 Hypertensive chronic kidney disease with stage 1 through stage 4 chronic kidney disease, or unspecified chronic kidney disease; N18.9 Chronic kidney disease, unspecified; K21.9 Gastro-esophageal reflux disease without esophagitis; E66.01 Morbid (severe) obesity due to excess calories; Z90.710 Acquired absence of both cervix and uterus; Z90.49 Acquired absence of other specified parts of digestive tract; Z90.89 Acquired absence of other organs; Z79.899 Other long term (current) drug therapy; Z79.891 Long term (current) use of opiate analgesic; Z79.1 Long term (current) use of non-steroidal anti-inflammatories (NSAID)

== ENCOUNTER 2021-12-15 15:48 | Emergency (ER) | payer OTHER ==
[~2021-12-15] VITALS: Ht 162.6 cm; Wt 118.4 kg
[2021-12-15] MEDS ORDERED: XANAX 0.5 MG0.5 M1 PO (16:08)
[2021-12-15] MEDS ORDERED: AMITRIPTYLINE100 MG PO (16:09)
[2021-12-15] MEDS ORDERED: ABILIFY15 MG PO (16:09)
[2021-12-15] MEDS ORDERED: METFORMIN HCL500 M3 PO (16:10)
[2021-12-15 17:54] LABS: HEMATOCRIT 36.9 % (37.0-47.0); HEMOGLOBIN 11.6 gm/dL (12.0-15.0); MCH 25.2 pg (26.0-34.0); MCHC 31.6 g/dL (28.0-37.0); MCV 79.8 fL (80.0-100.0); RBC 4.62 mil/uL (4.20-5.00); RDW 17.1 % (10.5-14.5); WBC 19.8 thou/uL (4.0-11.0)
[2021-12-15 18:07] LABS: CALCIUM 8.7 mg/dL (8.5-10.1)
[2021-12-15 18:17] LABS: ALBUMIN 3.3 g/dL (3.4-5.0); TOTAL BILIRUBIN 0.2 mg/dL (0.2-1.0); TOTAL PROTEIN 7.1 g/dL (6.4-8.2)
[2021-12-15 18:48] LABS: URINE BILIRUBIN NEGATIVE (Negative); URINE BLOOD NEGATIVE (Negative); URINE CLARITY CLEAR; URINE COLOR YELLOW; URINE GLUCOSE-RANDOM* NEGATIVE (Negative); URINE KETONES NEGATIVE (Negative); URINE NITRITE-REFLEX NEGATIVE (Negative); URINE PROTEIN (DIPSTICK) NEGATIVE (Negative); URINE SPECIFIC GRAVITY >= 1.030 (1.005-1.035); URINE UROBILINOGEN 0.2 E.U./dl (0.2-1.0)
[2021-12-15 18:50] LABS: URINE LEUKOCYTES-REFLEX 1+ (Negative)
[2021-12-15 19:04] LABS: SQUAMOUS 4-10 Moderate /LPF (0-3); URINE RBC 1-2 Rare /HPF (NONE SEEN); URINE WBC-REFLEX >25 Many /HPF (0-5)
[2021-12-15 19:05] LABS: BACTERIA-REFLEX 1-9 Few /HPF (None Seen); CASTS None Seen /LPF (None Seen); CRYSTALS None Seen /LPF (None Seen)
[2021-12-15] MEDS ORDERED: LEVOFLOXACIN750 MG PO (20:49)
[2021-12-15] MEDS ORDERED: METHOCARBAMOL500 M2 PO (20:49)
[2021-12-15 22:31] VITALS: BP 114/74
--- NOTE | 2021-12-16 11:32 | EKG ---
[facility] [place] [address] ELECTROCARDIOGRAM REPORT Name: KARTHIK WEIR PHANI Room #: DEP [place]#: [id number] Admission: 12/15/21 Attend Phys: Discharge: 12/15/21 Date of : 66 Report #: [id number] [facility] ED Test Date: 2021-12-15 Test Time: 15:57:59 Pat Name: KARTHIK WEIR Department: Room: Gender: F Sap Bw Architect: EMILY : 1970 Requested By: Rubi Holt Order Number: [id number] MD: Palmer Melgar Measurements Intervals [place] Rate: 76 P: 25 [place]: 157 QRS: -26 QRSD: 105 T: 125 QT: 353 QTc: 397 Interpretive Statements Sinus rhythm Abnormal R-wave progression, early transition Probable LVH with secondary repol abnrm Compared to ECG 12/01/2021 17:37:06 Sinus tachycardia no longer present Electronically Signed On 12-16-2021 11:31:55 LICENSED LOAN OFFICER by Palmer Melgar [email or web address] <ELECTRONICALLY SIGNED> By: Palmer Melgar MD 12/16/21 1131 1557 1557 Palmer Melgar MD /HARSHAL
== END 2021-12-15 22:33 | disposition home or self-care (01) ==
LOC: ER 15:48
PROVIDERS: Nurse Practitioner Family
DX: U07.1 COVID-19 (principal); N39.0 Urinary tract infection, site not specified; J12.82 Pneumonia due to coronavirus disease 2019; J45.909 Unspecified asthma, uncomplicated; F41.9 Anxiety disorder, unspecified; F32.9 Major depressive disorder, single episode, unspecified; I12.9 Hypertensive chronic kidney disease with stage 1 through stage 4 chronic kidney disease, or unspecified chronic kidney disease; N18.9 Chronic kidney disease, unspecified; Z90.710 Acquired absence of both cervix and uterus; Z90.49 Acquired absence of other specified parts of digestive tract; Z79.899 Other long term (current) drug therapy